=== PATIENT | male | born 1940 | race Caucasian/White ===

== ENCOUNTER 2016-07-06 07:39 | Day surgery (SDC) | payer OTHER, BC ==
[2016-07-03 14:26] VITALS: BMI 41.0
[2016-07-06] MEDS ORDERED: LIDOCAINE HCL/PF 1% SDV 5ML VIAL ONE (09:32)
[2016-07-06] MEDS ORDERED: PROPOFOL 20 ML ONE ×2 (09:32)
[2016-07-06 10:45] VITALS: TEMP 97.6
[2016-07-06 11:30] VITALS: BP 123/64; PULSE 88
--- NOTE | 2016-07-07 12:53 | PATH ---
Surgical Pathology Report Patient Name: TALAT FELDMAN SR [facility]. Rec. #: [id number] /Age/Gender: 1940 (Age: 76) / M Account: [id number] Location: [facility]-ENDOSCOPY Taken: 07/06/2016 Received: 07/06/2016 Reported: 07/07/2016 Physicians: Amy Robbins M.D. Specimen(s) Received A: TRANSVERSE COLON POLYPS B: BX CECAL POLYP C: BX PROXIMAL TRANSVERSE COLON SUSPECTED LIPOMA Clinical History Adenoma surveillance Polyps, diverticulosis, suspected lipoma in proximal transverse colon Final Diagnosis A. COLON, PROXIMAL TRANSVERSE, SNARE POLYPECTOMY: MULTIPLE PORTIONS OF TUBULAR ADENOMA. B. COLON, CECUM, BIOPSY: COLONIC MUCOSA WITH NO PATHOLOGIC CHANGES. NO ACTIVE COLITIS, ARCHITECTURAL DISTORTION, GRANULOMATA, OR DYSPLASIA IDENTIFIED. NO MICROSCOPIC COLITIS IDENTIFIED (NO LYMPHOCYTIC OR COLLAGENOUS COLITIS IDENTIFIED). C. COLON, PROXIMAL TRANSVERSE, BIOPSY: COLONIC MUCOSA WITH BENIGN LYMPHOID AGGREGATE WITHIN LAMINA PROPRIA. NO ADENOMATOUS CHANGES IDENTIFIED. Electronically Signed Mitch Nicole M.D. Gross Description A. Received in formalin, labeled "colon polyp proximal transverse" are 9 hagan, irregular to polypoid portions of soft tissue ranging from 0.2-0.6 cm. in greatest dimension. The specimens are submitted in toto in one cassette. B. Received in formalin, labeled "biopsy cecal polyp" are 5 hagan, irregular portions of soft tissue ranging from 0.1-0.3 cm. in greatest dimension. The specimens are submitted in toto in one cassette. C. Received in formalin, labeled "biopsy proximal transverse" are 2 hagan, irregular portions of soft tissue averaging 0.2 cm. in greatest dimension. The specimens are submitted in toto in one cassette. DL/07/06/2016 saudi/07/06/2016
== END 2016-07-06 11:30 | disposition home or self-care (01) ==
LOC: JASU-ENDO 07:39
PROVIDERS: ATTEND Internal Medicine Gastroenterology
PROC: 0DBK8ZX Excision of Ascending Colon, Via Natural or Artificial Opening Endoscopic, Diagnostic (ICD-10-PCS; 2016-07-06)
PROC: 0DBH8ZX Excision of Cecum, Via Natural or Artificial Opening Endoscopic, Diagnostic (ICD-10-PCS; 2016-07-06)
PROC: 0DBL8ZX Excision of Transverse Colon, Via Natural or Artificial Opening Endoscopic, Diagnostic (ICD-10-PCS; principal; 2016-07-06 09:00)
DX: Z86.010 Personal history of colon polyps (principal); D12.0 Benign neoplasm of cecum; D12.3 Benign neoplasm of transverse colon; K57.30 Diverticulosis of large intestine without perforation or abscess without bleeding; D17.5 Benign lipomatous neoplasm of intra-abdominal organs
CPT/HCPCS: 88305-TC

== ENCOUNTER 2017-03-01 11:39 | Emergency (ER) | payer OTHER, BC ==
[2017-03-01 11:42] VITALS: BMI 38.7
--- NOTE | 2017-03-01 12:03 | PDOC ---
History of Present Illness <Braxton Koo - Last Filed: 03/01/17 14:57> - General History Source: Patient Exam Limitations: No Limitations - History of Present Illness Initial Comments: 03/01/17 12:22 76 y/o M with a PMHx of NIDDM, diverticulosis, colon adenomas, HTN, HLD presents to the ED with constipation for 10 days. Patient tried a suppository from GI but did not work. tried home remedies which also did not work. Patient denies nausea, vomiting, diarrhea, abdominal pain. Denies fever, chills. Denies chest pain, SOB. GI: Dr. Amy Robbins <Dinorah Meraz - Last Filed: 03/01/17 16:17> - General Chief Complaint: Pain Stated Complaint: CONSTIPATION Time Seen by Provider: 03/01/17 12:02 Past History - Past Medical History Anemia: No Asthma: No Cancer: Yes (right eye lid cancer- skin ca, rt kidney cancer) Cardiac Disorders: Yes (PAF?) CVA: No COPD: No CHF: No Dementia: No Diabetes: Yes (NIDDM) GI Disorders: Yes (diverticulosis, colon adenomas) Disorders: No HTN: Yes Hypercholesterolemia: Yes Liver Disease: No Seizures: No Thyroid Disease: No - Surgical History Abdominal Surgery: No Appendectomy: Yes (as a child) Cardiac Surgery: No Cholecystectomy: Yes (LAP) Lung Surgery: No Neurologic Surgery: No Orthopedic Surgery: Yes (LT KNEE) - Suicide/Smoking/Psychosocial Hx Smoking History: Never smoked Have you smoked in the past 12 months: No If you are a former smoker, when did you quit?: 1973 Information on smoking cessation initiated: No Hx Alcohol Use: No Drug/Substance Use Hx: No Substance Use Type: None <Braxton Koo - Last Filed: 03/01/17 14:57> <Dinorah Meraz - Last Filed: 03/01/17 16:17> - Past Medical History Allergies/Adverse Reactions: Allergies Allergy/AdvReac Type Severity Reaction Status Date / Time No Known Drug Allergies Allergy Verified 03/01/17 11:39 Home Medications: Ambulatory Orders Ezetimibe/Simvastatin [Vytorin 10-20 mg Tablet] 1 tab PO HS #0 tablet 09/18/13 Metformin HCl [Glucophage] 500 mg PO HS 11/24/13 Cholecalciferol (Vitamin D3) [Vitamin D3 -] 1,000 unit PO DAILY 07/03/16 Losartan Potassium 25 mg PO HS 07/03/16 Multivitamin with Minerals [Icaps Plus] 1 each PO DAILY 07/03/16 Rivaroxaban [Xarelto -] 20 mg PO HS #0 07/06/16 Polyethylene Glycol 3350 [Miralax (For Bowel Prep) -] 255 gm PO DAILY #1 btl Review of Systems - Review of Systems Able to Perform ROS?: Yes Comments:: 03/01/17 12:22 GENERAL/CONSTITUTIONAL: No fever or chills. No weakness. HEAD, EYES, EARS, NOSE AND THROAT: No change in vision. No ear pain or discharge. No sore throat. CARDIOVASCULAR: No chest pain or shortness of breath. RESPIRATORY: No cough, wheezing, or hemoptysis. GASTROINTESTINAL: No nausea, vomiting, diarrhea or constipation. GENITOURINARY: No dysuria, frequency, or change in urination. MUSCULOSKELETAL: No joint or muscle swelling or pain. No neck or back pain. SKIN: No rash NEUROLOGIC: No headache, vertigo, loss of consciousness, or change in strength/ sensation. ENDOCRINE: No increased thirst. No abnormal weight change. HEMATOLOGIC/LYMPHATIC: No anemia, easy bleeding, or history of blood clots. ALLERGIC/IMMUNOLOGIC: No hives or skin allergy. <Dinorah Meraz - Last Filed: 03/01/17 16:17> *Physical Exam - Vital Signs Last Vital Signs Temp Pulse Resp BP Pulse Ox 98.3 F 88 18 142/93 100 03/01/17 11:40 03/01/17 11:40 03/01/17 11:40 03/01/17 11:40 03/01/17 11:40 <Braxton Koo - Last Filed: 03/01/17 14:57> - Vital Signs Last Vital Signs Temp Pulse Resp BP Pulse Ox 98.3 F 88 18 142/93 100 03/01/17 11:40 03/01/17 11:40 03/01/17 11:40 03/01/17 11:40 03/01/17 11:40 - Physical Exam Comments: 03/01/17 12:22 GENERAL: Awake, alert, and fully oriented, in no acute distress HEAD: No signs of trauma EYES: PERRLA, EOMI, sclera anicteric, conjunctiva clear ENT: Auricles normal inspection, hearing grossly normal, nares patent, oropharynx clear without exudates. Moist mucosa NECK: Normal ROM, supple, no lymphadenopathy, JVD, or masses LUNGS: Breath sounds equal, clear to auscultation bilaterally. No wheezes, and no crackles HEART: Regular rate and rhythm, normal S1 and S2, no murmurs, rubs or gallops ABDOMEN: Soft, nontender, normoactive bowel sounds. No guarding, no rebound. No masses EXTREMITIES: Normal range of motion, no edema. No clubbing or cyanosis. No cords, erythema, or tenderness NEUROLOGICAL: Cranial nerves II through XII grossly intact. Normal speech, normal gait SKIN: Warm, Dry, normal turgor, no rashes or lesions noted. RECTAL: Baseball sized brown stool in vault, no hemorrhoids, no obstruction, no prolapse <Dinorah Meraz - Last Filed: 03/01/17 16:17> ED Treatment Course - RADIOLOGY Radiograph Interpretation: 03/01/17 14:12 Abdominal X-Ray Reported by Dr. Harley Wall Impression: Nonobstructive bowel gas pattern. Paucity of air in the small bowel loops, rule out fluid-filled bowel loops/ ileus. <Dinorah Meraz - Last Filed: 03/01/17 16:17> Medical Decision Making - Medical Decision Making 03/01/17 16:[address] Robbins. He said to give Magnesium Citrate and discharge the patient afterwards. <Dinorah Meraz - Last Filed: 03/01/17 16:17> *DC/Admit/Observation/Transfer - Discharge Dispostion Admit: No - Attestations Physician Attestion: 03/01/17 12:03 I, Dr. Braxton Koo, attest that this document has been prepared under my direction and personally reviewed by me in its entirety. I further attest, that it accurately reflects all work, treatment, procedures and medical decision -making performed by me. <Braxton Koo - Last Filed: 03/01/17 14:57> - Attestations Scribe Attestion: 03/01/17 12:23 Documentation prepared by Dinorah Meraz, acting as medical center director for Braxton Koo DO. <Dinorah Meraz - Last Filed: 03/01/17 16:17> Diagnosis at time of Disposition: Constipation, acute - Discharge Dispostion Condition at time of disposition: Good - Prescriptions Prescriptions: Polyethylene Glycol 3350 [Miralax (For Bowel Prep) -] 255 gm PO DAILY #1 btl - Referrals Referrals: Jose Francisco Nicole MD [Primary Care Provider] - - Patient Instructions Printed Discharge Instructions: DI for Constipation Print Language: PALAUAN
[2017-03-01] MEDS ORDERED: MAGNESIUM CITRATE 300 ML BOTTLE PO ONE ×2 (12:15→15:37)
[2017-03-01] MEDS ORDERED: ONDANSETRON *ODT* 4 MG TABLET SL ONE (12:15)
[2017-03-01] MEDS ORDERED: ONDANSETRON 8 MG TABLET (FP) PO ONE (12:21)
[2017-03-01] MEDS ORDERED: MAGNESIUM CITRATE 300 ML BOTTLE ONE ×2 (12:21→15:46)
[2017-03-01 15:33] VITALS: BP 138/89; PULSE 80; TEMP 97.8
== END 2017-03-01 16:25 | disposition home or self-care (01) ==
LOC: JER 11:39
DX: K59.00 Constipation, unspecified (principal); I10 Essential (primary) hypertension; E11.9 Type 2 diabetes mellitus without complications; Z79.84 Long term (current) use of oral hypoglycemic drugs; E78.00 Pure hypercholesterolemia, unspecified
CPT/HCPCS: 74020-TC; 99282-25

== ENCOUNTER 2017-03-10 08:24 | Day surgery (SDC) | payer OTHER, BC ==
[2017-03-10 09:10] VITALS: BMI 38.7
[2017-03-10] MEDS ORDERED: LIDOCAINE HCL/PF 2% SDV 5ML VIAL ONE (09:27)
[2017-03-10] MEDS ORDERED: PROPOFOL 20 ML ONE (09:27)
[2017-03-10 11:10] VITALS: BP 147/90; PULSE 70; TEMP 99
--- NOTE | 2017-03-11 14:21 | PATH ---
Surgical Pathology Report Patient Name: TALAT FELDMAN [facility]. Rec. #: [id number] /Age/Gender: 1940 (Age: 76) / M Account: [id number] Location: [facility]-ENDOSCOPY Taken: 03/10/2017 Received: 03/10/2017 Reported: 03/11/2017 Physicians: Amy Robbins M.D. Specimen(s) Received A: BX DUODENUM B: BX ANTRUM C: BX GE JUNCTION Clinical History Weight loss, abdominal pain Gastritis Final Diagnosis A. DUODENUM, SECOND PORTION BULB, BIOPSY: DUODENAL MUCOSA WITH FOCAL DANGELO'S GLANDS HYPERPLASIA. NO HISTOLOGIC EVIDENCE OF GLUTEN SENSITIVE ENTEROPATHY (CELIAC DISEASE). B. STOMACH, ANTRUM, BIOPSY: GASTRIC ANTRAL AND OXYNTIC MUCOSA WITH MILD TO MODERATE CHRONIC GASTRITIS. IMMUNOSTAIN FOR H. PYLORI IS NEGATIVE FOR ORGANISMS. C. GE JUNCTION AND MID ESOPHAGUS, BIOPSY: SQUAMOUS EPITHELIUM WITH CHRONIC INFLAMMATION AND REFLUX TYPE CHANGES. NO COLUMNAR EPITHELIUM PRESENT (NO INTESTINAL METAPLASIA/HANSON'S ESOPHAGUS IDENTIFIED). NO EVIDENCE OF EOSINOPHILIC ESOPHAGITIS. Electronically Signed Erik Redding M.D. Gross Description A. Received in formalin, labeled "second portion of duodenum and bulb" are 3 fragment of hagan tissue 0.3 cm in greatest dimension. The specimens are submitted in toto in one cassette. B. Received in formalin, labeled "antrum" is a fragment of hagan tissue measuring 0.3 cm in greatest dimension. The specimen is submitted in toto in one cassette. C. Received in formalin, labeled "GE junction and mid esophagus" are three fragments of hagan-white tissue 0.2-0.3 cm in greatest dimension. The specimens are submitted in toto in one cassette. AF/03/10/2017 final/03/10/2017
== END 2017-03-10 11:09 | disposition home or self-care (01) ==
LOC: JASU-ENDO 08:24
PROVIDERS: ATTEND Internal Medicine Gastroenterology
PROC: 0DB68ZX Excision of Stomach, Via Natural or Artificial Opening Endoscopic, Diagnostic (ICD-10-PCS; 2017-03-10)
PROC: 0DB28ZX Excision of Middle Esophagus, Via Natural or Artificial Opening Endoscopic, Diagnostic (ICD-10-PCS; 2017-03-10)
PROC: 0DB38ZX Excision of Lower Esophagus, Via Natural or Artificial Opening Endoscopic, Diagnostic (ICD-10-PCS; 2017-03-10)
PROC: 0DB98ZX Excision of Duodenum, Via Natural or Artificial Opening Endoscopic, Diagnostic (ICD-10-PCS; principal; 2017-03-10 09:30)
DX: K29.70 Gastritis, unspecified, without bleeding (principal); K44.9 Diaphragmatic hernia without obstruction or gangrene; K21.9 Gastro-esophageal reflux disease without esophagitis
CPT/HCPCS: 88305-TC; 88342-TC

== ENCOUNTER 2017-04-12 08:37 | Emergency (ER) | payer OTHER, BC ==
[2017-04-12 08:42] VITALS: TEMP 98.6; BMI 37.2
[2017-04-12] MEDS ORDERED: SODIUM CHLORIDE 0.9% 1000 ML INFUS.BAG IV ONE (09:38)
--- NOTE | 2017-04-12 10:09 | PDOC ---
Attending Attestation - Resident Resident Name: OrvilleDaisy - ED Attending Attestation I have performed the following: I have examined & evaluated the patient, The case was reviewed & discussed with the resident, I agree w/resident's findings & plan, Exceptions are as noted - HPI HPI: 04/12/17 10:04 76-year-old male with history of hypertension, diabetes, apparent lumbar mass scheduled for biopsy today presents with first for evaluation of left rib pain following fall 2 days ago. Patient was started on opiates for his lumbar pain about 10 days ago, 2 days ago upon awakening felt lightheaded after standing and fell to the ground striking his left ribs. There was no head injury or loss of consciousness, but he has had discomfort localized to the area since then. Worse with positional changes and deep inspiration, no cough or fevers or chills , no shortness of breath or chest pain. No hematuria or abdominal pain, no change in his baseline low back pain. Patient was referred to the emergency department for imaging to rule out fracture prior to his scheduled biopsy at 10 AM. The patient has been NPO since midnight. He has no complaints whatsoever at this time of lightheadedness or chest pain or difficulty breathing. - Physicial Exam PE: 04/12/17 10:07 O2 sat 94% on room air, respiratory rate 20 while seated in chair, blood pressure normal. Agree with exam as outlined Slight rhonchi at left base but no absent breath sounds, chest rise is symmetric , there is pinpoint reproducible tenderness in the lower left floating ribs around 9 and 10 in the axillary line without overlying bruising or swelling, there is no CVA tenderness or abdominal tenderness. - Medical Decision Making 04/12/17 10:09 Patient seen and evaluated with the resident. I agree with the overall evaluation, assessment, and management with the following summary of visit: 76-year-old male with fall 48 hours ago, presumably in the setting of orthostatic symptoms that have since resolved. Positive left rib injury, rule out fracture and/or underlying lung injury. O2 sat is 94% the patient feels asymptomatic. Left rib series and chest x-ray, lumbar spine film added Refusing labs or EKG given lightheadedness with fall. Since this was 48 hours ago and he has since returned to baseline, we'll await chest x-ray findings. The patient is more concerned about getting to his 10am biopsy 10/30/17 12:[address] Oliveros, will defer biopsy until . pt remains comfortable, O2 sat improved on room air. he has been comfortable seated in wheelchair laughing with staff. Feels much better after finding out his scheduled biopsy was temporarily cancelled. isolated 7th rib fracture on xray without underlying lung injury. counseled re: importance of pain control, incentive spirometry, return criteria.
--- NOTE | 2017-04-12 10:16 | PDOC ---
History of Present Illness - General Chief Complaint: Injury Stated Complaint: INJURY Time Seen by Provider: 04/12/17 08:53 History Source: Patient, Family - History of Present Illness Initial Comments: 04/12/17 10:22 Portions of HPI provided by patient's son @ bedside. Patient is a 76 y.o. male with a PMH RCC (s/p R sided nephrectomy), DLD and recently diagnosed spinal mass @ L3-L4 who presents following a fall on Tuesday 04/10. Patient notes he stood up to go from the couch to the kitchen and felt "dizzy" which he described as a sensation of the room spinning patient grabbed onto a nearby roller cart and fell landing on his right side. Patient denies any head trauma or LOC and notes he was ambulatory afterward though he does have pain in R lateral rib cage as well as parapspinal tenderness in the lumbar area. Patient does endorse pleuritic chest pain but denies any mental status changes, difficulty ambulating or decreased range of motion in his back or right side upper extremity. Patient is scheduled for a biopsy later this morning and is seeking a chest x-ray at the request of his radiologist, Dr. Colunga. NKDA Surgical: Cholecystectomy, R nephrectomy, Appendectomy Social: denies cigarettes, denies alcohol, denies recreational drugs PMD: Dr. Nicole Past History - Past Medical History Allergies/Adverse Reactions: Allergies Allergy/AdvReac Type Severity Reaction Status Date / Time No Known Drug Allergies Allergy Verified 04/12/17 08:39 Home Medications: Ambulatory Orders Ezetimibe/Simvastatin [Vytorin 10-20 mg Tablet] 1 tab PO HS #0 tablet 09/18/13 Metformin HCl [Glucophage] 500 mg PO HS 11/24/13 Cholecalciferol (Vitamin D3) [Vitamin D3 -] 1,000 unit PO DAILY 07/03/16 Multivitamin with Minerals [Icaps Plus] 1 each PO DAILY 07/03/16 Rivaroxaban [Xarelto -] 20 mg PO HS #0 07/06/16 Pantoprazole Sodium 40 mg PO DAILY #90 tablet. 03/10/17 Metoprolol Succinate [Toprol XL -] 50 mg PO ASDIR 04/08/17 Oxycodone HCl 1 tab PO PRN PRN 04/08/17 Polyethylene Glycol 3350 [Miralax 119 gm Btl -] 119 gm PO ASDIR 04/08/17 Unobtainable 04/12/17 Anemia: No Asthma: No Cancer: Yes (right eye lid cancer- skin ca, rt kidney cancer) Cardiac Disorders: Yes (PAF?) CVA: No COPD: No CHF: No Dementia: No Diabetes: Yes (NIDDM) GI Disorders: Yes (diverticulosis, colon adenomas) Disorders: No HTN: Yes Hypercholesterolemia: Yes Liver Disease: No Seizures: No Thyroid Disease: No - Surgical History Abdominal Surgery: No Appendectomy: Yes (as a child) Cardiac Surgery: No Cholecystectomy: Yes (LAP) Lung Surgery: No Neurologic Surgery: No Orthopedic Surgery: Yes (LT KNEE) - Suicide/Smoking/Psychosocial Hx Smoking History: Never smoked Have you smoked in the past 12 months: No If you are a former smoker, when did you quit?: 1973 Information on smoking cessation initiated: No Hx Alcohol Use: No Drug/Substance Use Hx: No Substance Use Type: None Review of Systems - Review of Systems Constitutional: No: Chills, Fever Respiratory: No: Cough, Orthopnea Cardiac (ROS): No: Chest Pain Musculoskeletal: Yes: Back Pain *Physical Exam - Vital Signs Last Vital Signs Temp Pulse Resp BP Pulse Ox 98.6 F 73 28 H 189/93 94 L 04/12/17 08:39 04/12/17 08:39 04/12/17 08:39 04/12/17 08:39 04/12/17 08:39 - Physical Exam General Appearance: Yes: Nourished, Appropriately Dressed Neck: positive: Trachea midline, Supple Cardiovascular: positive: S1, S2 Musculoskeletal: positive: Normal Inspection, Other (Paraspinal TTP in lumbar area and L lateral inferior ribs). negative: CVA Tenderness (R), CVA Tenderness (L) Extremity: positive: Normal Capillary Refill, Normal Inspection Integumentary: positive: Normal Color, Dry, Warm Neurologic: positive: Fully Oriented, Alert ED Treatment Course - RADIOLOGY Radiology Studies Ordered: Category Date Time Status SPINE-LUMBAR ONLY [RAD] Stat Radiology 04/12/17 09:26 Ordered - Medications Given in the ED: ED Medications Discontinued Medications Generic Name Dose Route Start Last Admin Trade Name Freq PRN Reason Stop Dose Admin Sodium Chloride 500 ml 04/12/17 09:38 04/12/17 09:53 Normal Saline - IV 04/12/17 09:39 Not Given ONCE ONE Medical Decision Making - Medical Decision Making 04/12/17 11:19 Patient is a 76 y.o. male who presents following a fall @ home > 48 hour previous and is c/o L rib and paraspinal pain in the lumbar area (patient has previously diagnosed mass @ L3-L4). On PE patient has significant L inferior lateral rib cage as well paraspinal lumbar tenderness. Initial DDx is for rib fracture (high clinical suspicion) vs. pulmonary contusion (low clinical suspicion) vs. pneumothorax (low clinical suspicion) PLAN: 1. Rib Series XR 2. Lumbar XR 04/12/17 13:05 Rib series shows possible non-displaced fracture of lateral arch of 7th rib. Lumbar XR shows no acute fracture or dislocation. Patient's O2 sats improved from admission (95% on RA). Patient counseled extensively on return precautions as well as counseled on incentive spirometer use and discharged home. *DC/Admit/Observation/Transfer Diagnosis at time of Disposition: Contusion of rib on left side - Discharge Dispostion Disposition: HOME Condition at time of disposition: Good Admit: No - Referrals Referrals: Jose Francisco Nicole MD [Primary Care Provider] - - Patient Instructions Printed Discharge Instructions: DI for Rib Fracture Additional Instructions: Please use your incentive spirometer 10x hourly. Please return to the Emergency Department should you develop a fever, cough, coughing up blood, chills or any worsening or concerning symptoms.
[2017-04-12] MEDS ORDERED: traMADol HCL 50 MG TABLET PO ONE (12:04)
[2017-04-12] MEDS ORDERED: traMADol HCL 50 MG TABLET ONE (12:19)
[2017-04-12 12:28] VITALS: BP 155/70; PULSE 71
== END 2017-04-12 13:05 | disposition home or self-care (01) ==
LOC: JER 08:37
DX: S20.212A Contusion of left front wall of thorax, initial encounter (principal); W07.XXXA Fall from chair, initial encounter; Y93.89 Activity, other specified; Y92.038 Other place in apartment as the place of occurrence of the external cause; I10 Essential (primary) hypertension; E11.9 Type 2 diabetes mellitus without complications; Z79.84 Long term (current) use of oral hypoglycemic drugs; E78.00 Pure hypercholesterolemia, unspecified; Z87.19 Personal history of other diseases of the digestive system; Z85.828 Personal history of other malignant neoplasm of skin; Z90.49 Acquired absence of other specified parts of digestive tract; Z90.5 Acquired absence of kidney
CPT/HCPCS: 71101-TC; 72100-TC; 99282-25

== ENCOUNTER 2017-05-28 12:24 | Inpatient (IN) | payer OTHER, BC ==
--- NOTE | 2017-05-28 12:49 | PDOC ---
History of Present Illness - General Chief Complaint: Weakness Stated Complaint: WEAKNESS Time Seen by Provider: 05/28/17 12:34 History Source: Patient - History of Present Illness Initial Comments: 05/28/17 12:56 Patient is a 76 y.o. male with a PMH of RCC (s/p L renal resection) with spinal metases as well as AFib (Riboxaran) and NIDDM who presents to our ED today following an incident in which he was unable to lift himself off the toilet. Patient denies any fall, head trauma or LOC. Patient notes feeling weak for the past month which he associates with the onset of his radiation treatments in April 2017. Patient notes intermittent palpitations on exertion but denies any chest pain, shortness of breath, recent fevers/chills. Patient has been ambulatory, however c/o of significant B/L LE weakness. NKDA PMD: Dr. Nicole Surgical: renal resection Past History - Past Medical History Allergies/Adverse Reactions: Allergies Allergy/AdvReac Type Severity Reaction Status Date / Time No Known Drug Allergies Allergy Verified 05/28/17 13:32 Home Medications: Ambulatory Orders Ezetimibe/Simvastatin [Vytorin 10-20 mg Tablet] 1 tab PO HS #0 tablet 09/18/13 Metformin HCl [Glucophage] 500 mg PO HS 11/24/13 Cholecalciferol (Vitamin D3) [Vitamin D3 -] 1,000 unit PO DAILY 07/03/16 Multivitamin with Minerals [Icaps Plus] 1 each PO DAILY 07/03/16 Rivaroxaban [Xarelto -] 20 mg PO HS #0 07/06/16 Pantoprazole Sodium 40 mg PO DAILY #90 tablet. 03/10/17 Metoprolol Succinate [Toprol XL -] 50 mg PO ASDIR 04/08/17 Oxycodone HCl 1 tab PO PRN PRN 04/08/17 Acetaminophen [Tylenol .Regular Strength -] 650 mg PO Q4H PRN #0 tablet Dexamethasone [Decadron -] 4 mg PO Q6HPO #30 tablet 04/18/17 Docusate Sodium [Colace -] 100 mg PO TID #100 cap 04/18/17 Polyethylene Glycol 3350 [Miralax 119 gm Btl -] 17 gm PO BID bottle 04/18/17 Anemia: No Asthma: No Cancer: Yes (right eye lid cancer- skin ca, rt kidney cancer) Cardiac Disorders: Yes (PAF?) CVA: No COPD: No CHF: No Dementia: No Diabetes: Yes (NIDDM) GI Disorders: Yes (diverticulosis, colon adenomas) Disorders: No HTN: Yes Hypercholesterolemia: Yes Liver Disease: No Seizures: No Thyroid Disease: No - Surgical History Abdominal Surgery: No Appendectomy: Yes (as a child) Cardiac Surgery: No Cholecystectomy: Yes (LAP) Lung Surgery: No Neurologic Surgery: No Orthopedic Surgery: Yes (LT KNEE) - Suicide/Smoking/Psychosocial Hx Smoking History: Former smoker Have you smoked in the past 12 months: No If you are a former smoker, when did you quit?: 1974 Hx Alcohol Use: No Drug/Substance Use Hx: No Substance Use Type: None Review of Systems - Review of Systems Constitutional: Yes: Weakness. No: Chills, Fever Respiratory: No: Shortness of Breath Cardiac (ROS): No: Chest Pain ABD/GI: No: Constipated, Diarrhea, Nausea, Vomiting *Physical Exam - Physical Exam General Appearance: Yes: Nourished, Obese Respiratory/Chest: positive: Lungs Clear. negative: Labored Respiration, Rapid RR Cardiovascular: positive: S1, S2. negative: Edema, JVD Vascular Pulses: Dorsalis-Pedis (R): 2+, Doralis-Pedis (L): 2+ Gastrointestinal/Abdominal: positive: Normal Bowel Sounds, Soft Musculoskeletal: negative: CVA Tenderness (R), CVA Tenderness (L), Vertebral Tenderness Extremity: positive: Normal Capillary Refill, Normal Inspection, Coldness (B/L LE weakness 2+ pulses), Other (B/L LE weakness, motor strength 4/5) Integumentary: positive: Normal Color, Dry, Warm Neurologic: positive: Fully Oriented, Alert ED Treatment Course - LABORATORY CBC & Chemistry Diagram: 05/28/17 13:30 05/28/17 13:30 Medical Decision Making - Medical Decision Making 05/28/17 14:51 Patient is a 76 y.o. male who presents with B/L LE weakness. On PE patient is hemodynamically stable, denies bowel or bladder incontinence and is ambulatory and weight bearing. Initial clinical suspicion for electrolyte abnormality 2/2 to decreased PO intake 2/2 to radiation treatment vs. persisent spinal mass 2/2 to recent spinal mets PLAN: 1. CBC, CMP 2. EKG Reasess 05/28/17 15:11 Patient continues to c/o pain. As per EMR, patient has h/o outside CT Scan that showed T4 R vertebral mass with pedicle involvement and canal encroachment , but no significant cord compression 05/28/17 16:01 Case d/w Dr. Flores, notes MRI machine @ [facility] cannot accommodate patient's body weight. Spoke with [facility] neurosurgery suggest CT spine and intervention prior to MRI. Thoracic CT pending. 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 Paged patient's neurosurgeon, Dr. Flores - indicates patient needs operative intervention. Patient given Ativan @ MRI. Will page Dr. Ashley for admission. 05/28/17 23:09 As per nursing staff from radiology- patient has T3/T4 compression. Corey/ Gabi paged for admission x3. 05/28/17 23:28 Patient to be admitted to hospitalist service under Dr. Jennings. *DC/Admit/Observation/Transfer Diagnosis at time of Disposition: Spinal cord compression - Discharge Dispostion Condition at time of disposition: Fair Admit: Yes - Referrals Referrals: Jose Francisco Nicole MD [Primary Care Provider] - - Patient Instructions - Post Discharge Activity
--- NOTE | 2017-05-28 13:08 | PDOC ---
Attending Attestation - Resident Resident Name: Daisy Jacinto - ED Attending Attestation I have performed the following: I have examined & evaluated the patient, The case was reviewed & discussed with the resident, I agree w/resident's findings & plan, Exceptions are as noted - HPI HPI: 05/28/17 13:06 76y M hx of hx of RCC (s/p L renal resection), spinal mets, afib (on riboaxaran) , niddm, presents with complaint of weakness. The pt was admitted to the hospital recently with enlarging mass in his back, is currently undergoing radiation therapy, notes that he has been feeling increasing weakness of his LE , with more difficulty walking (over 3 weeks) - today, he notes he was unable to stand up when he was seated on the toilet. there was no fall or other injury. Pt denies any numbness, tingling, urinary or bowel incontinence, pt notes he does have pain in his back. Denies any fever/chills, sob, cp. on exam the pt is in no acute distress mild tenderness on posterior spine mild weakness of le (4/5) bilaterally sensatio nintact in LE/pelvis concern for possibly worsening of his mass pt is too large for our MRI per neurosurg (who is familiar with him) reqeuests transfer to [facility] for further evaluation - Physicial Exam PE: 05/31/17 18:59 see above - Medical Decision Making 05/31/17 18:59 see above Heart Score/ECG Review - ECG Impressions Comment:: 05/28/17 16:32 Atrial bluter rate of 45 variable av block
[2017-05-28 14:29] LABS: MCH 29.6 pg (25.7-33.7); MCHC 33.3 g/dl (32.0-35.9); MEAN PLT VOLUME 7.7 fl (7.5-11.1); PLATELET COUNT 118 K/MM3 (134-434); RDW 15.4 % (11.9-15.9)
[2017-05-28 14:49] LABS: ALBUMIN 2.9 g/dl (3.4-5.0); ALK PHOS 121 U/L (45-117); ANION GAP 11 (8-16); BILIRUBIN,TOTAL 0.8 mg/dL (0.2-1.0); CALCIUM 8.8 mg/dL (8.5-10.1); CO2 27 mmol/L (21-32); CREATININE 0.9 mg/dL (0.7-1.3); GLUCOSE,RANDOM 165 mg/dL (74-106); SGOT/AST 35 U/L (15-37); SGPT/ALT 58 U/L (12-78); TOT PROT 5.8 g/dl (6.4-8.2)
[2017-05-28 15:02] LABS: INR 1.5 (0.82-1.09); PROTHROMBIN TIME (PATIENT) 16.9 SEC (9.98-11.88)
[2017-05-28 15:05] LABS: ACTIVATED PTT 31.5 SECONDS (26.9-34.4)
[2017-05-28 18:21] LABS: TOTAL CELLS COUNTED 100
[2017-05-28 18:22] LABS: REACTIVE LYMPHOCYTES 6 % (0-80)
[2017-05-28 18:29] LABS: PLATELET ESTIMATE SLT DECREASE
[2017-05-28 18:44] LABS: URINE APPEARANCE CLEAR; URINE BILIRUBIN NEGATIVE (NEGATIVE); URINE BLOOD NEGATIVE (NEGATIVE); URINE COLOR YELLOW; URINE GLUCOSE (UA) NEGATIVE (NEGATIVE); URINE KETONE NEGATIVE (NEGATIVE); URINE LEUK ESTERASE NEGATIVE (NEGATIVE); URINE NITRITE NEGATIVE (NEGATIVE); URINE PROTEIN NEGATIVE (NEGATIVE); URINE UROBILINOGEN 4.0 E.U/dl mg/dL (0.2-1.0)
[2017-05-28 19:44] LABS: URINE LEUK ESTERASE Negative (NEGATIVE)
[2017-05-28] MEDS ORDERED: LORazepam 2 MG/ML SDV VIAL ONE (22:00)
[2017-05-29] MEDS ORDERED: HEPARIN NA (PORCINE) 5,000 UNITS/ML 1ML VIAL IVPUSH PRN ×5 (00:22→01:59)
[2017-05-29] MEDS ORDERED: ACETAMINOPHEN 325 MG TABLET (FP) PO PRN ×3 (00:24→01:59)
[2017-05-29] MEDS ORDERED: oxyCODONE HCL 5 MG TABLET PO PRN (00:24)
[2017-05-29] MEDS ORDERED: HEPARIN SOD,PORK IN 0.45% NACL 25,000 UNITS/500 ML INFUS.BAG IVPB SCH ×2 (00:30→00:45)
--- NOTE | 2017-05-29 00:47 | HP ---
CHIEF COMPLAINT: B/L LE weakness PCP: Corey HISTORY OF PRESENT ILLNESS: This is a 76 year old male with a past medical history of renal cell CA with spinal mets who presented to the ED with progressive lower extremity weakness x one month. He reports that it has progressed to the point where he no longer can arise from a seated position on his own. He has fallen 2 times in the past month, most recently 2 weeks ago when attempting to arise from a seated position on the toilet; the fire department was called and he was given a lift assist but not transported to the ED. He also reports 2 episodes of fecal incontinence today which is new for him. 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 L kidney resection 2013 knee arthroscopy appendectomy age 8 Social History: Smoking: no current use, quit 1973, former 2ppd x 20 years Alcohol: no current use Drugs: no current use Family History: mother cervical CA son w/ heart disease Allergies No Known Drug Allergies Allergy (Verified 05/28/17 13:32) HOME MEDICATIONS: 3 Medication Instructions Recorded Ezetimibe/Simvastatin [Vytorin 1 tab PO HS #0 tablet 09/18/13 10-20 mg Tablet] Metformin HCl [Glucophage] 500 mg PO HS 11/24/13 Cholecalciferol (Vitamin D3) 1,000 unit PO DAILY 07/03/16 [Vitamin D3 -] Multivitamin with Minerals [Icaps 1 each PO DAILY 07/03/16 Plus] Rivaroxaban [Xarelto -] 20 mg PO HS #0 07/06/16 Pantoprazole Sodium 40 mg PO DAILY #90 tablet. 03/10/17 Metoprolol Succinate [Toprol XL -] 50 mg PO ASDIR 04/08/17 Oxycodone HCl 1 tab PO PRN PRN 04/08/17 Acetaminophen [Tylenol .Regular 650 mg PO Q4H PRN #0 tablet 04/18/17 Strength -] Dexamethasone [Decadron -] 4 mg PO Q6HPO #30 tablet 04/18/17 Docusate Sodium [Colace -] 100 mg PO TID #100 cap 04/18/17 Polyethylene Glycol 3350 [Miralax 17 gm PO BID bottle 04/18/17 119 gm Btl -] REVIEW OF SYSTEMS CONSTITUTIONAL: Absent: fever, chills, diaphoresis, generalized weakness, malaise, loss of appetite, weight change HEENT: Absent: rhinorrhea, nasal congestion, throat pain, throat swelling, difficulty swallowing, mouth swelling, ear pain, eye pain, visual changes CARDIOVASCULAR: Absent: chest pain, syncope, palpitations, irregular heart rate, lightheadedness , peripheral edema RESPIRATORY: Absent: cough, shortness of breath, dyspnea with exertion, orthopnea, wheezing, stridor, hemoptysis GASTROINTESTINAL: Absent: abdominal pain, abdominal distension, nausea, vomiting, diarrhea, constipation, melena, hematochezia GENITOURINARY: Absent: dysuria, frequency, urgency, hesitancy, hematuria, flank pain, genital pain MUSCULOSKELETAL: Absent: myalgia, arthralgia, joint swelling, back pain, neck pain SKIN: Absent: rash, itching, pallor HEMATOLOGIC/IMMUNOLOGIC: Absent: easy bleeding, easy bruising, lymphadenopathy, frequent infections ENDOCRINE: Absent: unexplained weight gain, unexplained weight loss, heat intolerance, cold intolerance NEUROLOGIC: Present: B/L LE weakness, bowel incontinence Absent: headache, focal weakness or paresthesias, dizziness, unsteady gait, seizure, mental status changes, bladder incontinence PSYCHIATRIC: Absent: anxiety, depression, suicidal or homicidal ideation, hallucinations. PHYSICAL EXAMINATION Vital Signs - 24 hr 3 05/28/17 05/28/17 12:24 22:16 Temperature 98.3 F 97.1 F L Pulse Rate 75 Pulse Rate [ 56 L Right Radial] Respiratory 18 18 Rate Blood Pressure 104/50 Blood Pressure 130/59 [Right Arm] O2 Sat by Pulse 100 96 Oximetry (%) GENERAL: Awake, alert, and fully oriented, in no acute distress. HEAD: Normal with no signs of trauma. EYES: Pupils equal, round and reactive to light, extraocular movements intact, sclera anicteric, conjunctiva clear. No lid lag. EARS, NOSE, THROAT: Ears normal, nares patent, oropharynx clear without exudates. Moist mucous membranes. NECK: Normal range of motion, supple without lymphadenopathy, JVD, or masses. LUNGS: Breath sounds equal, clear to auscultation bilaterally. No wheezes, and no crackles. No accessory muscle use. HEART: Regular rate and rhythm, normal S1 and S2 1/6 systolic murmur, rub or gallop. ABDOMEN: Soft, nontender, not distended, normoactive bowel sounds, no guarding, no rebound, no masses. No hepatomegaly or splenomegaly. rectal tone fair MUSCULOSKELETAL: Normal range of motion at all joints. No bony deformities or tenderness. No CVA tenderness. UPPER EXTREMITIES: 2+ pulses, warm, well-perfused. No cyanosis. No clubbing. No peripheral edema. LOWER EXTREMITIES: 2+ pulses, warm, well-perfused. No calf tenderness. 1+ peripheral edema L, trace R. NEUROLOGICAL: Cranial nerves II-XII intact. Normal speech. Unsteady gait. difficulty arising from chair noted PSYCHIATRIC: Cooperative. Good eye contact. Appropriate mood and affect. SKIN: Warm, dry, normal turgor, no rashes or lesions noted, normal capillary refill. Laboratory Results - last 24 hr 3 05/28/17 05/28/17 05/28/17 13:30 13:30 13:30 WBC 10.0 RBC 5.02 Hgb 14.9 Hct 44.7 MCV 89.0 MCH 29.6 MCHC 33.3 RDW 15.4 Plt Count 118 L D MPV 7.7 D Total Counted 100 Neutrophils % No Result Required. Neutrophils % (Manual) 82.0 Band Neutrophils % 5.0 Lymphocytes % No Result Required. Lymphocytes % (Manual) 2.0 L Monocytes % (Manual) 5 Platelet Estimate Slt decrease Platelet Comment PT with INR 16.90 H INR 1.50 H PTT (Actin FS) 31.5 Sodium 137 Potassium 4.4 Chloride 99 Carbon Dioxide 27 Anion Gap 11 BUN 27 H Creatinine 0.9 Creat Clearance w eGFR > 60 Random Glucose 165 H Calcium 8.8 Total Bilirubin 0.8 D AST 35 D ALT 58 D Alkaline Phosphatase 121 H D Total Protein 5.8 L Albumin 2.9 L Urine Color Urine Appearance Urine pH Ur Specific Orr Urine Protein Urine Glucose (UA) Urine Ketones Urine Blood Urine Nitrite Urine Bilirubin Urine Urobilinogen Ur Leukocyte Esterase 3 Urine Color Yellow 05/28/17 18:34 Urine Appearance Clear 05/28/17 18:34 Urine pH 5.0 (5.0-8.0) 05/28/17 18:34 Ur Specific Orr 1.023 (1.001-1.035) 05/28/17 18:34 Urine Protein Negative (NEGATIVE) 05/28/17 18:34 Urine Glucose (UA) Negative (NEGATIVE) 05/28/17 18:34 Urine Ketones Negative (NEGATIVE) 05/28/17 18:34 Urine Blood Negative (NEGATIVE) 05/28/17 18:34 Urine Nitrite Negative (NEGATIVE) 05/28/17 18:34 Urine Bilirubin Negative (NEGATIVE) 05/28/17 18:34 Ur Leukocyte Esterase Negative (NEGATIVE) 05/28/17 18:34 Radiology Reports MRI/THORACIC SPINE MRI W/O CONTR Findings: There is multilevel multifocal osseous metastatic disease, including the following: Metastatic lesions are seen in the T3 vertebral body and T4 vertebral bodies extending into the right pedicles and right-sided posterior elements at these levels. There is anterior and right- sided epidural extension of tumor at these levels, with associated cord compression at the T3-4 level. There is no associated cord edema or myelomalacia. The right lateral epidural and paraspinal extension of tumor results in severe stenosis of the right T3-4 and T4-5 foramina with impingement of the exiting T3 and T4 nerve roots. There is a metastatic focus in the right anterior aspect of the T5 vertebral body. Metastatic disease is seen anteriorly at the T7 and T8 levels. No significant epidural extension of tumor seen. There is mild anterior paraspinal extension of tumor. A metastatic deposit is seen in the central and posterior aspect of the T11 vertebral body, without associated epidural or paraspinal extension. There is preservation of the normal thoracic kyphosis. Prominent fat is seen in throughout the posterior epidural space, compatible with lipomatosis. At T7-8, there is mild disc bulging and prominent epidural fat with resultant moderate central canal stenosis. Limited evaluation of the visualized neck, chest, and upper abdomen is unremarkable. Impression: Multilevel multifocal osseous metastatic disease, most pronounced at the T3 and T4 levels. Evidence of cord compression at the T3-4 level. No underlying cord edema or myelomalacia appreciated. Severe right-sided foraminal stenosis at the T3-4 and T4-5 level secondary to epidural extension of tumor, with impingement of the exiting right T3 and T4 nerve roots. Findings discussed with Sharlene, nurse for the patient, on 05/28/2017 at 11:05 PM. Reported By: Maciej Browning MD 05/28/17 [id number] EXAM: CT thoracic spine without contrast THIS IS A PRELIMINARY REPORT FROM [facility]AG[facility]INE[facility] HISTORY: Rule out mass COMPARISON: None. FINDINGS: 1. Visualization of detail is somewhat limited by artifact created by large body habitus. 2. There are numerous lytic lesions within the thoracic spine most consistent with the appearance of bony metastases. 3. There is evidence of extension of tumor into the thoracic canal at the T3 and T4 levels. There is near complete effacement of the contents of the thoracic canal at the upper level of T4. There is a large area of paraspinous soft tissue/tumor on the right at the T3, T4 and T5 levels. 4. Surgical clips are demonstrated in the visualized portion of the right retroperitoneum. The finding of lytic lesions at T3 and T4 with extension of tumor into the thoracic canal at these levels was discussed with Dr. Jacinto at 8:52 PM May 28, 2017. THIS DOCUMENT HAS BEEN ELECTRONICALLY SIGNED Shell Morrison MD 05/28/2017 20:53 EST ECG aflutter vent rate 45, QTC 365 ASSESSMENT/PLAN: 76yM with PMH renal cell CA with mets to the spine, afib on xarelto, NIDDM/ metabolic syndrome, HTN/HLD, diverticulosis, colon adenoma, R eyelid skin CA presented to the ED with progressive B/L LE weakness x 1 month and difficulty arising from seated position over past 2 weeks. Renal CA with spinal mets and cord compression - ED d/w neurosurgery, Dr. Flores, feels that pt will need surgery and will see pt in am - Pt currently on methylprednisolone taper, down to 4mg daily, TC placed to neurosurgeon for potential dose adjustment, awaiting call back - will dc xarelto for probable surgical intervention - cont home pain meds, tylenol and oxycodone Afib - xarelto DC, will start heparin drip - cardiology consult for surgical clearance - rate low on ECG, will cut home toprol dose in half and add hold parameters HTN - bp stable, cont home meds HLD - home meds likely to be changed to formulary lipitor DVT PPX - on heparin drip FEN - defer IVF, tolerating po - BMP in am - low sodium/diabetic diet as tolerated Dispo: Pt currently requires inpatient management of his emergent condition. Visit type - Emergency Visit Emergency Visit: Yes ED Registration Date: 05/28/17 Care time: The patient presented to the Emergency Department on the above date and was hospitalized for further evaluation of their emergent condition. - New Patient This patient is new to me today: Yes Date on this admission: 05/28/17 - Critical Care Critical Care patient: No
[2017-05-29 03:08] VITALS: BMI 35.2
[2017-05-29] MEDS: HEPARIN SOD,PORK IN 0.45% NACL 25,000 UNITS/500 ML INFUS.BAG IVPB SCH (03:21)
[2017-05-29] MEDS: DOCUSATE SODIUM 100 MG CAPSULE (FP) PO SCH ×4 (05:50→21:25)
[2017-05-29] MEDS ORDERED: DOCUSATE SODIUM 100 MG CAPSULE (FP) PO SCH ×2 (06:00)
[2017-05-29] MEDS: INSULIN SLIDING SCALE (NOVOLOG) 1 VIAL SQ SCH ×4 (06:13→21:41)
[2017-05-29] MEDS ORDERED: INSULIN SLIDING SCALE (NOVOLOG) 1 VIAL SQ SCH ×2 (07:00)
--- NOTE | 2017-05-29 08:25 | PN ---
Progress Note (short form) - Note Progress Note: NEUROSURGERY Pt seen initially two months ago for intractable back pain and review of his prior chest CT which revealed R T3/4 lytic mass and multiple levels of other T spine involvement. Open T spine MRI in mid/late March found large R retropleural and vertebral mass involving R T4 body and pedicle with some epidural extension, as well as multiple other mets. Bx showed renal cell CA met. H/o Afib, DM, HTN, peripheral neuropathy, nephrectomy for renal cell CA; S /p RT to T 3-4 which completed 2 weeks ago. Came to ED because of inability to get up from toilet; Had fallen again previously. Pt apparently had lost some hendricks and was able to tolerate MRI with sedation subsequently despite claustrophobia. PE: AF, VSS General- obese HEENT- NC/AT; Neck- supple; Cor- RRR; Lungs- CTA; Abd- obese, benign; Ext- 1+ edema B LE CN- intact; Motor- 4+/5 B LE; Sensation- no sensory level, decreased B distal LE vibration; DTR- hyporeflexia B LE; Gait- able to get up and walked with walker to bathroom Back- mild tenderness mid-lower T spine CT T spine: multiple thoracic spine lytic lesions with R T3-4 pedicle involvement and canal compromise; T5, T7, T8 mets MRI T spine preliminary (noncontrast as pt only has one kidney)- T4 R vertebral mass with pedicle involvement and canal encroachment with cord displacement to the L , R T5 and T7-8 anterior vertebral mets Extensive renal cell met to T spine with R sided canal compromise at T3-4 laterally Surgery not a cure given extensive metastatic disease is extensive though may decompress the cord at T3-4 with R T3-4 laminecetomies, tumor debulking with intra-op spinal cord monitoring (SSEP, MEP) High risks given cord impingement, steroid use, recent RT, obesity, Afib (and would need to be off AC for days) Risks: bleeding (itzel vascular renal cell CA and pt is obese in prone position), infection (DM, RT), paralysis, DVT/PE/ND/stroke (given potential immobility and Afib off AC for extended period of time) Further worsening despite prior RT a real possibility without intervention Pros and cons of treatment approaches d/w patient, though there is no easy answer here As patient is on Decadron 4 mg daily and higher steroid could increase surgical infection rate would keep at current dosage for now If pt opts for only palliative tx could increase steroid to 4 mg QID Pt will d/w family and make a decision If he opts for surgery would T & X 4 U PRBC, 4 U FFP and one monodonor platelet for potential OR use All questions answered
[2017-05-29 08:33] LABS: MCH 29.7 pg (25.7-33.7); MCHC 33.2 g/dl (32.0-35.9); MEAN CELL VOLUME 89.4 fl (80-96); PLATELET COUNT 108 K/MM3 (134-434); RDW 15.4 % (11.9-15.9); WHITE BLOOD COUNT 7.6 K/mm3 (4.0-10.0)
[2017-05-29 09:09] LABS: ANION GAP 12 (8-16); CALCIUM 8.4 mg/dL (8.5-10.1); CO2 26 mmol/L (21-32); CREATININE 0.9 mg/dL (0.7-1.3); GLUCOSE,RANDOM 89 mg/dL (74-106); MAGNESIUM 1.9 mg/dL (1.8-2.4); PHOSPHOROUS 2.9 mg/dL (2.5-4.9)
[2017-05-29] MEDS ORDERED: PT OWN MED DRAWER 7, Y5N ONE (09:45)
[2017-05-29] MEDS: MULTIVITAMINS THER W-MINERALS COMBO TABLET (FP) PO SCH (09:49)
[2017-05-29] MEDS: PANTOPRAZOLE 40 MG TABLET (FP) PO SCH (09:49)
[2017-05-29] MEDS: DEXAMETHASONE 4 MG TABLET (FP) PO SCH (09:49)
[2017-05-29] MEDS: CHOLECALCIFEROL (VITAMIN D3) 1,000 UNIT TABLET (FP) PO SCH (09:49)
[2017-05-29] MEDS: METOPROLOL SUCCINATE 25 MG TAB.SR.24H (FP) PO SCH (09:49)
[2017-05-29] MEDS: POLYETHYLENE GLYCOL 3350 119 GM BTL PO SCH ×2 (09:54→21:25)
[2017-05-29] MEDS ORDERED: METOPROLOL SUCCINATE 50 MG TAB.SR.24H (FP) PO SCH ×3 (10:00)
[2017-05-29] MEDS ORDERED: PATIENT'S OWN MEDICATION (NON-FORMULARY) (Multivitamin With Minerals [Icaps Plus] 1 EACH) PO SCH ×2 (10:00)
[2017-05-29] MEDS ORDERED: PANTOPRAZOLE 40 MG TABLET (FP) PO SCH ×2 (10:00)
[2017-05-29] MEDS ORDERED: POLYETHYLENE GLYCOL 3350 119 GM BTL PO SCH ×2 (10:00)
[2017-05-29] MEDS ORDERED: CHOLECALCIFEROL (VITAMIN D3) 1,000 UNIT TABLET (FP) PO SCH ×2 (10:00)
[2017-05-29 10:21] LABS: METAMYELOCYTE 2 % (0-2); PLATELET ESTIMATE DECREASED; TOTAL CELLS COUNTED 100
--- NOTE | 2017-05-29 11:26 | CONSULT ---
Consult Consult Specialty:: Medicine Reason for Consultation:: Afib - History of Present Illness Chief Complaint: Weakness History of Present Illness: 77 yo male Known to Dr. Bennett Known HTN and hyperlipidemia Admitted with falls and weakness. He has a history of renal cell carcinoma s/p resection and has a history of chronic back pain. Now admitted with progressive lower extremity weakness x one month, due to weakness patient has difficulty in getting up from bed had 2 falls last was 2 wks ago, yesterday reports [address] of [address] with lytic lesions at T3-T4 levels with extension of the tumor into the thoracic canal, MRI with cord compression at T3-T4 levels. Neurosurgery consulted and patient unsure if he wants to undergo surgery Aside from the back pain he is without complaint. He denies fevers, chills, lightheadedness, vertigo, syncope, chest pain or pressure, shortness of breath, ECG with AFlutter with slow VR - History Source History Provided By: Patient Limitations to Obtaining History: No Limitations - Past Medical History Cardio/Vascular: Yes: AFIB, HTN, Hyperlipdemia. No: CAD, CHF Pulmonary: Yes: COPD (at risk w smoking Hx of 2PPD for 20yrs.) Gastrointestinal: Yes: Diverticulosis Renal/: Yes: Renal Calculi (Hx of) Musculoskeletal: Yes: Osteoarthritis Endocrine: Yes: Diabetes Mellitus, Other (Dysmetabolic syndrome, Morbid obesity) - Past Surgical History Past Surgical History: Yes: Appendectomy (as a child), Arthrosocopy (knee), Cholecystectomy - Alcohol/Substance Use Hx Alcohol Use: No History of Substance Use: reports: None - Smoking History Smoking history: Former smoker Have you smoked in the past 12 months: No If you are a former smoker, when did you quit?: 1973 - Social History ADL: Independent History of Recent Travel: No Home Medications - Allergies Allergies/Adverse Reactions: Allergies Allergy/AdvReac Type Severity Reaction Status Date / Time No Known Drug Allergies Allergy Verified 05/28/17 13:32 - Home Medications Home Medications: Ambulatory Orders Ezetimibe/Simvastatin [Vytorin 10-20 mg Tablet] 1 tab PO HS #0 tablet 09/18/13 Metformin HCl [Glucophage] 500 mg PO HS 11/24/13 Cholecalciferol (Vitamin D3) [Vitamin D3 -] 1,000 unit PO DAILY 07/03/16 Multivitamin with Minerals [Icaps Plus] 1 each PO DAILY 07/03/16 Rivaroxaban [Xarelto -] 20 mg PO HS #0 07/06/16 Pantoprazole Sodium 40 mg PO DAILY #90 tablet. 03/10/17 Metoprolol Succinate [Toprol XL -] 50 mg PO ASDIR 04/08/17 Oxycodone HCl 1 tab PO PRN PRN 04/08/17 Acetaminophen [Tylenol .Regular Strength -] 650 mg PO Q4H PRN #0 tablet Dexamethasone [Decadron -] 4 mg PO Q6HPO #30 tablet 04/18/17 Docusate Sodium [Colace -] 100 mg PO TID #100 cap 04/18/17 Polyethylene Glycol 3350 [Miralax 119 gm Btl -] 17 gm PO BID bottle 04/18/17 Family Disease History - Family Disease History Family Disease History: Heart Disease: Son, Other: Mother (cervical CA) Physical Exam Vital Signs: Vital Signs Temperature 97.8 F 05/29/17 08:10 Pulse Rate 68 05/29/17 08:10 Respiratory Rate 18 05/29/17 08:10 Blood Pressure 114/67 05/29/17 08:10 O2 Sat by Pulse Oximetry (%) 97 05/29/17 08:33 Constitutional: Yes: Well Nourished, No Distress Eyes: Yes: WNL HENT: Yes: WNL Neck: Yes: WNL Cardiovascular: Yes: Pulse Irregular, Murmur (2/6 systolic murmur at RUSB) Respiratory: Yes: Regular Edema: Yes Edema: LLE: Trace, RLE: Trace Labs: CBC, BMP 05/29/17 07:30 05/29/17 07:30 Imaging - Results EKG: Image Reviewed (ECG at 05/28/2017 at 13:14 Atrial flutter wit slow ventricular response at 40/min) Assessment/Plan 77 yo male Known HTN and hyperlipidemia Admitted with falls and weakness in the setting of metastatic renal cell Ca with cord compression at T3-T4. Asked to provide operative CV risk optimization Patient is at intermediate risk for what would be a necessary surgical procedure. He denies any cardiovascular complaints His ECG shows slow VR with atrial flutter that he is receiving IV UFH for Would continue statin Unclear if patient wants to have surgery He has a systolic murmur at RUSB and would get an echo pre-op (if not done by Dr. Bennett as an outpatient) as this is consistent with an murmur and would be helpful to know severity for pre-operative stratification.
[2017-05-29] MEDS: HEPARIN NA (PORCINE) 5,000 UNITS/ML 1ML VIAL IVPUSH PRN ×2 (11:30→18:10)
--- NOTE | 2017-05-29 13:23 | PN ---
Progress Note, Physician Chief Complaint: No new complaints History of Present Illness: 76 year old male with multiple medical co-morbidities H/O HTN, Afib, T2DM, Dyslipedemia, RCC with spinal mets present with progressive lower extremity weakness x one month, due to weakness patient has difficulty in getting up from bed had 2 falls last was 2 wks ago, yesterday reports 2 episodes of fecal incontinence CT with lytic lesions at T3-T4 levels with extension of the tumor into the thoracic canal, MRI with cord compression at T3-T4 levels, Neurosurgery consulted recommended surgery, patient opted for conservative management. - Current Medication List Current Medications: Active Medications Acetaminophen (Tylenol -) 650 mg PO Q4H PRN PRN Reason: FEVER OR PAIN Atorvastatin Calcium (Lipitor -) 10 mg PO HS [facility] Cholecalciferol (Vitamin D3 -) 1,000 unit PO DAILY [facility] Last Admin: 05/29/17 09:49 Dose: 1,000 unit Dexamethasone (Decadron -) 4 mg PO DAILY [facility] Last Admin: 05/29/17 09:49 Dose: 4 mg Docusate Sodium (Colace -) 100 mg PO TID [facility] Last Admin: 05/29/17 05:50 Dose: 100 mg Ezetimibe (Zetia -) 10 mg PO HS [facility] Heparin Sodium (Porcine) (Heparin -) 1,000 unit IVPUSH PRN PRN PRN Reason: Heparin Heparin Sodium (Porcine) (Heparin -) 5,000 unit IVPUSH PRN PRN PRN Reason: Heparin Last Admin: 05/29/17 11:30 Dose: 5,000 unit HEPARIN SOD,PORK IN 0.45% NACL (Heparin-1/2ns 25,000 Units/500) 25,000 units in 500 mls @ 20 mls/hr IVPB TITR SUSAN; 1,000 UNITS/HR PRN Reason: Protocol Last Titration: 05/29/17 11:30 Dose: 1,150 units/hr, 23 mls/hr Insulin Aspart (Novolog Vial Sliding Scale -) 1 vial SQ ACHS [facility] PRN Reason: Protocol Last Admin: 05/29/17 11:37 Dose: Not Given Metoprolol Succinate (Toprol Xl -) 25 mg PO DAILY [facility] Last Admin: 05/29/17 09:49 Dose: 25 mg Multivitamins/Minerals (Theragran-M) 1 each PO DAILY [facility] Last Admin: 05/29/17 09:49 Dose: 1 each Oxycodone HCl (Roxicodone -) 5 mg PO Q4H PRN PRN Reason: PAIN Pantoprazole Sodium (Protonix -) 40 mg PO DAILY [facility] Last Admin: 05/29/17 09:49 Dose: 40 mg Polyethylene Glycol (Miralax (For Daily Use) -) 17 gm PO BID [facility] Last Admin: 05/29/17 09:54 Dose: Not Given - Objective Vital Signs: Vital Signs Temperature 97.8 F 05/29/17 08:10 Pulse Rate 68 05/29/17 08:10 Respiratory Rate 18 05/29/17 08:10 Blood Pressure 114/67 05/29/17 08:10 O2 Sat by Pulse Oximetry (%) 97 05/29/17 08:33 Elderly sick looking man not in distress HEENT: Mm moist + anaemia, PERRLA EOMI NECK; No JVSD No Bruit CHEST: Minimal basal crepts CVS: S1S2 irR SM in AAA ABD: Obese, non tender Bs + EXT: + edema feet 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 Normal cranial N Normal Speech Motor #+/% in lower extremities Labs: CBC, BMP 05/29/17 07:30 05/29/17 07:30 INR, PTT INR 1.50 (0.82-1.09) H 05/28/17 13:30 Problem List - Problems (1) Spinal cord compression Assessment/Plan: Known case or RCC with Spinal cord mets and compression s/p RT 04/30, present with worsening LE weakness with fecal incontinence able to control urine evaluated by Neurosurgery, discussed surgical options with high risk consent patient opted for conservative therapy at present will F/U Neurosurgery recommendation.Pain control, bed rest, fall precautions and dexamethasone Code(s): G95.20 - UNSPECIFIED CORD COMPRESSION (2) Atrial flutter Assessment/Plan: Rtae controlled on AC B Ronald dose adjusted Hr improved Hold Heparin GTT as Aptt > 200 recheck after 4 hrsand B Blockers. Evaluated by cardiology consult. Code(s): I48.92 - UNSPECIFIED ATRIAL FLUTTER Qualifiers: Atrial flutter type: atypical Qualified Code(s): I48.4 - Atypical atrial flutter (3) HTN (hypertension) Assessment/Plan: Well controlled cont current management. Code(s): I10 - ESSENTIAL (PRIMARY) HYPERTENSION Qualifiers: Hypertension type: essential hypertension Qualified Code(s): I10 - Essential (primary) hypertension (4) Renal cell carcinoma Assessment/Plan: S/P Nephrectomy and chemotherapy extensive mets. Code(s): C64.9 - MALIGNANT NEOPLASM OF UNSP KIDNEY, EXCEPT RENAL PELVIS (5) T2DM (type 2 diabetes mellitus) Assessment/Plan: at present FSa are acceptable F/U accucheck and optimize insulin dose. Code(s): E11.9 - TYPE 2 DIABETES MELLITUS WITHOUT COMPLICATIONS (6) Aortic stenosis Assessment/Plan: Moderate As no active issue. Code(s): I35.0 - NONRHEUMATIC AORTIC (VALVE) STENOSIS Qualifiers: Cardiac valve disease etiology: nonrheumatic Qualified Code(s): I35.0 - Nonrheumatic aortic (valve) stenosis
[2017-05-29 14:46] LABS: CHOLESTEROL 164 mg/dL (50-200)
[2017-05-29] MEDS ORDERED: INSULIN (NOVOLOG) ASPART 100 UNITS/ML 10ML VIAL ONE (16:29)
[2017-05-29] MEDS: EZETIMIBE 10 MG TABLET (FP) PO SCH (21:24)
[2017-05-29] MEDS: ATORVASTATIN CA 10 MG TABLET (FP) PO SCH (21:25)
[2017-05-30] MEDS: DOCUSATE SODIUM 100 MG CAPSULE (FP) PO SCH ×3 (06:16→22:38)
[2017-05-30] MEDS: INSULIN SLIDING SCALE (NOVOLOG) 1 VIAL SQ SCH ×4 (06:17→22:43)
[2017-05-30] MEDS: HEPARIN SOD,PORK IN 0.45% NACL 25,000 UNITS/500 ML INFUS.BAG IVPB SCH (06:21)
[2017-05-30 08:57] LABS: MCHC 33.9 g/dl (32.0-35.9); MEAN CELL VOLUME 88.4 fl (80-96); MEAN PLT VOLUME 8.2 fl (7.5-11.1); PLATELET COUNT 89 K/MM3 (134-434); RDW 15.3 % (11.9-15.9); WHITE BLOOD COUNT 7.4 K/mm3 (4.0-10.0)
[2017-05-30 09:29] LABS: ANION GAP 11 (8-16); CALCIUM 8.3 mg/dL (8.5-10.1); CO2 26 mmol/L (21-32); CREATININE 0.9 mg/dL (0.7-1.3); GLUCOSE,RANDOM 88 mg/dL (74-106)
--- NOTE | 2017-05-30 11:51 | PN ---
Progress Note, Physician Chief Complaint: No new complaints History of Present Illness: 76 year old male with multiple medical co-morbidities H/O HTN, Afib, T2DM, Dyslipedemia, RCC with spinal mets present with progressive lower extremity weakness x one month, due to weakness patient has difficulty in getting up from bed had 2 falls last was 2 wks ago, yesterday reports 2 episodes of fecal incontinence CT with lytic lesions at T3-T4 levels with extension of the tumor into the thoracic canal, MRI with cord compression at T3-T4 levels, Neurosurgery consulted recommended surgery, patient opted for conservative management. - Current Medication List Current Medications: Active Medications Acetaminophen (Tylenol -) 650 mg PO Q4H PRN PRN Reason: FEVER OR PAIN Atorvastatin Calcium (Lipitor -) 10 mg PO HS [facility] Last Admin: 05/29/17 21:25 Dose: 10 mg Cholecalciferol (Vitamin D3 -) 1,000 unit PO DAILY [facility] Last Admin: 05/29/17 09:49 Dose: 1,000 unit Dexamethasone (Decadron -) 4 mg PO DAILY [facility] Last Admin: 05/29/17 09:49 Dose: 4 mg Docusate Sodium (Colace -) 100 mg PO TID [facility] Last Admin: 05/30/17 06:16 Dose: 100 mg Ezetimibe (Zetia -) 10 mg PO HS [facility] Last Admin: 05/29/17 21:24 Dose: 10 mg Heparin Sodium (Porcine) (Heparin -) 1,000 unit IVPUSH PRN PRN PRN Reason: Heparin Heparin Sodium (Porcine) (Heparin -) 5,000 unit IVPUSH PRN PRN PRN Reason: Heparin Last Admin: 05/29/17 18:10 Dose: 5,000 unit HEPARIN SOD,PORK IN 0.45% NACL (Heparin-1/2ns 25,000 Units/500) 25,000 units in 500 mls @ 20 mls/hr IVPB TITR SUSAN; 1,000 UNITS/HR PRN Reason: Protocol Last Admin: 05/30/17 06:21 Dose: 1,300 units/hr, 26 mls/hr Insulin Aspart (Novolog Vial Sliding Scale -) 1 vial SQ ACHS [facility] PRN Reason: Protocol Last Admin: 05/30/17 06:17 Dose: Not Given Metoprolol Succinate (Toprol Xl -) 25 mg PO DAILY [facility] Last Admin: 05/29/17 09:49 Dose: 25 mg Multivitamins/Minerals (Theragran-M) 1 each PO DAILY [facility] Last Admin: 05/29/17 09:49 Dose: 1 each Oxycodone HCl (Roxicodone -) 5 mg PO Q4H PRN PRN Reason: PAIN Pantoprazole Sodium (Protonix -) 40 mg PO DAILY [facility] Last Admin: 05/29/17 09:49 Dose: 40 mg Polyethylene Glycol (Miralax (For Daily Use) -) 17 gm PO BID [facility] Last Admin: 05/29/17 21:25 Dose: 17 grams - Objective Vital Signs: Vital Signs Temperature 97.4 F L 05/30/17 06:00 Pulse Rate 68 05/30/17 06:00 Respiratory Rate 16 05/30/17 06:00 Blood Pressure 137/62 05/30/17 06:00 O2 Sat by Pulse Oximetry (%) 97 05/30/17 04:00 Elderly sick looking man not in distress HEENT: Mm moist + anaemia, PERRLA EOMI NECK; No JVSD No Bruit CHEST: Minimal basal crepts CVS: S1S2 irR SM in AAA ABD: Obese, non tender Bs + EXT: + edema feet CENTER MGR: APX3 Normal cranial N Normal Speech Motor 3+/% in lower extremities Labs: CBC, BMP 05/30/17 08:00 05/30/17 08:00 INR, PTT INR 1.50 (0.82-1.09) H 05/28/17 13:30 Problem List - Problems (1) Spinal cord compression Assessment/Plan: Known case or RCC with Spinal cord mets and compression s/p RT 04/30, present with worsening LE weakness with fecal incontinence able to control urine evaluated by Neurosurgery, discussed surgical options with high risk consent patient opted for conservative therapy at present will F/U Neurosurgery recommendation.Pain control, bed rest, fall precautions and dexamethasone Code(s): G95.20 - UNSPECIFIED CORD COMPRESSION (2) Atrial flutter Assessment/Plan: Rtae controlled on AC B Ronald dose adjusted Hr improved cont Heparin GTT and B Blockers. Evaluated by cardiology consult. apTT high hold Heparin F/U after4 hrs and adjust the dose. Code(s): I48.92 - UNSPECIFIED ATRIAL FLUTTER (3) HTN (hypertension) Assessment/Plan: Well controlled cont current management. Code(s): I10 - ESSENTIAL (PRIMARY) HYPERTENSION (4) Renal cell carcinoma Assessment/Plan: S/P Nephrectomy and chemotherapy extensive mets. Code(s): C64.9 - MALIGNANT NEOPLASM OF UNSP KIDNEY, EXCEPT RENAL PELVIS (5) T2DM (type 2 diabetes mellitus) Assessment/Plan: at present FSa are acceptable F/U accucheck and optimize insulin dose. Code(s): E11.9 - TYPE 2 DIABETES MELLITUS WITHOUT COMPLICATIONS (6) Aortic stenosis Assessment/Plan: Moderate As no active issue. Code(s): I35.0 - NONRHEUMATIC AORTIC (VALVE) STENOSIS
[2017-05-30 11:56] LABS: TOTAL CELLS COUNTED 100
[2017-05-30 11:57] LABS: METAMYELOCYTE 1 % (0-2); MYELOCYTE 1 % (0-2); NUCLEATED RED BLOOD CELL 2 % (0-0); PLATELET ESTIMATE DECREASED
[2017-05-30] MEDS: PANTOPRAZOLE 40 MG TABLET (FP) PO SCH (12:06)
[2017-05-30] MEDS: CHOLECALCIFEROL (VITAMIN D3) 1,000 UNIT TABLET (FP) PO SCH (12:06)
[2017-05-30] MEDS: MULTIVITAMINS THER W-MINERALS COMBO TABLET (FP) PO SCH (12:06)
[2017-05-30] MEDS: DEXAMETHASONE 4 MG TABLET (FP) PO SCH (12:06)
[2017-05-30] MEDS: METOPROLOL SUCCINATE 25 MG TAB.SR.24H (FP) PO SCH ×2 (12:06→12:14)
[2017-05-30] MEDS: POLYETHYLENE GLYCOL 3350 119 GM BTL PO SCH ×2 (12:13→22:40)
--- NOTE | 2017-05-30 21:22 | CONS ---
DATE OF CONSULTATION: 05/29/2017 CHIEF COMPLAINT: Progressive difficulty with ambulation over the past couple weeks, with history of renal cell metastasis to the T spine. HISTORY OF PRESENT ILLNESS: The patient is a 77-year-old male with history of atrial fibrillation, on Xarelto, [id number] diabetes, diabetic peripheral neuropathy, renal cell carcinoma, status post left nephrectomy last year, who has been complaining of increasing back pain since over the summer. He was found to have renal cell metastasis to the thoracic spine on chest CT scan. He eventually underwent a CT-guided biopsy, and subsequently underwent radiation treatment to the thoracic spine. The patient was at home, and for the past 2 weeks has been experiencing increasing difficulty walking. He has also fallen once. Yesterday , he could not get up to walk. He was sent by ambulance to the emergency room. The patient stated that he had 1 to 2 episodes of bowel incontinence yesterday. He has no urinary incontinence or retention. His pain has been stable, in the mid back area. Past medical history is significant for atrial fibrillation, hypertension, diabetes, diabetic peripheral neuropathy, renal cell carcinoma as well as status post left nephrectomy. Medication currently is heparin drip, Toprol XL, Colace, MiraLax, Zetia, Decadron, Lipitor, insulin, multivitamin, oxycodone, Protonix, vitamin D3. There is no known drug allergy. Family history is significant for cancer in his mother. Review of systems is otherwise negative for other major cardiovascular, pulmonary, gastrointestinal, genitourinary, endocrinologic, neurologic, psychologic, oncologic, or constitutional issues except for the above. In terms of social history, he quit smoking years ago. He only drinks alcohol socially. He is retired and lives at home. PHYSICAL EXAMINATION: Vital Signs: Temperature is 97.8, blood pressure 114/67, with pulse rate of 68. HEENT: Normocephalic, atraumatic. Anicteric. Neck: Supple, with no carotid bruit. Coronary: Irregular rhythm. Lungs: Clear bilaterally. Abdomen: Obese but benign. Extremities: No obvious signs of DVT. He does have some ankle edema bilaterally, which is 1+. Neurologic: He is awake and alert, oriented x4. Cranial nerve examination is intact, 2-12. Motor examination of the upper extremities is 5/5. Lower extremity strength is 4+/5 throughout, 4 to 4+ throughout. Sensory examination showed decreased lower extremity vibratory sensation. Deep tendon reflexes are hyporeflexive throughout. There is no pathological long tract sign. In terms of his gait, he is able to walk with a slightly hunched over posture, with use of a walker. Laboratory examination shows white blood cell count to be 7.6 and hemoglobin to be 14, platelet count is 108, INR is 1.5, and PTT is 31.5. Serum sodium is 137, potassium 4.4, BUN 27, creatinine 0.9. LFTs are normal, except for alkaline phosphatase of 121, albumin 2.9. Urinalysis is negative. CT scan of the thoracic spine demonstrated multiple lytic lesions of T3, T4, T5, T7, T8 vertebral bodies. There is a large paraspinal mass, which was previously visualized on the chest CT scan, and extension to spinal canal from right T3 and T4 pedicles. There is foraminal impingement. MRI of the thoracic spine without contrast demonstrated metastatic T3 and T4 vertebral lesion extending to the right-sided pedicles as well as the neural foramen. There is also epidural extension with cord impingement at T3-4 level. There is no associated edema. There is spinal cord displacement towards the left. There are also metastatic lesions in the right T5 vertebral body and anterior T7-T8 vertebral body. T11 metastasis is also noted. IMPRESSION: 1. 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 2. T3-T4 vertebral/pedicle/epidural involvement with spinal cord displacement and impingement. 3. Diabetes with diabetic peripheral neuropathy. 4. Hypertension. 5. Atrial fibrillation, on chronic anticoagulation. 6. Obesity. RECOMMENDATIONS: The patient presents with metastatic renal cell carcinoma to the thoracic spine. He has completed radiation treatment, but has been experiencing some neurological deterioration in terms of lower extremity strength and gait stability over the past couple weeks. He also had 2 episodes of bowel incontinence. CT scan and MRI of the thoracic spine demonstrated epidural extension of the tumor as well as pedicle involvement including particularly involvement on the right side T3 and T4. There is spinal cord impingement and displacement. There is no spinal cord edema. His options are unfortunately rather limited. He has already undergone radiation treatment, and chemotherapy will not likely help the situation acutely. The patient is a candidate for surgical decompression on the right side at T3 and T4, with pedicle resection and laminectomy to decompress the thoracic spinal cord to give the spinal cord some room. Unfortunately, the patient is at high risk of developing infection, bleeding, and thromboembolic events. The risks of surgery would include, but are not limited to bleeding, infection, CSF leak, paralysis, neurological injury, also bowel/bladder control, and other risks of general anesthesia. The patient is at increased infection risk because he has been on steroids for the past month and a half at least, and he has diabetes. Additionally, radiation increases risk of infections. He is also at increased risk of hemorrhage because of the nature of renal cell carcinoma metastasis, and the fact that reality that he has been on anticoagulation even if it is held now. He is also increased thromboembolic risk because of his atrial fibrillation and he would need to be off anticoagulation completely for several days. Clearly there is no easy answer. The above was presented in detail to the patient. The pros and cons of treatment approaches were discussed. All questions were answered. The patient will speak to his and make a decision whether he wants to proceed with surgical intervention or not. I will recommend not increasing his steroid at this time if surgery is planned. Stress dose of steroid will be given perioperatively, but increasing the steroid dosage right now will increase his perioperative infection risk further. If he chooses conservative/palliative treatment only, steroid could be increased, depending on potentially improving his symptoms. Cardiology consult is being obtained for clearance as well. ASHER LYNNE M.D. PATRICK/[id number] MTDD
[2017-05-30] MEDS ORDERED: PT OWN MED DRAWER 7, Y5N ONE ×2 (22:33→23:12)
[2017-05-30] MEDS: ATORVASTATIN CA 10 MG TABLET (FP) PO SCH (22:38)
[2017-05-30] MEDS: EZETIMIBE 10 MG TABLET (FP) PO SCH (22:40)
[2017-05-30] MEDS: HEPARIN SOD,PORK IN 0.45% NACL 25,000 UNIT/500 ML INFUS.BAG IVPB SCH (23:00)
[2017-05-31] MEDS: INSULIN SLIDING SCALE (NOVOLOG) 1 VIAL SQ SCH ×4 (06:04→21:30)
[2017-05-31] MEDS: DOCUSATE SODIUM 100 MG CAPSULE (FP) PO SCH ×3 (06:07→21:29)
[2017-05-31 08:07] LABS: MCH 29.8 pg (25.7-33.7); MCHC 33.4 g/dl (32.0-35.9); MEAN CELL VOLUME 89.2 fl (80-96); PLATELET COUNT 102 K/MM3 (134-434); WHITE BLOOD COUNT 8.2 K/mm3 (4.0-10.0)
[2017-05-31 08:32] LABS: ANION GAP 11 (8-16); CALCIUM 8.3 mg/dL (8.5-10.1); CO2 27 mmol/L (21-32); CREATININE 0.8 mg/dL (0.7-1.3); GLUCOSE,RANDOM 116 mg/dL (74-106)
--- NOTE | 2017-05-31 08:43 | PN ---
Progress Note (short form) - Note Progress Note: NEUROSURGERY Walking back and forth from bathroom Ate cake with glucose elevation yesterday PE: AF, VSS General- obese HEENT- NC/AT; Neck- supple; Cor- RRR; Lungs- CTA; Abd- obese, benign; Ext- 1+ edema B LE CN- intact; Motor- 4+/5 B LE; Sensation- no sensory level, decreased B distal LE vibration; DTR- hyporeflexia B LE; Gait- able to get up and walked with walker to bathroom Back- mild tenderness mid-lower T spine CT T spine: multiple thoracic spine lytic lesions with R T3-4 pedicle involvement and canal compromise; T5, T7, T8 mets MRI T spine (noncontrast)- T4 R vertebral mass with pedicle involvement and canal encroachment with cord displacement to the L , R T5 and T7-8 anterior vertebral mets Extensive renal cell met to T spine with R sided canal compromise at T3-4 laterally Surgery not a cure given extensive metastatic disease though may decompress the cord at T3-4 with R T3-4 laminecetomies/pedicle resection, tumor debulking with intra-op spinal cord monitoring (SSEP, MEP) High risks given cord impingement, steroid use, recent RT, obesity, Afib/A flutter (and would need to be off AC for days) Risks: bleeding (itzel vascular renal cell CA and pt is obese in prone position), infection (DM, RT), paralysis, DVT/PE/RI/stroke (given potential immobility and Afib/A flutter off AC for extended period of time) Further worsening despite prior RT a real possibility without surgical intervention, given some radiographic progression Pros and cons of treatment approaches d/w patient, though there is no easy answer here After consideration and d/w family, pt opted against surgery Treatment per oncology team Will sign off
[2017-05-31 10:35] LABS: ANISOCYTOSIS 0; MACROCYTOSIS 0; METAMYELOCYTE 0 % (0-2); MICROCYTOSIS 0; MYELOCYTE 5 % (0-2); PLATELET ESTIMATE DECREASED; POIKILOCYTOSIS 0; POLYCHROMASIA 1+; REACTIVE LYMPHOCYTES 2 % (0-80)
[2017-05-31 10:50] LABS: BURR CELLS 3+
[2017-05-31] MEDS ORDERED: PT OWN MED DRAWER 7, Y5N ONE ×2 (11:19→21:15)
[2017-05-31] MEDS: METOPROLOL SUCCINATE 25 MG TAB.SR.24H (FP) PO SCH (11:29)
[2017-05-31] MEDS: DEXAMETHASONE 4 MG TABLET (FP) PO SCH (11:29)
[2017-05-31] MEDS: PANTOPRAZOLE 40 MG TABLET (FP) PO SCH (11:29)
[2017-05-31] MEDS: CHOLECALCIFEROL (VITAMIN D3) 1,000 UNIT TABLET (FP) PO SCH (11:29)
[2017-05-31] MEDS: MULTIVITAMINS THER W-MINERALS COMBO TABLET (FP) PO SCH (11:29)
--- NOTE | 2017-05-31 11:29 | PN ---
Progress Note, Physician Chief Complaint: Mr Rod says he is unchanged. Still with back pain but it is controlled. Walking to the bathroom, feels the incontinence is improving. No cp, sob, n/v. - Current Medication List Current Medications: Active Medications Acetaminophen (Tylenol -) 650 mg PO Q4H PRN PRN Reason: FEVER OR PAIN Atorvastatin Calcium (Lipitor -) 10 mg PO HS [facility] Last Admin: 05/30/17 22:38 Dose: 10 mg Cholecalciferol (Vitamin D3 -) 1,000 unit PO DAILY [facility] Last Admin: 05/30/17 12:06 Dose: 1,000 unit Dexamethasone (Decadron -) 4 mg PO DAILY [facility] Last Admin: 05/30/17 12:06 Dose: 4 mg Docusate Sodium (Colace -) 100 mg PO TID [facility] Last Admin: 05/31/17 06:07 Dose: 100 mg Ezetimibe (Zetia -) 10 mg PO HS [facility] Last Admin: 05/30/17 22:40 Dose: 10 mg Heparin Sodium (Porcine) (Heparin -) 1,000 unit IVPUSH PRN PRN PRN Reason: Heparin Heparin Sodium (Porcine) (Heparin -) 5,000 unit IVPUSH PRN PRN PRN Reason: Heparin Last Admin: 05/29/17 18:10 Dose: 5,000 unit HEPARIN SOD,PORK IN 0.45% NACL (Heparin-1/2ns 25,000 Units/500) 25,000 unit in 500 mls @ 16 mls/hr IVPB TITR SUSAN; 800 UNITS/HR PRN Reason: Protocol Last Titration: 05/31/17 11:01 Dose: 800 units/hr, 16 mls/hr Insulin Aspart (Novolog Vial Sliding Scale -) 1 vial SQ ACHS [facility] PRN Reason: Protocol Last Admin: 05/31/17 06:04 Dose: Not Given Metoprolol Succinate (Toprol Xl -) 25 mg PO DAILY [facility] Last Admin: 05/30/17 12:14 Dose: Not Given Multivitamins/Minerals (Theragran-M) 1 each PO DAILY [facility] Last Admin: 05/30/17 12:06 Dose: 1 each Oxycodone HCl (Roxicodone -) 5 mg PO Q4H PRN PRN Reason: PAIN Pantoprazole Sodium (Protonix -) 40 mg PO DAILY [facility] Last Admin: 05/30/17 12:06 Dose: 40 mg Polyethylene Glycol (Miralax (For Daily Use) -) 17 gm PO BID [facility] Last Admin: 05/30/17 22:40 Dose: Not Given - Objective Vital Signs: Vital Signs Temperature 36.6 C 05/31/17 06:00 Pulse Rate 66 05/31/17 06:00 Respiratory Rate 18 05/31/17 06:00 Blood Pressure 128/64 05/31/17 06:00 O2 Sat by Pulse Oximetry (%) 96 05/30/17 21:00 Constitutional: Yes: No Distress, Calm, Obese Cardiovascular: Yes: Regular Rate and Rhythm. No: Gallop, Murmur, Rub Respiratory: Yes: Regular, CTA Bilaterally. No: Rales, Rhonchi, Wheezes Gastrointestinal: Yes: Normal Bowel Sounds, Soft. No: Distention, Tenderness Extremities: Yes: WNL Edema: No Labs: CBC, BMP 05/31/17 05:30 05/31/17 05:30 INR, PTT INR 1.50 (0.82-1.09) H 05/28/17 13:30 Problem List - Problems (1) Spinal cord compression Assessment/Plan: -patient with history of spinal cord compression, but now with neurologic complications -seen by neurosurgery, patient currently declining surgery -case d/w oncology who will see this afternoon to discuss other options -oncology recommends rad/onc consult, placed -secondary to mets and progressive, consult palliative care for other options -continue decadron Code(s): G95.20 - UNSPECIFIED CORD COMPRESSION (2) Renal cell carcinoma Assessment/Plan: -s/p nephrectomy but with spinal mets -as above Code(s): C64.9 - MALIGNANT NEOPLASM OF UNSP KIDNEY, EXCEPT RENAL PELVIS Qualifiers: Laterality: right Qualified Code(s): C64.1 - Malignant neoplasm of right kidney, except renal pelvis (3) T2DM (type 2 diabetes mellitus) Assessment/Plan: -diabetic diet -SSI -expect some elevations with decadron Code(s): E11.9 - TYPE 2 DIABETES MELLITUS WITHOUT COMPLICATIONS (4) Atrial flutter Assessment/Plan: -rate controlled -on heparin gtt currently while evaluating options for spinal cord compression Code(s): I48.92 - UNSPECIFIED ATRIAL FLUTTER Qualifiers: Atrial flutter type: atypical Qualified Code(s): I48.4 - Atypical atrial flutter (5) HTN (hypertension) Assessment/Plan: -controlled Code(s): I10 - ESSENTIAL (PRIMARY) HYPERTENSION Qualifiers: Hypertension type: essential hypertension Qualified Code(s): I10 - Essential (primary) hypertension (6) Obesity Assessment/Plan: -present, but not emergent issue Code(s): E66.9 - OBESITY, UNSPECIFIED Assessment/Plan Prognosis -poor, palliative care consult
[2017-05-31] MEDS: POLYETHYLENE GLYCOL 3350 119 GM BTL PO SCH ×2 (11:34→21:29)
--- NOTE | 2017-05-31 15:52 | CONSULT ---
Consult - text type - Consultation Consultation Note: Patient seen and examined. Chart and films reviewed. Awaiting medical Oncology input for systemic options. Full consult dictated. Briefly, 77 yo male with metastatic renal cell carcinoma admitted with progression at T4 s/p palliative RT to T3-T7. If there are no systemic options I would offer re-irradiation using stereotactic body radiotherapy to protect the spinal cord as much as possible Discussed with the patient. Will follow.
--- NOTE | 2017-05-31 20:03 | CONS ---
DATE OF CONSULTATION: 05/31/2017 CHIEF COMPLAINT: "I was unable to walk or stand up." HISTORY OF PRESENT ILLNESS: The patient is a 77-year-old gentleman well known to our department since he presented last month with metastatic renal cell carcinoma with cord compression at T3 through T4. There was also disease at T5 and T7. He completed palliative radiation therapy using a dose of 3500 cGy to T3 through T7 on May 10. The patient was on a Decadron taper and tapered down to 2 mg a day prior to Wednesday when he was unable to stand up from the toilet. The patient came in and was admitted to [facility]. An MRI of the spine showed progression of disease at the T4 level with a larger right paravertebral mass, progressing on the spinal cord. The patient saw Dr. Flores who did not recommend surgery as it was very risky. The patient has atrial fibrillation and is on anticoagulation. The patient has not yet been able to meet an oncologist to begin systemic therapy. He has an appointment to see Dr. Ramírez on . CURRENT MEDICATIONS: Decadron 4 mg a day, Protonix 40 mg a day, Lipitor 10 mg at the hour of sleep, Zetia 10 mg a day, metoprolol 25 mg a day, heparin, and vitamin D3 at 1000 units a day. ALLERGIES: None. 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 FAMILY HISTORY: Positive for cervical cancer in his mother. Negative for other cancers. SOCIAL HISTORY: Lives in [place], retired. He did smoke 2 packs of cigarettes a day, quitting in 1973. No alcohol use. PHYSICAL EXAMINATION: Vital Signs: 97.5 degrees Fahrenheit, pulse 66, 102/51 mmHg, respirations 18, oxygen saturation 96% on room air. General: The patient appears his chronologic age, is in no distress. Musculoskeletal: I detect no pallor, icterus, or adenopathy. Remarkably, he has no upper thoracic spine tenderness. Upper arm strength is normal. He has edema of his lower extremities. He is able to stand and walk to the bathroom but slowly. I detect no focal sensorimotor deficits. Abdomen: Obese, without hepatosplenomegaly. RADIOLOGIC DATA: Please see HPI. Thoracic spine MRI May 28, 2017 with multilevel osseous metastatic disease , cord compression at T3-T4, foraminal stenosis with epidural extension. LABORATORY DATA: White count 8.2, hemoglobin 12.7, hematocrit 37.9, platelets 102,000. Chemistry normal except for BUN slightly high at 25, random glucose 116, calcium 8.3. PERFORMANCE STATUS: 80. NUTRITIONAL STATUS: Good. QUALITY OF LIFE: Fair. ICD-10 CODE: C79.51. IMPRESSION: The patient is a 77-year-old gentleman with progressive metastatic renal cell carcinoma threatening the spinal cord again at T3-T4. I believe he needs to be on higher doses of Decadron. Given his diabetes and peripheral edema, high-dose Decadron may be poorly tolerated, but this will risk his spinal cord more acutely. I would favor 4 mg twice a day or 3 times a day. I believe he should start systemic therapy as soon as possible. He has a pending medical oncology consultation today, and if he can be discharged, he can see Dr. Ramírez whom his has seen on of this week. I spoke with the patient, his , brother, and [id number] about this very difficult situation which has a very poor prognosis. We also talked about surgery being extremely difficult and risky and not recommended. Systemic therapy would be optimal, but there is a low chance for a significant response. However, I hope I am wrong in this regard. The use of re-irradiation can be done, especially if we believe the spinal cord is at imminent risk of permanent cord compression. The biggest risk would be radiation spinal cord injury. There are newer techniques using stereotactic body radiation that can protect the spinal cord as much as possible, and I would offer this to the patient if there are no systemic therapy options or if he is progressing through systemic therapy. This would be manifested by increasing difficulty walking or incontinence. Re-irradiation will not carry the same mortality risks that surgery would carry. The patient, his and in-laws were appreciative of our discussion and would like to begin some treatment as soon as possible. XOCHITL KHALIL M.D. OPAL/[id number] cc: MD Maciej Kaye MD MTDD
[2017-05-31] MEDS: HEPARIN SOD,PORK IN 0.45% NACL 25,000 UNIT/500 ML INFUS.BAG IVPB SCH (21:26)
[2017-05-31] MEDS: EZETIMIBE 10 MG TABLET (FP) PO SCH (21:29)
[2017-05-31] MEDS: ATORVASTATIN CA 10 MG TABLET (FP) PO SCH (21:29)
--- NOTE | 2017-05-31 23:15 | CONSULT ---
Consult - text type - Consultation Consultation Note: Patient has a history of renal cell carcinoma s/p resection and has a history of chronic back pain. Now admitted with progressive lower extremity weakness x one month, due to weakness patient has difficulty in getting up from bed had 2 falls last was 2 wks ago, yesterday reports 2 episodes of fecal incontinence. CT with lytic lesions at T3-T4 levels with extension of the tumor into the thoracic canal, MRI with cord compression at T3-T4 levels. Aside from the back pain he is without complaint. He denies fevers, chills, lightheadedness, vertigo, syncope, chest pain or pressure, shortness of breath, - History Source History Provided By: Patient Limitations to Obtaining History: No Limitations - Past Medical History Cardio/Vascular: Yes: AFIB, HTN, Hyperlipdemia. No: CAD, CHF Pulmonary: Yes: COPD (at risk w smoking Hx of 2PPD for 20yrs.) Gastrointestinal: Yes: Diverticulosis Renal/: Yes: Renal Calculi (Hx of) Musculoskeletal: Yes: Osteoarthritis Endocrine: Yes: Diabetes Mellitus, Other (Dysmetabolic syndrome, Morbid obesity) - Past Surgical History Past Surgical History: Yes: Appendectomy (as a child), Arthrosocopy (knee), Cholecystectomy - Alcohol/Substance Use Hx Alcohol Use: No History of Substance Use: reports: None - Smoking History Smoking history: Former smoker Have you smoked in the past 12 months: No If you are a former smoker, when did you quit?: 1973 - Social History ADL: Independent History of Recent Travel: No Home Medications - Allergies Allergies/Adverse Reactions: Allergies Allergy/AdvReac Type Severity Reaction Status Date / Time No Known Drug Allergies Allergy Verified 05/28/17 13:32 - Home Medications Home Medications: Ambulatory Orders Ezetimibe/Simvastatin [Vytorin 10-20 mg Tablet] 1 tab PO HS #0 tablet 09/18/13 Metformin HCl [Glucophage] 500 mg PO HS 11/24/13 Cholecalciferol (Vitamin D3) [Vitamin D3 -] 1,000 unit PO DAILY 07/03/16 Multivitamin with Minerals [Icaps Plus] 1 each PO DAILY 07/03/16 Rivaroxaban [Xarelto -] 20 mg PO HS #0 07/06/16 Pantoprazole Sodium 40 mg PO DAILY #90 tablet. 03/10/17 Metoprolol Succinate [Toprol XL -] 50 mg PO ASDIR 04/08/17 Oxycodone HCl 1 tab PO PRN PRN 04/08/17 Acetaminophen [Tylenol .Regular Strength -] 650 mg PO Q4H PRN #0 tablet Dexamethasone [Decadron -] 4 mg PO Q6HPO #30 tablet 04/18/17 Docusate Sodium [Colace -] 100 mg PO TID #100 cap 04/18/17 Polyethylene Glycol 3350 [Miralax 119 gm Btl -] 17 gm PO BID bottle 04/18/17 Family Disease History - Family Disease History Family Disease History: Heart Disease: Son, Other: Mother (cervical CA) Physical Exam Vital Signs: AFVSS Constitutional: Yes: Well Nourished, No Distress Eyes: Yes: WNL HENT: Yes: WNL Neck: Yes: WNL Cardiovascular: Yes: Pulse Irregular, Murmur (2/6 systolic murmur at RUSB) Respiratory: Yes: Regular Edema: Yes Edema: LLE: Trace, RLE: Trace Labs: CBC, BMP 05/29/17 07:30 05/29/17 07:30 Imaging - Results EKG: Image Reviewed (ECG at 05/28/2017 at 13:14 Atrial flutter wit slow ventricular response at 40/min) Assessment/Plan 77 yo male with HTN, afib, DM, COPD, metastatic renal cell cancer T3-4 cord compression s/p RT now with worsening gait impairment/falls/fecal incontinence MRI T3/4 cord compression/cord edema ? component of steroid myopathy ? RT boost vs neurosurgery vs nivolumab/ ? afatinib will discuss with rad-onc /neurosurgery on heparin drip
--- NOTE | 2017-06-01 01:51 | EKG ---
Test Reason : Blood Pressure : / mmHG Vent. Rate : 045 BPM Atrial Rate : 322 BPM P-R Int : 000 ms QRS Dur : 080 ms QT Int : 422 ms P-R-T Axes : 000 -02 -03 degrees QTc Int : 365 ms ATRIAL FLUTTER WITH SLOW VENTRICULAR RESPONSE NONSPECIFIC ST AND T WAVE ABNORMALITY ABNORMAL ECG WHEN COMPARED WITH ECG OF 15-APR-2017 13:08, VENT. RATE HAS DECREASED BY 26 BPM CRITERIA FOR INFERIOR INFARCT ARE NO LONGER PRESENT T WAVE VARIATION Confirmed by ROGER CHATTERJEE MD ([id number]) on 06/01/2017 1:51:25 AM Referred By: Confirmed By:ROGER CHATTERJEE MD
[2017-06-01] MEDS ORDERED: PT OWN MED DRAWER 7, Y5N ONE (06:04)
[2017-06-01] MEDS: HEPARIN SOD,PORK IN 0.45% NACL 25,000 UNIT/500 ML INFUS.BAG IVPB SCH ×2 (06:14→21:43)
[2017-06-01] MEDS: DOCUSATE SODIUM 100 MG CAPSULE (FP) PO SCH ×3 (06:44→21:42)
[2017-06-01] MEDS: INSULIN SLIDING SCALE (NOVOLOG) 1 VIAL SQ SCH ×4 (06:44→21:44)
[2017-06-01 08:25] LABS: MCH 30.1 pg (25.7-33.7); MCHC 33.7 g/dl (32.0-35.9); MEAN CELL VOLUME 89.1 fl (80-96); MEAN PLT VOLUME 8.1 fl (7.5-11.1); PLATELET COUNT 100 K/MM3 (134-434); RDW 15.5 % (11.9-15.9); WHITE BLOOD COUNT 8.2 K/mm3 (4.0-10.0)
[2017-06-01 09:24] LABS: ANION GAP 9 (8-16); CO2 25 mmol/L (21-32); CREATININE 0.9 mg/dL (0.7-1.3); GLUCOSE,RANDOM 96 mg/dL (74-106); MAGNESIUM 2.1 mg/dL (1.8-2.4); PHOSPHOROUS 2.6 mg/dL (2.5-4.9)
[2017-06-01] MEDS: DEXAMETHASONE 4 MG TABLET (FP) PO SCH ×2 (11:00→21:42)
[2017-06-01] MEDS: CHOLECALCIFEROL (VITAMIN D3) 1,000 UNIT TABLET (FP) PO SCH (11:00)
[2017-06-01] MEDS: PANTOPRAZOLE 40 MG TABLET (FP) PO SCH (11:01)
[2017-06-01] MEDS: POLYETHYLENE GLYCOL 3350 119 GM BTL PO SCH ×2 (11:01→21:44)
[2017-06-01] MEDS: MULTIVITAMINS THER W-MINERALS COMBO TABLET (FP) PO SCH (11:01)
[2017-06-01] MEDS: METOPROLOL SUCCINATE 25 MG TAB.SR.24H (FP) PO SCH (11:01)
--- NOTE | 2017-06-01 13:02 | PN ---
Progress Note (short form) - Note Progress Note: CC pre-op clearance S: no cp, palps, dizziness, sob. has declined surgery. + Le edema stable. Current Medications Acetaminophen (Tylenol -) 650 mg PO Q4H PRN PRN Reason: FEVER OR PAIN Atorvastatin Calcium (Lipitor -) 10 mg PO HS [facility] Last Admin: 05/31/17 21:29 Dose: 10 mg Cholecalciferol (Vitamin D3 -) 1,000 unit PO DAILY [facility] Last Admin: 06/01/17 11:00 Dose: 1,000 unit Dexamethasone (Decadron -) 4 mg PO BID [facility] Docusate Sodium (Colace -) 100 mg PO TID [facility] Last Admin: 06/01/17 06:44 Dose: 100 mg Ezetimibe (Zetia -) 10 mg PO HS [facility] Last Admin: 05/31/17 21:29 Dose: 10 mg Heparin Sodium (Porcine) (Heparin -) 1,000 unit IVPUSH PRN PRN PRN Reason: Heparin Heparin Sodium (Porcine) (Heparin -) 5,000 unit IVPUSH PRN PRN PRN Reason: Heparin Last Admin: 05/29/17 18:10 Dose: 5,000 unit HEPARIN SOD,PORK IN 0.45% NACL (Heparin-1/2ns 25,000 Units/500) 25,000 unit in 500 mls @ 16 mls/hr IVPB TITR SUSAN; 800 UNITS/HR PRN Reason: Protocol Last Titration: 06/01/17 12:26 Dose: 800 units/hr, 16 mls/hr Insulin Aspart (Novolog Vial Sliding Scale -) 1 vial SQ ACHS SUSAN PRN Reason: Protocol Last Admin: 06/01/17 12:27 Dose: Not Given Metoprolol Succinate (Toprol Xl -) 25 mg PO DAILY [facility] Last Admin: 06/01/17 11:01 Dose: 25 mg Multivitamins/Minerals (Theragran-M) 1 each PO DAILY [facility] Last Admin: 06/01/17 11:01 Dose: 1 each Pantoprazole Sodium (Protonix -) 40 mg PO DAILY [facility] Last Admin: 06/01/17 11:01 Dose: 40 mg Polyethylene Glycol (Miralax (For Daily Use) -) 17 gm PO BID [facility] Last Admin: 06/01/17 11:01 Dose: Not Given Vital Signs - 24 hr 1205/31/17 06/01/17 15:36 20:52 02:00 Temperature 97.5 F L 97.8 F 98.0 F Pulse Rate 66 70 59 L Respiratory 18 20 20 Rate Blood Pressure 102/51 120/60 105/53 06/01/17 06/01/17 05:52 09:00 Temperature 97.4 F L Pulse Rate 50 L 69 Respiratory 20 20 Rate Blood Pressure 132/65 107/56 Intake & Output 05/30/17 05/31/17 06/01/17 06/02/17 07:59 07:59 07:59 07:59 Intake Total 1832 1316 392 Balance 1832 1316 392 Constitutional: Yes: Well Nourished, No Distress Eyes: Yes: WNL HENT: Yes: WNL Neck: Yes: WNL Cardiovascular: Yes: Pulse Irregular, Murmur (2/6 systolic murmur at RUSB) + bs soft nt nd Respiratory: Yes: Regular Edema: Yes Edema: LLE: Trace, RLE: Trace Labs: CBC, BMP 06/01/17 08:00 06/01/17 08:00 Imaging - Results EKG: Image Reviewed (ECG at 05/28/2017 at 13:14 Atrial flutter wit slow ventricular response at 40/min) Echo 02/27: 1. The left ventricular size is normal. 2. There is normal global left ventricular contractility. 3. The right ventricular systolic function is normal. 4. Left atrium is mildly dilated by volume. 5. The aortic valve was not well visualized. 6. Mild aortic regurgitation. 7. There is [id number] aortic stenosis present. Peak/mean gradients across the valve are 23-32 /14-18 mmHg. Assessment/Plan htn - labile, con't to monitor on metoprolol LE edema - patient does not weight himself regularly. On high dose steroids and with LE edema. Will get standing weight and assess need for diuresis. (not on diuretic as outpatient) atrial flutter - con't heparin drip - currently rate controlled on metoprolol. hl - con't statin Pre-op clearance - Patient is at intermediate risk for what would be a necessary surgical procedure. He denies any cardiovascular complaints - patient has declined surgery. - routine outpatient echo surveillance per outpatient seat installer Dr. Bennett.
--- NOTE | 2017-06-01 15:39 | PN ---
Progress Note, Physician Chief Complaint: Mr Rod says he is doing well. Is no longer having pain but still with significant weakness. No cp, sob, n/v. - Current Medication List Current Medications: Active Medications Acetaminophen (Tylenol -) 650 mg PO Q4H PRN PRN Reason: FEVER OR PAIN Atorvastatin Calcium (Lipitor -) 10 mg PO HS [facility] Last Admin: 05/31/17 21:29 Dose: 10 mg Cholecalciferol (Vitamin D3 -) 1,000 unit PO DAILY [facility] Last Admin: 06/01/17 11:00 Dose: 1,000 unit Dexamethasone (Decadron -) 4 mg PO BID [facility] Docusate Sodium (Colace -) 100 mg PO TID [facility] Last Admin: 06/01/17 13:51 Dose: 100 mg Ezetimibe (Zetia -) 10 mg PO HS [facility] Last Admin: 05/31/17 21:29 Dose: 10 mg Heparin Sodium (Porcine) (Heparin -) 1,000 unit IVPUSH PRN PRN PRN Reason: Heparin Stop: 06/01/17 22:00 Heparin Sodium (Porcine) (Heparin -) 5,000 unit IVPUSH PRN PRN PRN Reason: Heparin Stop: 06/01/17 22:00 Last Admin: 05/29/17 18:10 Dose: 5,000 unit HEPARIN SOD,PORK IN 0.45% NACL (Heparin-1/2ns 25,000 Units/500) 25,000 unit in 500 mls @ 16 mls/hr IVPB TITR SUSAN; 800 UNITS/HR PRN Reason: Protocol Stop: 06/01/17 22:00 Last Titration: 06/01/17 12:26 Dose: 800 units/hr, 16 mls/hr Insulin Aspart (Novolog Vial Sliding Scale -) 1 vial SQ ACHS SUSAN PRN Reason: Protocol Last Admin: 06/01/17 12:27 Dose: Not Given Metoprolol Succinate (Toprol Xl -) 25 mg PO DAILY [facility] Last Admin: 06/01/17 11:01 Dose: 25 mg Multivitamins/Minerals (Theragran-M) 1 each PO DAILY [facility] Last Admin: 06/01/17 11:01 Dose: 1 each Pantoprazole Sodium (Protonix -) 40 mg PO DAILY [facility] Last Admin: 06/01/17 11:01 Dose: 40 mg Polyethylene Glycol (Miralax (For Daily Use) -) 17 gm PO BID [facility] Last Admin: 06/01/17 11:01 Dose: Not Given Rivaroxaban (Xarelto -) 20 mg PO [facility] Vital Signs: Vital Signs Temperature 36.5 C 06/01/17 15:17 Pulse Rate 63 06/01/17 15:17 Respiratory Rate 18 06/01/17 15:17 Blood Pressure 103/57 06/01/17 15:17 O2 Sat by Pulse Oximetry (%) 96 05/31/17 09:00 Constitutional: Yes: No Distress, Calm, Obese Cardiovascular: Yes: Regular Rate and Rhythm. No: Gallop, Murmur, Rub Respiratory: Yes: Regular, CTA Bilaterally. No: Rales, Rhonchi, Wheezes Gastrointestinal: Yes: Normal Bowel Sounds, Soft. No: Distention, Tenderness Extremities: Yes: WNL Edema: No Labs: CBC, BMP 06/01/17 08:00 06/01/17 08:00 INR, PTT INR 1.50 (0.82-1.09) H 05/28/17 13:30 Problem List - Problems (1) Spinal cord compression Code(s): G95.20 - UNSPECIFIED CORD COMPRESSION (2) Renal cell carcinoma Code(s): C64.9 - MALIGNANT NEOPLASM OF UNSP KIDNEY, EXCEPT RENAL PELVIS Qualifiers: Laterality: right Qualified Code(s): C64.1 - Malignant neoplasm of right kidney, except renal pelvis (3) T2DM (type 2 diabetes mellitus) Code(s): E11.9 - TYPE 2 DIABETES MELLITUS WITHOUT COMPLICATIONS (4) Atrial flutter Code(s): I48.92 - UNSPECIFIED ATRIAL FLUTTER Qualifiers: Atrial flutter type: atypical Qualified Code(s): I48.4 - Atypical atrial flutter (5) HTN (hypertension) Code(s): I10 - ESSENTIAL (PRIMARY) HYPERTENSION Qualifiers: Hypertension type: essential hypertension Qualified Code(s): I10 - Essential (primary) hypertension (6) Obesity Code(s): E66.9 - OBESITY, UNSPECIFIED Assessment/Plan (1) Spinal cord compression Assessment/Plan: -case d/w oncology and radiation oncology -increase dexamethasone per rad onc recommendation -neurology consult -rad onc and oncology to discuss and determine plan Code(s): G95.20 - UNSPECIFIED CORD COMPRESSION (2) Renal cell carcinoma Assessment/Plan: -s/p nephrectomy but with spinal mets -as above Code(s): C64.9 - MALIGNANT NEOPLASM OF UNSP KIDNEY, EXCEPT RENAL PELVIS Qualifiers: Laterality: right Qualified Code(s): C64.1 - Malignant neoplasm of right kidney, except renal pelvis (3) T2DM (type 2 diabetes mellitus) Assessment/Plan: -diabetic diet -SSI -expect some elevations with decadron Code(s): E11.9 - TYPE 2 DIABETES MELLITUS WITHOUT COMPLICATIONS (4) Atrial flutter Assessment/Plan: -rate controlled -will restart xarelto since not having surgery Code(s): I48.92 - UNSPECIFIED ATRIAL FLUTTER Qualifiers: Atrial flutter type: atypical Qualified Code(s): I48.4 - Atypical atrial flutter (5) HTN (hypertension) Assessment/Plan: -controlled Code(s): I10 - ESSENTIAL (PRIMARY) HYPERTENSION Qualifiers: Hypertension type: essential hypertension Qualified Code(s): I10 - Essential (primary) hypertension (6) Obesity Assessment/Plan: -present, but not emergent issue Code(s): E66.9 - OBESITY, UNSPECIFIED
--- NOTE | 2017-06-01 17:56 | CONSULT ---
Consult - text type - Consultation Consultation Note: Neurology History of Present Illness Patient is a 76 y.o. 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 He denied any fall, head trauma or LOC. Patient noted feeling weak for the past month which he associates with the onset of his radiation treatments in April 2017. He completed CT T spine first which showed neoplastic process at multiple levels. Thereafter, MRI of T spine which showed T3-T4 cord compression without underlying edema or myelomalacia, put on Decadron and without much improvement. Dr. Flores, NSGY, on case and offered surgical intervention, notes reviewed. Patient did not want to pursue surgical management. Heme/Onc now on case and discussing further treatment options. 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 Past History - Past Medical History Allergies/Adverse Reactions: Allergies Allergy/AdvReac Type Severity Reaction Status Date / Time No Known Drug Allergies Allergy Verified 05/28/17 13:32 Active Medications Acetaminophen (Tylenol -) 650 mg PO Q4H PRN PRN Reason: FEVER OR PAIN Atorvastatin Calcium (Lipitor -) 10 mg PO HS [facility] Last Admin: 05/31/17 21:29 Dose: 10 mg Cholecalciferol (Vitamin D3 -) 1,000 unit PO DAILY [facility] Last Admin: 06/01/17 11:00 Dose: 1,000 unit Dexamethasone (Decadron -) 4 mg PO BID [facility] Docusate Sodium (Colace -) 100 mg PO TID [facility] Last Admin: 06/01/17 13:51 Dose: 100 mg Ezetimibe (Zetia -) 10 mg PO HS [facility] Last Admin: 05/31/17 21:29 Dose: 10 mg Heparin Sodium (Porcine) (Heparin -) 1,000 unit IVPUSH PRN PRN PRN Reason: Heparin Stop: 06/01/17 22:00 Heparin Sodium (Porcine) (Heparin -) 5,000 unit IVPUSH PRN PRN PRN Reason: Heparin Stop: 06/01/17 22:00 Last Admin: 05/29/17 18:10 Dose: 5,000 unit HEPARIN SOD,PORK IN 0.45% NACL (Heparin-1/2ns 25,000 Units/500) 25,000 unit in 500 mls @ 16 mls/hr IVPB TITR SUSAN; 800 UNITS/HR PRN Reason: Protocol Stop: 06/01/17 22:00 Last Titration: 06/01/17 12:26 Dose: 800 units/hr, 16 mls/hr Insulin Aspart (Novolog Vial Sliding Scale -) 1 vial SQ ACHS SUSAN PRN Reason: Protocol Last Admin: 06/01/17 16:36 Dose: 5 units Metoprolol Succinate (Toprol Xl -) 25 mg PO DAILY [facility] Last Admin: 06/01/17 11:01 Dose: 25 mg Multivitamins/Minerals (Theragran-M) 1 each PO DAILY [facility] Last Admin: 06/01/17 11:01 Dose: 1 each Pantoprazole Sodium (Protonix -) 40 mg PO DAILY [facility] Last Admin: 06/01/17 11:01 Dose: 40 mg Polyethylene Glycol (Miralax (For Daily Use) -) 17 gm PO BID [facility] Last Admin: 06/01/17 11:01 Dose: Not Given Rivaroxaban (Xarelto -) 20 mg PO HS [facility] Anemia: No Asthma: No Cancer: Yes (right eye lid cancer- skin ca, rt kidney cancer) Cardiac Disorders: Yes (PAF?) CVA: No COPD: No CHF: No Dementia: No Diabetes: Yes (NIDDM) GI Disorders: Yes (diverticulosis, colon adenomas) Disorders: No HTN: Yes Hypercholesterolemia: Yes Liver Disease: No Seizures: No Thyroid Disease: No - Surgical History Abdominal Surgery: No Appendectomy: Yes (as a child) Cardiac Surgery: No Cholecystectomy: Yes (LAP) Lung Surgery: No Neurologic Surgery: No Orthopedic Surgery: Yes (LT KNEE) - Suicide/Smoking/Psychosocial Hx Smoking History: Former smoker Have you smoked in the past 12 months: No If you are a former smoker, when did you quit?: 1974 Hx Alcohol Use: No Drug/Substance Use Hx: No Substance Use Type: None Review of Systems - Review of Systems Constitutional: Yes: Weakness. No: Chills, Fever Respiratory: No: Shortness of Breath Cardiac (ROS): No: Chest Pain ABD/GI: No: Constipated, Diarrhea, Nausea, Vomiting *Physical Exam Vital Signs Period Temp Pulse Resp BP Sys/Amador Pulse Ox Last 24 Hr 97.4 F-98.0 F 50-70 18-20 103-132/53-65 - Physical Exam General Appearance: Yes: Nourished, Obese Respiratory/Chest: positive: Lungs Clear. negative: Labored Respiration, Rapid RR Cardiovascular: positive: S1, S2. negative: Edema, JVD Vascular Pulses: Dorsalis-Pedis (R): 2+, Doralis-Pedis (L): 2+ Gastrointestinal/Abdominal: positive: Normal Bowel Sounds, Soft Musculoskeletal: negative: CVA Tenderness (R), CVA Tenderness (L), Vertebral Tenderness Extremity: positive: Normal Capillary Refill, Normal Inspection, Coldness (B/L LE weakness 2+ pulses), Other (B/L LE weakness, motor strength 4/5) Integumentary: positive: Normal Color, Dry, Warm Neurologic: AWake, alert, interactive, Motor- 4+/5 B LE; Sensation- no sensory level, decreased B distal LE vibration; DTR- hyporeflexia B LE; Gait- able to get up and walked with walker to bathroom CBCD WBC 8.2 K/mm3 (4.0-10.0) 06/01/17 08:00 RBC 4.06 M/mm3 (4.00-5.60) 06/01/17 08:00 Hgb 12.2 GM/dL (11.7-16.9) 06/01/17 08:00 Hct 36.2 % (35.4-49) 06/01/17 08:00 MCV 89.1 fl (80-96) 06/01/17 08:00 MCHC 33.7 g/dl (32.0-35.9) 06/01/17 08:00 RDW 15.5 % (11.9-15.9) 06/01/17 08:00 Plt Count 100 K/MM3 (134-434) L 06/01/17 08:00 MPV 8.1 fl (7.5-11.1) 06/01/17 08:00 CMP Sodium 139 mmol/L (136-145) 06/01/17 08:00 Potassium 3.8 mmol/L (3.5-5.1) 06/01/17 08:00 Chloride 105 mmol/L (98-107) 06/01/17 08:00 Carbon Dioxide 25 mmol/L (21-32) 06/01/17 08:00 Anion Gap 9 (8-16) 06/01/17 08:00 BUN 25 mg/dL (7-18) H 06/01/17 08:00 Creatinine 0.9 mg/dL (0.7-1.3) 06/01/17 08:00 Creat Clearance w eGFR > 60 (>60) 05/28/17 13:30 Calcium 8.0 mg/dL (8.5-10.1) L 06/01/17 08:00 Total Bilirubin 0.8 mg/dL (0.2-1.0) D 05/28/17 13:30 AST 35 U/L (15-37) D 05/28/17 13:30 ALT 58 U/L (12-78) D 05/28/17 13:30 Alkaline Phosphatase 121 U/L (45-117) H D 05/28/17 13:30 Total Protein 5.8 g/dl (6.4-8.2) L 05/28/17 13:30 Albumin 2.9 g/dl (3.4-5.0) L 05/28/17 13:30 CT T spine reviewed MRI T spine reviewed Medical Decision Making 76 y.o. 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 He denied any fall, head trauma or LOC. Patient noted feeling weak for the past month which he associates with the onset of his radiation treatments in April 2017. He completed CT T spine first which showed neoplastic process at multiple levels. Thereafter, MRI of T spine which showed T3-T4 cord compression without underlying edema or myelomalacia. 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 On Decadron and without much improvement, can continue current dose. Dr. Flores, NSGY, on case and offered surgical intervention, if patient amenable would consider option Heme/Onc now on case and discussing further treatment options, spoke with Dr. Porras Patient is not interested in surgery Sterotatic radiation to T3/T4 likely treatment route patient would prefer Steroids has helped in strength and some mobility Fall precautions suggested Physcial therapy as tolerated Likely will need short term rehab after treatment DVT PPX
--- NOTE | 2017-06-01 18:00 | PN ---
Progress Note (short form) - Note Progress Note: Patient is able to walk but still feels weak. Decadron has been increased. D/W Med Onc. Prognosis is poor neurologically and overall. Response rates are expected to be low with systemic therapy, but this will be offered as a last chance before considering stereotactic radiation therapy. The rationale is that renal cell carcinoma responds better to stereotactic treatment and that we could treat the portion of the tumor that is not adjacent to the spinal cord to relieve the pressure it is exerting on the cord. Will follow as an out-patient very closely with Med Onc.
--- NOTE | 2017-06-01 19:43 | PN ---
Progress Note (short form) - Note Progress Note: seen and examined. O/E: AFVSS Constitutional: Yes: Well Nourished, No Distress Eyes: Yes: WNL HENT: Yes: WNL Neck: Yes: WNL Cardiovascular: Yes: Pulse Irregular Respiratory: Yes: Regular Edema: Yes Edema: LLE: Trace, RLE: Trace Labs: Last Vital Signs Temp Pulse Resp BP Pulse Ox 97.7 F 63 18 103/57 96 06/01/17 15:17 06/01/17 15:17 06/01/17 15:17 06/01/17 15:17 05/31/17 09:00 CBC, BMP 06/01/17 08:00 06/01/17 08:00 metastatic RCC Cord compression s/p RT ( T3-T9) Now with cord compression on T3-T4 LE weakness. Multiple osseous mets NSG/Neurology/RadOnc consults appreciated. Patient with complicated medical situation. We have discussed his case with /. d/w patient and in great detail. to atleast have a meaningful functional preservation, discussed about the initiation of systemic therapy. discussed about pazopanib. checked interactions with Xarelto. for labs in the am, prior to placing the script to speciality pharmacy( labs for dosing determination). meds would take time to be delivered. will continue with the same dose of dex , as it seems that it did help him we plan to follow him very closely,(with both medonc/radonc). may need srs if worsening neurologically. PT in-house as tolerated would need a safe dispo plan.
[2017-06-01] MEDS: ATORVASTATIN CA 10 MG TABLET (FP) PO SCH (21:42)
[2017-06-01] MEDS: RIVAROXABAN 20 MG TABLET PO SCH (21:44)
[2017-06-01] MEDS: EZETIMIBE 10 MG TABLET (FP) PO SCH (21:45)
[2017-06-01] MEDS ORDERED: RIVAROXABAN 20 MG TABLET PO SCH (22:00)
[2017-06-02] MEDS: INSULIN SLIDING SCALE (NOVOLOG) 1 VIAL SQ SCH ×4 (06:49→21:50)
[2017-06-02] MEDS: DOCUSATE SODIUM 100 MG CAPSULE (FP) PO SCH ×3 (06:49→21:43)
[2017-06-02 07:47] LABS: MCH 29.7 pg (25.7-33.7); MCHC 33.1 g/dl (32.0-35.9); MEAN CELL VOLUME 89.7 fl (80-96); PLATELET COUNT 103 K/MM3 (134-434)
[2017-06-02 09:23] LABS: ALBUMIN 2.7 g/dl (3.4-5.0); ANION GAP 10 (8-16); BILIRUBIN,TOTAL 0.6 mg/dL (0.2-1.0); CALCIUM 8.5 mg/dL (8.5-10.1); CO2 26 mmol/L (21-32); CREATININE 0.9 mg/dL (0.7-1.3); GLUCOSE,RANDOM 159 mg/dL (74-106); LDH 579 U/L (87-241); SGOT/AST 29 U/L (15-37); SGPT/ALT 56 U/L (12-78); TOT PROT 5.3 g/dl (6.4-8.2)
[2017-06-02 09:24] LABS: ALK PHOS 98 U/L (45-117)
[2017-06-02] MEDS ORDERED: PT OWN MED DRAWER 7, Y5N ONE ×2 (09:30→21:41)
[2017-06-02] MEDS: DEXAMETHASONE 4 MG TABLET (FP) PO SCH ×2 (09:34→21:43)
[2017-06-02] MEDS: PANTOPRAZOLE 40 MG TABLET (FP) PO SCH (09:34)
[2017-06-02] MEDS: MULTIVITAMINS THER W-MINERALS COMBO TABLET (FP) PO SCH (09:34)
[2017-06-02] MEDS: CHOLECALCIFEROL (VITAMIN D3) 1,000 UNIT TABLET (FP) PO SCH (09:35)
[2017-06-02] MEDS: METOPROLOL SUCCINATE 25 MG TAB.SR.24H (FP) PO SCH (09:35)
[2017-06-02] MEDS: POLYETHYLENE GLYCOL 3350 119 GM BTL PO SCH ×2 (09:35→21:44)
--- NOTE | 2017-06-02 10:35 | PN ---
Progress Note (short form) - Note Progress Note: Neurology History of Present Illness Patient is a 76 y.o. 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 He denied any fall, head trauma or LOC. Patient noted feeling weak for the past month which he associates with the onset of his radiation treatments in April 2017. He completed CT T spine first which showed neoplastic process at multiple levels. Thereafter, MRI of T spine which showed T3-T4 cord compression without underlying edema or myelomalacia, put on Decadron. Dr. Flores, NSGY, on case and offered surgical intervention, notes reviewed. Patient does not want to pursue surgical management. Heme/Onc now on case and discussing further treatment options. 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 Heme/onc, Rads notes reviewed. Moving forward, likely for sterotactic radiation in hopes of diminishing size of T3/T4 met and improve pressure on cord. Patient in agreement with this. Active Medications Acetaminophen (Tylenol -) 650 mg PO Q4H PRN PRN Reason: FEVER OR PAIN Atorvastatin Calcium (Lipitor -) 10 mg PO HS [facility] Last Admin: 06/01/17 21:42 Dose: 10 mg Cholecalciferol (Vitamin D3 -) 1,000 unit PO DAILY [facility] Last Admin: 06/02/17 09:35 Dose: 1,000 unit Dexamethasone (Decadron -) 4 mg PO BID [facility] Last Admin: 06/02/17 09:34 Dose: 4 mg Docusate Sodium (Colace -) 100 mg PO TID [facility] Last Admin: 06/02/17 06:49 Dose: 100 mg Ezetimibe (Zetia -) 10 mg PO HS [facility] Last Admin: 06/01/17 21:45 Dose: 10 mg Insulin Aspart (Novolog Vial Sliding Scale -) 1 vial SQ ACHS [facility] PRN Reason: Protocol Last Admin: 06/02/17 06:49 Dose: 2 units Metoprolol Succinate (Toprol Xl -) 25 mg PO DAILY [facility] Last Admin: 06/02/17 09:35 Dose: 25 mg Multivitamins/Minerals (Theragran-M) 1 each PO DAILY [facility] Last Admin: 06/02/17 09:34 Dose: 1 each Pantoprazole Sodium (Protonix -) 40 mg PO DAILY [facility] Last Admin: 06/02/17 09:34 Dose: 40 mg Polyethylene Glycol (Miralax (For Daily Use) -) 17 gm PO BID [facility] Last Admin: 06/02/17 09:35 Dose: Not Given Rivaroxaban (Xarelto -) 20 mg PO HS [facility] Last Admin: 06/01/17 21:44 Dose: 20 mg *Physical Exam Vital Signs Temperature 97.9 F 06/02/17 09:45 Pulse Rate 67 06/02/17 09:45 Respiratory Rate 18 06/02/17 05:54 Blood Pressure 114/57 06/02/17 09:45 O2 Sat by Pulse Oximetry (%) 97 06/01/17 21:00 - Physical Exam General Appearance: Yes: Nourished, Obese Respiratory/Chest: positive: Lungs Clear. negative: Labored Respiration, Rapid RR Cardiovascular: positive: S1, S2. negative: Edema, JVD Vascular Pulses: Dorsalis-Pedis (R): 2+, Doralis-Pedis (L): 2+ Gastrointestinal/Abdominal: positive: Normal Bowel Sounds, Soft Musculoskeletal: negative: CVA Tenderness (R), CVA Tenderness (L), Vertebral Tenderness Extremity: positive: Normal Capillary Refill, Normal Inspection, Coldness (B/L LE weakness 2+ pulses), Other (B/L LE weakness, motor strength 4/5) Integumentary: positive: Normal Color, Dry, Warm Neurologic: AWake, alert, interactive, Motor- 4+/5 B LE; Sensation- no sensory level, decreased B distal LE vibration; DTR- hyporeflexia B LE; Gait- able to get up and walk steps CBCD WBC 9.0 K/mm3 (4.0-10.0) 06/02/17 06:58 RBC 4.11 M/mm3 (4.00-5.60) 06/02/17 06:58 Hgb 12.2 GM/dL (11.7-16.9) 06/02/17 06:58 Hct 36.9 % (35.4-49) 06/02/17 06:58 MCV 89.7 fl (80-96) 06/02/17 06:58 MCHC 33.1 g/dl (32.0-35.9) 06/02/17 06:58 RDW 16.0 % (11.9-15.9) H 06/02/17 06:58 Plt Count 103 K/MM3 (134-434) L 06/02/17 06:58 MPV 8.0 fl (7.5-11.1) 06/02/17 06:58 CMP Sodium 141 mmol/L (136-145) 06/02/17 06:58 Potassium 4.4 mmol/L (3.5-5.1) 06/02/17 06:58 Chloride 105 mmol/L (98-107) 06/02/17 06:58 Carbon Dioxide 26 mmol/L (21-32) 06/02/17 06:58 Anion Gap 10 (8-16) 06/02/17 06:58 BUN 23 mg/dL (7-18) H 06/02/17 06:58 Creatinine 0.9 mg/dL (0.7-1.3) 06/02/17 06:58 Creat Clearance w eGFR > 60 (>60) 06/02/17 06:58 Calcium 8.5 mg/dL (8.5-10.1) 06/02/17 06:58 Total Bilirubin 0.6 mg/dL (0.2-1.0) D 06/02/17 06:58 AST 29 U/L (15-37) 06/02/17 06:58 ALT 56 U/L (12-78) 06/02/17 06:58 Alkaline Phosphatase 98 U/L (45-117) 06/02/17 06:58 Total Protein 5.3 g/dl (6.4-8.2) L 06/02/17 06:58 Albumin 2.7 g/dl (3.4-5.0) L 06/02/17 06:58 CT T spine reviewed MRI T spine reviewed Medical Decision Making 76 y.o. 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 He denied any fall, head trauma or LOC. Patient noted feeling weak for the past month which he associates with the onset of his radiation treatments in April 2017. He completed CT T spine first which showed neoplastic process at multiple levels. Thereafter, MRI of T spine which showed T3-T4 cord compression without underlying edema or myelomalacia. 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 On Decadron Dr. Flores, NSGY, on case and offered surgical intervention, patient not interested in surgical intervention Sterotatic radiation to T3/T4 likely treatment route patient would prefer Steroids has helped in strength and some mobility Fall precautions suggested Physcial therapy as tolerated Likely will need short term rehab after treatment DVT PPX
--- NOTE | 2017-06-02 11:16 | PN ---
Progress Note, Physician Chief Complaint: Mr Rod says he is doing well. Is no longer having pain but still with weakness. Says unable to stand from sitting or lying position without assistance. No cp, sob, n/v. - Current Medication List Current Medications: Active Medications Acetaminophen (Tylenol -) 650 mg PO Q4H PRN PRN Reason: FEVER OR PAIN Atorvastatin Calcium (Lipitor -) 10 mg PO [facility] Last Admin: 06/01/17 21:42 Dose: 10 mg Cholecalciferol (Vitamin D3 -) 1,000 unit PO DAILY [facility] Last Admin: 06/02/17 09:35 Dose: 1,000 unit Dexamethasone (Decadron -) 4 mg PO BID [facility] Last Admin: 06/02/17 09:34 Dose: 4 mg Docusate Sodium (Colace -) 100 mg PO TID [facility] Last Admin: 06/02/17 06:49 Dose: 100 mg Ezetimibe (Zetia -) 10 mg PO [facility] Last Admin: 06/01/17 21:45 Dose: 10 mg Insulin Aspart (Novolog Vial Sliding Scale -) 1 vial SQ ACHS [facility] PRN Reason: Protocol Last Admin: 06/02/17 06:49 Dose: 2 units Metoprolol Succinate (Toprol Xl -) 25 mg PO DAILY [facility] Last Admin: 06/02/17 09:35 Dose: 25 mg Multivitamins/Minerals (Theragran-M) 1 each PO DAILY [facility] Last Admin: 06/02/17 09:34 Dose: 1 each Pantoprazole Sodium (Protonix -) 40 mg PO DAILY [facility] Last Admin: 06/02/17 09:34 Dose: 40 mg Polyethylene Glycol (Miralax (For Daily Use) -) 17 gm PO BID [facility] Last Admin: 06/02/17 09:35 Dose: Not Given Rivaroxaban (Xarelto -) 20 mg PO [facility] Last Admin: 06/01/17 21:44 Dose: 20 mg - Objective Vital Signs: Vital Signs Temperature 36.6 C 06/02/17 09:45 Pulse Rate 67 06/02/17 09:45 Respiratory Rate 18 06/02/17 05:54 Blood Pressure 114/57 06/02/17 09:45 O2 Sat by Pulse Oximetry (%) 97 06/01/17 21:00 Constitutional: Yes: No Distress, Calm, Obese Cardiovascular: Yes: Regular Rate and Rhythm. No: Gallop, Murmur, Rub Respiratory: Yes: Regular, CTA Bilaterally. No: Rales, Rhonchi, Wheezes Gastrointestinal: Yes: Normal Bowel Sounds, Soft. No: Distention, Tenderness Extremities: Yes: WNL Edema: No Labs: CBC, BMP 06/02/17 06:58 06/02/17 06:58 INR, PTT INR 1.50 (0.82-1.09) H 05/28/17 13:30 Problem List - Problems (1) Spinal cord compression Code(s): G95.20 - UNSPECIFIED CORD COMPRESSION (2) Renal cell carcinoma Code(s): C64.9 - MALIGNANT NEOPLASM OF UNSP KIDNEY, EXCEPT RENAL PELVIS Qualifiers: Laterality: right Qualified Code(s): C64.1 - Malignant neoplasm of right kidney, except renal pelvis (3) T2DM (type 2 diabetes mellitus) Code(s): E11.9 - TYPE 2 DIABETES MELLITUS WITHOUT COMPLICATIONS (4) Atrial flutter Code(s): I48.92 - UNSPECIFIED ATRIAL FLUTTER Qualifiers: Atrial flutter type: atypical Qualified Code(s): I48.4 - Atypical atrial flutter (5) HTN (hypertension) Code(s): I10 - ESSENTIAL (PRIMARY) HYPERTENSION Qualifiers: Hypertension type: essential hypertension Qualified Code(s): I10 - Essential (primary) hypertension (6) Obesity Code(s): E66.9 - OBESITY, UNSPECIFIED Assessment/Plan (1) Spinal cord compression Assessment/Plan: -case d/w oncology and radiation oncology -increase dexamethasone per rad onc recommendation -planning for trial of systemic chemotherapy -if unsuccessful, stereotactic radiation therapy Code(s): G95.20 - UNSPECIFIED CORD COMPRESSION (2) Renal cell carcinoma Assessment/Plan: -s/p nephrectomy but with spinal mets -as above Code(s): C64.9 - MALIGNANT NEOPLASM OF UNSP KIDNEY, EXCEPT RENAL PELVIS Qualifiers: Laterality: right Qualified Code(s): C64.1 - Malignant neoplasm of right kidney, except renal pelvis (3) T2DM (type 2 diabetes mellitus) Assessment/Plan: -diabetic diet -SSI -expect some elevations with decadron Code(s): E11.9 - TYPE 2 DIABETES MELLITUS WITHOUT COMPLICATIONS (4) Atrial flutter Assessment/Plan: -rate controlled -continue xarelto Code(s): I48.92 - UNSPECIFIED ATRIAL FLUTTER Qualifiers: Atrial flutter type: atypical Qualified Code(s): I48.4 - Atypical atrial flutter (5) HTN (hypertension) Assessment/Plan: -controlled Code(s): I10 - ESSENTIAL (PRIMARY) HYPERTENSION Qualifiers: Hypertension type: essential hypertension Qualified Code(s): I10 - Essential (primary) hypertension (6) Obesity Assessment/Plan: -present, but not emergent issue Code(s): E66.9 - OBESITY, UNSPECIFIED Dispo -plan for discharge to SNF in am
[2017-06-02 11:44] LABS: ACANTHOCYTES 0; ANISOCYTOSIS 0; BURR CELLS 0; CABBOT RINGS 0; HELMET CELLS 0; HOWELL-JOLLY BODIES 0; HYPOCHROMIA 0; MACROCYTOSIS 0; METAMYELOCYTE 3 % (0-2); MICROCYTOSIS 0; OVALOCYTE 0; PLATELET ESTIMATE DECREASED; POIKILOCYTOSIS 0; POLYCHROMASIA 0; REACTIVE LYMPHOCYTES 0 % (0-80); SCHISTOCYTES 0; SPHEROCYTE 0; STOMATOCYTE 0; TARGET CELLS 0; TEAR DROP CELLS 0; TOXIC GRANULATION 0
[2017-06-02 12:12] LABS: MYELOCYTE 6 % (0-2)
--- NOTE | 2017-06-02 14:12 | PN ---
Progress Note (short form) - Note Progress Note: seen and examined. pain better no incontinence getting up from chair is difficult. O/E: AFVSS Constitutional: Yes: Well Nourished, No Distress Eyes: Yes: WNL HENT: Yes: WNL Neck: Yes: WNL Cardiovascular: Yes: Pulse Irregular Respiratory: Yes: Regular Edema: Yes Edema: LLE: Trace, RLE: Trace Labs: Last Vital Signs Temp Pulse Resp BP Pulse Ox 97.7 F 63 18 103/57 96 06/01/17 15:17 06/01/17 15:17 06/01/17 15:17 06/01/17 15:17 05/31/17 09:00 CBC, BMP 06/01/17 08:00 06/01/17 08:00 mRCC with osseous and cord compression s/p RT after MDT discussion, decided for Pazopanib. sent to speciality pharmacy this morning. Last ECG 05/28 reviewed. on xarelto for afib thrombocytopenia, likely from RT/diffuse osseous mets will need close monitoring as an Out patient for bleeding. AEs discussed but not limited to diarrhea, bleeding, HTN , rash, whitening of hair, ILD etc.. will continue close follow-up if d/c for SNF, will need to ensure that the pt should be able to take his own chemo(pazopanib) pills.
[2017-06-02] MEDS ORDERED: INSULIN (NOVOLOG) ASPART 100 UNITS/ML 10ML VIAL ONE (21:38)
[2017-06-02] MEDS: ATORVASTATIN CA 10 MG TABLET (FP) PO SCH (21:43)
[2017-06-02] MEDS: EZETIMIBE 10 MG TABLET (FP) PO SCH (21:44)
[2017-06-02] MEDS: RIVAROXABAN 20 MG TABLET PO SCH (21:44)
[2017-06-03] MEDS: DOCUSATE SODIUM 100 MG CAPSULE (FP) PO SCH ×3 (06:01→21:14)
[2017-06-03] MEDS: INSULIN SLIDING SCALE (NOVOLOG) 1 VIAL SQ SCH ×2 (06:09→11:15)
[2017-06-03] MEDS: METOPROLOL SUCCINATE 25 MG TAB.SR.24H (FP) PO SCH (09:28)
[2017-06-03] MEDS: PANTOPRAZOLE 40 MG TABLET (FP) PO SCH (09:28)
[2017-06-03] MEDS: MULTIVITAMINS THER W-MINERALS COMBO TABLET (FP) PO SCH (09:28)
[2017-06-03] MEDS: DEXAMETHASONE 4 MG TABLET (FP) PO SCH ×2 (09:28→21:14)
[2017-06-03] MEDS: CHOLECALCIFEROL (VITAMIN D3) 1,000 UNIT TABLET (FP) PO SCH (09:29)
[2017-06-03] MEDS: POLYETHYLENE GLYCOL 3350 119 GM BTL PO SCH ×3 (09:29→21:21)
--- NOTE | 2017-06-03 09:32 | PN ---
Progress Note (short form) - Note Progress Note: Neurology History of Present Illness Patient is a 76 y.o. 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 He denied any fall, head trauma or LOC. Patient noted feeling weak for the past month which he associates with the onset of his radiation treatments in April 2017. He completed CT T spine first which showed neoplastic process at multiple levels. Thereafter, MRI of T spine which showed T3-T4 cord compression without underlying edema or myelomalacia, put on Decadron. Dr. Flores, NSGY, on case and offered surgical intervention, notes reviewed. Patient does not want to pursue surgical management. Heme/Onc now on case and discussing further treatment options. 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 Heme/onc note reviewed, pazopanib decided for treatment. Plan would be for SNF, patient still with limitation in standing up. Active Medications Acetaminophen (Tylenol -) 650 mg PO Q4H PRN PRN Reason: FEVER OR PAIN Atorvastatin Calcium (Lipitor -) 10 mg PO HS [facility] Last Admin: 06/02/17 21:43 Dose: 10 mg Cholecalciferol (Vitamin D3 -) 1,000 unit PO DAILY [facility] Last Admin: 06/03/17 09:29 Dose: 1,000 unit Dexamethasone (Decadron -) 4 mg PO BID [facility] Last Admin: 06/03/17 09:28 Dose: 4 mg Docusate Sodium (Colace -) 100 mg PO TID [facility] Last Admin: 06/03/17 06:01 Dose: 100 mg Ezetimibe (Zetia -) 10 mg PO HS [facility] Last Admin: 06/02/17 21:44 Dose: 10 mg Insulin Aspart (Novolog Vial Sliding Scale -) 1 vial SQ ACHS [facility] PRN Reason: Protocol Last Admin: 06/03/17 06:09 Dose: 2 units Metoprolol Succinate (Toprol Xl -) 25 mg PO DAILY [facility] Last Admin: 06/03/17 09:28 Dose: 25 mg Multivitamins/Minerals (Theragran-M) 1 each PO DAILY [facility] Last Admin: 06/03/17 09:28 Dose: 1 each Pantoprazole Sodium (Protonix -) 40 mg PO DAILY [facility] Last Admin: 06/03/17 09:28 Dose: 40 mg Polyethylene Glycol (Miralax (For Daily Use) -) 17 gm PO BID [facility] Last Admin: 06/03/17 09:29 Dose: 17 grams Rivaroxaban (Xarelto -) 20 mg PO HS [facility] Last Admin: 06/02/17 21:44 Dose: 20 mg *Physical Exam Vital Signs Period Temp Pulse Resp BP Sys/Amador Pulse Ox Last 24 Hr 97.4 F-98.2 F 54-69 17-20 109-128/56-61 97 - Physical Exam General Appearance: Yes: Nourished, Obese Respiratory/Chest: positive: Lungs Clear. negative: Labored Respiration, Rapid RR Cardiovascular: positive: S1, S2. negative: Edema, JVD Vascular Pulses: Dorsalis-Pedis (R): 2+, Doralis-Pedis (L): 2+ Gastrointestinal/Abdominal: positive: Normal Bowel Sounds, Soft Musculoskeletal: negative: CVA Tenderness (R), CVA Tenderness (L), Vertebral Tenderness Extremity: positive: Normal Capillary Refill, Normal Inspection, Coldness (B/L LE weakness 2+ pulses), Other (B/L LE weakness, motor strength 4/5) Integumentary: positive: Normal Color, Dry, Warm Neurologic: AWake, alert, interactive, Motor- 4+/5 B LE; Sensation- no sensory level, decreased B distal LE vibration; DTR- hyporeflexia B LE; Gait- able to get up and walk steps CBCD WBC 9.0 K/mm3 (4.0-10.0) 06/02/17 06:58 RBC 4.11 M/mm3 (4.00-5.60) 06/02/17 06:58 Hgb 12.2 GM/dL (11.7-16.9) 06/02/17 06:58 Hct 36.9 % (35.4-49) 06/02/17 06:58 MCV 89.7 fl (80-96) 06/02/17 06:58 MCHC 33.1 g/dl (32.0-35.9) 06/02/17 06:58 RDW 16.0 % (11.9-15.9) H 06/02/17 06:58 Plt Count 103 K/MM3 (134-434) L 06/02/17 06:58 MPV 8.0 fl (7.5-11.1) 06/02/17 06:58 CMP Sodium 141 mmol/L (136-145) 06/02/17 06:58 Potassium 4.4 mmol/L (3.5-5.1) 06/02/17 06:58 Chloride 105 mmol/L (98-107) 06/02/17 06:58 Carbon Dioxide 26 mmol/L (21-32) 06/02/17 06:58 Anion Gap 10 (8-16) 06/02/17 06:58 BUN 23 mg/dL (7-18) H 06/02/17 06:58 Creatinine 0.9 mg/dL (0.7-1.3) 06/02/17 06:58 Creat Clearance w eGFR > 60 (>60) 06/02/17 06:58 Calcium 8.5 mg/dL (8.5-10.1) 06/02/17 06:58 Total Bilirubin 0.6 mg/dL (0.2-1.0) D 06/02/17 06:58 AST 29 U/L (15-37) 06/02/17 06:58 ALT 56 U/L (12-78) 06/02/17 06:58 Alkaline Phosphatase 98 U/L (45-117) 06/02/17 06:58 Total Protein 5.3 g/dl (6.4-8.2) L 06/02/17 06:58 Albumin 2.7 g/dl (3.4-5.0) L 06/02/17 06:58 CT T spine reviewed MRI T spine reviewed Medical Decision Making 76 y.o. 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 He denied any fall, head trauma or LOC. Patient noted feeling weak for the past month which he associates with the onset of his radiation treatments in April 2017. He completed CT T spine first which showed neoplastic process at multiple levels. Thereafter, MRI of T spine which showed T3-T4 cord compression without underlying edema or myelomalacia. 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 On Decadron 4mg twice daily at this time SHAMA HaiderGY, on case and offered surgical intervention, patient not interested in surgical intervention Onc note reviewed and plan for panzopanib Steroids has helped in strength and some mobility but not easily standing Fall precautions suggested Physcial therapy as tolerated Plan for SNF DVT PPX
--- NOTE | 2017-06-03 11:56 | PN ---
Progress Note, Physician Chief Complaint: Mr Rod says he is doing well. No cp, sob, n/v. Patient is able to walk, however still needs significant amount of assistance from sitting and lying positions - Current Medication List Current Medications: Active Medications Acetaminophen (Tylenol -) 650 mg PO Q4H PRN PRN Reason: FEVER OR PAIN Atorvastatin Calcium (Lipitor -) 10 mg PO HS [facility] Last Admin: 06/02/17 21:43 Dose: 10 mg Cholecalciferol (Vitamin D3 -) 1,000 unit PO DAILY [facility] Last Admin: 06/03/17 09:29 Dose: 1,000 unit Dexamethasone (Decadron -) 4 mg PO BID [facility] Last Admin: 06/03/17 09:28 Dose: 4 mg Docusate Sodium (Colace -) 100 mg PO TID [facility] Last Admin: 06/03/17 06:01 Dose: 100 mg Ezetimibe (Zetia -) 10 mg PO HS [facility] Last Admin: 06/02/17 21:44 Dose: 10 mg Insulin Aspart (Novolog Vial Sliding Scale -) 1 vial SQ ACHS [facility] PRN Reason: Protocol Last Admin: 06/03/17 11:15 Dose: Not Given Metoprolol Succinate (Toprol Xl -) 25 mg PO DAILY [facility] Last Admin: 06/03/17 09:28 Dose: 25 mg Multivitamins/Minerals (Theragran-M) 1 each PO DAILY [facility] Last Admin: 06/03/17 09:28 Dose: 1 each Pantoprazole Sodium (Protonix -) 40 mg PO DAILY [facility] Last Admin: 06/03/17 09:28 Dose: 40 mg Polyethylene Glycol (Miralax (For Daily Use) -) 17 gm PO BID [facility] Last Admin: 06/03/17 09:34 Dose: Not Given Rivaroxaban (Xarelto -) 20 mg PO HS [facility] Last Admin: 06/02/17 21:44 Dose: 20 mg - Objective Vital Signs: Vital Signs Temperature 36.7 C 06/03/17 08:45 Pulse Rate 54 L 06/03/17 08:45 Respiratory Rate 18 06/03/17 08:45 Blood Pressure 109/60 06/03/17 08:45 O2 Sat by Pulse Oximetry (%) 97 06/02/17 21:00 Constitutional: Yes: No Distress, Calm, Obese Cardiovascular: Yes: Regular Rate and Rhythm. No: Gallop, Murmur, Rub Respiratory: Yes: Regular, CTA Bilaterally. No: Rales, Rhonchi, Wheezes Gastrointestinal: Yes: Normal Bowel Sounds, Soft. No: Distention, Tenderness Extremities: Yes: WNL Edema: No Labs: CBC, BMP 06/02/17 06:58 06/02/17 06:58 INR, PTT INR 1.50 (0.82-1.09) H 05/28/17 13:30 Problem List - Problems (1) Spinal cord compression Code(s): G95.20 - UNSPECIFIED CORD COMPRESSION (2) Renal cell carcinoma Code(s): C64.9 - MALIGNANT NEOPLASM OF UNSP KIDNEY, EXCEPT RENAL PELVIS Qualifiers: Laterality: right Qualified Code(s): C64.1 - Malignant neoplasm of right kidney, except renal pelvis (3) T2DM (type 2 diabetes mellitus) Code(s): E11.9 - TYPE 2 DIABETES MELLITUS WITHOUT COMPLICATIONS (4) Atrial flutter Code(s): I48.92 - UNSPECIFIED ATRIAL FLUTTER Qualifiers: Atrial flutter type: atypical Qualified Code(s): I48.4 - Atypical atrial flutter (5) HTN (hypertension) Code(s): I10 - ESSENTIAL (PRIMARY) HYPERTENSION Qualifiers: Hypertension type: essential hypertension Qualified Code(s): I10 - Essential (primary) hypertension (6) Obesity Code(s): E66.9 - OBESITY, UNSPECIFIED Assessment/Plan (1) Spinal cord compression Assessment/Plan: -case d/w oncology and radiation oncology -increase dexamethasone per rad onc recommendation -planning for trial of systemic chemotherapy -if unsuccessful, stereotactic radiation therapy Code(s): G95.20 - UNSPECIFIED CORD COMPRESSION (2) Renal cell carcinoma Assessment/Plan: -s/p nephrectomy but with spinal mets -as above Code(s): C64.9 - MALIGNANT NEOPLASM OF UNSP KIDNEY, EXCEPT RENAL PELVIS Qualifiers: Laterality: right Qualified Code(s): C64.1 - Malignant neoplasm of right kidney, except renal pelvis (3) T2DM (type 2 diabetes mellitus) Assessment/Plan: -diabetic diet Code(s): E11.9 - TYPE 2 DIABETES MELLITUS WITHOUT COMPLICATIONS (4) Atrial flutter Assessment/Plan: -rate controlled -continue xarelto Code(s): I48.92 - UNSPECIFIED ATRIAL FLUTTER Qualifiers: Atrial flutter type: atypical Qualified Code(s): I48.4 - Atypical atrial flutter (5) HTN (hypertension) Assessment/Plan: -controlled Code(s): I10 - ESSENTIAL (PRIMARY) HYPERTENSION Qualifiers: Hypertension type: essential hypertension Qualified Code(s): I10 - Essential (primary) hypertension (6) Obesity Assessment/Plan: -present, but not emergent issue Code(s): E66.9 - OBESITY, UNSPECIFIED Dispo -patient with improvement in his presentation, strength is increasing -however still needs significant amount of assistance rising from sitting positions -does not have equipment in his house to assist with this and unable to help -patient would benefit from SNF for strength training of proximal muscles prior to discharge home
--- NOTE | 2017-06-03 14:01 | PN ---
Progress Note (short form) - Note Progress Note: CC pre-op clearance S: no cp, palps, dizziness, sob. has declined surgery. + Le edema stable. + weakness Current Medications Acetaminophen (Tylenol -) 650 mg PO Q4H PRN PRN Reason: FEVER OR PAIN Atorvastatin Calcium (Lipitor -) 10 mg PO HS [facility] Last Admin: 06/02/17 21:43 Dose: 10 mg Cholecalciferol (Vitamin D3 -) 1,000 unit PO DAILY [facility] Last Admin: 06/03/17 09:29 Dose: 1,000 unit Dexamethasone (Decadron -) 4 mg PO BID [facility] Last Admin: 06/03/17 09:28 Dose: 4 mg Docusate Sodium (Colace -) 100 mg PO TID [facility] Last Admin: 06/03/17 06:01 Dose: 100 mg Ezetimibe (Zetia -) 10 mg PO HS [facility] Last Admin: 06/02/17 21:44 Dose: 10 mg Metoprolol Succinate (Toprol Xl -) 25 mg PO DAILY [facility] Last Admin: 06/03/17 09:28 Dose: 25 mg Multivitamins/Minerals (Theragran-M) 1 each PO DAILY [facility] Last Admin: 06/03/17 09:28 Dose: 1 each Pantoprazole Sodium (Protonix -) 40 mg PO DAILY [facility] Last Admin: 06/03/17 09:28 Dose: 40 mg Polyethylene Glycol (Miralax (For Daily Use) -) 17 gm PO BID [facility] Last Admin: 06/03/17 09:34 Dose: Not Given Rivaroxaban (Xarelto -) 20 mg PO HS [facility] Last Admin: 06/02/17 21:44 Dose: 20 mg Vital Signs - 24 hr 06/02/17 06/02/17 06/02/17 15:12 21:00 22:00 Temperature 97.9 F 98.2 F Pulse Rate 65 69 Respiratory 17 18 Rate Blood Pressure 128/56 113/59 O2 Sat by Pulse 97 Oximetry (%) 06/02/17 06/03/17 06/03/17 23:39 06:00 08:45 Temperature 97.8 F 97.4 F L 98.0 F Pulse Rate 54 L 57 L 54 L Respiratory 20 18 18 Rate Blood Pressure 115/61 116/61 109/60 O2 Sat by Pulse Oximetry (%) 06/03/17 09:00 Temperature Pulse Rate Respiratory Rate Blood Pressure O2 Sat by Pulse 97 Oximetry (%) Intake & Output 06/01/17 06/02/17 06/03/17 06/04/17 07:59 07:59 07:59 07:59 Intake Total 392 1044 200 Output Total 600 Balance 392 444 200 Weight 236 lb 1.6 oz Constitutional: Yes: Well Nourished, No Distress Eyes: Yes: WNL HENT: Yes: WNL Neck: Yes: WNL Cardiovascular: Yes: Pulse Irregular, Murmur (2/6 systolic murmur at RUSB) + bs soft nt nd Respiratory: Yes: Regular Edema: Yes Edema: LLE: Trace, RLE: Trace Labs: CBC, BMP 06/02/17 06:58 06/02/17 06:58 Laboratory Tests 06/02/17 06:58 Albumin 2.7 L Imaging - Results EKG: Image Reviewed (ECG at 05/28/2017 at 13:14 Atrial flutter wit slow ventricular response at 40/min) Echo 02/27: 1. The left ventricular size is normal. 2. There is normal global left ventricular contractility. 3. The right ventricular systolic function is normal. 4. Left atrium is mildly dilated by volume. 5. The aortic valve was not well visualized. 6. Mild aortic regurgitation. 7. There is buxx-qf-avqyldds aortic stenosis present. Peak/mean gradients across the valve are 23-32 /14-18 mmHg. Assessment/Plan htn - stable on metoprolol LE edema - patient does not weight himself regularly. On high dose steroids and with LE edema. Standing weight here lower then prior office weight (270 lbs in January) Not on diuretic as outpatient, con't to monitor. atrial flutter - con't heparin drip - currently rate controlled on metoprolol. hl - con't statin Pre-op clearance - Patient is at intermediate risk for what would be a necessary surgical procedure. He denies any cardiovascular complaints - patient has declined surgery. - routine outpatient echo surveillance per outpatient real property appraiser Dr. Bennett.
--- NOTE | 2017-06-03 15:54 | PN ---
Progress Note (short form) - Note Progress Note: seen and examined. pain better no incontinence chart reviewed O/E: AFVSS Constitutional: Yes: Well Nourished, No Distress Eyes: Yes: WNL HENT: Yes: WNL Neck: Yes: WNL Cardiovascular: Yes: Pulse Irregular Respiratory: Yes: Regular Edema: Yes Edema: LLE: Trace, RLE: Trace Labs: Last Vital Signs Temp Pulse Resp BP Pulse Ox 97.6 F 54 L 18 101/52 97 06/03/17 14:58 06/03/17 14:58 06/03/17 14:58 06/03/17 14:58 06/03/17 09:00 CBC, BMP 06/02/17 06:58 06/02/17 06:58 Current Medications Generic Name Dose Route Start Last Admin Trade Name Freq PRN Reason Stop Dose Admin Acetaminophen 650 mg 05/29/17 01:59 Tylenol - PO Q4H PRN FEVER OR PAIN Atorvastatin Calcium 10 mg 05/29/17 22:00 06/02/17 21:43 Lipitor - PO 10 mg HS SUSAN Administration Cholecalciferol 1,000 unit 05/29/17 10:00 06/03/17 09:29 Vitamin D3 - PO 1,000 unit DAILY SUSAN Administration Dexamethasone 4 mg 06/01/17 22:00 06/03/17 09:28 Decadron - PO 4 mg BID SUSAN Administration Docusate Sodium 100 mg 05/29/17 06:00 06/03/17 14:08 Colace - PO 100 mg TID SUSAN Administration Ezetimibe 10 mg 05/29/17 22:00 06/02/17 21:44 Zetia - PO 10 mg HS SUSAN Administration Metoprolol Succinate 25 mg 05/29/17 10:00 06/03/17 09:28 Toprol Xl - PO 25 mg DAILY SUSAN Administration Multivitamins/Minerals 1 each 05/29/17 10:00 06/03/17 09:28 Theragran-M PO 1 each DAILY SUSAN Administration Pantoprazole Sodium 40 mg 05/29/17 10:00 06/03/17 09:28 Protonix - PO 40 mg DAILY SUSAN Administration Polyethylene Glycol 17 gm 05/29/17 10:00 06/03/17 09:34 Miralax (For Daily Use) - PO Not Given BID SUSAN Rivaroxaban 20 mg 06/01/17 22:00 06/02/17 21:44 Xarelto - PO 20 mg HS SUSAN Administration 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 c.w dex 4mg bid dispo per team, if d/c for SNF, will need to ensure that the pt should be able to take his own chemo(pazopanib) pills. Pt will need to come for Oncology office appointments for monitoring, psychotherapist social worker aware. d/w Hospitalist, Social service Oncology OP appt: 06/09/[address] [facility] first floor. at 1100am.
[2017-06-03] MEDS ORDERED: PT OWN MED DRAWER 7, Y5N ONE (21:04)
[2017-06-03] MEDS: ATORVASTATIN CA 10 MG TABLET (FP) PO SCH (21:14)
[2017-06-03] MEDS: EZETIMIBE 10 MG TABLET (FP) PO SCH (21:15)
[2017-06-03] MEDS: RIVAROXABAN 20 MG TABLET PO SCH (21:15)
[2017-06-04] MEDS: DOCUSATE SODIUM 100 MG CAPSULE (FP) PO SCH ×3 (05:58→22:18)
[2017-06-04] MEDS: METOPROLOL SUCCINATE 25 MG TAB.SR.24H (FP) PO SCH (09:18)
[2017-06-04] MEDS: PANTOPRAZOLE 40 MG TABLET (FP) PO SCH (09:18)
[2017-06-04] MEDS: DEXAMETHASONE 4 MG TABLET (FP) PO SCH ×2 (09:19→22:18)
[2017-06-04] MEDS: POLYETHYLENE GLYCOL 3350 119 GM BTL PO SCH ×3 (09:19→22:21)
[2017-06-04] MEDS: CHOLECALCIFEROL (VITAMIN D3) 1,000 UNIT TABLET (FP) PO SCH (09:19)
[2017-06-04] MEDS: MULTIVITAMINS THER W-MINERALS COMBO TABLET (FP) PO SCH (09:19)
--- NOTE | 2017-06-04 09:34 | PN ---
Progress Note (short form) - Note Progress Note: Neurology History of Present Illness Patient is a 76 y.o. 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 He denied any fall, head trauma or LOC. Patient noted feeling weak for the past month which he associates with the onset of his radiation treatments in April 2017. He completed CT T spine first which showed neoplastic process at multiple levels. Thereafter, MRI of T spine which showed T3-T4 cord compression without underlying edema or myelomalacia, put on Decadron. Dr. Flores, NSGY, on case and offered surgical intervention, notes reviewed. Patient does not want to pursue surgical management. Heme/Onc now on case and discussing further treatment options. 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 Plan would be for SNF after dose of chemo. No significant events overnight. Remains on decadron. Active Medications Acetaminophen (Tylenol -) 650 mg PO Q4H PRN PRN Reason: FEVER OR PAIN Atorvastatin Calcium (Lipitor -) 10 mg PO HS [facility] Last Admin: 06/03/17 21:14 Dose: 10 mg Cholecalciferol (Vitamin D3 -) 1,000 unit PO DAILY [facility] Last Admin: 06/04/17 09:19 Dose: 1,000 unit Dexamethasone (Decadron -) 4 mg PO BID [facility] Last Admin: 06/04/17 09:19 Dose: 4 mg Docusate Sodium (Colace -) 100 mg PO TID [facility] Last Admin: 06/04/17 05:58 Dose: 100 mg Ezetimibe (Zetia -) 10 mg PO HS [facility] Last Admin: 06/03/17 21:15 Dose: 10 mg Metoprolol Succinate (Toprol Xl -) 25 mg PO DAILY [facility] Last Admin: 06/04/17 09:18 Dose: 25 mg Multivitamins/Minerals (Theragran-M) 1 each PO DAILY [facility] Last Admin: 06/04/17 09:19 Dose: 1 each Pantoprazole Sodium (Protonix -) 40 mg PO DAILY [facility] Last Admin: 06/04/17 09:18 Dose: 40 mg Polyethylene Glycol (Miralax (For Daily Use) -) 17 gm PO BID [facility] Last Admin: 06/04/17 09:19 Dose: Not Given Rivaroxaban (Xarelto -) 20 mg PO HS [facility] Last Admin: 06/03/17 21:15 Dose: 20 mg *Physical Exam Vital Signs Temperature 97.1 F L 06/04/17 09:07 Pulse Rate 68 06/04/17 09:07 Respiratory Rate 18 06/04/17 09:07 Blood Pressure 137/71 06/04/17 09:07 O2 Sat by Pulse Oximetry (%) 96 06/03/17 20:40 - Physical Exam General Appearance: Yes: Nourished, Obese Respiratory/Chest: positive: Lungs Clear. negative: Labored Respiration, Rapid RR Cardiovascular: positive: S1, S2. negative: Edema, JVD Vascular Pulses: Dorsalis-Pedis (R): 2+, Doralis-Pedis (L): 2+ Gastrointestinal/Abdominal: positive: Normal Bowel Sounds, Soft Musculoskeletal: negative: CVA Tenderness (R), CVA Tenderness (L), Vertebral Tenderness Extremity: positive: Normal Capillary Refill, Normal Inspection, Coldness (B/L LE weakness 2+ pulses), Other (B/L LE weakness, motor strength 4/5) Integumentary: positive: Normal Color, Dry, Warm Neurologic: AWake, alert, interactive, Motor- 4+/5 B LE; Sensation- no sensory level, decreased B distal LE vibration; DTR- hyporeflexia B LE; Gait- able to get up and walk steps CBCD WBC 9.0 K/mm3 (4.0-10.0) 06/02/17 06:58 RBC 4.11 M/mm3 (4.00-5.60) 06/02/17 06:58 Hgb 12.2 GM/dL (11.7-16.9) 06/02/17 06:58 Hct 36.9 % (35.4-49) 06/02/17 06:58 MCV 89.7 fl (80-96) 06/02/17 06:58 MCHC 33.1 g/dl (32.0-35.9) 06/02/17 06:58 RDW 16.0 % (11.9-15.9) H 06/02/17 06:58 Plt Count 103 K/MM3 (134-434) L 06/02/17 06:58 MPV 8.0 fl (7.5-11.1) 06/02/17 06:58 CMP Sodium 141 mmol/L (136-145) 06/02/17 06:58 Potassium 4.4 mmol/L (3.5-5.1) 06/02/17 06:58 Chloride 105 mmol/L (98-107) 06/02/17 06:58 Carbon Dioxide 26 mmol/L (21-32) 06/02/17 06:58 Anion Gap 10 (8-16) 06/02/17 06:58 BUN 23 mg/dL (7-18) H 06/02/17 06:58 Creatinine 0.9 mg/dL (0.7-1.3) 06/02/17 06:58 Creat Clearance w eGFR > 60 (>60) 06/02/17 06:58 Calcium 8.5 mg/dL (8.5-10.1) 06/02/17 06:58 Total Bilirubin 0.6 mg/dL (0.2-1.0) D 06/02/17 06:58 AST 29 U/L (15-37) 06/02/17 06:58 ALT 56 U/L (12-78) 06/02/17 06:58 Alkaline Phosphatase 98 U/L (45-117) 06/02/17 06:58 Total Protein 5.3 g/dl (6.4-8.2) L 06/02/17 06:58 Albumin 2.7 g/dl (3.4-5.0) L 06/02/17 06:58 CT T spine reviewed MRI T spine reviewed Medical Decision Making 76 y.o. 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 He denied any fall, head trauma or LOC. Patient noted feeling weak for the past month which he associates with the onset of his radiation treatments in April 2017. He completed CT T spine first which showed neoplastic process at multiple levels. Thereafter, MRI of T spine which showed T3-T4 cord compression without underlying edema or myelomalacia. 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 On Decadron 4mg twice daily at this time Dr. Flores, NSGY, on case and offered surgical intervention, patient not interested in surgical intervention Onc note reviewed and plan for dose of chemo then possible SNF placement Steroids has helped in strength and some mobility but not easily standing Fall precautions suggested Physcial therapy as tolerated No further rec'd at this time DVT PPX
--- NOTE | 2017-06-04 11:43 | PN ---
Progress Note (short form) - Note Progress Note: seen and examined. no changed chart reviewed O/E: AFVSS Constitutional: Yes: Well Nourished, No Distress Eyes: Yes: WNL HENT: Yes: WNL Neck: Yes: WNL Cardiovascular: Yes: Pulse Irregular Respiratory: Yes: Regular Edema: Yes Edema: LLE: Trace, RLE: Trace Labs: Last Vital Signs Temp Pulse Resp BP Pulse Ox 97.1 F L 68 18 137/71 96 06/04/17 09:07 06/04/17 09:07 06/04/17 09:07 06/04/17 09:07 06/04/17 09:00 CBC, BMP 06/02/17 06:58 06/02/17 06:58 Current Medications Generic Name Dose Route Start Last Admin Trade Name Freq PRN Reason Stop Dose Admin Acetaminophen 650 mg 05/29/17 01:59 Tylenol - PO Q4H PRN FEVER OR PAIN Atorvastatin Calcium 10 mg 05/29/17 22:00 06/03/17 21:14 Lipitor - PO 10 mg HS SUSAN Administration Cholecalciferol 1,000 unit 05/29/17 10:00 06/04/17 09:19 Vitamin D3 - PO 1,000 unit DAILY SUSAN Administration Dexamethasone 4 mg 06/01/17 22:00 06/04/17 09:19 Decadron - PO 4 mg BID SUSAN Administration Docusate Sodium 100 mg 05/29/17 06:00 06/04/17 05:58 Colace - PO 100 mg TID SUSAN Administration Ezetimibe 10 mg 05/29/17 22:00 06/03/17 21:15 Zetia - PO 10 mg HS SUSAN Administration Metoprolol Succinate 25 mg 05/29/17 10:00 06/04/17 09:18 Toprol Xl - PO 25 mg DAILY [facility]AN Administration Multivitamins/Minerals 1 each 05/29/17 10:00 06/04/17 09:19 Theragran-M PO 1 each DAILY [facility] Administration Pantoprazole Sodium 40 mg 05/29/17 10:00 06/04/17 09:18 Protonix - PO 40 mg DAILY [facility]USAN Administration Polyethylene Glycol 17 gm 05/29/17 10:00 06/04/17 09:19 Miralax (For Daily Use) - PO Not Given BID SUSAN Rivaroxaban 20 mg 06/01/17 22:00 06/03/17 21:15 Xarelto - PO 20 mg HS SUSAN Administration 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 elevation, continue to monitor Oncology OP appt: 06/09/2017 at [facility]'s first floor. at 1100am.
--- NOTE | 2017-06-04 15:27 | PN ---
Progress Note, Physician Chief Complaint: Mr Rod says he is doing well. No cp, sob, n/v. Still with significant weakness when rising from a sitting position. - Current Medication List Current Medications: Active Medications Acetaminophen (Tylenol -) 650 mg PO Q4H PRN PRN Reason: FEVER OR PAIN Atorvastatin Calcium (Lipitor -) 10 mg PO HS [facility] Last Admin: 06/03/17 21:14 Dose: 10 mg Cholecalciferol (Vitamin D3 -) 1,000 unit PO DAILY [facility] Last Admin: 06/04/17 09:19 Dose: 1,000 unit Dexamethasone (Decadron -) 4 mg PO BID [facility] Last Admin: 06/04/17 09:19 Dose: 4 mg Docusate Sodium (Colace -) 100 mg PO TID [facility] Last Admin: 06/04/17 13:29 Dose: 100 mg Ezetimibe (Zetia -) 10 mg PO HS [facility] Last Admin: 06/03/17 21:15 Dose: 10 mg Metoprolol Succinate (Toprol Xl -) 25 mg PO DAILY [facility] Last Admin: 06/04/17 09:18 Dose: 25 mg Multivitamins/Minerals (Theragran-M) 1 each PO DAILY [facility] Last Admin: 06/04/17 09:19 Dose: 1 each Pantoprazole Sodium (Protonix -) 40 mg PO DAILY [facility] Last Admin: 06/04/17 09:18 Dose: 40 mg Polyethylene Glycol (Miralax (For Daily Use) -) 17 gm PO BID [facility] Last Admin: 06/04/17 09:19 Dose: Not Given Rivaroxaban (Xarelto -) 20 mg PO HS [facility] Last Admin: 06/03/17 21:15 Dose: 20 mg - Objective Vital Signs: Vital Signs Temperature 36.6 C 06/04/17 15:08 Pulse Rate 59 L 06/04/17 15:08 Respiratory Rate 18 06/04/17 15:08 Blood Pressure 125/68 06/04/17 15:08 O2 Sat by Pulse Oximetry (%) 96 06/04/17 09:00 Constitutional: Yes: No Distress, Calm, Obese Cardiovascular: Yes: Regular Rate and Rhythm. No: Gallop, Murmur, Rub Respiratory: Yes: Regular, CTA Bilaterally. No: Rales, Rhonchi, Wheezes Gastrointestinal: Yes: Normal Bowel Sounds, Soft. No: Distention, Tenderness Extremities: Yes: WNL Edema: No Labs: CBC, BMP 06/02/17 06:58 06/02/17 06:58 INR, PTT INR 1.50 (0.82-1.09) H 05/28/17 13:30 Problem List - Problems (1) Spinal cord compression Code(s): G95.20 - UNSPECIFIED CORD COMPRESSION (2) Renal cell carcinoma Code(s): C64.9 - MALIGNANT NEOPLASM OF UNSP KIDNEY, EXCEPT RENAL PELVIS Qualifiers: Laterality: right Qualified Code(s): C64.1 - Malignant neoplasm of right kidney, except renal pelvis (3) T2DM (type 2 diabetes mellitus) Code(s): E11.9 - TYPE 2 DIABETES MELLITUS WITHOUT COMPLICATIONS (4) Atrial flutter Code(s): I48.92 - UNSPECIFIED ATRIAL FLUTTER Qualifiers: Atrial flutter type: atypical Qualified Code(s): I48.4 - Atypical atrial flutter (5) HTN (hypertension) Code(s): I10 - ESSENTIAL (PRIMARY) HYPERTENSION Qualifiers: Hypertension type: essential hypertension Qualified Code(s): I10 - Essential (primary) hypertension (6) Obesity Code(s): E66.9 - OBESITY, UNSPECIFIED Assessment/Plan -patient doing well, still with severe weakness -continue decadron bid -continue current management -patient accepted to [facility], unsafe discharge home -however concern about chemotherapy, ordered but not received -may need to have chemotherapy delivered prior to transfer -maintain in hospital if needs chemotherapy before going to SNF -however medically stable to go to SNF before chemotherapy is delivered for further PT
[2017-06-04] MEDS ORDERED: PT OWN MED DRAWER 7, Y5N ONE (22:15)
[2017-06-04] MEDS: ATORVASTATIN CA 10 MG TABLET (FP) PO SCH (22:18)
[2017-06-04] MEDS: RIVAROXABAN 20 MG TABLET PO SCH (22:18)
[2017-06-04] MEDS: EZETIMIBE 10 MG TABLET (FP) PO SCH (22:19)
[2017-06-05] MEDS: DOCUSATE SODIUM 100 MG CAPSULE (FP) PO SCH ×3 (06:11→21:58)
[2017-06-05] MEDS: METOPROLOL SUCCINATE 25 MG TAB.SR.24H (FP) PO SCH (09:58)
[2017-06-05] MEDS: PANTOPRAZOLE 40 MG TABLET (FP) PO SCH (09:58)
[2017-06-05] MEDS: POLYETHYLENE GLYCOL 3350 119 GM BTL PO SCH ×2 (09:58→21:57)
[2017-06-05] MEDS: DEXAMETHASONE 4 MG TABLET (FP) PO SCH ×2 (09:58→21:58)
[2017-06-05] MEDS: MULTIVITAMINS THER W-MINERALS COMBO TABLET (FP) PO SCH (09:58)
[2017-06-05] MEDS: CHOLECALCIFEROL (VITAMIN D3) 1,000 UNIT TABLET (FP) PO SCH (09:58)
--- NOTE | 2017-06-05 13:07 | PN ---
Progress Note, Physician Chief Complaint: LE weakness History of Present Illness: leg strength much better--walking on his own no problem legs more swollen than baseline no cp, sob, palpitations - Current Medication List Current Medications: Active Medications Acetaminophen (Tylenol -) 650 mg PO Q4H PRN PRN Reason: FEVER OR PAIN Atorvastatin Calcium (Lipitor -) 10 mg PO HS [facility] Last Admin: 06/04/17 22:18 Dose: 10 mg Cholecalciferol (Vitamin D3 -) 1,000 unit PO DAILY [facility] Last Admin: 06/05/17 09:58 Dose: 1,000 unit Dexamethasone (Decadron -) 4 mg PO BID [facility] Last Admin: 06/05/17 09:58 Dose: 4 mg Docusate Sodium (Colace -) 100 mg PO TID [facility] Last Admin: 06/05/17 06:11 Dose: 100 mg Ezetimibe (Zetia -) 10 mg PO [facility] Last Admin: 06/04/17 22:19 Dose: 10 mg Furosemide (Lasix -) 40 mg PO DAILY [facility] Metoprolol Succinate (Toprol Xl -) 25 mg PO DAILY [facility] Last Admin: 06/05/17 09:58 Dose: 25 mg Multivitamins/Minerals (Theragran-M) 1 each PO DAILY [facility] Last Admin: 06/05/17 09:58 Dose: 1 each Pantoprazole Sodium (Protonix -) 40 mg PO DAILY [facility] Last Admin: 06/05/17 09:58 Dose: 40 mg Polyethylene Glycol (Miralax (For Daily Use) -) 17 gm PO BID [facility] Last Admin: 06/05/17 09:58 Dose: Not Given Rivaroxaban (Xarelto -) 20 mg PO [facility] Last Admin: 06/04/17 22:18 Dose: 20 mg - Objective Vital Signs: Vital Signs Temperature 97.4 F L 06/05/17 06:00 Pulse Rate 78 06/05/17 10:00 Respiratory Rate 18 06/05/17 10:00 Blood Pressure 112/57 06/05/17 10:00 O2 Sat by Pulse Oximetry (%) 96 06/04/17 22:00 Constitutional: Yes: No Distress, Calm, Obese Cardiovascular: Yes: Regular Rate and Rhythm, Murmur (2/6 JETT lusb), S1, S2. No : Gallop Respiratory: Yes: Regular, CTA Bilaterally. No: Accessory Muscle Use, Rales, Wheezes Extremities: No: Cold Edema: Yes (3+ ankles) Neurological: Yes: Alert, Oriented Psychiatric: No: Agitated Labs: CBC, BMP 06/02/17 06:58 06/02/17 06:58 INR, PTT INR 1.50 (0.82-1.09) H 05/28/17 13:30 Assessment/Plan Echo 02/27: 1. The left ventricular size is normal. 2. There is normal global left ventricular contractility. 3. The right ventricular systolic function is normal. 4. Left atrium is mildly dilated by volume. 5. The aortic valve was not well visualized. 6. Mild aortic regurgitation. 7. There is gwie-os-iwdgmgav aortic stenosis present. Peak/mean gradients across the valve are 23-32 /14-18 mmHg. Assessment/Plan RCC with recurrence (mets to spine), cord compression: - pt declining surgery - s/p XRT - sx's much improved htn - stable - same meds LE edema - chronic venous ins'y as outpt, steroids likely contributing - signif worse here - start lasix 40 po daily (does not want stockings) atrial flutter - con't xarelto - currently rate controlled on metoprolol. hl - con't statin - mild-mod , stable
[2017-06-05] MEDS ORDERED: FUROSEMIDE 40 MG TABLET (FP) PO SCH (13:15)
--- NOTE | 2017-06-05 13:17 | PN ---
Progress Note (short form) - Note Progress Note: No pain No complaints and is doing OK Today was able to get out of his chair with our assist O/E Heart regular Lungs clear Abd soft Ext b/l +2 edema Vital Signs Period Temp Pulse Resp BP Sys/Amador Pulse Ox Last 24 Hr 97.3 F-97.9 F 55-78 18-18 104-126/57-68 96
--- NOTE | 2017-06-05 13:22 | PN ---
Progress Note (short form) - Note Progress Note: Is doing better today and was able to get out of the chair by himself No pain O/E Heart regular Lungs clear Abd soft Ext b/l +2 edema Laboratory Last Values WBC 9.0 K/mm3 (4.0-10.0) 06/02/17 06:58 RBC 4.11 M/mm3 (4.00-5.60) 06/02/17 06:58 Hgb 12.2 GM/dL (11.7-16.9) 06/02/17 06:58 Hct 36.9 % (35.4-49) 06/02/17 06:58 MCV 89.7 fl (80-96) 06/02/17 06:58 MCH 29.7 pg (25.7-33.7) 06/02/17 06:58 MCHC 33.1 g/dl (32.0-35.9) 06/02/17 06:58 RDW 16.0 % (11.9-15.9) H 06/02/17 06:58 Plt Count 103 K/MM3 (134-434) L 06/02/17 06:58 MPV 8.0 fl (7.5-11.1) 06/02/17 06:58 Total Counted 100 05/30/17 08:00 Neutrophils % No Result Required. 06/02/17 06:58 Neutrophils % (Manual) 78.8 % (42.8-82.8) 06/02/17 06:58 Band Neutrophils % 4.0 % 06/02/17 06:58 Lymphocytes % No Result Required. 06/02/17 06:58 Lymphocytes % (Manual) 4.1 % (8-40) L 06/02/17 06:58 Monocytes % [employer] 05/29/17 07:30 Monocytes % (Manual) 4 % (3.8-10.2) 06/02/17 06:58 Eosinophils % [employer] 05/29/17 07:30 Eosinophils % (Manual) 0.0 % (0-4.5) D 06/02/17 06:58 Basophils % [employer] 05/29/17 07:30 Basophils % (Manual) 0.0 % (0-2.0) 06/02/17 06:58 Myelocytes % (Man) 6 % (0-2) H 06/02/17 06:58 Nucleated RBC % 2 % (0-0) H 05/30/17 08:00 Metamyelocytes 3 % (0-2) H D 06/02/17 06:58 Hypochromia 0 06/02/17 06:58 Toxic Granulation 0 06/02/17 06:58 Dohle Bodies 0 06/02/17 06:58 Platelet Estimate Decreased 06/02/17 06:58 Platelet Comment 05/28/17 13:30 Polychromasia 0 06/02/17 06:58 Poikilocytosis 0 06/02/17 06:58 Basophilic Stippling 0 06/02/17 06:58 Anisocytosis 0 06/02/17 06:58 Microcytosis 0 06/02/17 06:58 Macrocytosis 0 06/02/17 06:58 Spherocytes 0 06/02/17 06:58 Sickle Cells 0 06/02/17 06:58 Target Cells 0 06/02/17 06:58 Tear Drop Cells 0 06/02/17 06:58 Ovalocytes 0 06/02/17 06:58 Stomatocytes 0 06/02/17 06:58 Helmet Cells 0 06/02/17 06:58 [place] Bodies 0 06/02/17 06:58 [place] Rings 0 06/02/17 06:58 [place] Cells 0 06/02/17 06:58 Acanthocytes (Spur) 0 06/02/17 06:58 Fragmented RBCs 0 06/02/17 06:58 Schistocytes 0 06/02/17 06:58 PT with INR 16.90 SEC (9.98-11.88) H 05/28/17 13:30 INR 1.50 (0.82-1.09) H 05/28/17 13:30 PTT (Actin FS) 71.0 SECONDS (26.9-34.4) H 06/02/17 07:21 Sodium 141 mmol/L (136-145) 06/02/17 06:58 Potassium 4.4 mmol/L (3.5-5.1) 06/02/17 06:58 Chloride 105 mmol/L (98-107) 06/02/17 06:58 Carbon Dioxide 26 mmol/L (21-32) 06/02/17 06:58 Anion Gap 10 (8-16) 06/02/17 06:58 BUN 23 mg/dL (7-18) H 06/02/17 06:58 Creatinine 0.9 mg/dL (0.7-1.3) 06/02/17 06:58 Creat Clearance w eGFR > 60 (>60) 06/02/17 06:58 POC Glucometer 124 UNITS (80-120) 06/03/17 21:18 Random Glucose 159 mg/dL (74-106) H D 06/02/17 06:58 Hemoglobin A1c % 7.9 % (4.8-6.0) H D 05/30/17 08:00 Calcium 8.5 mg/dL (8.5-10.1) 06/02/17 06:58 Phosphorus 2.6 mg/dL (2.5-4.9) 06/01/17 08:00 Magnesium 2.1 mg/dL (1.8-2.4) 06/01/17 08:00 Total Bilirubin 0.6 mg/dL (0.2-1.0) D 06/02/17 06:58 AST 29 U/L (15-37) 06/02/17 06:58 ALT 56 U/L (12-78) 06/02/17 06:58 Alkaline Phosphatase 98 U/L (45-117) 06/02/17 06:58 LD Total 579 U/L (87-241) H D 06/02/17 06:58 Total Protein 5.3 g/dl (6.4-8.2) L 06/02/17 06:58 Albumin 2.7 g/dl (3.4-5.0) L 06/02/17 06:58 Triglycerides 176 mg/dL (35-160) H D 05/29/17 07:30 Cholesterol 164 mg/dL (50-200) D 05/29/17 07:30 Total LDL Cholesterol 89 mg/dL (5-100) 05/29/17 07:30 HDL Cholesterol 61 mg/dL (40-60) H D 05/29/17 07:30 Urine Color Yellow 05/28/17 18:34 Urine Appearance Clear 05/28/17 18:34 Urine pH 5.0 (5.0-8.0) 05/28/17 18:34 Ur Specific [place] 1.023 (1.001-1.035) 05/28/17 18:34 Urine Protein Negative (NEGATIVE) 05/28/17 18:34 Urine Glucose (UA) Negative (NEGATIVE) 05/28/17 18:34 Urine Ketones Negative (NEGATIVE) 05/28/17 18:34 Urine Blood Negative (NEGATIVE) 05/28/17 18:34 Urine Nitrite Negative (NEGATIVE) 05/28/17 18:34 Urine Bilirubin Negative (NEGATIVE) 05/28/17 18:34 Urine Urobilinogen 4.0 e.u/dl mg/dL (0.2-1.0) 05/28/17 18:34 Ur Leukocyte Esterase Negative (NEGATIVE) 05/28/17 18:34 Hepatitis A Ab Total Negative (Negative) 06/02/17 06:58 Hep Bs Antigen Negative (Negative) 06/02/17 06:58 Hep Bs Antibody Non reactive (.) 06/02/17 06:58 Hep B Core Total Ab Negative (Negative) 06/02/17 06:58 Current Medications Acetaminophen (Tylenol -) 650 mg PO Q4H PRN PRN Reason: FEVER OR PAIN Atorvastatin Calcium (Lipitor -) 10 mg PO HS [facility] Last Admin: 06/04/17 22:18 Dose: 10 mg Cholecalciferol (Vitamin D3 -) 1,000 unit PO DAILY [facility] Last Admin: 06/05/17 09:58 Dose: 1,000 unit Dexamethasone (Decadron -) 4 mg PO BID [facility] Last Admin: 06/05/17 09:58 Dose: 4 mg Docusate Sodium (Colace -) 100 mg PO TID [facility] Last Admin: 06/05/17 06:11 Dose: 100 mg Ezetimibe (Zetia -) 10 mg PO HS [facility] Last Admin: 06/04/17 22:19 Dose: 10 mg Furosemide (Lasix -) 40 mg PO DAILY [facility] Metoprolol Succinate (Toprol Xl -) 25 mg PO DAILY [facility] Last Admin: 06/05/17 09:58 Dose: 25 mg Multivitamins/Minerals (Theragran-M) 1 each PO DAILY [facility] Last Admin: 06/05/17 09:58 Dose: 1 each Pantoprazole Sodium (Protonix -) 40 mg PO DAILY [facility] Last Admin: 06/05/17 09:58 Dose: 40 mg Polyethylene Glycol (Miralax (For Daily Use) -) 17 gm PO BID [facility] Last Admin: 06/05/17 09:58 Dose: Not Given Rivaroxaban (Xarelto -) 20 mg PO HS [facility] Last Admin: 06/04/17 22:18 Dose: 20 mg Vital Signs Period Temp Pulse Resp BP Sys/Amador Pulse Ox Last 24 Hr 97.3 F-97.9 F 55-78 18-18 104-126/57-68 96 Problem List - Problems (1) Spinal cord compression Code(s): G95.20 - UNSPECIFIED CORD COMPRESSION on Decadron (2) Renal cell carcinoma Code(s): C64.9 - MALIGNANT NEOPLASM OF UNSP KIDNEY, EXCEPT RENAL PELVIS Is awaiting to start theerapy Qualifiers: Laterality: right Qualified Code(s): C64.1 - Malignant neoplasm of right kidney, except renal pelvis (3) T2DM (type 2 diabetes mellitus) Code(s): E11.9 - TYPE 2 DIABETES MELLITUS WITHOUT COMPLICATIONS (4) Atrial flutter Code(s): I48.92 - UNSPECIFIED ATRIAL FLUTTER Qualifiers: Atrial flutter type: atypical Qualified Code(s): I48.4 - Atypical atrial flutter (5) HTN (hypertension) Code(s): I10 - ESSENTIAL (PRIMARY) HYPERTENSION Qualifiers: Hypertension type: essential hypertension Qualified Code(s): I10 - Essential (primary) hypertension 6. Edema prn Lasix
[2017-06-05] MEDS: FUROSEMIDE 40 MG TABLET (FP) PO SCH (13:49)
[2017-06-05] MEDS ORDERED: PT OWN MED DRAWER 7, Y5N ONE (21:53)
[2017-06-05] MEDS: RIVAROXABAN 20 MG TABLET PO SCH (21:58)
[2017-06-05] MEDS: ATORVASTATIN CA 10 MG TABLET (FP) PO SCH (21:58)
[2017-06-05] MEDS: EZETIMIBE 10 MG TABLET (FP) PO SCH (21:58)
[2017-06-06] MEDS: DOCUSATE SODIUM 100 MG CAPSULE (FP) PO SCH ×3 (06:41→21:24)
[2017-06-06] MEDS: FUROSEMIDE 40 MG TABLET (FP) PO SCH (10:45)
[2017-06-06] MEDS: DEXAMETHASONE 4 MG TABLET (FP) PO SCH ×2 (10:45→21:24)
[2017-06-06] MEDS: CHOLECALCIFEROL (VITAMIN D3) 1,000 UNIT TABLET (FP) PO SCH (10:45)
[2017-06-06] MEDS: PANTOPRAZOLE 40 MG TABLET (FP) PO SCH (10:45)
[2017-06-06] MEDS: METOPROLOL SUCCINATE 25 MG TAB.SR.24H (FP) PO SCH (10:45)
[2017-06-06] MEDS: MULTIVITAMINS THER W-MINERALS COMBO TABLET (FP) PO SCH (10:45)
[2017-06-06] MEDS: POLYETHYLENE GLYCOL 3350 119 GM BTL PO SCH ×2 (10:45→21:24)
--- NOTE | 2017-06-06 12:53 | PN ---
Progress Note, Physician Chief Complaint: LE weakness History of Present Illness: edema signif improved no sob, orthopnea no cp, palpit - Current Medication List Current Medications: Active Medications Acetaminophen (Tylenol -) 650 mg PO Q4H PRN PRN Reason: FEVER OR PAIN Atorvastatin Calcium (Lipitor -) 10 mg PO [facility] Last Admin: 06/05/17 21:58 Dose: 10 mg Cholecalciferol (Vitamin D3 -) 1,000 unit PO DAILY [facility] Last Admin: 06/06/17 10:45 Dose: 1,000 unit Dexamethasone (Decadron -) 4 mg PO BID [facility] Last Admin: 06/06/17 10:45 Dose: 4 mg Docusate Sodium (Colace -) 100 mg PO TID [facility] Last Admin: 06/06/17 06:41 Dose: 100 mg Ezetimibe (Zetia -) 10 mg PO HS [facility] Last Admin: 06/05/17 21:58 Dose: 10 mg Furosemide (Lasix -) 80 mg PO DAILY [facility] Last Admin: 06/06/17 10:45 Dose: 80 mg Metoprolol Succinate (Toprol Xl -) 25 mg PO DAILY [facility] Last Admin: 06/06/17 10:45 Dose: 25 mg Multivitamins/Minerals (Theragran-M) 1 each PO DAILY [facility] Last Admin: 06/06/17 10:45 Dose: 1 each Pantoprazole Sodium (Protonix -) 40 mg PO DAILY [facility] Last Admin: 06/06/17 10:45 Dose: 40 mg Polyethylene Glycol (Miralax (For Daily Use) -) 17 gm PO BID [facility] Last Admin: 06/06/17 10:45 Dose: 17 grams Rivaroxaban (Xarelto -) 20 mg PO [facility] Last Admin: 06/05/17 21:58 Dose: 20 mg - Objective Vital Signs: Vital Signs Temperature 96.7 F L 06/06/17 09:24 Pulse Rate 78 06/06/17 09:24 Respiratory Rate 20 06/06/17 09:24 Blood Pressure 141/68 06/06/17 09:24 O2 Sat by Pulse Oximetry (%) 96 06/04/17 22:00 Constitutional: Yes: No Distress, Calm, Obese Cardiovascular: Yes: Regular Rate and Rhythm, Murmur (2/6 early JETT lusb), S1, S2. No: Gallop Respiratory: Yes: Regular, CTA Bilaterally. No: Accessory Muscle Use, Rales, Wheezes Extremities: No: Cold Edema: Yes (2+ L, 1+ R) Neurological: Yes: Alert, Oriented Psychiatric: No: Agitated Labs: CBC, BMP 06/02/17 06:58 06/02/17 06:58 INR, PTT INR 1.50 (0.82-1.09) H 05/28/17 13:30 Assessment/Plan Echo 02/27: 1. The left ventricular size is normal. 2. There is normal global left ventricular contractility. 3. The right ventricular systolic function is normal. 4. Left atrium is mildly dilated by volume. 5. The aortic valve was not well visualized. 6. Mild aortic regurgitation. 7. There is [id number] aortic stenosis present. Peak/mean gradients across the valve are 23-32 /14-18 mmHg. 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 check labs in am. - no signs chf atrial flutter - con't xarelto - currently rate controlled on metoprolol. hl - con't statin - mild-mod , stable
--- NOTE | 2017-06-06 13:27 | PN ---
Progress Note (short form) - Note Progress Note: Voided a lot of urine and the leg swelling is less No chest pain or SOB O/E Heart regular Lungs clear Abd soft Ext b/l +2 edema+ Vital Signs Period Temp Pulse Resp BP Sys/Amador Pulse Ox Last 24 Hr 96.7 F-97.8 F 60-78 18-20 115-141/58-70 Current Medications Acetaminophen (Tylenol -) 650 mg PO Q4H PRN PRN Reason: FEVER OR PAIN Atorvastatin Calcium (Lipitor -) 10 mg PO HS [facility] Last Admin: 06/05/17 21:58 Dose: 10 mg Cholecalciferol (Vitamin D3 -) 1,000 unit PO DAILY [facility] Last Admin: 06/06/17 10:45 Dose: 1,000 unit Dexamethasone (Decadron -) 4 mg PO BID [facility] Last Admin: 06/06/17 10:45 Dose: 4 mg Docusate Sodium (Colace -) 100 mg PO TID [facility] Last Admin: 06/06/17 06:41 Dose: 100 mg Ezetimibe (Zetia -) 10 mg PO HS [facility] Last Admin: 06/05/17 21:58 Dose: 10 mg Furosemide (Lasix -) 80 mg PO DAILY [facility] Last Admin: 06/06/17 10:45 Dose: 80 mg Metoprolol Succinate (Toprol Xl -) 25 mg PO DAILY [facility] Last Admin: 06/06/17 10:45 Dose: 25 mg Multivitamins/Minerals (Theragran-M) 1 each PO DAILY [facility] Last Admin: 06/06/17 10:45 Dose: 1 each Pantoprazole Sodium (Protonix -) 40 mg PO DAILY [facility] Last Admin: 06/06/17 10:45 Dose: 40 mg Polyethylene Glycol (Miralax (For Daily Use) -) 17 gm PO BID [facility] Last Admin: 06/06/17 10:45 Dose: 17 grams Rivaroxaban (Xarelto -) 20 mg PO HS [facility] Last Admin: 06/05/17 21:58 Dose: 20 mg Problem List - Problems (1) Spinal cord compression Code(s): G95.20 - UNSPECIFIED CORD COMPRESSION on Decadron (2) Renal cell carcinoma Code(s): C64.9 - MALIGNANT NEOPLASM OF UNSP KIDNEY, EXCEPT RENAL PELVIS Is awaiting to start theerapy Qualifiers: Laterality: right Qualified Code(s): C64.1 - Malignant neoplasm of right kidney, except renal pelvis (3) T2DM (type 2 diabetes mellitus) Code(s): E11.9 - TYPE 2 DIABETES MELLITUS WITHOUT COMPLICATIONS (4) Atrial flutter Code(s): I48.92 - UNSPECIFIED ATRIAL FLUTTER Qualifiers: Atrial flutter type: atypical Qualified Code(s): I48.4 - Atypical atrial flutter (5) HTN (hypertension) Code(s): I10 - ESSENTIAL (PRIMARY) HYPERTENSION Qualifiers: Hypertension type: essential hypertension Qualified Code(s): I10 - Essential (primary) hypertension 6. Edema Resolving with increased dose of Lasix
[2017-06-06] MEDS ORDERED: PT OWN MED DRAWER 7, Y5N ONE (21:21)
[2017-06-06] MEDS: ATORVASTATIN CA 10 MG TABLET (FP) PO SCH (21:24)
[2017-06-06] MEDS: EZETIMIBE 10 MG TABLET (FP) PO SCH (21:24)
[2017-06-06] MEDS: RIVAROXABAN 20 MG TABLET PO SCH (21:24)
[2017-06-07] MEDS: DOCUSATE SODIUM 100 MG CAPSULE (FP) PO SCH ×3 (06:03→21:30)
[2017-06-07 07:58] LABS: LYMPH # 0.6 (8-40); MEAN CELL VOLUME 90.9 fl (80-96); MEAN PLT VOLUME 8.1 fl (7.5-11.1); MONO # 0.6 # (3.8-10.2); NEUT # 7.4 # (42.8-82.8); PLATELET COUNT 118 K/MM3 (134-434); RDW 17.2 % (11.9-15.9); WHITE BLOOD COUNT 8.7 K/mm3 (4.0-10.0)
[2017-06-07 08:32] LABS: ALBUMIN 2.9 g/dl (3.4-5.0); ALK PHOS 90 U/L (45-117); ANION GAP 10 (8-16); CALCIUM 8.4 mg/dL (8.5-10.1); CO2 28 mmol/L (21-32); CREATININE 1.1 mg/dL (0.7-1.3); GLUCOSE,RANDOM 194 mg/dL (74-106); SGOT/AST 23 U/L (15-37); SGPT/ALT 61 U/L (12-78); TOT PROT 5.4 g/dl (6.4-8.2)
[2017-06-07 08:46] LABS: METAMYELOCYTE 2 % (0-2); MYELOCYTE 1 % (0-2); NUCLEATED RED BLOOD CELL 1 % (0-0); PLATELET ESTIMATE DECREASED; TOTAL CELLS COUNTED 100
[2017-06-07] MEDS: METOPROLOL SUCCINATE 25 MG TAB.SR.24H (FP) PO SCH (09:56)
[2017-06-07] MEDS: DEXAMETHASONE 4 MG TABLET (FP) PO SCH ×2 (09:56→21:31)
[2017-06-07] MEDS: MULTIVITAMINS THER W-MINERALS COMBO TABLET (FP) PO SCH (09:56)
[2017-06-07] MEDS: CHOLECALCIFEROL (VITAMIN D3) 1,000 UNIT TABLET (FP) PO SCH (09:56)
[2017-06-07] MEDS: PANTOPRAZOLE 40 MG TABLET (FP) PO SCH (09:56)
[2017-06-07] MEDS: FUROSEMIDE 40 MG TABLET (FP) PO SCH (09:56)
[2017-06-07] MEDS: POLYETHYLENE GLYCOL 3350 119 GM BTL PO SCH ×2 (09:57→21:31)
--- NOTE | 2017-06-07 14:40 | PN ---
Progress Note, Physician Chief Complaint: LE weakness, edema History of Present Illness: leg swelling improved no cp, sob, palpitations. leg strength stable - Current Medication List Current Medications: Active Medications Acetaminophen (Tylenol -) 650 mg PO Q4H PRN PRN Reason: FEVER OR PAIN Atorvastatin Calcium (Lipitor -) 10 mg PO HS [facility] Last Admin: 06/06/17 21:24 Dose: 10 mg Cholecalciferol (Vitamin D3 -) 1,000 unit PO DAILY [facility] Last Admin: 06/07/17 09:56 Dose: 1,000 unit Dexamethasone (Decadron -) 4 mg PO BID [facility] Last Admin: 06/07/17 09:56 Dose: 4 mg Docusate Sodium (Colace -) 100 mg PO TID [facility] Last Admin: 06/07/17 06:03 Dose: 100 mg Ezetimibe (Zetia -) 10 mg PO HS [facility] Last Admin: 06/06/17 21:24 Dose: 10 mg Furosemide (Lasix -) 80 mg PO DAILY [facility] Last Admin: 06/07/17 09:56 Dose: 80 mg Metoprolol Succinate (Toprol Xl -) 25 mg PO DAILY [facility] Last Admin: 06/07/17 09:56 Dose: 25 mg Multivitamins/Minerals (Theragran-M) 1 each PO DAILY [facility] Last Admin: 06/07/17 09:56 Dose: 1 each Pantoprazole Sodium (Protonix -) 40 mg PO DAILY [facility] Last Admin: 06/07/17 09:56 Dose: 40 mg Polyethylene Glycol (Miralax (For Daily Use) -) 17 gm PO BID [facility] Last Admin: 06/07/17 09:57 Dose: Not Given Rivaroxaban (Xarelto -) 20 mg PO [facility] Last Admin: 06/06/17 21:24 Dose: 20 mg - Objective Vital Signs: Vital Signs Temperature 97.4 F L 06/07/17 05:57 Pulse Rate 62 06/07/17 05:57 Respiratory Rate 20 06/07/17 05:57 Blood Pressure 110/56 06/07/17 05:57 O2 Sat by Pulse Oximetry (%) 96 06/06/17 21:00 Constitutional: Yes: No Distress, Calm, Obese Cardiovascular: Yes: Regular Rate and Rhythm, Murmur (2/6 early JETT lusb), S1, S2. No: Gallop Respiratory: Yes: Regular, CTA Bilaterally. No: Accessory Muscle Use, Rales, Wheezes Extremities: No: Cold Edema: Yes (2+ L ankle, 1+ R) Neurological: Yes: Alert, Oriented Psychiatric: No: Agitated Labs: CBC, BMP 06/07/17 06:30 06/07/17 06:30 INR, PTT INR 1.50 (0.82-1.09) H 05/28/17 13:30 Assessment/Plan Echo 02/27: 1. The left ventricular size is normal. 2. There is normal global left ventricular contractility. 3. The right ventricular systolic function is normal. 4. Left atrium is mildly dilated by volume. 5. The aortic valve was not well visualized. 6. Mild aortic regurgitation. 7. There is [id number] aortic stenosis present. Peak/mean gradients across the valve are 23-32 /14-18 mmHg. 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 bun rising, creat stable. - no signs chf - same lasix--needs outpt f/u of BMP on high dose lasix atrial flutter - con't xarelto - currently rate controlled on metoprolol. HPL - con't statin - mild-mod , stable
--- NOTE | 2017-06-07 15:11 | PN ---
Progress Note (short form) - Note Progress Note: seen and examined. no changes/stable chart reviewed O/E: AFVSS Constitutional: Yes: Well Nourished, No Distress Eyes: Yes: WNL HENT: Yes: WNL Neck: Yes: WNL Cardiovascular: Yes: Pulse Irregular Respiratory: Yes: Regular Edema: Yes Edema: LLE: Trace, RLE: Trace Labs: Last Vital Signs Last Vital Signs Temp Pulse Resp BP Pulse Ox 97.4 F L 60 20 110/54 96 06/07/17 05:57 06/07/17 10:00 06/07/17 10:00 06/07/17 10:00 06/06/17 21:00 CBC, BMP 06/07/17 06:30 06/07/17 06:30 Current Medications Generic Name Dose Route Start Last Admin Trade Name Freq PRN Reason Stop Dose Admin Acetaminophen 650 mg 05/29/17 01:59 Tylenol - PO Q4H PRN FEVER OR PAIN Atorvastatin Calcium 10 mg 05/29/17 22:00 06/06/17 21:24 Lipitor - PO 10 mg HS [facility] Administration Cholecalciferol 1,000 unit 05/29/17 10:00 06/07/17 09:56 Vitamin D3 - PO 1,000 unit DAILY [facility] Administration Dexamethasone 4 mg 06/01/17 22:00 06/07/17 09:56 Decadron - PO 4 mg BID [facility] Administration Docusate Sodium 100 mg 05/29/17 06:00 06/07/17 14:49 Colace - PO Not Given TID [facility] Ezetimibe 10 mg 05/29/17 22:00 06/06/17 21:24 Zetia - PO 10 mg HS [facility] Administration Furosemide 80 mg 06/05/17 13:30 06/07/17 09:56 Lasix - PO 80 mg DAILY [facility] Administration Metoprolol Succinate 25 mg 05/29/17 10:00 06/07/17 09:56 Toprol Xl - PO 25 mg DAILY [facility] Administration Multivitamins/Minerals 1 each 05/29/17 10:00 06/07/17 09:56 Theragran-M PO 1 each DAILY [facility] Administration Pantoprazole Sodium 40 mg 05/29/17 10:00 06/07/17 09:56 Protonix - PO 40 mg DAILY [facility] Administration Polyethylene Glycol 17 gm 05/29/17 10:00 06/07/17 09:57 Miralax (For Daily Use) - PO Not Given BID [facility] Rivaroxaban 20 mg 06/01/17 22:00 06/06/17 21:24 Xarelto - PO 20 mg HS [facility] Administration mRCC with osseous and cord compression s/p RT seen by neuro/NSG/RadOnc plan to start Pazopanib ,order in last week. last week all arrangements were made. I spoke to [id number] again today, drug to be delivered tomorrow to their house. Informed . c.w dex 4mg bid on d/c too dispo per primary. will call pt with appt.
--- NOTE | 2017-06-07 17:21 | PN ---
Progress Note (short form) - Note Progress Note: No new complaints Is doing well and the leg swelling is subsiding Is able to ambulate better and even get up from the bathroom by himself O/E Heart regular Lungs clear Abd soft Ext b/l +2 edema+ Laboratory Last Values WBC 8.7 K/mm3 (4.0-10.0) 06/07/17 06:30 RBC 4.18 M/mm3 (4.00-5.60) 06/07/17 06:30 Hgb 12.5 GM/dL (11.7-16.9) 06/07/17 06:30 Hct 38.0 % (35.4-49) 06/07/17 06:30 MCV 90.9 fl (80-96) 06/07/17 06:30 MCH 30.0 pg (25.7-33.7) 06/07/17 06:30 MCHC 33.0 g/dl (32.0-35.9) 06/07/17 06:30 RDW 17.2 % (11.9-15.9) H 06/07/17 06:30 Plt Count 118 K/MM3 (134-434) L 06/07/17 06:30 MPV 8.1 fl (7.5-11.1) 06/07/17 06:30 Total Counted 100 06/07/17 06:30 Neutrophils % No Result Required. 06/07/17 06:30 Neutrophils % (Manual) 82.0 % (42.8-82.8) 06/07/17 06:30 Band Neutrophils % 1.0 % 06/07/17 06:30 Lymphocytes % No Result Required. 06/07/17 06:30 Lymphocytes % (Manual) 9.0 % (8-40) D 06/07/17 06:30 Monocytes % Rn Call Center 05/29/17 07:30 Monocytes % (Manual) 5 % (3.8-10.2) 06/07/17 06:30 Eosinophils % Rn Call Center 05/29/17 07:30 Eosinophils % (Manual) 0.0 % (0-4.5) D 06/02/17 06:58 Basophils % Rn Call Center 05/29/17 07:30 Basophils % (Manual) 0.0 % (0-2.0) 06/02/17 06:58 Myelocytes % (Man) 1 % (0-2) D 06/07/17 06:30 Nucleated RBC % 1 % (0-0) H 06/07/17 06:30 Metamyelocytes 2 % (0-2) D 06/07/17 06:30 Hypochromia 0 06/02/17 06:58 Toxic Granulation 0 06/02/17 06:58 Dohle Bodies 0 06/02/17 06:58 Platelet Estimate Decreased 06/07/17 06:30 Platelet Comment 05/28/17 13:30 Polychromasia 0 06/02/17 06:58 Poikilocytosis 0 06/02/17 06:58 Basophilic Stippling 0 06/02/17 06:58 Anisocytosis 0 06/02/17 06:58 Microcytosis 0 06/02/17 06:58 Macrocytosis 0 06/02/17 06:58 Spherocytes 0 06/02/17 06:58 Sickle Cells 0 06/02/17 06:58 Target Cells 0 06/02/17 06:58 Tear Drop Cells 0 06/02/17 06:58 Ovalocytes 0 06/02/17 06:58 Stomatocytes 0 06/02/17 06:58 Helmet Cells 0 06/02/17 06:58 [place] Bodies 0 06/02/17 06:58 [place] Rings 0 06/02/17 06:58 [place] Cells 0 06/02/17 06:58 Acanthocytes (Spur) 0 06/02/17 06:58 Fragmented RBCs 0 06/02/17 06:58 Schistocytes 0 06/02/17 06:58 PT with INR 16.90 SEC (9.98-11.88) H 05/28/17 13:30 INR 1.50 (0.82-1.09) H 05/28/17 13:30 PTT (Actin FS) 71.0 SECONDS (26.9-34.4) H 06/02/17 07:21 Sodium 137 mmol/L (136-145) 06/07/17 06:30 Potassium 4.1 mmol/L (3.5-5.1) 06/07/17 06:30 Chloride 99 mmol/L (98-107) 06/07/17 06:30 Carbon Dioxide 28 mmol/L (21-32) 06/07/17 06:30 Anion Gap 10 (8-16) 06/07/17 06:30 BUN 39 mg/dL (7-18) H D 06/07/17 06:30 Creatinine 1.1 mg/dL (0.7-1.3) D 06/07/17 06:30 Creat Clearance w eGFR > 60 (>60) 06/07/17 06:30 POC Glucometer 124 UNITS (80-120) 06/03/17 21:18 Random Glucose 194 mg/dL (74-106) H D 06/07/17 06:30 Hemoglobin A1c % 7.9 % (4.8-6.0) H D 05/30/17 08:00 Calcium 8.4 mg/dL (8.5-10.1) L 06/07/17 06:30 Phosphorus 2.6 mg/dL (2.5-4.9) 06/01/17 08:00 Magnesium 2.1 mg/dL (1.8-2.4) 06/01/17 08:00 Total Bilirubin 1.0 mg/dL (0.2-1.0) D 06/07/17 06:30 AST 23 U/L (15-37) D 06/07/17 06:30 ALT 61 U/L (12-78) 06/07/17 06:30 Alkaline Phosphatase 90 U/L (45-117) 06/07/17 06:30 LD Total 579 U/L (87-241) H D 06/02/17 06:58 Total Protein 5.4 g/dl (6.4-8.2) L 06/07/17 06:30 Albumin 2.9 g/dl (3.4-5.0) L 06/07/17 06:30 Triglycerides 176 mg/dL (35-160) H D 05/29/17 07:30 Cholesterol 164 mg/dL (50-200) D 05/29/17 07:30 Total LDL Cholesterol 89 mg/dL (5-100) 05/29/17 07:30 HDL Cholesterol 61 mg/dL (40-60) H D 05/29/17 07:30 Urine Color Yellow 05/28/17 18:34 Urine Appearance Clear 05/28/17 18:34 Urine pH 5.0 (5.0-8.0) 05/28/17 18:34 Ur Specific [place] 1.023 (1.001-1.035) 05/28/17 18:34 Urine Protein Negative (NEGATIVE) 05/28/17 18:34 Urine Glucose (UA) Negative (NEGATIVE) 05/28/17 18:34 Urine Ketones Negative (NEGATIVE) 05/28/17 18:34 Urine Blood Negative (NEGATIVE) 05/28/17 18:34 Urine Nitrite Negative (NEGATIVE) 05/28/17 18:34 Urine Bilirubin Negative (NEGATIVE) 05/28/17 18:34 Urine Urobilinogen 4.0 e.u/dl mg/dL (0.2-1.0) 05/28/17 18:34 Ur Leukocyte Esterase Negative (NEGATIVE) 05/28/17 18:34 Hepatitis A Ab Total Negative (Negative) 06/02/17 06:58 Hep Bs Antigen Negative (Negative) 06/02/17 06:58 Hep Bs Antibody Non reactive (.) 06/02/17 06:58 Hep B Core Total Ab Negative (Negative) 06/02/17 06:58 Current Medications Acetaminophen (Tylenol -) 650 mg PO Q4H PRN PRN Reason: FEVER OR PAIN Atorvastatin Calcium (Lipitor -) 10 mg PO HS [facility] Last Admin: 06/06/17 21:24 Dose: 10 mg Cholecalciferol (Vitamin D3 -) 1,000 unit PO DAILY [facility] Last Admin: 06/07/17 09:56 Dose: 1,000 unit Dexamethasone (Decadron -) 4 mg PO BID [facility] Last Admin: 06/07/17 09:56 Dose: 4 mg Docusate Sodium (Colace -) 100 mg PO TID [facility] Last Admin: 06/07/17 14:49 Dose: Not Given Ezetimibe (Zetia -) 10 mg PO HS [facility] Last Admin: 06/06/17 21:24 Dose: 10 mg Furosemide (Lasix -) 80 mg PO DAILY [facility] Last Admin: 06/07/17 09:56 Dose: 80 mg Metoprolol Succinate (Toprol Xl -) 25 mg PO DAILY [facility] Last Admin: 06/07/17 09:56 Dose: 25 mg Multivitamins/Minerals (Theragran-M) 1 each PO DAILY [facility] Last Admin: 06/07/17 09:56 Dose: 1 each Pantoprazole Sodium (Protonix -) 40 mg PO DAILY [facility] Last Admin: 06/07/17 09:56 Dose: 40 mg Polyethylene Glycol (Miralax (For Daily Use) -) 17 gm PO BID [facility] Last Admin: 06/07/17 09:57 Dose: Not Given Rivaroxaban (Xarelto -) 20 mg PO HS [facility] Last Admin: 06/06/17 21:24 Dose: 20 mg Vital Signs Period Temp Pulse Resp BP Sys/Amador Pulse Ox Last 24 Hr 97.4 F-98.4 F 60-74 20-21 110-126/52-70 96 A&P Problem List - Problems (1) Spinal cord compression Code(s): G95.20 - UNSPECIFIED CORD COMPRESSION on Decadron Doing better and could be d/cd home, There is no need for a SNF rehab (2) Renal cell carcinoma Code(s): C64.9 - MALIGNANT NEOPLASM OF UNSP KIDNEY, EXCEPT RENAL PELVIS Is awaiting to start theerapy Qualifiers: Laterality: right Qualified Code(s): C64.1 - Malignant neoplasm of right kidney, except renal pelvis (3) T2DM (type 2 diabetes mellitus) Code(s): E11.9 - TYPE 2 DIABETES MELLITUS WITHOUT COMPLICATIONS (4) Atrial flutter Code(s): I48.92 - UNSPECIFIED ATRIAL FLUTTER Qualifiers: Atrial flutter type: atypical Qualified Code(s): I48.4 - Atypical atrial flutter (5) HTN (hypertension) Code(s): I10 - ESSENTIAL (PRIMARY) HYPERTENSION Qualifiers: Hypertension type: essential hypertension Qualified Code(s): I10 - Essential (primary) hypertension 6. Edema Resolving with increased dose of Lasix
[2017-06-07] MEDS: RIVAROXABAN 20 MG TABLET PO SCH (21:31)
[2017-06-07] MEDS: ATORVASTATIN CA 10 MG TABLET (FP) PO SCH (21:31)
[2017-06-07] MEDS: EZETIMIBE 10 MG TABLET (FP) PO SCH (21:31)
[2017-06-08] MEDS: DOCUSATE SODIUM 100 MG CAPSULE (FP) PO SCH (06:16)
[2017-06-08 08:07] LABS: ANION GAP 13 (8-16); CALCIUM 8.2 mg/dL (8.5-10.1); CO2 25 mmol/L (21-32); CREATININE 1.1 mg/dL (0.7-1.3); GLUCOSE,RANDOM 193 mg/dL (74-106)
[2017-06-08] MEDS: FUROSEMIDE 40 MG TABLET (FP) PO SCH (09:36)
[2017-06-08] MEDS: METOPROLOL SUCCINATE 25 MG TAB.SR.24H (FP) PO SCH (09:37)
[2017-06-08] MEDS: PANTOPRAZOLE 40 MG TABLET (FP) PO SCH (09:37)
[2017-06-08] MEDS: DEXAMETHASONE 4 MG TABLET (FP) PO SCH (09:37)
[2017-06-08] MEDS: MULTIVITAMINS THER W-MINERALS COMBO TABLET (FP) PO SCH (09:37)
[2017-06-08] MEDS: CHOLECALCIFEROL (VITAMIN D3) 1,000 UNIT TABLET (FP) PO SCH (09:37)
[2017-06-08] MEDS: POLYETHYLENE GLYCOL 3350 119 GM BTL PO SCH (09:39)
--- NOTE | 2017-06-08 11:50 | DS ---
Physical Examination Vital Signs: Vital Signs Temperature 36.3 C L 06/08/17 06:00 Pulse Rate 63 06/08/17 06:00 Respiratory Rate 20 06/08/17 06:00 Blood Pressure 102/65 06/08/17 06:00 O2 Sat by Pulse Oximetry (%) 95 06/07/17 20:55 Constitutional: Yes: Well Nourished, No Distress, Calm Cardiovascular: Yes: Regular Rate and Rhythm. No: Gallop, Murmur, Rub Respiratory: Yes: Regular, CTA Bilaterally. No: Rales, Rhonchi, Wheezes Gastrointestinal: Yes: Normal Bowel Sounds, Soft. No: Distention, Tenderness Extremities: Yes: WNL Edema: No Labs: CBC, BMP 06/07/17 06:30 06/08/17 06:25 Discharge Summary Reason For Visit: SPINAL CORD COMPRESSION Current Active Problems Renal cell carcinoma (Acute) T2DM (type 2 diabetes mellitus) (Acute) Spinal cord compression (Chronic) Hospital Course: (1) Spinal cord compression Code(s): G95.20 - UNSPECIFIED CORD COMPRESSION (2) Renal cell carcinoma Code(s): C64.9 - MALIGNANT NEOPLASM OF UNSP KIDNEY, EXCEPT RENAL PELVIS Qualifiers: Laterality: right Qualified Code(s): C64.1 - Malignant neoplasm of right kidney, except renal pelvis (3) T2DM (type 2 diabetes mellitus) Code(s): E11.9 - TYPE 2 DIABETES MELLITUS WITHOUT COMPLICATIONS (4) Atrial flutter Code(s): I48.92 - UNSPECIFIED ATRIAL FLUTTER Qualifiers: Atrial flutter type: atypical Qualified Code(s): I48.4 - Atypical atrial flutter (5) HTN (hypertension) Code(s): I10 - ESSENTIAL (PRIMARY) HYPERTENSION Qualifiers: Hypertension type: essential hypertension Qualified Code(s): I10 - Essential (primary) hypertension (6) Obesity Code(s): E66.9 - OBESITY, UNSPECIFIED Mr Murcia is a 77 year old male who came in with worsening weakness and inability to stand up and was found to have increased spinal cord compression. He was admitted to the hospital and neurosurgery consulted. Neurosurgery evaluated the patient and after discussion he declined surgical intervention. He was started on dexamethasone and improved. He was seen by both oncology and radiation oncology and will be trialled on a systemic chemotherapy medication for renal cell carcinoma. If that is unsuccessful he will have continued radiation therapy. There was discussion about patient going to SNF but he improved and is now wanting to go home. He was seen by PT and observed being able to stand on his own and he is able to walk so is a safe discharge home. 33 minutes spent in preparation of this discharge Condition: Stable - Instructions Diet, Activity, Other Instructions: resume previous diet and activity Referrals: Jose Francisco Nicole MD [Primary Care Provider] - Disposition: VNS/HOME HEALTH CARE - Home Medications Comprehensive Discharge Medication List: Ambulatory Orders Ezetimibe/Simvastatin [Vytorin 10-20 mg Tablet] 1 tab PO HS #0 tablet 09/18/13 Metformin HCl [Glucophage] 500 mg PO HS 11/24/13 Cholecalciferol (Vitamin D3) [Vitamin D3 -] 1,000 unit PO DAILY 07/03/16 Multivitamin with Minerals [Icaps Plus] 1 each PO DAILY 07/03/16 Rivaroxaban [Xarelto -] 20 mg PO HS #0 07/06/16 Pantoprazole Sodium 40 mg PO DAILY #90 tablet. 03/10/17 Oxycodone HCl 1 tab PO PRN PRN 04/08/17 Acetaminophen [Tylenol .Regular Strength -] 650 mg PO Q4H PRN #0 tablet Docusate Sodium [Colace -] 100 mg PO TID #100 cap 04/18/17 Polyethylene Glycol 3350 [Miralax 119 gm Btl -] 17 gm PO BID bottle 04/18/17 Dexamethasone [Decadron -] 4 mg PO BID #60 tablet 06/08/17 Furosemide [Lasix -] 80 mg PO DAILY #60 tablet 06/08/17 Metoprolol Succinate [Toprol XL -] 25 mg PO DAILY #30 tab.sr.24h 06/08/17
[2017-06-08 11:52] VITALS: BP 102/56; PULSE 82; TEMP 97
== END 2017-06-08 16:53 | disposition home health service (06) | DRG 55 ==
LOC: JER 12:24 → JERBED 23:30 → UNDOADMIN 23:30 → JERBED 05-29 00:03 → UNDODISIN 05-29 00:34 → J6S 05-29 01:59
PROVIDERS: ADMIT Internal Medicine; ATTEND Internal Medicine
DX: C79.49 Secondary malignant neoplasm of other parts of nervous system (principal); G95.29 Other cord compression; C64.2 Malignant neoplasm of left kidney, except renal pelvis; I48.4 Atypical atrial flutter; E11.9 Type 2 diabetes mellitus without complications; R60.0 Localized edema; K57.90 Diverticulosis of intestine, part unspecified, without perforation or abscess without bleeding; E78.00 Pure hypercholesterolemia, unspecified; I10 Essential (primary) hypertension; D69.6 Thrombocytopenia, unspecified; Z87.442 Personal history of urinary calculi; I35.0 Nonrheumatic aortic (valve) stenosis; J44.9 Chronic obstructive pulmonary disease, unspecified; R26.89 Other abnormalities of gait and mobility; R15.9 Full incontinence of feces; E66.8 Other obesity; Z68.33 Body mass index [BMI] 33.0-33.9, adult; Z85.828 Personal history of other malignant neoplasm of skin; E88.81 Metabolic syndrome and other insulin resistance; Z87.891 Personal history of nicotine dependence
CPT/HCPCS: 36415; 72128-TC; 72146-TC; 80048; 80053; 80061; 81003; 83036; 83615; 83721; 83735; 84100; 85025; 85027; 85610; 85730; 86704; 86706; 86708; 87340; 93005; 93010; 97116-GP; 97161-GP; 99283-25; J1644

== ENCOUNTER 2017-06-19 11:09 | Inpatient (IN) | payer OTHER, BC ==
[2017-06-19] MEDS ORDERED: ALBUTEROL SO4 0.083% IH SOL 2.5 MG/3 ML VIAL.NEB. NEB ONE (11:33)
[2017-06-19] MEDS ORDERED: SODIUM CHLORIDE 1,000 ML IV STA ×2 (11:34→13:20)
[2017-06-19] MEDS ORDERED: SODIUM CHLORIDE 0.9% 1000 ML INFUS.BAG IV STA (11:39)
--- NOTE | 2017-06-19 11:55 | PDOC ---
History of Present Illness - General Chief Complaint: Nausea Stated Complaint: NAUSEA Time Seen by Provider: 06/19/17 11:24 History Source: Patient Exam Limitations: No Limitations - History of Present Illness Initial Comments: 06/19/17 11:45 77-year-old male presents to the emergency room for evaluation of increasing fatigue, weakness, shortness of breath, and mild nausea for the past few weeks after beginning his chemotherapy regimen for spinal cancer. Patient states was diagnosed with kidney cancer 2-3 years ago with right nephrectomy. Patient states is followed by Dr. Traylor. Patient denies fever, chills, chest pain, cough, abdominal pain, diarrhea, dysuria, rash, edema, or back pain. Patient is currently on Xarelto secondary to a flutter Timing/Duration: getting worse Severity: moderate Associated Symptoms: reports: loss of appetite, nausea/vomiting (mild nausea), shortness of breath, weakness Past History - Travel Traveled outside of the country in the last 30 days: No - Past Medical History Allergies/Adverse Reactions: Allergies Allergy/AdvReac Type Severity Reaction Status Date / Time No Known Drug Allergies Allergy Verified 06/19/17 11:22 Home Medications: Ambulatory Orders Ezetimibe/Simvastatin [Vytorin 10-20 mg Tablet] 1 tab PO HS #0 tablet 09/18/13 Metformin HCl [Glucophage] 500 mg PO HS 11/24/13 Cholecalciferol (Vitamin D3) [Vitamin D3 -] 1,000 unit PO DAILY 07/03/16 Multivitamin with Minerals [Icaps Plus] 1 each PO DAILY 07/03/16 Rivaroxaban [Xarelto -] 20 mg PO HS #0 07/06/16 Pantoprazole Sodium 40 mg PO DAILY #90 tablet. 03/10/17 Oxycodone HCl 1 tab PO PRN PRN 04/08/17 Acetaminophen [Tylenol .Regular Strength -] 650 mg PO Q4H PRN #0 tablet Docusate Sodium [Colace -] 100 mg PO TID #100 cap 04/18/17 Polyethylene Glycol 3350 [Miralax 119 gm Btl -] 17 gm PO BID bottle 04/18/17 Dexamethasone [Decadron -] 4 mg PO BID #60 tablet 06/08/17 Furosemide [Lasix -] 80 mg PO DAILY #60 tablet 06/08/17 Metoprolol Succinate [Toprol XL -] 25 mg PO DAILY #30 tab.sr.24h 06/08/17 Anemia: No Asthma: No Cancer: Yes (Skin CA R eyelid, kidney, spinal mets) Cardiac Disorders: Yes (PAF?) CVA: No COPD: No CHF: No Dementia: No Diabetes: Yes (NIDDM) GI Disorders: Yes (diverticulosis, colon adenomas) Disorders: No HTN: Yes Hypercholesterolemia: Yes Liver Disease: No Seizures: No Thyroid Disease: No - Surgical History Abdominal Surgery: No Appendectomy: Yes (as a child) Cardiac Surgery: No Cholecystectomy: Yes (LAP) Lung Surgery: No Neurologic Surgery: No Orthopedic Surgery: Yes (LT KNEE scope) - Suicide/Smoking/Psychosocial Hx Smoking History: Unknown if ever smoked Have you smoked in the past 12 months: No If you are a former smoker, when did you quit?: 1973 Information on smoking cessation initiated: No Hx Alcohol Use: No Drug/Substance Use Hx: No Substance Use Type: None Patient Lives Alone: No Lives with/in: spouse/SO Review of Systems - Review of Systems Able to Perform ROS?: Yes Constitutional: Yes: Loss of Appetite, Malaise, Weakness. No: Chills, Fever HEENTM: No: Symptoms Reported Respiratory: Yes: Shortness of Breath. No: Cough Cardiac (ROS): No: Symptoms Reported ABD/GI: Yes: Nausea, Poor Appetite, Poor Fluid Intake : No: Symptoms Reported Musculoskeletal: No: Symptoms Reported Integumentary: No: Symptoms Reported Neurological: No: Symptoms reported Hematologic/Lymphatic: Yes: See HPI *Physical Exam - Vital Signs Last Vital Signs Temp Pulse Resp BP Pulse Ox 97.4 F L 110 H 30 H 109/59 100 06/19/17 11:09 06/19/17 11:09 06/19/17 11:09 06/19/17 11:09 06/19/17 11:09 - Physical Exam General Appearance: Yes: Nourished, Appropriately Dressed. No: Apparent Distress HEENT: positive: EOMI, FREDA. negative: Pale Conjunctivae Neck: positive: Supple Respiratory/Chest: positive: Lungs Clear, Normal Breath Sounds. negative: Respiratory Distress, Accessory Muscle Use Cardiovascular: positive: Regular Rate (a flutter 82). negative: Murmur Gastrointestinal/Abdominal: positive: Normal Bowel Sounds, Soft, Distended ( slight). negative: Tenderness, Mass Extremity: positive: Normal Capillary Refill, Pedal Edema Integumentary: positive: Dry, Warm, Pale Neurologic: positive: Normal Mood/Affect, Motor Strength 5/5 Heart Score/ECG Review - History History: Slightly suspicious - Electrocardiogram EKG: Normal - Age Age: >/= 65 - Risk Factors Risk Factors Heart Score: Yes Smoking History Based on the list above the patient has:: 1-2 risk factors - Troponin Troponin: </= normal limit - Score Heart Score - Total: 3 - ECG Impressions Tachycardia: Atrial Flutter (rate 82 with PVCs) ED Treatment Course - LABORATORY CBC & Chemistry Diagram: 06/19/17 16:00 06/19/17 16:00 - RADIOLOGY Radiology Studies Ordered: Category Date Time Status CHEST X-RAY PORTABLE* [RAD] Stat Radiology 06/19/17 11:34 Ordered Medical Decision Making - Critical Care Time Total Critical Care Time (minutes): 60 Critical Care Statement: The care of this patient involved high complexity decision making to prevent further life threatening deterioration of the patient 's condition and/or to evaluate & treat vital organ system(s) failure or risk of failure. - Medical Decision Making 06/19/17 11:57 Patient arrives with complaints of progressively worsening shortness of breath fatigue and weakness and poor appetite over the past 2 weeks after beginning chemotherapy tablets for spine metastases. Patient arrives tachypneic with normal breath sounds the bases. Patient also satting at 92% on room air with a borderline hypotensive blood pressure of 90s over 50s patient concerning for sepsis, cardiac etiology and anemia. Patient ordered for albuterol nebulizer along with IV fluids along with sepsis and cardiac workup 06/19/17 13:48 Laboratory Tests 06/19/17 06/19/17 06/19/17 11:45 11:45 11:45 WBC 17.3 H D Hgb 16.8 D Hct 49.6 H D RDW 19.0 H D Plt Count 120 L Sodium 135 L Potassium 4.9 D Chloride 94 L Carbon Dioxide 24 Anion Gap 17 H BUN 54 H D Creatinine 1.8 H D Creat Clearance w eGFR 36.58 Random Glucose 149 H D Calcium 8.5 Magnesium 2.7 H D Total Bilirubin 3.1 H D AST 110 H D ALT 89 H D Alkaline Phosphatase 114 D Creatine Kinase 84 Troponin I 0.19 H D Total Protein 6.2 L Albumin 3.4 Urine Ketones Negative Urine Nitrite Negative Ur Leukocyte Esterase Negative Blood Type Antibody Screen 06/19/17 12:35 WBC Hgb Hct RDW Plt Count Sodium Potassium Chloride Carbon Dioxide Anion Gap BUN Creatinine Creat Clearance w eGFR Random Glucose Calcium Magnesium Total Bilirubin AST ALT Alkaline Phosphatase Creatine Kinase Troponin I Total Protein Albumin Urine Ketones Urine Nitrite Ur Leukocyte Esterase Blood Type Pending Antibody Screen Pending Chest x-ray negative. Patient still remains dyspneic with a respiratory rate of 24-28 satting 100% with 2 L nasal cannula. Patient concerning for pulmonary embolism despite being on Xarelto. Due to elevation of BUN/creatinine patient will receive DVT studies and prophylactically be covered with Zosyn. Patient also had lipase added to panel. 06/19/17 13:53 Patient also ordered for chest CT without contrast along with abdominal and pelvic CT without contrast. Due to elevated total bili and elevated LFTs patient added for gallbladder ultrasound. 06/19/17 15:17 DVT study - for dvt. 06/19/17 17:08 Second IV line #20 placed by me in right chest ( cephalic vein) without difficulty. IV fluids infusing. Second BNP CBC and lactic sent. Patient will be admitted to ICU case discussed with tractor mechanic helper Ketan . 06/19/17 17:12 Gallbladder ultrasound shows normal-size liver with poor visualization and slightly dense echotexture. Gallstones are noted. Nonvisualization of the right kidney patient status post right nephrectomy. CT of the chest abdomen pelvis shows no acute lung disease. There is metastasis again significant thoracic spine mainly in T3-T4 with a soft tissue mass displacing the thoracic cord towards the left with moderate compression as well as extending into the right foramen at T3-T4 with a lesser extent of t4 to T5 compressing the corresponding nerve roots. In the abdomen and pelvis no gross enlarged lymph nodes, free fluid or free air .There is diverticulosis without evidence of acute diverticulitis. 06/19/17 17:12 Laboratory Tests 06/19/17 06/19/17 06/19/17 11:45 16:00 16:00 WBC 18.3 H Hgb 15.2 Hct 45.5 RDW 19.2 H ABG pH ABG pCO2 at Pt Temp ABG pO2 at Pt Temp ABG HCO3 ABG O2 Sat (Measured) Lactic Acid Pending Lipase 187 06/19/17 16:30 WBC Hgb Hct RDW ABG pH 7.59 H D ABG pCO2 at Pt Temp 21.3 L D ABG pO2 at Pt Temp 130.0 H D ABG HCO3 20.9 L ABG O2 Sat (Measured) 99.0 H Lactic Acid Lipase 06/19/17 18:00 Discussed with hospitalist and is recommending infectious disease and to cough notify the nursing bull gang supervisor for a bedside echo. Oncologist here at bedside recommending substation inspector. 06/19/17 18:04 Laboratory Tests 06/19/17 06/19/17 16:00 16:00 Potassium 3.1 L D Carbon Dioxide 20 L Anion Gap 21 H BUN 57 H Creatinine 1.6 H Random Glucose 111 H D Lactic Acid 5.7 H* Calcium 8.4 L K-dur ordered. bun/creat slightly improved. lactic acid trending down. Gap increased. *DC/Admit/Observation/Transfer Diagnosis at time of Disposition: Severe sepsis - Discharge Dispostion Admit: Yes - Referrals Referrals: Jose Francisco Nicole MD [Primary Care Provider] - - Patient Instructions - Post Discharge Activity
[2017-06-19 12:21] LABS: HEMATOCRIT 49.6 % (35.4-49); HEMOGLOBIN 16.8 GM/dL (11.7-16.9); MCH 30.6 pg (25.7-33.7); MCHC 33.9 g/dl (32.0-35.9); MEAN CELL VOLUME 90.2 fl (80-96); MEAN PLT VOLUME 9.4 fl (7.5-11.1); PLATELET COUNT 120 K/MM3 (134-434); URINE APPEARANCE CLEAR; URINE BILIRUBIN NEGATIVE (NEGATIVE); URINE BLOOD NEGATIVE (NEGATIVE); URINE COLOR YELLOW; URINE GLUCOSE (UA) NEGATIVE (NEGATIVE); URINE KETONE NEGATIVE (NEGATIVE); URINE LEUK ESTERASE NEGATIVE (NEGATIVE); URINE NITRITE NEGATIVE (NEGATIVE); URINE PROTEIN NEGATIVE (NEGATIVE); WHITE BLOOD COUNT 17.3 K/mm3 (4.0-10.0)
[2017-06-19 12:46] LABS: ALBUMIN 3.4 g/dl (3.4-5.0); ANION GAP 17 (8-16); BILIRUBIN,TOTAL 3.1 mg/dL (0.2-1.0); BLOOD UREA NITROGEN 54 mg/dL (7-18); CALCIUM 8.5 mg/dL (8.5-10.1); CHLORIDE 94 mmol/L (98-107); CO2 24 mmol/L (21-32); CREATININE 1.8 mg/dL (0.7-1.3); GLUCOSE,RANDOM 149 mg/dL (74-106); SGPT/ALT 89 U/L (12-78); SODIUM 135 mmol/L (136-145); TOT PROT 6.2 g/dl (6.4-8.2)
[2017-06-19 12:48] LABS: ALK PHOS 114 U/L (45-117)
[2017-06-19 12:50] LABS: MAGNESIUM 2.7 mg/dL (1.8-2.4); POTASSIUM 4.9 mmol/L (3.5-5.1)
--- NOTE | 2017-06-19 12:50 | PDOC ---
*Physical Exam - Vital Signs Last Vital Signs Temp Pulse Resp BP Pulse Ox 97.4 F L 110 H 30 H 109/59 100 06/19/17 11:09 06/19/17 11:09 06/19/17 11:09 06/19/17 11:09 06/19/17 11:09 - Physical Exam Comments: 06/19/17 15:31 Vitals: Triage Vital signs reviewed General Appearance: no acute distress, well nourished well developed, Head: Atraumatic, normocephalic Neck: Supple; No Nuchal rigidity Chest Wall: Nontender Cardiac: Regular rate and rhythm, no murmurs, no rubs, no gallops, Lungs: Tachypneic. Clear to auscultation bilateral. Abdomen: Soft, nondistended, normal bowel sounds, nontender to palpation Extremities: Bilateral leg edema and tenderness to palpation. Full range of motion to the upper extremities, no cyanosis, or clubbing Skin: Warm and dry, no rashes or lesions, no petechiae Neuro: AOX3; Cranial Nerves 2-12 grossly intact, Strength intact to upper extremities, Sensation intact to all extremities Psych: normal mood, normal affect <Sebastian Harris - Last Filed: 06/19/17 16:29> - Vital Signs Last Vital Signs Temp Pulse Resp BP Pulse Ox 97.4 F L 110 H 30 H 109/59 100 06/19/17 11:09 06/19/17 11:09 06/19/17 11:09 06/19/17 11:09 06/19/17 11:09 <Hernandez Patiño - Last Filed: 06/20/17 12:30> Heart Score/ECG Review - ECG Intrepretation Comment:: 06/19/17 13:29 EKG performed at 12:49:07, demonstrates rate of 114 bpm. Atrial flutter, with variable block. No ST elevations or T wave inversions <Sebastian Harris - Last Filed: 06/19/17 16:29> ED Treatment Course - LABORATORY CBC & Chemistry Diagram: 06/19/17 11:45 06/19/17 11:45 - ADDITIONAL ORDERS Additional order review: Laboratory Results 06/19/17 06/19/17 06/19/17 12:35 11:45 11:45 PT with INR 17.70 H INR 1.57 H Sodium 135 L Potassium 4.9 D Chloride 94 L Carbon Dioxide 24 Anion Gap 17 H BUN 54 H D Creatinine 1.8 H D Creat Clearance w eGFR 36.58 Random Glucose 149 H D Calcium 8.5 Magnesium 2.7 H D Total Bilirubin 3.1 H D AST 110 H D ALT 89 H D Alkaline Phosphatase 114 D Creatine Kinase 84 Troponin I 0.19 H D Total Protein 6.2 L Albumin 3.4 Urine Color Yellow Urine Appearance Clear Urine pH 5.0 Ur Specific [place] 1.016 Urine Protein Negative Urine Glucose (UA) Negative Urine Ketones Negative Urine Blood Negative Urine Nitrite Negative Urine Bilirubin Negative Urine Urobilinogen 2.0 Ur Leukocyte Esterase Negative 06/19/17 11:45 RBC 5.50 D MCV 90.2 MCHC 33.9 RDW 19.0 H D MPV 9.4 D Neutrophils % No Result Required. Lymphocytes % No Result Required. - RADIOLOGY Radiograph Interpretation: 06/19/17 15:32 EXAM: Gallbladder US INTERPRETED BY: Dr. Wall REVIEWED BY: Dr. Patiño IMPRESSION: Limited examination, likely due to the patient's body habitus. Normal size liver with poor visualization and with a slightly dense echotexture. Gallstones Nonvisualization of the right kidney. Patient is status post right nephrectomy. EXAM: CXR INTERPRETED BY: Dr. De La Cruz REVIEWED BY: Dr. Patiño IMPRESSION: No acute chest pathology. Clearing of basilar lung changes since prior study of 2016. EXAM: US Duplex jose l legs INTERPRETED BY: Dr. Wall REVIEWED BY: Dr. Patiño IMPRESSION: There is no evidence of deep venous thromboses in both lower extremities. 06/19/17 16:29 - Medications Given in the ED: ED Medications Discontinued Medications Generic Name Dose Route Start Last Admin Trade Name Freq PRN Reason Stop Dose Admin Albuterol Sulfate 1 amp 06/19/17 11:33 06/19/17 12:30 Ventolin 0.083% Nebulizer Soln - NEB 06/19/17 11:34 1 amp ONCE ONE Administration Sodium Chloride 1,000 mls @ 1,000 mls/hr 06/19/17 11:34 06/19/17 12:34 Normal Saline - IV 06/19/17 12:33 1,000 mls/hr ASDIR STA Administration Piperacillin Sod/Tazobactam Sod 3.375 gm 06/19/17 12:51 06/19/17 13:21 Zosyn 3.375gm Ivpb (Pre-Docked) IVPB 06/19/17 12:52 3.375 gm NOW ONE Administration Protocol Sodium Chloride 2,500 ml 06/19/17 11:39 06/19/17 13:20 Normal Saline - IV 06/19/17 11:40 Not Given ONCE STA <Sebastian Harris - Last Filed: 06/19/17 16:29> - LABORATORY CBC & Chemistry Diagram: 06/20/17 08:10 06/20/17 08:10 - ADDITIONAL ORDERS Additional order review: Laboratory Results 06/19/17 11:45 Urine Color Yellow Urine Appearance Clear Urine pH 5.0 Ur Specific [place] 1.016 Urine Protein Negative Urine Glucose (UA) Negative Urine Ketones Negative Urine Blood Negative Urine Nitrite Negative Urine Bilirubin Negative Urine Urobilinogen 2.0 Ur Leukocyte Esterase Negative 06/19/17 11:45 RBC 5.50 D MCV 90.2 MCHC 33.9 RDW 19.0 H D MPV 9.4 D Neutrophils % No Result Required. Lymphocytes % No Result Required. - Medications Given in the ED: ED Medications Discontinued Medications Generic Name Dose Route Start Last Admin Trade Name Freq PRN Reason Stop Dose Admin Sodium Chloride 1,000 mls @ 1,000 mls/hr 06/19/17 11:34 06/19/17 12:34 Normal Saline - IV 06/19/17 12:33 1,000 mls/hr ASDIR STA Administration <Hernandez Patiño - Last Filed: 06/20/17 12:30> Progress Note - Progress Note Progress Note: The patient is a 77 year old male, with a significant past medical history of RCC (s/p L renal resection), spinal mets, afib (on riboaxaran), niddm, and kidney cancer(s/p right nephrectomy), who presents to the emergency department with increased shortness of breath, weakness, decreased appetite and fatigue for several days. Patient reports he recently started a chemotherapy pill regimen for his spinal cancer, and has since felt nauseous, dehydrated, weak, and short of breath. Patient is currently on Xarelto for Atrial flutter. He reports increased lower extremity edema and pain (worse than his baseline), but denies any chest pain, diaphoresis, palpitations. Patient reports he has not been able to get out of bed or ambulate on his own secondary to leg weakness and pain. He denies any fever, chills, cough, headache, or dizziness. He denies any recent travel or sick contacts. Oncologist: Dr. Traylor PCP: Dr. Nicole <Sebastian Harris - Last Filed: 06/19/17 16:29> Medical Decision Making - Medical Decision Making First call placed to Dr. Nicole at 16:29. Awaiting call back. 06/19/17 16:29 <Sebastian Harris - Last Filed: 06/19/17 16:29> - Critical Care Time Total Critical Care Time (minutes): 45 Critical Care Statement: The care of this patient involved high complexity decision making to prevent further life threatening deterioration of the patient 's condition and/or to evaluate & treat vital organ system(s) failure or risk of failure. - Medical Decision Making Pt. with history of renal cell carcinoma status post left renal resection, spinal metastases with cord involvement on steroids, A. fib on xeralto, non- insulin-dependent diabetes, kidney cancer status post right renal nephrectomy who presented to the emergency department with shortness of breath weakness decreased appetite and fatigue. Patient also with history of CHF. In emergency department, slight tachycardia upon arrival to ED tachypnea noted but otherwise vital signs stable. Sepsis w/u initiated. Normotensive in ED. No indication for 30 mL per kg bolus given no hypotension. History and examination consistent with sepsis unknown etiology at this time is a concern for PE however unable to obtain CTA given elevated creatinine Patient is also status post nephrectomy and only has one kidney Given that pt. is already anticoagulated, with history of metastisis will hold additional AC at this time. We'll admit to ICU. We'll continue to hydrate for elevated lactic. Broad spectrum Abx; Vanc/Zosyn for leukocytosis (no clear source at this time) exam and imaging unremarkable for infectious etiology All findings and plan discussed at length with patient and family. DNR/DNI status confirmed, paperwork completed with son and patient. ICU Aware INFECTIOUS DISEASE TECHNICIAN [place] aware. Will admit to ICU for further management <Hernandez Patiño - Last Filed: 06/20/17 12:30> *DC/Admit/Observation/Transfer - Attestations Scribe Attestion: 06/19/17 13:28 Documentation prepared by Sebastian Harris, acting as medical diagnostic radiographer for Hernandez Patiño MD. <Sebastian Harris - Last Filed: 06/19/17 16:29> <Hernandez Patiño - Last Filed: 06/20/17 12:30> Diagnosis at time of Disposition: Severe sepsis
[2017-06-19 12:51] LABS: SGOT/AST 110 U/L (15-37)
[2017-06-19] MEDS ORDERED: PIPERACILLIN/TAZOB 3.375 GM/50 ML PRE-DOCKED IVPB ONE (12:51)
[2017-06-19 13:05] LABS: INR 1.57 (0.82-1.09); PROTHROMBIN TIME (PATIENT) 17.7 SEC (9.98-11.88)
[2017-06-19] MEDS ORDERED: PIPERACILLIN/TAZOB 3.375 GM 3.375 GM/50 ML BAG IVPB ONE (13:24)
[2017-06-19 13:34] LABS: LIPASE 187 U/L (73-393)
[2017-06-19 13:52] LABS: ANISOCYTOSIS 3+; MACROCYTOSIS 0; PLATELET ESTIMATE DECREASED
[2017-06-19 16:37] LABS: BASO % 1.3 % (0-2.0); HEMATOCRIT 45.5 % (35.4-49); HEMOGLOBIN 15.2 GM/dL (11.7-16.9); LYMPH % 4.3 % (8-40); MCH 30.6 pg (25.7-33.7); MCHC 33.4 g/dl (32.0-35.9); MEAN CELL VOLUME 91.5 fl (80-96); MEAN PLT VOLUME 9.3 fl (7.5-11.1); MONO % 6.1 % (3.8-10.2); NEUT % 88.3 % (42.8-82.8); PLATELET COUNT 110 K/MM3 (134-434); RBC 4.98 M/mm3 (4.00-5.60); RDW 19.2 % (11.9-15.9); WHITE BLOOD COUNT 18.3 K/mm3 (4.0-10.0)
[2017-06-19 16:50] LABS: ARTERIAL BLOOD GAS PCO2 21.3 mmHg (35-45); ARTERIAL BLOOD GAS pH 7.59 (7.35-7.45)
[2017-06-19 16:52] LABS: ARTERIAL BLOOD GAS BASE EXCESS 1.6 meq/l (-2-2)
[2017-06-19 16:54] LABS: CARBOXYHEMOGLOBIN 1.5 gm% (0.5-2.0)
[2017-06-19] MEDS ORDERED: VANCOMYCIN 1,000 MG in DEXTROSE 5%-WATER - 250 ML IVPB ONE (17:04)
[2017-06-19] MEDS ORDERED: VANCOMYCIN 1 GRAM (PRE-DOCKED) 1,000 MG/250 ML BAG IVPB ONE (17:13)
[2017-06-19 17:29] LABS: ANION GAP 21 (8-16); BLOOD UREA NITROGEN 57 mg/dL (7-18); CALCIUM 8.4 mg/dL (8.5-10.1); CHLORIDE 98 mmol/L (98-107); CO2 20 mmol/L (21-32); CREATININE 1.6 mg/dL (0.7-1.3); GLUCOSE,RANDOM 111 mg/dL (74-106); POTASSIUM 3.1 mmol/L (3.5-5.1); SODIUM 139 mmol/L (136-145)
[2017-06-19] MEDS ORDERED: POTASSIUM CHLORIDE TABS 20 MEQ TABLET.ER (FP) PO ONE (18:03)
--- NOTE | 2017-06-19 18:10 | HP ---
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 Recently hospitalized 05/29-06/08/17 for worsening lower extremity weakness secondary to spinal cord compression. Decision was made not to pursue surgery, to begin dexamethasone, and to start a trial of pazopanib. Patient presents to the ED today with progressive SOB, weakness, fatigue, and poor appetite since starting pazopanib. ER course was notable for: (1) T 97.4, BP 109/59, p 110, RR 30, WBC 17.3, lactic acid 9.5 (2) US BLE negative for DVT (3) CT chest: no acute lung disease; T3-T4 bone destruction with soft tissue mass displacing thoracic cord with moderate compression, also extending to right , and down, compressing T4-T5 nerve roots; multiple metastatic foci thoracic and lumbar spine and left iliac bone Recent Travel: No PAST MEDICAL HISTORY: Hypertension Hyperlipidemia Atrial fibrillation Renal cell carcinoma with mets to spine and thoracic cord compression NIDDM Kidney stones Diverticulosis Colon adenoma PAST SURGICAL HISTORY: Right eyelid skin cancer s/p excision Right nephrectomy Knee arthroscopy Appendectomy age 8 Social History: Smoking: no current use, quit 1973, former 2ppd x 20 years Alcohol: no current use Drugs: no current use Family History: Mother cervical CA Son w/ heart disease Allergies No Known Drug Allergies Allergy (Verified 06/19/17 11:22) HOME MEDICATIONS: Medication Instructions Recorded Ezetimibe/Simvastatin [Vytorin 1 tab PO HS #0 tablet 09/18/13 10-20 mg Tablet] Metformin HCl [Glucophage] 500 mg PO HS 11/24/13 Cholecalciferol (Vitamin D3) 1,000 unit PO DAILY 07/03/16 [Vitamin D3 -] Multivitamin with Minerals [Icaps 1 each PO DAILY 07/03/16 Plus] Rivaroxaban [Xarelto -] 20 mg PO HS #0 07/06/16 Pantoprazole Sodium 40 mg PO DAILY #90 tablet. 03/10/17 Oxycodone HCl 1 tab PO PRN PRN 04/08/17 Acetaminophen [Tylenol .Regular 650 mg PO Q4H PRN #0 tablet 04/18/17 Strength -] Docusate Sodium [Colace -] 100 mg PO TID #100 cap 04/18/17 Polyethylene Glycol 3350 [Miralax 17 gm PO BID bottle 04/18/17 119 gm Btl -] Dexamethasone [Decadron -] 4 mg PO BID #60 tablet 06/08/17 Furosemide [Lasix -] 80 mg PO DAILY #60 tablet 06/08/17 Metoprolol Succinate [Toprol XL -] 25 mg PO DAILY #30 tab.sr.24h 06/08/17 REVIEW OF SYSTEMS CONSTITUTIONAL: +generalized weakness, malaise, loss of appetite Absent: fever, chills, diaphoresis, weight change HEENT: Absent: rhinorrhea, nasal congestion, throat pain, throat swelling, difficulty swallowing, mouth swelling, ear pain, eye pain, visual changes CARDIOVASCULAR: Absent: chest pain, syncope, palpitations, irregular heart rate, lightheadedness , peripheral edema RESPIRATORY: +SOB Absent: cough, dyspnea with exertion, orthopnea, wheezing, stridor, hemoptysis GASTROINTESTINAL: Absent: abdominal pain, abdominal distension, nausea, vomiting, diarrhea, constipation, melena, hematochezia GENITOURINARY: Absent: dysuria, frequency, urgency, hesitancy, hematuria, flank pain, genital pain MUSCULOSKELETAL: +bilateral leg pain Absent: myalgia, arthralgia, joint swelling, back pain, neck pain SKIN: Absent: rash, itching, pallor HEMATOLOGIC/IMMUNOLOGIC: Absent: easy bleeding, easy bruising, lymphadenopathy, frequent infections ENDOCRINE: Absent: unexplained weight gain, unexplained weight loss, heat intolerance, cold intolerance NEUROLOGIC: Absent: headache, focal weakness or paresthesias, dizziness, unsteady gait, seizure, mental status changes, bladder or bowel incontinence PSYCHIATRIC: Absent: anxiety, depression, suicidal or homicidal ideation, hallucinations. PHYSICAL EXAMINATION Vital Signs Temperature 97.4 F L 06/19/17 11:09 Pulse Rate 62 06/19/17 15:53 Respiratory Rate 28 H 06/19/17 15:53 Blood Pressure 126/63 06/19/17 15:53 O2 Sat by Pulse Oximetry (%) 100 06/19/17 15:53 GENERAL: Awake, alert, and fully oriented. Weak-appearing. Pale. HEAD: Normal with no signs of trauma. EYES: Pupils equal, round and reactive to light, extraocular movements intact, sclera anicteric, conjunctiva clear. No lid lag. EARS, NOSE, THROAT: Ears normal, nares patent, oropharynx clear without exudates. Dry mucous membranes. NECK: Normal range of motion, supple without lymphadenopathy, JVD, or masses. LUNGS: Breath sounds equal, clear to auscultation bilaterally. No wheezes, and no crackles. No accessory muscle use. HEART: Regular rate and rhythm, normal S1 and S2, +murmur ABDOMEN: Soft, obese, nontender, not distended, normoactive bowel sounds, no guarding, no rebound, MUSCULOSKELETAL: Normal range of motion at all joints. No bony deformities or tenderness. No CVA tenderness. UPPER EXTREMITIES: 2+ pulses, warm, well-perfused. No cyanosis. No clubbing. No peripheral edema. LOWER EXTREMITIES: 2+ pulses, warm, well-perfused. No calf tenderness. No peripheral edema. NEUROLOGICAL: Cranial nerves II-XII intact. Normal speech. Laboratory Results - last 24 hr 06/19/17 06/19/17 06/19/17 11:45 11:45 11:45 WBC 17.3 H D RBC 5.50 D Hgb 16.8 D Hct 49.6 H D MCV 90.2 MCH 30.6 MCHC 33.9 RDW 19.0 H D Plt Count 120 L MPV 9.4 D Neutrophils % No Result Required. Neutrophils % (Manual) 86.8 H Band Neutrophils % 0.0 Lymphocytes % No Result Required. Lymphocytes % (Manual) 4.1 L D Monocytes % Monocytes % (Manual) 6 Eosinophils % Eosinophils % (Manual) 1.0 D Basophils % Basophils % (Manual) 0.0 Myelocytes % (Man) 1 Metamyelocytes 0 D Hypochromia 0 Platelet Estimate Decreased Polychromasia 1+ Poikilocytosis 2+ Anisocytosis 3+ Microcytosis 2+ Macrocytosis 0 PT with INR INR Anticoagulation Therapy Puncture Site ABG pH ABG pCO2 at Pt Temp ABG pO2 at Pt Temp ABG HCO3 ABG O2 Sat (Measured) ABG O2 Content ABG Base Excess [place] Test Carboxyhemoglobin Methemoglobin O2 Delivery Device Oxygen Flow Rate Vent Mode Vent Rate Mechanical Rate Pressure Support Vent Sodium 135 L Potassium 4.9 D Chloride 94 L Carbon Dioxide 24 Anion Gap 17 H BUN 54 H D Creatinine 1.8 H D Creat Clearance w eGFR 36.58 Random Glucose 149 H D Lactic Acid Calcium 8.5 Magnesium 2.7 H D Total Bilirubin 3.1 H D AST 110 H D ALT 89 H D Alkaline Phosphatase 114 D Creatine Kinase 84 Troponin I 0.19 H D Total Protein 6.2 L Albumin 3.4 Lipase 187 Urine Color Yellow Urine Appearance Clear Urine pH 5.0 Ur Specific [place] 1.016 Urine Protein Negative Urine Glucose (UA) Negative Urine Ketones Negative Urine Blood Negative Urine Nitrite Negative Urine Bilirubin Negative Urine Urobilinogen 2.0 Ur Leukocyte Esterase Negative Blood Type Antibody Screen 06/19/17 06/19/17 06/19/17 12:35 12:35 12:35 WBC RBC Hgb Hct MCV MCH MCHC RDW Plt Count MPV Neutrophils % Neutrophils % (Manual) Band Neutrophils % Lymphocytes % Lymphocytes % (Manual) Monocytes % Monocytes % (Manual) Eosinophils % Eosinophils % (Manual) Basophils % Basophils % (Manual) Myelocytes % (Man) Metamyelocytes Hypochromia Platelet Estimate Polychromasia Poikilocytosis Anisocytosis Microcytosis Macrocytosis PT with INR 17.70 H INR 1.57 H Anticoagulation Therapy Puncture Site ABG pH ABG pCO2 at Pt Temp ABG pO2 at Pt Temp ABG HCO3 ABG O2 Sat (Measured) ABG O2 Content ABG Base Excess Hus[place] Test Carboxyhemoglobin Methemoglobin O2 Delivery Device Oxygen Flow Rate Vent Mode Vent Rate Mechanical Rate Pressure Support Vent Sodium Potassium Chloride Carbon Dioxide Anion Gap BUN Creatinine Creat Clearance w eGFR Random Glucose Lactic Acid 9.5 H* Calcium Magnesium Total Bilirubin AST ALT Alkaline Phosphatase Creatine Kinase Troponin I Total Protein Albumin Lipase Urine Color Urine Appearance Urine pH Ur Specific [place] Urine Protein Urine Glucose (UA) Urine Ketones Urine Blood Urine Nitrite Urine Bilirubin Urine Urobilinogen Ur Leukocyte Esterase Blood Type O NEGATIVE Antibody Screen Negative 06/19/17 06/19/17 06/19/17 16:00 16:00 16:00 WBC 18.3 H RBC 4.98 Hgb 15.2 Hct 45.5 MCV 91.5 MCH 30.6 MCHC 33.4 RDW 19.2 H Plt Count 110 L MPV 9.3 Neutrophils % 88.3 H Neutrophils % (Manual) Band Neutrophils % Lymphocytes % 4.3 L D Lymphocytes % (Manual) Monocytes % 6.1 Monocytes % (Manual) Eosinophils % 0.0 Eosinophils % (Manual) Basophils % 1.3 Basophils % (Manual) Myelocytes % (Man) Metamyelocytes Hypochromia Platelet Estimate Polychromasia Poikilocytosis Anisocytosis Microcytosis Macrocytosis PT with INR INR Anticoagulation Therapy Puncture Site ABG pH ABG pCO2 at Pt Temp ABG pO2 at Pt Temp ABG HCO3 ABG O2 Sat (Measured) ABG O2 Content ABG Base Excess Hus[place] Test Carboxyhemoglobin Methemoglobin O2 Delivery Device Oxygen Flow Rate Vent Mode Vent Rate Mechanical Rate Pressure Support Vent Sodium 139 Potassium 3.1 L D Chloride 98 Carbon Dioxide 20 L Anion Gap 21 H BUN 57 H Creatinine 1.6 H Creat Clearance w eGFR Random Glucose 111 H D Lactic Acid 5.7 H* Calcium 8.4 L Magnesium Total Bilirubin AST ALT Alkaline Phosphatase Creatine Kinase Troponin I Total Protein Albumin Lipase Urine Color Urine Appearance Urine pH Ur Specific [place] Urine Protein Urine Glucose (UA) Urine Ketones Urine Blood Urine Nitrite Urine Bilirubin Urine Urobilinogen Ur Leukocyte Esterase Blood Type Antibody Screen 06/19/17 16:30 WBC RBC Hgb Hct MCV MCH MCHC RDW Plt Count MPV Neutrophils % Neutrophils % (Manual) Band Neutrophils % Lymphocytes % Lymphocytes % (Manual) Monocytes % Monocytes % (Manual) Eosinophils % Eosinophils % (Manual) Basophils % Basophils % (Manual) Myelocytes % (Man) Metamyelocytes Hypochromia Platelet Estimate Polychromasia Poikilocytosis Anisocytosis Microcytosis Macrocytosis PT with INR INR Anticoagulation Therapy No Result Required. Puncture Site No Result Required. ABG pH 7.59 H D ABG pCO2 at Pt Temp 21.3 L D ABG pO2 at Pt Temp 130.0 H D ABG HCO3 20.9 L ABG O2 Sat (Measured) 99.0 H ABG O2 Content No Result Required. ABG Base Excess 1.6 Husam Test No Result Required. Carboxyhemoglobin 1.5 Methemoglobin 1.3 O2 Delivery Device No Result Required. Oxygen Flow Rate No Result Required. Vent Mode No Result Required. Vent Rate No Result Required. Mechanical Rate No Result Required. Pressure Support Vent No Result Required. 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 Recently hospitalized 05/29--06/08/17 for worsening lower extremity weakness secondary to spinal cord compression. Renal cell carcinoma with spinal metastases/cord compression --continue dexamethasone --per onc, hold pazopanib Leukocytosis Possible sepsis --WBC 17.3-->18.3k --CXR and CT chest no acute chest pathology --UA negative --blood and urine cultures pending --Vanc x 1 and Zosyn x 1 in ED Lactic acidosis --improved after 2L fluids 9.5-->5.7 --recheck at 10pm Hypokalemia --repleted in ED Acute renal failure --Cr 1.6, baseline 1.1 --IV fluids r/o PE --Wells score moderate --continue Xarelto --CT not presently an option due to elevated Cr; recheck at 10pm Elevated LFTs --likely pazopanib induced, hold for now per onc Atrial fibrillation --continue Toprol XL --continue Xarelto NIDDM --Novolog sliding scale coverage Dispo: requires ICU level care. DNR/DNI. Visit type - Emergency Visit Emergency Visit: Yes ED Registration Date: 06/19/17 Care time: The patient presented to the Emergency Department on the above date and was hospitalized for further evaluation of their emergent condition. - New Patient This patient is new to me today: Yes Date on this admission: 06/19/17 - Critical Care Critical Care patient: Yes Total Critical Care Time (in minutes): 40 Critical Care Statement: The care of this patient involved high complexity decision making to prevent further life threatening deterioration of the patient 's condition and/or to evaluate & treat vital organ system(s) failure or risk of failure.
[2017-06-19] MEDS ORDERED: POTASSIUM CHLORIDE ORAL LIQUID 20 MEQ/15 ML ONE (18:36)
[2017-06-19 18:51] LABS: PLATELET ESTIMATE SLT DECREASE
--- NOTE | 2017-06-19 19:08 | PN ---
Progress Note (short form) - Note Progress Note: Patient well known to our service. Brief Onc Hx: diagnosis of mRCC in 04/2017. had cord compression , sp RT. Most recent with worsening LE edema and worsening cc, after MDT discussion, pt was increased to Dex 4mg BID and planned to start Pazopanib ( 3 pills ). Pazopanib was started on 06/12. He was supposed to follow-up in the office on but could not make it understandably due to the weather. I have placed a call to his yesterday, who informed about the fatigue, poor po intake and was instructed to come to the ER if he continues to feel the same and informed me this morning that he was not doing well ,therefore , instructed to call 911. Patient seen and examined in the ER. d/w , son, ER [employer]. Chart reviewed in detail, labs/imaging reviewed. Last Vital Signs Temp Pulse Resp BP Pulse Ox 97.4 F L 62 28 H 126/63 100 06/19/17 11:09 06/19/17 15:53 06/19/17 15:53 06/19/17 15:53 06/19/17 15:53 CBC, BMP 06/19/17 16:00 06/19/17 16:00 O/E: General: in mild distress, HEENT :dry Mucous membranes ,NCAT Cardiac: RRR Lungs: CTA b/l Neuro: AAOx3 LE: +bruises, tender to touch, LLE>RLE A/P: concern for sepsis ( in the setting of malignancy / immunosuppression on steroids /elevated lactate/ elevated neutrophils ) -ID c/s -Blood cx -vanc/zosyn for now -US negative for DVT MONAE: -in the setting of poor po intake/dehydration -IVF as needed -Renal consult Elevated LFTs: -Likely votrient induced -hold Votrient for now in the setting of sepsis/elevated LFTs, will cotninue to monitor -for coags mRCC: -c/w dex 4mg bid or if needed stress dose steroids -planned to wean him as an OP once Votrient is in. -hold votrient for now. Afib: on xarelto will follow closely ICU level of care would be appreciated.
[2017-06-19] MEDS ORDERED: oxyCODONE HCL 5 MG TABLET PO PRN (19:33)
[2017-06-19] MEDS ORDERED: RIVAROXABAN 20 MG TABLET PO SCH (22:00)
[2017-06-19 22:47] LABS: BASO % 0.2 % (0-2.0); EOS % 0.1 % (0-4.5); HEMATOCRIT 41.7 % (35.4-49); HEMOGLOBIN 14.1 GM/dL (11.7-16.9); LYMPH % 4.8 % (8-40); MCH 30.8 pg (25.7-33.7); MCHC 33.7 g/dl (32.0-35.9); MEAN CELL VOLUME 91.4 fl (80-96); MONO % 7.3 % (3.8-10.2); NEUT % 87.6 % (42.8-82.8); PLATELET COUNT 96 K/MM3 (134-434); RBC 4.56 M/mm3 (4.00-5.60); RDW 19.2 % (11.9-15.9); WHITE BLOOD COUNT 16.7 K/mm3 (4.0-10.0)
[2017-06-19 23:17] LABS: ALBUMIN 2.7 g/dl (3.4-5.0); ANION GAP 16 (8-16); BILIRUBIN,TOTAL 1.9 mg/dL (0.2-1.0); BLOOD UREA NITROGEN 54 mg/dL (7-18); CALCIUM 7.9 mg/dL (8.5-10.1); CHLORIDE 101 mmol/L (98-107); CO2 24 mmol/L (21-32); CREATININE 1.6 mg/dL (0.7-1.3); GLUCOSE,RANDOM 173 mg/dL (74-106); MAGNESIUM 2.4 mg/dL (1.8-2.4); PHOSPHOROUS 3.4 mg/dL (2.5-4.9); POTASSIUM 3.5 mmol/L (3.5-5.1); SGOT/AST 123 U/L (15-37); SGPT/ALT 71 U/L (12-78); SODIUM 141 mmol/L (136-145); TOT PROT 4.7 g/dl (6.4-8.2)
[2017-06-19 23:18] LABS: ALK PHOS 88 U/L (45-117)
[2017-06-19] MEDS: DEXAMETHASONE 4 MG TABLET (FP) PO SCH (23:48)
[2017-06-19] MEDS: DOCUSATE SODIUM 100 MG CAPSULE (FP) PO SCH (23:48)
[2017-06-19] MEDS: POLYETHYLENE GLYCOL 3350 119 GM BTL PO SCH (23:48)
[2017-06-19 23:53] LABS: PLATELET ESTIMATE DECREASED
[2017-06-20] MEDS: DOCUSATE SODIUM 100 MG CAPSULE (FP) PO SCH ×3 (06:49→22:02)
[2017-06-20] MEDS ORDERED: oxyCODONE HCL 5 MG TABLET ONE (06:50)
[2017-06-20] MEDS ORDERED: DOCUSATE SODIUM 100 MG CAPSULE (FP) PO ONE (06:51)
[2017-06-20 08:26] LABS: EOS % 0.1 % (0-4.5); HEMATOCRIT 42.3 % (35.4-49); HEMOGLOBIN 14.4 GM/dL (11.7-16.9); LYMPH % 3.2 % (8-40); MCHC 33.9 g/dl (32.0-35.9); MEAN CELL VOLUME 91.4 fl (80-96); MEAN PLT VOLUME 8.6 fl (7.5-11.1); MONO % 4.3 % (3.8-10.2); NEUT % 92.4 % (42.8-82.8); PLATELET COUNT 80 K/MM3 (134-434); RBC 4.63 M/mm3 (4.00-5.60); RDW 19.3 % (11.9-15.9); WHITE BLOOD COUNT 14.6 K/mm3 (4.0-10.0)
[2017-06-20] MEDS ORDERED: RIVAROXABAN 20 MG TABLET PO SCH (08:50)
[2017-06-20 08:55] LABS: ALK PHOS 98 U/L (45-117); ANION GAP 11 (8-16); BILIRUBIN,TOTAL 2.1 mg/dL (0.2-1.0); BLOOD UREA NITROGEN 47 mg/dL (7-18); CHLORIDE 102 mmol/L (98-107); CO2 26 mmol/L (21-32); CREATININE 1.4 mg/dL (0.7-1.3); GLUCOSE,RANDOM 187 mg/dL (74-106); POTASSIUM 3.9 mmol/L (3.5-5.1); SGOT/AST 145 U/L (15-37); SGPT/ALT 77 U/L (12-78); SODIUM 139 mmol/L (136-145); TOT PROT 5.1 g/dl (6.4-8.2)
[2017-06-20] MEDS ORDERED: PIPERACILLIN/TAZOB 3.375 GM 3.375 GM in DEXTROSE 5%-WATER - 100 ML IVPB ONE (09:15)
[2017-06-20] MEDS ORDERED: PIPERACILLIN/TAZOB 3.375 GM 3.375 GM/50 ML BAG IVPB ONE (09:33)
[2017-06-20] MEDS ORDERED: FUROSEMIDE 40 MG TABLET (FP) PO SCH (10:00)
[2017-06-20] MEDS ORDERED: METOPROLOL SUCCINATE 25 MG TAB.SR.24H (FP) PO SCH (10:00)
[2017-06-20] MEDS ORDERED: PIPERACIL/TAZOB 3.375 GM 3.375 GM/50 ML PREMIX IVPB SCH ×2 (10:00→18:00)
[2017-06-20] MEDS ORDERED: PANTOPRAZOLE 40 MG TABLET (FP) PO SCH (10:00)
[2017-06-20] MEDS ORDERED: SODIUM CHLORIDE 1,000 ML IV SCH (10:00)
[2017-06-20] MEDS: DEXAMETHASONE 4 MG TABLET (FP) PO SCH ×2 (10:24→22:08)
[2017-06-20] MEDS: POLYETHYLENE GLYCOL 3350 119 GM BTL PO SCH ×2 (10:40→22:03)
[2017-06-20 10:46] VITALS: BMI 34.8
--- NOTE | 2017-06-20 11:34 | EKG ---
Test Reason : Blood Pressure : / mmHG Vent. Rate : 082 BPM Atrial Rate : 328 BPM P-R Int : 000 ms QRS Dur : 130 ms QT Int : 522 ms P-R-T Axes : 228 -15 258 degrees QTc Int : 609 ms ATRIAL FLUTTER WITH VARIABLE A-V BLOCK WITH PREMATURE VENTRICULAR OR ABERRANTLY CONDUCTED COMPLEXES NON-SPECIFIC INTRA-VENTRICULAR CONDUCTION BLOCK NONSPECIFIC T WAVE ABNORMALITY ABNORMAL ECG Confirmed by ALFREDO REGALADO MD ([id number]) on 06/20/2017 11:34:16 AM Referred By: Confirmed By:ALFREDO REGALADO MD
[2017-06-20] MEDS ORDERED: oxyCODONE HCL 5 MG TABLET PO PRN (14:56)
--- NOTE | 2017-06-20 15:22 | CON.ID ---
Consult - History of Present Illness History of Present Illness: Asked to evaluate this 77 y.o. male with PMH of renal cell CA with metastasis to thoracic/lumbar spine/Lt iliac bone with cord compression (surgery declined) s/p Rt nephrectomy, s/p chemotherapy, on steroids, NIDDM, CHF, HLD, HTN, Afib admitted for SOB/tachypnea and generalized weakness/poor appetite for the past few weeks. In the ER he was found to have respiratory distress, mild hypotension, and leukocytosis, and extremely elevated lactic acid. Pt denies cough, chest pain, fever/chills, vomiting or diarrhea, or dysuria. - History Source History Provided By: Patient Limitations to Obtaining History: No Limitations - Past Medical History Cardio/Vascular: Yes: AFIB, HTN, Hyperlipdemia. No: CAD, CHF Pulmonary: Yes: COPD (at risk w smoking Hx of 2PPD for 20yrs.) Gastrointestinal: Yes: Diverticulosis Renal/: Yes: Renal Calculi (Hx of) Heme/Onc: Yes: Other (metastatic renal cell CA) Musculoskeletal: Yes: Osteoarthritis Endocrine: Yes: Diabetes Mellitus, Other (Dysmetabolic syndrome, Morbid obesity) - Past Surgical History Past Surgical History: Yes: Appendectomy (as a child), Arthrosocopy (knee), Cholecystectomy, Nephrectomy - Alcohol/Substance Use Hx Alcohol Use: No History of Substance Use: reports: None - Smoking History Smoking history: Former smoker Have you smoked in the past 12 months: No If you are a former smoker, when did you quit?: 1973 - Social History ADL: Independent History of Recent Travel: No Home Medications - Allergies Allergies/Adverse Reactions: Allergies Allergy/AdvReac Type Severity Reaction Status Date / Time No Known Drug Allergies Allergy Verified 06/19/17 11:22 - Home Medications Home Medications: Ambulatory Orders Ezetimibe/Simvastatin [Vytorin 10-20 mg Tablet] 1 tab PO HS #0 tablet 09/18/13 Metformin HCl [Glucophage] 500 mg PO HS 11/24/13 Cholecalciferol (Vitamin D3) [Vitamin D3 -] 1,000 unit PO DAILY 07/03/16 Multivitamin with Minerals [Icaps Plus] 1 each PO DAILY 07/03/16 Rivaroxaban [Xarelto -] 20 mg PO HS #0 07/06/16 Pantoprazole Sodium 40 mg PO DAILY #90 tablet. 03/10/17 Oxycodone HCl 1 tab PO PRN PRN 04/08/17 Acetaminophen [Tylenol .Regular Strength -] 650 mg PO Q4H PRN #0 tablet Docusate Sodium [Colace -] 100 mg PO TID #100 cap 04/18/17 Polyethylene Glycol 3350 [Miralax 119 gm Btl -] 17 gm PO BID bottle 04/18/17 Dexamethasone [Decadron -] 4 mg PO BID #60 tablet 06/08/17 Furosemide [Lasix -] 80 mg PO DAILY #60 tablet 06/08/17 Metoprolol Succinate [Toprol XL -] 25 mg PO DAILY #30 tab.sr.24h 06/08/17 Family Disease History - Family Disease History Family Disease History: Heart Disease: Son, Other: Mother (cervical CA) Review of Systems - Review of Systems Constitutional: reports: Weakness Eyes: reports: No Symptoms HENT: reports: No Symptoms Neck: reports: No Symptoms Cardiovascular: reports: No Symptoms Respiratory: reports: SOB Gastrointestinal: reports: No Symptoms Genitourinary: reports: No Symptoms Breasts: reports: No Symptoms Reported Musculoskeletal: reports: No Symptoms Integumentary: reports: No Symptoms Neurological: reports: No Symptoms Endocrine: reports: No Symptoms Hematology/Lymphatic: reports: No Symptoms Psychiatric: reports: No Symptoms Physical Exam Vital Signs: Vital Signs Temperature 98.8 F 06/20/17 12:24 Pulse Rate 67 06/20/17 14:18 Respiratory Rate 22 06/20/17 14:18 Blood Pressure 137/75 06/20/17 14:18 O2 Sat by Pulse Oximetry (%) 97 06/20/17 14:18 Constitutional: Yes: Well Nourished, No Distress Eyes: Yes: WNL HENT: Yes: WNL Neck: Yes: Supple Cardiovascular: Yes: Tachycardia Respiratory: Yes: CTA Bilaterally Gastrointestinal: Yes: Normal Bowel Sounds, Soft ...Rectal Exam: Yes: Deferred Renal/: Yes: WNL Musculoskeletal: Yes: WNL Extremities: Yes: WNL Integumentary: Yes: WNL Neurological: Yes: Alert, Oriented Psychiatric: Yes: Alert Labs: CBC, BMP 06/20/17 08:10 06/20/17 08:10 Abnormal Lab Results 06/19/17 06/19/17 06/19/17 16:00 16:00 16:00 WBC 18.3 H RDW 19.2 H Plt Count 110 L Neutrophils % 88.3 H Lymphocytes % 4.3 L D Nucleated RBC % ABG pH ABG pCO2 at Pt Temp ABG pO2 at Pt Temp ABG HCO3 ABG O2 Sat (Measured) Potassium 3.1 L D Carbon Dioxide 20 L Anion Gap 21 H BUN 57 H Creatinine 1.6 H Random Glucose 111 H D Lactic Acid 5.7 H* Calcium 8.4 L Total Bilirubin AST Total Protein Albumin 06/19/17 06/19/17 06/19/17 16:30 22:28 22:28 WBC 16.7 H RDW 19.2 H Plt Count 96 L Neutrophils % 87.6 H Lymphocytes % 4.8 L Nucleated RBC % 3 H ABG pH 7.59 H D ABG pCO2 at Pt Temp 21.3 L D ABG pO2 at Pt Temp 130.0 H D ABG HCO3 20.9 L ABG O2 Sat (Measured) 99.0 H Potassium Carbon Dioxide Anion Gap BUN 54 H Creatinine 1.6 H Random Glucose 173 H D Lactic Acid Calcium 7.9 L Total Bilirubin 1.9 H D AST 123 H Total Protein 4.7 L D Albumin 2.7 L D 06/19/17 06/20/17 06/20/17 22:28 08:10 08:10 WBC 14.6 H RDW 19.3 H Plt Count 80 L Neutrophils % 92.4 H Lymphocytes % 3.2 L D Nucleated RBC % ABG pH ABG pCO2 at Pt Temp ABG pO2 at Pt Temp ABG HCO3 ABG O2 Sat (Measured) Potassium Carbon Dioxide Anion Gap BUN 47 H Creatinine 1.4 H Random Glucose 187 H Lactic Acid 6.0 H* Calcium 8.0 L Total Bilirubin 2.1 H AST 145 H Total Protein 5.1 L Albumin 3.0 L 06/20/17 08:10 WBC RDW Plt Count Neutrophils % Lymphocytes % Nucleated RBC % ABG pH ABG pCO2 at Pt Temp ABG pO2 at Pt Temp ABG HCO3 ABG O2 Sat (Measured) Potassium Carbon Dioxide Anion Gap BUN Creatinine Random Glucose Lactic Acid 4.0 H* Calcium Total Bilirubin AST Total Protein Albumin Microbiology 06/19/17 12:00 Blood - Peripheral Venous Blood Culture - Preliminary NO GROWTH OBTAINED AFTER 24 HOURS, INCUBATION TO CONTINUE FOR 4 DAYS. 06/19/17 12:00 Blood - Peripheral Venous Blood Culture - Preliminary NO GROWTH OBTAINED AFTER 24 HOURS, INCUBATION TO CONTINUE FOR 4 DAYS. 06/19/17 11:45 Urine - Urine Clean Catch Urine Culture - Preliminary Staphylococcus Coagulase Neg Imaging - Results Cat Scan: Report Reviewed Other: Report Reviewed (dopplers (-) DVT b/l) Problem List - Problems (1) Severe sepsis Code(s): A41.9 - SEPSIS, UNSPECIFIED ORGANISM; R65.20 - SEVERE SEPSIS WITHOUT SEPTIC SHOCK (2) Renal cell carcinoma Code(s): C64.9 - MALIGNANT NEOPLASM OF UNSP KIDNEY, EXCEPT RENAL PELVIS Qualifiers: Laterality: right Qualified Code(s): C64.1 - Malignant neoplasm of right kidney, except renal pelvis (3) T2DM (type 2 diabetes mellitus) Code(s): E11.9 - TYPE 2 DIABETES MELLITUS WITHOUT COMPLICATIONS (4) Atrial flutter Code(s): I48.92 - UNSPECIFIED ATRIAL FLUTTER Qualifiers: Atrial flutter type: atypical Qualified Code(s): I48.4 - Atypical atrial flutter (5) HTN (hypertension) Code(s): I10 - ESSENTIAL (PRIMARY) HYPERTENSION Qualifiers: Hypertension type: essential hypertension Qualified Code(s): I10 - Essential (primary) hypertension (6) Hyperbilirubinemia Code(s): E80.6 - OTHER DISORDERS OF BILIRUBIN METABOLISM (7) S/p nephrectomy Code(s): Z90.5 - ACQUIRED ABSENCE OF KIDNEY (8) Spinal cord compression Code(s): G95.20 - UNSPECIFIED CORD COMPRESSION Assessment/Plan 77 y.o. male with PMH of renal cell CA with metastasis to thoracic/lumbar spine/ Lt iliac bone with cord compression (surgery declined) s/p Rt nephrectomy, s/p chemotherapy, on steroids, NIDDM, CHF, HLD, HTN, Afib presenting with tachypnea/ generalized weakness. Leukocytosis, elevated lactic acid in ER. No new abnormal findings on CT chest/abd. Started on broad spectrum antibiotics. Severe Sepsis - unclear source Lactic acidosis Respiratory distress Blood cultures - no growth 24hrs u/a neg - suggest continue Zosyn/Vancomycin empirically for now - monitor wbc/lactate (trending down) - repeat blood cultures monitor vitals closely will f/u
[2017-06-20] MEDS: RIVAROXABAN 20 MG TABLET PO SCH (17:27)
[2017-06-20] MEDS: SODIUM CHLORIDE 1,000 ML IV SCH (17:28)
[2017-06-20] MEDS: PIPERACILLIN/TAZOB 3.375 GM 3.375 GM in DEXTROSE 5%-WATER - 100 ML IVPB SCH (18:03)
--- NOTE | 2017-06-20 18:48 | CONSULT ---
Consult Consult Specialty:: Nephrology Reason for Consultation:: MONAE and lactic acidosis - History of Present Illness Chief Complaint: shortness of breath and weakness History of Present Illness: Pt is a 77 year old male with pmhx of RCC, a-fib, and DM who presents to the ER with weakness and fatigue. He says that he has been in bed and has been unable to get out. He also complains of decreased appetite. He says he recently started chemotherapy and it has made him sick. He denies chest pain or palpitations. I was called to evaluate him for MONAE and lactic acidosis, which has improved. He says he feels alot better today than he did yesterday. - History Source History Provided By: Patient, Medical Record - Past Medical History Cardio/Vascular: Yes: AFIB, HTN, Hyperlipdemia Pulmonary: Yes: COPD (at risk w smoking Hx of 2PPD for 20yrs.) Gastrointestinal: Yes: Diverticulosis Renal/: Yes: Renal Calculi (Hx of) Heme/Onc: Yes: Other (renal cancer) Musculoskeletal: Yes: Osteoarthritis Endocrine: Yes: Diabetes Mellitus, Other (Dysmetabolic syndrome, Morbid obesity) - Past Surgical History Past Surgical History: Yes: Appendectomy (as a child), Arthrosocopy (knee), Cholecystectomy, Nephrectomy - Alcohol/Substance Use Hx Alcohol Use: No History of Substance Use: reports: None - Smoking History Smoking history: Former smoker Have you smoked in the past 12 months: No If you are a former smoker, when did you quit?: 1973 - Social History ADL: Independent History of Recent Travel: No Home Medications - Allergies Allergies/Adverse Reactions: Allergies Allergy/AdvReac Type Severity Reaction Status Date / Time No Known Drug Allergies Allergy Verified 06/19/17 11:22 - Home Medications Home Medications: Ambulatory Orders Ezetimibe/Simvastatin [Vytorin 10-20 mg Tablet] 1 tab PO HS #0 tablet 09/18/13 Metformin HCl [Glucophage] 500 mg PO HS 11/24/13 Cholecalciferol (Vitamin D3) [Vitamin D3 -] 1,000 unit PO DAILY 07/03/16 Multivitamin with Minerals [Icaps Plus] 1 each PO DAILY 07/03/16 Rivaroxaban [Xarelto -] 20 mg PO HS #0 07/06/16 Pantoprazole Sodium 40 mg PO DAILY #90 tablet. 03/10/17 Oxycodone HCl 1 tab PO PRN PRN 04/08/17 Acetaminophen [Tylenol .Regular Strength -] 650 mg PO Q4H PRN #0 tablet Docusate Sodium [Colace -] 100 mg PO TID #100 cap 04/18/17 Polyethylene Glycol 3350 [Miralax 119 gm Btl -] 17 gm PO BID bottle 04/18/17 Dexamethasone [Decadron -] 4 mg PO BID #60 tablet 06/08/17 Furosemide [Lasix -] 80 mg PO DAILY #60 tablet 06/08/17 Metoprolol Succinate [Toprol XL -] 25 mg PO DAILY #30 tab.sr.24h 06/08/17 Family Disease History - Family Disease History Family Disease History: Heart Disease: Son, Other: Mother (cervical CA) Review of Systems - Review of Systems Constitutional: reports: Lethargy, Loss of Appetite, Malaise, Weakness. denies : Chills, Fever Eyes: reports: No Symptoms HENT: reports: No Symptoms Neck: reports: No Symptoms Cardiovascular: reports: Shortness of Breath. denies: Edema Respiratory: reports: SOB Gastrointestinal: reports: No Symptoms Genitourinary: reports: No Symptoms Musculoskeletal: reports: No Symptoms Integumentary: reports: No Symptoms Neurological: reports: No Symptoms Endocrine: reports: No Symptoms Hematology/Lymphatic: reports: No Symptoms Physical Exam Vital Signs: Vital Signs Temperature 97.6 F 06/20/17 17:37 Pulse Rate 72 06/20/17 17:37 Respiratory Rate 20 06/20/17 17:37 Blood Pressure 128/76 06/20/17 17:37 O2 Sat by Pulse Oximetry (%) 97 06/20/17 14:30 Constitutional: Yes: Calm Eyes: Yes: Conjunctiva Clear HENT: Yes: Atraumatic Neck: Yes: Supple Cardiovascular: Yes: S1, S2 Respiratory: Yes: CTA Bilaterally Gastrointestinal: Yes: Soft Renal/: Yes: WNL Musculoskeletal: Yes: Muscle Weakness Edema: No Neurological: Yes: Oriented Psychiatric: Yes: Oriented Labs: CBC, BMP 06/20/17 08:10 06/20/17 08:10 Laboratory Tests 05/31/17 06/19/17 06/19/17 05:30 11:45 11:45 Creatinine 0.8 1.8 H D Lactic Acid Urine Protein Negative Urine Blood Negative 06/19/17 06/19/17 06/19/17 12:35 16:00 16:00 Creatinine 1.6 H Lactic Acid 9.5 H* 5.7 H* Urine Protein Urine Blood 06/19/17 06/19/17 06/20/17 22:28 22:28 08:10 Creatinine 1.6 H 1.4 H Lactic Acid 6.0 H* Urine Protein Urine Blood 06/20/17 08:10 Creatinine Lactic Acid 4.0 H* Urine Protein Urine Blood Imaging - Results Cat Scan: Report Reviewed Problem List - Problems (1) MONAE (acute kidney injury) Code(s): N17.9 - ACUTE KIDNEY FAILURE, UNSPECIFIED (2) Lactic acidosis Code(s): E87.2 - ACIDOSIS (3) Renal cell carcinoma Code(s): C64.9 - MALIGNANT NEOPLASM OF UNSP KIDNEY, EXCEPT RENAL PELVIS Qualifiers: Laterality: right Qualified Code(s): C64.1 - Malignant neoplasm of right kidney, except renal pelvis (4) T2DM (type 2 diabetes mellitus) Code(s): E11.9 - TYPE 2 DIABETES MELLITUS WITHOUT COMPLICATIONS (5) Diabetes Code(s): E11.9 - TYPE 2 DIABETES MELLITUS WITHOUT COMPLICATIONS (6) HTN (hypertension) Code(s): I10 - ESSENTIAL (PRIMARY) HYPERTENSION Qualifiers: Hypertension type: essential hypertension Qualified Code(s): I10 - Essential (primary) hypertension (7) S/p nephrectomy Code(s): Z90.5 - ACQUIRED ABSENCE OF KIDNEY Assessment/Plan Current Medications Generic Name Dose Route Start Last Admin Trade Name Freq PRN Reason Stop Dose Admin Dexamethasone 4 mg 06/20/17 22:00 Decadron - PO BID SUSAN Docusate Sodium 100 mg 06/20/17 22:00 Colace - PO TID SUSAN Furosemide 80 mg 06/21/17 10:00 Lasix - PO DAILY SUSAN Sodium Chloride 1,000 mls @ 75 mls/hr 06/20/17 17:00 06/20/17 17:28 Normal Saline - IV Not Given ASDIR SUSAN Vancomycin HCl 1,000 mg/ 250 mls @ 250 mls/hr 06/20/17 18:00 Dextrose IVPB DAILY [facility] Protocol Piperacillin Sod/Tazobactam 100 mls @ 200 mls/hr 06/20/17 18:00 06/20/17 18: 03 Sod 3.375 gm/ Dextrose IVPB 200 mls/hr Q8H-IV SUSAN Administration Metoprolol Succinate 25 mg 06/21/17 10:00 Toprol Xl - PO DAILY SUSAN Oxycodone HCl 5 mg 06/20/17 14:56 Roxicodone - PO Q6H PRN PAIN Pantoprazole Sodium 40 mg 06/21/17 10:00 Protonix - PO DAILY SUSAN Polyethylene Glycol 17 gm 06/20/17 22:00 Miralax (For Daily Use) - PO BID SUSAN Rivaroxaban 20 mg 06/20/17 18:00 06/20/17 17:27 Xarelto - PO 20 mg DAILY@1800 SUSAN Administration Impression 1. MONAE 2. lactic acidosis improved 3. renal cancer 4. DM 5. a-fib Plan - cont with saline - hold lasix - hold metformin - repeat lactic acid level - check ua and lytes - repeat bmp - likely monae from pre-renal disease - will follow Dr Langford
[2017-06-20] MEDS: VANCOMYCIN 1,000 MG in DEXTROSE 5%-WATER - 250 ML IVPB SCH (18:57)
--- NOTE | 2017-06-20 20:27 | PN ---
Physical Exam: SUBJECTIVE: Patient seen and examined at bedside. Son present. Patient distressed at spenidng 23 hours in ED, relieved to be in a room. Voices no other complaints. OBJECTIVE: Vital Signs Period Temp Pulse Resp BP Sys/Amador Pulse Ox Last 24 Hr 97.6 F-99.0 F 44-88 18-22 107-139/48-78 95-100 GENERAL: The patient is awake, alert, and fully oriented, in no acute distress. LUNGS: Breath sounds equal, clear to auscultation bilaterally, no wheezes, no crackles, no accessory muscle use. HEART: Regular rate and rhythm, S1, S2 ABDOMEN: Soft, obese, nontender, nondistended EXTREMITIES: 2+ pulses, warm, well-perfused, no edema. Healed scratches and scabs from previous falls. RIGHT FOOT: medial aspect, 5cm macular rash, not warm , not pruritis, not fluctant NEUROLOGICAL: Cranial nerves II through XII grossly intact. Normal speech, gait not observed. SKIN: dry, poor skin turgor Laboratory Results - last 24 hr 06/19/17 06/19/17 06/19/17 22:28 22:28 22:28 WBC 16.7 H RBC 4.56 Hgb 14.1 Hct 41.7 MCV 91.4 MCH 30.8 MCHC 33.7 RDW 19.2 H Plt Count 96 L MPV 9.0 Neutrophils % 87.6 H Lymphocytes % 4.8 L Monocytes % 7.3 Eosinophils % 0.1 D Basophils % 0.2 Nucleated RBC % 3 H Platelet Estimate Decreased Platelet Comment No clotting detected Sodium 141 Potassium 3.5 Chloride 101 Carbon Dioxide 24 Anion Gap 16 BUN 54 H Creatinine 1.6 H Creat Clearance w eGFR 41.90 Random Glucose 173 H D Lactic Acid 6.0 H* Calcium 7.9 L Phosphorus 3.4 D Magnesium 2.4 Total Bilirubin 1.9 H D AST 123 H ALT 71 D Alkaline Phosphatase 88 D Total Protein 4.7 L D Albumin 2.7 L D 06/20/17 06/20/17 06/20/17 08:10 08:10 08:10 WBC 14.6 H RBC 4.63 Hgb 14.4 Hct 42.3 MCV 91.4 MCH 31.0 MCHC 33.9 RDW 19.3 H Plt Count 80 L MPV 8.6 Neutrophils % 92.4 H Lymphocytes % 3.2 L D Monocytes % 4.3 Eosinophils % 0.1 Basophils % 0.0 Nucleated RBC % Platelet Estimate Platelet Comment Sodium 139 Potassium 3.9 Chloride 102 Carbon Dioxide 26 Anion Gap 11 BUN 47 H Creatinine 1.4 H Creat Clearance w eGFR 48.89 Random Glucose 187 H Lactic Acid 4.0 H* Calcium 8.0 L Phosphorus Magnesium Total Bilirubin 2.1 H AST 145 H ALT 77 Alkaline Phosphatase 98 Total Protein 5.1 L Albumin 3.0 L Active Medications Generic Name Dose Route Start Last Admin Trade Name Freq PRN Reason Stop Dose Admin Dexamethasone 4 mg 06/20/17 22:00 Decadron - PO BID [facility] Docusate Sodium 100 mg 06/20/17 22:00 Colace - PO TID [facility] Furosemide 80 mg 06/21/17 10:00 Lasix - PO DAILY [facility] Sodium Chloride 1,000 mls @ 75 mls/hr 06/20/17 17:00 06/20/17 17:28 Normal Saline - IV Not Given ASDIR [facility] Vancomycin HCl 1,000 mg/ 250 mls @ 250 mls/hr 06/20/17 18:00 06/20/17 18:57 Dextrose IVPB 250 mls/hr DAILY [facility] Administration Protocol Piperacillin Sod/Tazobactam 100 mls @ 200 mls/hr 06/20/17 18:00 06/20/17 18: 03 Sod 3.375 gm/ Dextrose IVPB 200 mls/hr Q8H-IV SUSAN Administration Metoprolol Succinate 25 mg 06/21/17 10:00 Toprol Xl - PO DAILY [facility] Oxycodone HCl 5 mg 06/20/17 14:56 Roxicodone - PO Q6H PRN PAIN Pantoprazole Sodium 40 mg 06/21/17 10:00 Protonix - PO DAILY [facility] Polyethylene Glycol 17 gm 06/20/17 22:00 Miralax (For Daily Use) - PO BID [facility] Rivaroxaban 20 mg 06/20/17 18:00 06/20/17 17:27 Xarelto - PO 20 mg DAILY@1800 [facility] Administration ASSESSMENT/PLAN 77 year-old male with a PMH significant for HTN, HLD, atrial fibrillation on Xarelto, NIDDM, and 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 Recently hospitalized 05/29--06/08/17 for worsening lower extremity weakness secondary to spinal cord compression. Admitted for progressive SOB and weakness since starting course of pazopanib on 06/12/17. Renal cell carcinoma with spinal metastases/cord compression --continue dexamethasone --per onc, hold pazopanib Leukocytosis Possible sepsis --WBC trending down 14.6k --CXR and CT chest no acute chest pathology --UA negative --blood and urine cultures pending --continue vanc and Zosyn Lactic acidosis --improved, now 4.0 down from 9.5 --repeat in am Hypokalemia --resolved Acute renal failure --Cr improved 1.8 on admission, today 1.4 (baseline 1.1) --continue IV fluids r/o PE --Wells score moderate --continue Xarelto --CT not presently an option due to elevated Cr; would appreciate pulmonary input Elevated LFTs --likely pazopanib induced, hold for now per onc Atrial fibrillation --continue Toprol XL --continue Xarelto NIDDM --Novolog sliding scale coverage Dispo: continues to require inpatient care. DNR/DNI. Visit type - Emergency Visit Emergency Visit: Yes ED Registration Date: 06/19/17 Care time: The patient presented to the Emergency Department on the above date and was hospitalized for further evaluation of their emergent condition. - New Patient This patient is new to me today: No - Critical Care Critical Care patient: No
[2017-06-21] MEDS: PIPERACILLIN/TAZOB 3.375 GM 3.375 GM in DEXTROSE 5%-WATER - 100 ML IVPB SCH ×3 (01:02→17:41)
[2017-06-21] MEDS: SODIUM CHLORIDE 1,000 ML IV SCH (01:02)
[2017-06-21] MEDS: DOCUSATE SODIUM 100 MG CAPSULE (FP) PO SCH ×3 (06:04→22:01)
[2017-06-21 07:17] LABS: BASO % 0.4 % (0-2.0); HEMATOCRIT 39.6 % (35.4-49); HEMOGLOBIN 13.5 GM/dL (11.7-16.9); LYMPH % 3.5 % (8-40); MCH 31.2 pg (25.7-33.7); MCHC 34.1 g/dl (32.0-35.9); MEAN CELL VOLUME 91.3 fl (80-96); MEAN PLT VOLUME 8.8 fl (7.5-11.1); MONO % 4.4 % (3.8-10.2); NEUT % 91.7 % (42.8-82.8); PLATELET COUNT 68 K/MM3 (134-434); RBC 4.33 M/mm3 (4.00-5.60); RDW 19.2 % (11.9-15.9); WHITE BLOOD COUNT 11.6 K/mm3 (4.0-10.0)
[2017-06-21 07:27] LABS: INR 2.45 (0.82-1.09); PROTHROMBIN TIME (PATIENT) 27.7 SEC (9.98-11.88)
[2017-06-21 07:40] LABS: ALBUMIN 2.6 g/dl (3.4-5.0); ANION GAP 9 (8-16); BILIRUBIN,DIRECT 0.6 mg/dL (0.0-0.2); BLOOD UREA NITROGEN 32 mg/dL (7-18); CALCIUM 7.5 mg/dL (8.5-10.1); CHLORIDE 102 mmol/L (98-107); CO2 27 mmol/L (21-32); GLUCOSE,RANDOM 195 mg/dL (74-106); MAGNESIUM 2.2 mg/dL (1.8-2.4); PHOSPHOROUS 2.6 mg/dL (2.5-4.9); POTASSIUM 3.3 mmol/L (3.5-5.1); SGOT/AST 156 U/L (15-37); SODIUM 138 mmol/L (136-145); TOT PROT 4.9 g/dl (6.4-8.2)
[2017-06-21 07:42] LABS: ALK PHOS 87 U/L (45-117); BILIRUBIN,TOTAL 1.9 mg/dL (0.2-1.0); CREATININE 1.1 mg/dL (0.7-1.3); SGPT/ALT 68 U/L (12-78); TOT PROT 4.7 g/dl (6.4-8.2)
[2017-06-21] MEDS: VANCOMYCIN 1,000 MG in DEXTROSE 5%-WATER - 250 ML IVPB SCH (09:34)
[2017-06-21] MEDS: DEXAMETHASONE 4 MG TABLET (FP) PO SCH ×2 (09:42→22:01)
[2017-06-21] MEDS: METOPROLOL SUCCINATE 25 MG TAB.SR.24H (FP) PO SCH (09:42)
[2017-06-21] MEDS: PANTOPRAZOLE 40 MG TABLET (FP) PO SCH (09:42)
[2017-06-21] MEDS: FUROSEMIDE 40 MG TABLET (FP) PO SCH (09:42)
[2017-06-21] MEDS: POLYETHYLENE GLYCOL 3350 119 GM BTL PO SCH ×2 (09:43→22:01)
--- NOTE | 2017-06-21 10:55 | PN ---
Progress Note, Physician Chief Complaint: Mr Murcia says he is still feeling bad but is better today. Complains of fatigue and malaise. No cp, sob, n/v. - Current Medication List Current Medications: Active Medications Dexamethasone (Decadron -) 4 mg PO BID [facility] Last Admin: 06/21/17 09:42 Dose: 4 mg Docusate Sodium (Colace -) 100 mg PO TID [facility] Last Admin: 06/21/17 06:04 Dose: Not Given Furosemide (Lasix -) 80 mg PO DAILY [facility] Last Admin: 06/21/17 09:42 Dose: 80 mg Sodium Chloride (Normal Saline -) 1,000 mls @ 75 mls/hr IV ASDIR [facility] Last Admin: 06/21/17 01:02 Dose: 75 mls/hr Vancomycin HCl 1,000 mg/ (Dextrose) 250 mls @ 250 mls/hr IVPB DAILY [facility] PRN Reason: Protocol Last Admin: 06/21/17 09:34 Dose: 250 mls/hr Piperacillin Sod/Tazobactam (Sod 3.375 gm/ Dextrose) 100 mls @ 200 mls/hr IVPB Q8H-IV [facility] Last Admin: 06/21/17 09:34 Dose: 200 mls/hr Metoprolol Succinate (Toprol Xl -) 25 mg PO DAILY [facility] Last Admin: 06/21/17 09:42 Dose: 25 mg Oxycodone HCl (Roxicodone -) 5 mg PO Q6H PRN PRN Reason: PAIN Pantoprazole Sodium (Protonix -) 40 mg PO DAILY [facility] Last Admin: 06/21/17 09:42 Dose: 40 mg Polyethylene Glycol (Miralax (For Daily Use) -) 17 gm PO BID [facility] Last Admin: 06/21/17 09:43 Dose: Not Given Rivaroxaban (Xarelto -) 20 mg PO DAILY@1800 [facility] Last Admin: 06/20/17 17:27 Dose: 20 mg - Objective Vital Signs: Vital Signs Temperature 36.4 C 06/21/17 06:00 Pulse Rate 61 06/21/17 06:00 Respiratory Rate 20 06/21/17 06:00 Blood Pressure 117/62 06/21/17 06:00 O2 Sat by Pulse Oximetry (%) 97 06/20/17 21:00 Constitutional: Yes: No Distress, Calm, Obese Cardiovascular: Yes: Regular Rate and Rhythm. No: Gallop, Murmur, Rub Respiratory: Yes: Regular, CTA Bilaterally. No: Rales, Rhonchi, Wheezes Gastrointestinal: Yes: Normal Bowel Sounds, Soft. No: Distention, Tenderness Extremities: Yes: WNL Edema: No Labs: CBC, BMP 06/21/17 06:00 06/21/17 06:00 INR, PTT INR 2.45 (0.82-1.09) H D 06/21/17 06:00 Problem List - Problems (1) UTI (urinary tract infection) Assessment/Plan: -patient found to have UTI -cultures growing staph epidermidis -appreciate ID assistance -currently on vancomycin and zosyn -defer de-escalation to ID Code(s): N39.0 - URINARY TRACT INFECTION, SITE NOT SPECIFIED Qualifiers: Urinary tract infection type: acute cystitis Hematuria presence: without hematuria Qualified Code(s): N30.00 - Acute cystitis without hematuria (2) Severe sepsis Assessment/Plan: -patient beginning to improve -continue antibiotics as above -continue hydration Code(s): A41.9 - SEPSIS, UNSPECIFIED ORGANISM; R65.20 - SEVERE SEPSIS WITHOUT SEPTIC SHOCK (3) MONAE (acute kidney injury) Assessment/Plan: -resolved with hydration and treatment of sepsis Code(s): N17.9 - ACUTE KIDNEY FAILURE, UNSPECIFIED (4) Afib Assessment/Plan: -controlled -continue xarelto and toprol xl Code(s): I48.91 - UNSPECIFIED ATRIAL FIBRILLATION Qualifiers: Atrial fibrillation type: paroxysmal Qualified Code(s): I48.0 - Paroxysmal atrial fibrillation (5) Renal cell carcinoma Assessment/Plan: -metastatic Code(s): C64.9 - MALIGNANT NEOPLASM OF UNSP KIDNEY, EXCEPT RENAL PELVIS Qualifiers: Laterality: right Qualified Code(s): C64.1 - Malignant neoplasm of right kidney, except renal pelvis (6) T2DM (type 2 diabetes mellitus) Assessment/Plan: -monitor on bmp Code(s): E11.9 - TYPE 2 DIABETES MELLITUS WITHOUT COMPLICATIONS (7) HTN (hypertension) Assessment/Plan: -continue lasix and toprol xl -plan to stop IVF tomorrow if renal function stable Code(s): I10 - ESSENTIAL (PRIMARY) HYPERTENSION Qualifiers: Hypertension type: essential hypertension Qualified Code(s): I10 - Essential (primary) hypertension (8) Obesity Assessment/Plan: -counselled Code(s): E66.9 - OBESITY, UNSPECIFIED (9) Spinal cord compression Assessment/Plan: -continue decadron -oncology following Code(s): G95.20 - UNSPECIFIED CORD COMPRESSION
--- NOTE | 2017-06-21 13:00 | PN ---
Progress Note (short form) - Note Progress Note: PULMONARY CONSULTATION DICTATED 06/21/17 IMP RESPIRATORY DISTRESS LIKELY SECONDARY TO SEPSIS RCCC S/P R NEPHRECTOMY WITH SPINE METS CORD COMPRESSION MONAE AFIB ELEVATED LFTS THROMBOCYTOPENIA HTN NIDDM ELEVATED LACTATE LEVEL PLAN O2 ANTIBIOTICS PER ID IVF MONITOR LYTES,PLT CT,RENAL FUNCTION TREND LACTATE MONITOR LFTS DR PEPPER Problem List - Problems (1) Afib Code(s): I48.91 - UNSPECIFIED ATRIAL FIBRILLATION (2) MONAE (acute kidney injury) Code(s): N17.9 - ACUTE KIDNEY FAILURE, UNSPECIFIED (3) Lactic acidosis Code(s): E87.2 - ACIDOSIS (4) Severe sepsis Code(s): A41.9 - SEPSIS, UNSPECIFIED ORGANISM; R65.20 - SEVERE SEPSIS WITHOUT SEPTIC SHOCK (5) Renal cell carcinoma Code(s): C64.9 - MALIGNANT NEOPLASM OF UNSP KIDNEY, EXCEPT RENAL PELVIS Qualifiers: Laterality: right Qualified Code(s): C64.1 - Malignant neoplasm of right kidney, except renal pelvis (6) T2DM (type 2 diabetes mellitus) Code(s): E11.9 - TYPE 2 DIABETES MELLITUS WITHOUT COMPLICATIONS (7) Diabetes Code(s): E11.9 - TYPE 2 DIABETES MELLITUS WITHOUT COMPLICATIONS (8) HTN (hypertension) Code(s): I10 - ESSENTIAL (PRIMARY) HYPERTENSION Qualifiers: Hypertension type: essential hypertension Qualified Code(s): I10 - Essential (primary) hypertension (9) Hyperbilirubinemia Code(s): E80.6 - OTHER DISORDERS OF BILIRUBIN METABOLISM (10) Obesity Code(s): E66.9 - OBESITY, UNSPECIFIED (11) Spinal cord compression Code(s): G95.20 - UNSPECIFIED CORD COMPRESSION (12) Dyspnea Code(s): R06.00 - DYSPNEA, UNSPECIFIED (13) Respiratory distress Code(s): R06.03 - ACUTE RESPIRATORY DISTRESS
--- NOTE | 2017-06-21 13:25 | PN ---
Progress Note, Physician History of Present Illness: patient still feels very weak says he is not feeling well at all - Current Medication List Current Medications: Active Medications Dexamethasone (Decadron -) 4 mg PO BID [facility] Last Admin: 06/21/17 09:42 Dose: 4 mg Docusate Sodium (Colace -) 100 mg PO TID [facility] Last Admin: 06/21/17 06:04 Dose: Not Given Furosemide (Lasix -) 80 mg PO DAILY [facility] Last Admin: 06/21/17 09:42 Dose: 80 mg Sodium Chloride (Normal Saline -) 1,000 mls @ 75 mls/hr IV ASDIR [facility] Last Admin: 06/21/17 01:02 Dose: 75 mls/hr Vancomycin HCl 1,000 mg/ (Dextrose) 250 mls @ 250 mls/hr IVPB DAILY [facility] PRN Reason: Protocol Last Admin: 06/21/17 09:34 Dose: 250 mls/hr Piperacillin Sod/Tazobactam (Sod 3.375 gm/ Dextrose) 100 mls @ 200 mls/hr IVPB Q8H-IV [facility] Last Admin: 06/21/17 09:34 Dose: 200 mls/hr Metoprolol Succinate (Toprol Xl -) 25 mg PO DAILY [facility] Last Admin: 06/21/17 09:42 Dose: 25 mg Oxycodone HCl (Roxicodone -) 5 mg PO Q6H PRN PRN Reason: PAIN Pantoprazole Sodium (Protonix -) 40 mg PO DAILY [facility] Last Admin: 06/21/17 09:42 Dose: 40 mg Polyethylene Glycol (Miralax (For Daily Use) -) 17 gm PO BID [facility] Last Admin: 06/21/17 09:43 Dose: Not Given Rivaroxaban (Xarelto -) 20 mg PO DAILY@1800 [facility] Last Admin: 06/20/17 17:27 Dose: 20 mg - Objective Vital Signs: Vital Signs Temperature 97.6 F 06/21/17 06:00 Pulse Rate 61 06/21/17 06:00 Respiratory Rate 20 06/21/17 06:00 Blood Pressure 117/62 06/21/17 06:00 O2 Sat by Pulse Oximetry (%) 97 06/20/17 21:00 Constitutional: Yes: Calm, Mild Distress Cardiovascular: Yes: Regular Rate and Rhythm Respiratory: Yes: Regular, On Nasal O2, Poor Air Entry Gastrointestinal: Yes: Normal Bowel Sounds, Soft Musculoskeletal: Yes: WNL Extremities: Yes: WNL Neurological: Yes: Alert, Oriented Psychiatric: Yes: Alert, Oriented Labs: CBC, BMP 06/21/17 06:00 06/21/17 06:00 INR, PTT INR 2.45 (0.82-1.09) H D 06/21/17 06:00 Assessment/Plan Problem List - Problems (1) Severe sepsis Code(s): A41.9 - SEPSIS, UNSPECIFIED ORGANISM; R65.20 - SEVERE SEPSIS WITHOUT SEPTIC SHOCK (2) Renal cell carcinoma Code(s): C64.9 - MALIGNANT NEOPLASM OF UNSP KIDNEY, EXCEPT RENAL PELVIS Qualifiers: Laterality: right Qualified Code(s): C64.1 - Malignant neoplasm of right kidney, except renal pelvis (3) T2DM (type 2 diabetes mellitus) Code(s): E11.9 - TYPE 2 DIABETES MELLITUS WITHOUT COMPLICATIONS (4) Atrial flutter Code(s): I48.92 - UNSPECIFIED ATRIAL FLUTTER Qualifiers: Atrial flutter type: atypical Qualified Code(s): I48.4 - Atypical atrial flutter (5) HTN (hypertension) Code(s): I10 - ESSENTIAL (PRIMARY) HYPERTENSION Qualifiers: Hypertension type: essential hypertension Qualified Code(s): I10 - Essential (primary) hypertension (6) Hyperbilirubinemia Code(s): E80.6 - OTHER DISORDERS OF BILIRUBIN METABOLISM (7) S/p nephrectomy Code(s): Z90.5 - ACQUIRED ABSENCE OF KIDNEY (8) Spinal cord compression Code(s): G95.20 - UNSPECIFIED CORD COMPRESSION plan will see how wbc behaves if patient improving and wbc trending down will stop vanco rest continue current mgmt close watch
--- NOTE | 2017-06-21 14:58 | CONS ---
DATE OF CONSULTATION: 06/21/2017 REFERRING PHYSICIAN: Radu Ashley MD The patient is a 77-year-old white male with past medical history of atrial fibrillation, maintained on anticoagulation, renal cell carcinoma, with spinal thoracic cord compression, status post RT, recently hospitalized May 29 to June 08 secondary to lower extremity weakness secondary to spinal cord compression. He was placed on steroids as well as pazopanib. He has [id number] diabetes mellitus, hypertension, hyperlipidemia. Patient admitted to [facility] on June 19 with complaint of generalized weakness, shortness of breath, fatigue, and decreased p.o. intake. Patient presented to the emergency department. In the ER, he was noted to be tachypneic. He was also noted to have a lactic acid level of 9.5. He underwent ultrasound of lower extremities, which was negative. He also underwent a CT scan of the chest, which revealed no evidence of acute pneumonia but revealed T3 and T4 bone destruction with soft tissue mass, displacement of thoracic cord, moderate compression. He was admitted for possible sepsis. He was started on fluids and placed on broad-spectrum antibiotics per Infectious Disease. He was also noted to have acute kidney injury, for which he was evaluated by Dr. Langford. The patient was transferred up to medical telemetry with above. He denies any history of COPD. He denies any history of asthma or bronchitis. He has a history of tobacco use, quit many years ago. 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 There is no history of recent travel. Past medical history, again, includes renal cell carcinoma, with metastasis to the spine, thoracic cord compression, status post RT, hyperlipidemia, hypertension, atrial fibrillation, [id number] diabetes mellitus, kidney stones, diverticulosis, colon adenoma. Past surgical history includes right eyelid skin CA, status post excision; right nephrectomy; knee replacement; and appendectomy. REVIEW OF SYSTEMS: Positive orthopnea. Mild dyspnea. No chest pain, no palpitation, no cough, no hemoptysis, no abdominal pain. Positive weakness. No fever, no chills, no abdominal pain. Current medications include Zosyn, vancomycin, Xarelto, Toprol, Colace, MiraLax, Decadron, normal saline, Lasix, Roxicodone, and Protonix. PHYSICAL EXAMINATION: General: The patient is an elderly white male, well developed, well nourished, weak but in no acute respiratory distress. Vital Signs: He is currently afebrile. Blood pressure is 117/62. Respiratory rate 20. O2 saturation is 97%. HEENT: Normocephalic, atraumatic. Neck: Supple. Heart: Irregularly irregular. Normal S1, S2. Chest: Clear. Abdomen: Soft. Bowel sounds are positive. Extremities: Trace right lower extremity edema. LABORATORY DATA: WBC is 11.6, hemoglobin 13.5, hematocrit 39.6, platelet count of 19,000, INR is 2.45. Blood gas: pH of 7.59, pCO2 of 21, bicarbonate 20, saturation 99, unknown quantity of oxygen. BUN 32, creatinine 1.4, lactate level is currently 3.8. Upon admission, the patient's BUN was 47 and his creatinine was 1.4. Bilirubin is 2.0, AST is 167, direct bilirubin 0.6. Chest CT: No acute infiltrates or effusions, no acute disease present bone destruction noted thoracic spine soft tissue compression metastasis with intraspinal extension and soft tissue mass displacing the thoracic cord toward the left with moderate compression. IMPRESSION: 1. Respiratory distress, currently improved, most likely secondary to sepsis. 2. Atrial fibrillation. 3. Renal cell cancer with metastasis to the spine with cord compression. 4. Hypertension. 5. History of right nephrectomy. 6. Spinal cord compression. 7. Acute kidney injury. 8. Thrombocytopenia. 9. Acute elevated liver function tests. 10. Renal cell cancer, status post nephrectomy with metastasis. PLAN: Broad-spectrum antibiotics as per Infectious Disease, IV fluid, monitor electrolytes, renal function. Monitor platelet count. Monitor LFTs. EVELIA PEPPER M.D. [id number]
[2017-06-21] MEDS ORDERED: POTASSIUM CHLORIDE TABS 20 MEQ TABLET.ER (FP) PO ONE (15:38)
[2017-06-21] MEDS ORDERED: SODIUM CHLORIDE 1,000 ML IV SCH (15:38)
--- NOTE | 2017-06-21 15:38 | PN ---
Progress Note, Physician History of Present Illness: Pt seen and examined at bedside. He is more awake and alert. He denies shortness of breath. - Current Medication List Current Medications: Active Medications Dexamethasone (Decadron -) 4 mg PO BID [facility] Last Admin: 06/21/17 09:42 Dose: 4 mg Docusate Sodium (Colace -) 100 mg PO TID [facility] Last Admin: 06/21/17 14:01 Dose: 100 mg Furosemide (Lasix -) 80 mg PO DAILY [facility] Last Admin: 06/21/17 09:42 Dose: 80 mg Sodium Chloride (Normal Saline -) 1,000 mls @ 75 mls/hr IV ASDIR [facility] Last Admin: 06/21/17 01:02 Dose: 75 mls/hr Vancomycin HCl 1,000 mg/ (Dextrose) 250 mls @ 250 mls/hr IVPB DAILY [facility] PRN Reason: Protocol Last Admin: 06/21/17 09:34 Dose: 250 mls/hr Piperacillin Sod/Tazobactam (Sod 3.375 gm/ Dextrose) 100 mls @ 200 mls/hr IVPB Q8H-IV [facility] Last Admin: 06/21/17 09:34 Dose: 200 mls/hr Metoprolol Succinate (Toprol Xl -) 25 mg PO DAILY [facility] Last Admin: 06/21/17 09:42 Dose: 25 mg Oxycodone HCl (Roxicodone -) 5 mg PO Q6H PRN PRN Reason: PAIN Pantoprazole Sodium (Protonix -) 40 mg PO DAILY [facility] Last Admin: 06/21/17 09:42 Dose: 40 mg Polyethylene Glycol (Miralax (For Daily Use) -) 17 gm PO BID [facility] Last Admin: 06/21/17 09:43 Dose: Not Given Rivaroxaban (Xarelto -) 20 mg PO DAILY@1800 [facility] Last Admin: 06/20/17 17:27 Dose: 20 mg - Objective Vital Signs: Vital Signs Temperature 97.8 F 06/21/17 14:00 Pulse Rate 80 06/21/17 14:00 Respiratory Rate 20 06/21/17 14:00 Blood Pressure 104/65 06/21/17 14:00 O2 Sat by Pulse Oximetry (%) 97 06/20/17 21:00 Constitutional: Yes: Calm Eyes: Yes: Conjunctiva Clear HENT: Yes: Atraumatic Cardiovascular: Yes: S1, S2 Respiratory: Yes: Wheezes Gastrointestinal: Yes: Soft, Abdomen, Obese Genitourinary: Yes: WNL Musculoskeletal: Yes: WNL Edema: Yes Edema: LLE: Trace, RLE: Trace Neurological: Yes: Oriented Psychiatric: Yes: Oriented Labs: CBC, BMP 06/21/17 06:00 06/21/17 06:00 INR, PTT INR 2.45 (0.82-1.09) H D 06/21/17 06:00 Problem List - Problems (1) MONAE (acute kidney injury) Code(s): N17.9 - ACUTE KIDNEY FAILURE, UNSPECIFIED (2) Lactic acidosis Code(s): E87.2 - ACIDOSIS (3) Renal cell carcinoma Code(s): C64.9 - MALIGNANT NEOPLASM OF UNSP KIDNEY, EXCEPT RENAL PELVIS Qualifiers: Laterality: right Qualified Code(s): C64.1 - Malignant neoplasm of right kidney, except renal pelvis (4) T2DM (type 2 diabetes mellitus) Code(s): E11.9 - TYPE 2 DIABETES MELLITUS WITHOUT COMPLICATIONS (5) Diabetes Code(s): E11.9 - TYPE 2 DIABETES MELLITUS WITHOUT COMPLICATIONS (6) HTN (hypertension) Code(s): I10 - ESSENTIAL (PRIMARY) HYPERTENSION Qualifiers: Hypertension type: essential hypertension Qualified Code(s): I10 - Essential (primary) hypertension (7) S/p nephrectomy Code(s): Z90.5 - ACQUIRED ABSENCE OF KIDNEY Assessment/Plan Current Medications Generic Name Dose Route Start Last Admin Trade Name Freq PRN Reason Stop Dose Admin Dexamethasone 4 mg 06/20/17 22:00 06/21/17 09:42 Decadron - PO 4 mg BID [facility]USAN Administration Docusate Sodium 100 mg 06/20/17 22:00 06/21/17 14:01 Colace - PO 100 mg TID [facility]USAN Administration Furosemide 80 mg 06/21/17 10:00 06/21/17 09:42 Lasix - PO 80 mg DAILY [facility]USAN Administration Sodium Chloride 1,000 mls @ 75 mls/hr 06/20/17 17:00 06/21/17 01:02 Normal Saline - IV 75 mls/hr ASDIR [facility]USAN Administration Vancomycin HCl 1,000 mg/ 250 mls @ 250 mls/hr 06/20/17 18:00 06/21/17 09:34 Dextrose IVPB 250 mls/hr DAILY [facility]USAN Administration Protocol Piperacillin Sod/Tazobactam 100 mls @ 200 mls/hr 06/20/17 18:00 06/21/17 09: 34 Sod 3.375 gm/ Dextrose IVPB 200 mls/hr Q8H-IV [facility]AN Administration Metoprolol Succinate 25 mg 06/21/17 10:00 06/21/17 09:42 Toprol Xl - PO 25 mg DAILY [facility]USAN Administration Oxycodone HCl 5 mg 06/20/17 14:56 Roxicodone - PO Q6H PRN PAIN Pantoprazole Sodium 40 mg 06/21/17 10:00 06/21/17 09:42 Protonix - PO 40 mg DAILY [facility] Administration Polyethylene Glycol 17 gm 06/20/17 22:00 06/21/17 09:43 Miralax (For Daily Use) - PO Not Given BID [facility] Rivaroxaban 20 mg 06/20/17 18:00 06/20/17 17:27 Xarelto - PO 20 mg DAILY@1800 [facility]AN Administration Laboratory Tests 06/19/17 11:45 Urine Protein Negative Urine Blood Negative Impression 1. MONAE 2. lactic acidosis improved 3. renal cancer 4. DM 5. a-fib 6. UTI Plan - replace potassium - will keep on fluids - repeat labs in am - trend lactic acid - would not restart metformin - urine studies reviewed - likely monae from pre-renal disease - will follow Dr Langford
[2017-06-21] MEDS ORDERED: PT OWN MED DRAWER 7, Y5N ONE (16:33)
[2017-06-21] MEDS: RIVAROXABAN 20 MG TABLET PO SCH (17:41)
--- NOTE | 2017-06-21 17:47 | PN ---
Progress Note (short form) - Note Progress Note: Patient seen and examined No specific complaints today Last Vital Signs Temp Pulse Resp BP Pulse Ox 97.8 F 80 20 104/65 98 06/21/17 14:00 06/21/17 14:00 06/21/17 14:00 06/21/17 14:00 06/21/17 10:00 Cor: RSR, No murmurs, No gallops Lungs: Clear to P&A Abd: Soft, Normal bowel sounds, No organomegaly Ext:No significant edema Abnormal Lab Results 06/21/17 06/21/17 06/21/17 06:00 06:00 06:00 WBC 11.6 H RDW 19.2 H Plt Count 68 L Neutrophils % 91.7 H Lymphocytes % 3.5 L PT with INR INR Potassium 3.3 L BUN 32 H D Random Glucose 195 H Lactic Acid 3.8 H* Calcium 7.5 L Total Bilirubin 1.9 H Direct Bilirubin AST 156 H Total Protein 4.7 L Albumin 2.6 L 06/21/17 06/21/17 06:00 06:00 WBC RDW Plt Count Neutrophils % Lymphocytes % PT with INR 27.70 H INR 2.45 H D Potassium BUN Random Glucose Lactic Acid Calcium Total Bilirubin 2.0 H Direct Bilirubin 0.6 H D AST 167 H Total Protein 4.9 L Albumin 2.6 L Home Medication List Medication Instructions Recorded Confirmed Type Metformin HCl [Glucophage] 500 mg PO HS 11/24/13 06/19/17 History Cholecalciferol (Vitamin D3) 1,000 unit PO DAILY 07/03/16 06/19/17 History [Vitamin D3 -] Multivitamin with Minerals [Icaps 1 each PO DAILY 07/03/16 06/19/17 History Plus] Oxycodone HCl 1 tab PO PRN PRN 04/08/17 06/19/17 History Active Medications Generic Name Dose Route Start Last Admin Trade Name Freq PRN Reason Stop Dose Admin Dexamethasone 4 mg 06/20/17 22:00 06/21/17 09:42 Decadron - PO 4 mg BID [facility]AN Administration Docusate Sodium 100 mg 06/20/17 22:00 06/21/17 14:01 Colace - PO 100 mg TID [facility]AN Administration Furosemide 80 mg 06/21/17 10:00 06/21/17 09:42 Lasix - PO 80 mg DAILY [facility] Administration Vancomycin HCl 1,000 mg/ 250 mls @ 250 mls/hr 06/20/17 18:00 06/21/17 09:34 Dextrose IVPB 250 mls/hr DAILY [facility] Administration Protocol Piperacillin Sod/Tazobactam 100 mls @ 200 mls/hr 06/20/17 18:00 06/21/17 17: 41 Sod 3.375 gm/ Dextrose IVPB 200 mls/hr Q8H-IV [facility] Administration Sodium Chloride 1,000 mls @ 42 mls/hr 06/21/17 15:38 06/21/17 17:40 Normal Saline - IV 42 mls/hr ASDIR [facility] Administration Metoprolol Succinate 25 mg 06/21/17 10:00 06/21/17 09:42 Toprol Xl - PO 25 mg DAILY [facility] Administration Oxycodone HCl 5 mg 06/20/17 14:56 Roxicodone - PO Q6H PRN PAIN Pantoprazole Sodium 40 mg 06/21/17 10:00 06/21/17 09:42 Protonix - PO 40 mg DAILY [facility] Administration Polyethylene Glycol 17 gm 06/20/17 22:00 06/21/17 09:43 Miralax (For Daily Use) - PO Not Given BID [facility] Rivaroxaban 20 mg 06/20/17 18:00 06/21/17 17:41 Xarelto - PO 20 mg DAILY@1800 [facility] Administration A/P 77 y/o patient with metastatic renal cell cancer, cord compression, s/p RT, on dexamethasone 4mg bid, came in with septic picture. Had been on pazopanib On vanco/zosyn improving renal function/stableLFTs clinically improved
[2017-06-22] MEDS ORDERED: PT OWN MED DRAWER 7, Y5N ONE ×2 (01:24→09:55)
[2017-06-22] MEDS: PIPERACILLIN/TAZOB 3.375 GM 3.375 GM in DEXTROSE 5%-WATER - 100 ML IVPB SCH ×3 (01:41→17:28)
[2017-06-22] MEDS: DOCUSATE SODIUM 100 MG CAPSULE (FP) PO SCH ×3 (05:29→22:18)
[2017-06-22 08:21] LABS: BASO % 0.2 % (0-2.0); EOS % 0.1 % (0-4.5); HEMATOCRIT 39.3 % (35.4-49); HEMOGLOBIN 13.3 GM/dL (11.7-16.9); LYMPH % 4.4 % (8-40); MCHC 33.9 g/dl (32.0-35.9); MEAN CELL VOLUME 91.5 fl (80-96); MEAN PLT VOLUME 8.6 fl (7.5-11.1); MONO % 4.9 % (3.8-10.2); NEUT % 90.4 % (42.8-82.8); PLATELET COUNT 67 K/MM3 (134-434); RDW 19.4 % (11.9-15.9); WHITE BLOOD COUNT 10.2 K/mm3 (4.0-10.0)
[2017-06-22 08:22] LABS: ALBUMIN 2.6 g/dl (3.4-5.0); ANION GAP 12 (8-16); BILIRUBIN,TOTAL 1.6 mg/dL (0.2-1.0); BLOOD UREA NITROGEN 25 mg/dL (7-18); CALCIUM 7.5 mg/dL (8.5-10.1); CHLORIDE 100 mmol/L (98-107); CO2 27 mmol/L (21-32); GLUCOSE,RANDOM 172 mg/dL (74-106); MAGNESIUM 2.3 mg/dL (1.8-2.4); PHOSPHOROUS 2.3 mg/dL (2.5-4.9); POTASSIUM 3.4 mmol/L (3.5-5.1); SGOT/AST 109 U/L (15-37); SGPT/ALT 68 U/L (12-78); SODIUM 139 mmol/L (136-145)
[2017-06-22 08:23] LABS: ALK PHOS 90 U/L (45-117)
[2017-06-22] MEDS: POLYETHYLENE GLYCOL 3350 119 GM BTL PO SCH ×2 (09:52→22:18)
[2017-06-22] MEDS: DEXAMETHASONE 4 MG TABLET (FP) PO SCH ×2 (09:56→22:17)
[2017-06-22] MEDS: FUROSEMIDE 40 MG TABLET (FP) PO SCH (09:56)
[2017-06-22] MEDS: PANTOPRAZOLE 40 MG TABLET (FP) PO SCH (09:56)
[2017-06-22] MEDS: METOPROLOL SUCCINATE 25 MG TAB.SR.24H (FP) PO SCH (09:56)
--- NOTE | 2017-06-22 11:23 | PN ---
Progress Note (short form) - Note Progress Note: pt seen and examined. feels better than before. But still feels tired. trying to walk but feels weak. Last Vital Signs Temp Pulse Resp BP Pulse Ox 98.1 F 81 16 112/67 96 06/22/17 09:00 06/22/17 09:00 06/22/17 09:00 06/22/17 09:00 06/21/17 21:00 CBC, BMP 06/22/17 07:20 06/22/17 07:20 Current Medications Generic Name Dose Route Start Last Admin Trade Name Freq PRN Reason Stop Dose Admin Dexamethasone 4 mg 06/20/17 22:00 06/22/17 09:56 Decadron - PO 4 mg BID [facility] Administration Docusate Sodium 100 mg 06/20/17 22:00 06/22/17 05:29 Colace - PO Not Given TID [facility]USAN Furosemide 80 mg 06/21/17 10:00 06/22/17 09:56 Lasix - PO 80 mg DAILY [facility] Administration Vancomycin HCl 1,000 mg/ 250 mls @ 250 mls/hr 06/20/17 18:00 06/21/17 09:34 Dextrose IVPB 250 mls/hr DAILY [facility] Administration Protocol Piperacillin Sod/Tazobactam 100 mls @ 200 mls/hr 06/20/17 18:00 06/22/17 01: 41 Sod 3.375 gm/ Dextrose IVPB 200 mls/hr Q8H-IV [facility] Administration Sodium Chloride 1,000 mls @ 42 mls/hr 06/21/17 15:38 06/21/17 17:40 Normal Saline - IV 42 mls/hr ASDIR [facility] Administration Metoprolol Succinate 25 mg 06/21/17 10:00 06/22/17 09:56 Toprol Xl - PO 25 mg DAILY [facility] Administration Oxycodone HCl 5 mg 06/20/17 14:56 Roxicodone - PO Q6H PRN PAIN Pantoprazole Sodium 40 mg 06/21/17 10:00 06/22/17 09:56 Protonix - PO 40 mg DAILY [facility] Administration Polyethylene Glycol 17 gm 06/20/17 22:00 06/22/17 09:52 Miralax (For Daily Use) - PO Not Given BID [facility] Rivaroxaban 20 mg 06/20/17 18:00 06/21/17 17:41 Xarelto - PO 20 mg DAILY@1800 [facility] Administration O/E: General: in mild distress, HEENT :dry Mucous membranes ,NCAT Cardiac: RRR Lungs: CTA b/l Neuro: AAOx3 LE: +bruises, better than before, no LE swelling A/P: Urinary sepsis: -improving -abx per ID Thrombocytopenia/coagulopathy -Likely sepsis/abx/poor po intake -for coags tomorrow, will give a trial of vit K 5mg Sq for three days MONAE: -improving -renal f/u noted Elevated LFTs: -improving -votrient held due to AST >3xULN and Bili of >2ULN ( as per package insert ), will initiate once a little more improvement is seen ( family to bring in meds , spoke to ). mRCC: -c/w dex 4mg bid Afib: on xarelto PT eval if unable to again walk even with improvement in clinical status, will need neuro consult in the setting of on-going steroid use. d/w . updated the and as per her request also spoke to
[2017-06-22] MEDS: VANCOMYCIN 1,000 MG in DEXTROSE 5%-WATER - 250 ML IVPB SCH (11:37)
--- NOTE | 2017-06-22 12:06 | PN ---
Progress Note, Physician Chief Complaint: Mr Murcai complains of feeling tired. Denies cp, sob, n/v. Says walking a small amount around the room. - Current Medication List Current Medications: Active Medications Dexamethasone (Decadron -) 4 mg PO BID [facility] Last Admin: 06/22/17 09:56 Dose: 4 mg Docusate Sodium (Colace -) 100 mg PO TID [facility] Last Admin: 06/22/17 05:29 Dose: Not Given Furosemide (Lasix -) 80 mg PO DAILY [facility] Last Admin: 06/22/17 09:56 Dose: 80 mg Vancomycin HCl 1,000 mg/ (Dextrose) 250 mls @ 250 mls/hr IVPB DAILY [facility] PRN Reason: Protocol Last Admin: 06/22/17 11:37 Dose: 250 mls/hr Piperacillin Sod/Tazobactam (Sod 3.375 gm/ Dextrose) 100 mls @ 200 mls/hr IVPB Q8H-IV [facility] Last Admin: 06/22/17 11:36 Dose: 200 mls/hr Sodium Chloride (Normal Saline -) 1,000 mls @ 42 mls/hr IV ASDIR [facility] Last Admin: 06/21/17 17:40 Dose: 42 mls/hr Metoprolol Succinate (Toprol Xl -) 25 mg PO DAILY [facility] Last Admin: 06/22/17 09:56 Dose: 25 mg Oxycodone HCl (Roxicodone -) 5 mg PO Q6H PRN PRN Reason: PAIN Pantoprazole Sodium (Protonix -) 40 mg PO DAILY [facility] Last Admin: 06/22/17 09:56 Dose: 40 mg Phytonadione (Aqua Mephyton Injection -) 5 mg SQ ONCE [facility] Stop: 06/24/17 11:46 Polyethylene Glycol (Miralax (For Daily Use) -) 17 gm PO BID [facility] Last Admin: 06/22/17 09:52 Dose: Not Given Potassium Chloride (K-Dur -) 40 meq PO ONCE ONE Stop: 06/22/17 12:05 Potassium Phos/Sodium Phos (Phos-Nak Packet -) 1 packet PO BID [facility] Stop: 06/23/17 22:01 Rivaroxaban (Xarelto -) 20 mg PO DAILY@1800 [facility] Last Admin: 06/21/17 17:41 Dose: 20 mg - Objective Vital Signs: Vital Signs Temperature 36.7 C 01/09/18 09:00 Pulse Rate 81 06/22/17 09:00 Respiratory Rate 16 06/22/17 09:00 Blood Pressure 112/67 06/22/17 09:00 O2 Sat by Pulse Oximetry (%) 96 06/21/17 21:00 Constitutional: Yes: No Distress, Obese Cardiovascular: Yes: Regular Rate and Rhythm. No: Gallop, Murmur, Rub Respiratory: Yes: Regular, CTA Bilaterally. No: Rales, Rhonchi, Wheezes Gastrointestinal: Yes: Normal Bowel Sounds, Soft. No: Distention, Tenderness Extremities: Yes: WNL Edema: No Labs: CBC, BMP 06/22/17 07:20 06/22/17 07:20 INR, PTT INR 2.45 (0.82-1.09) H D 06/21/17 06:00 Problem List - Problems (1) UTI (urinary tract infection) Code(s): N39.0 - URINARY TRACT INFECTION, SITE NOT SPECIFIED Qualifiers: Urinary tract infection type: acute cystitis Hematuria presence: without hematuria Qualified Code(s): N30.00 - Acute cystitis without hematuria (2) Severe sepsis Code(s): A41.9 - SEPSIS, UNSPECIFIED ORGANISM; R65.20 - SEVERE SEPSIS WITHOUT SEPTIC SHOCK (3) MONAE (acute kidney injury) Code(s): N17.9 - ACUTE KIDNEY FAILURE, UNSPECIFIED (4) Afib Code(s): I48.91 - UNSPECIFIED ATRIAL FIBRILLATION Qualifiers: Atrial fibrillation type: paroxysmal Qualified Code(s): I48.0 - Paroxysmal atrial fibrillation (5) Renal cell carcinoma Code(s): C64.9 - MALIGNANT NEOPLASM OF UNSP KIDNEY, EXCEPT RENAL PELVIS Qualifiers: Laterality: right Qualified Code(s): C64.1 - Malignant neoplasm of right kidney, except renal pelvis (6) T2DM (type 2 diabetes mellitus) Code(s): E11.9 - TYPE 2 DIABETES MELLITUS WITHOUT COMPLICATIONS (7) HTN (hypertension) Code(s): I10 - ESSENTIAL (PRIMARY) HYPERTENSION Qualifiers: Hypertension type: essential hypertension Qualified Code(s): I10 - Essential (primary) hypertension (8) Obesity Code(s): E66.9 - OBESITY, UNSPECIFIED (9) Spinal cord compression Code(s): G95.20 - UNSPECIFIED CORD COMPRESSION Assessment/Plan (1) UTI (urinary tract infection) Assessment/Plan: -continue vancomycin and zosyn per ID -defer any changes to Dr Barber when he feels appropriate Code(s): N39.0 - URINARY TRACT INFECTION, SITE NOT SPECIFIED Qualifiers: Urinary tract infection type: acute cystitis Hematuria presence: without hematuria Qualified Code(s): N30.00 - Acute cystitis without hematuria (2) Severe sepsis Assessment/Plan: -continues to improve -however still with lactic acid -continue IVF currently Code(s): A41.9 - SEPSIS, UNSPECIFIED ORGANISM; R65.20 - SEVERE SEPSIS WITHOUT SEPTIC SHOCK (3) MONAE (acute kidney injury) Assessment/Plan: -resolved with hydration and treatment of sepsis Code(s): N17.9 - ACUTE KIDNEY FAILURE, UNSPECIFIED (4) Afib Assessment/Plan: -controlled -continue xarelto and toprol xl Code(s): I48.91 - UNSPECIFIED ATRIAL FIBRILLATION Qualifiers: Atrial fibrillation type: paroxysmal Qualified Code(s): I48.0 - Paroxysmal atrial fibrillation (5) Renal cell carcinoma Assessment/Plan: -metastatic Code(s): C64.9 - MALIGNANT NEOPLASM OF UNSP KIDNEY, EXCEPT RENAL PELVIS Qualifiers: Laterality: right Qualified Code(s): C64.1 - Malignant neoplasm of right kidney, except renal pelvis (6) T2DM (type 2 diabetes mellitus) Assessment/Plan: -monitor on bmp Code(s): E11.9 - TYPE 2 DIABETES MELLITUS WITHOUT COMPLICATIONS (7) HTN (hypertension) Assessment/Plan: -continue lasix and toprol xl -will continue IVF secondary to lactic acid Code(s): I10 - ESSENTIAL (PRIMARY) HYPERTENSION Qualifiers: Hypertension type: essential hypertension Qualified Code(s): I10 - Essential (primary) hypertension (8) Obesity Assessment/Plan: -counselled Code(s): E66.9 - OBESITY, UNSPECIFIED (9) Spinal cord compression Assessment/Plan: -continue decadron -oncology following Code(s): G95.20 - UNSPECIFIED CORD COMPRESSION (10) Elevated LFTs -secondary to chemotherapy -abdominal ultrasound reviewed -case d/w oncology (11) Thrombocytopenia -secondary to sepsis -stabilizing -hematology following -monitor since also on xarelto, may need to hold
--- NOTE | 2017-06-22 12:31 | PN ---
Progress Note, Physician History of Present Illness: PULMONARY ALERT,FEELING BETTER,SOB IMPROVED,GOOD APPETITE - Current Medication List Current Medications: Active Medications Dexamethasone (Decadron -) 4 mg PO BID [facility] Last Admin: 06/22/17 09:56 Dose: 4 mg Docusate Sodium (Colace -) 100 mg PO TID [facility] Last Admin: 06/22/17 05:29 Dose: Not Given Furosemide (Lasix -) 80 mg PO DAILY [facility] Last Admin: 06/22/17 09:56 Dose: 80 mg Vancomycin HCl 1,000 mg/ (Dextrose) 250 mls @ 250 mls/hr IVPB DAILY [facility] PRN Reason: Protocol Last Admin: 06/22/17 11:37 Dose: 250 mls/hr Piperacillin Sod/Tazobactam (Sod 3.375 gm/ Dextrose) 100 mls @ 200 mls/hr IVPB Q8H-IV [facility] Last Admin: 06/22/17 11:36 Dose: 200 mls/hr Sodium Chloride (Normal Saline -) 1,000 mls @ 42 mls/hr IV ASDIR [facility] Last Admin: 06/21/17 17:40 Dose: 42 mls/hr Metoprolol Succinate (Toprol Xl -) 25 mg PO DAILY [facility] Last Admin: 06/22/17 09:56 Dose: 25 mg Oxycodone HCl (Roxicodone -) 5 mg PO Q6H PRN PRN Reason: PAIN Pantoprazole Sodium (Protonix -) 40 mg PO DAILY [facility] Last Admin: 06/22/17 09:56 Dose: 40 mg Phytonadione (Aqua Mephyton Injection -) 5 mg SQ ONCE [facility] Stop: 06/24/17 11:46 Polyethylene Glycol (Miralax (For Daily Use) -) 17 gm PO BID [facility] Last Admin: 06/22/17 09:52 Dose: Not Given Potassium Chloride (K-Dur -) 40 meq PO ONCE ONE Stop: 06/22/17 12:05 Potassium Phos/Sodium Phos (Phos-Nak Packet -) 1 packet PO BID [facility] Stop: 06/23/17 22:01 Rivaroxaban (Xarelto -) 20 mg PO DAILY@1800 [facility] Last Admin: 06/21/17 17:41 Dose: 20 mg - Objective Vital Signs: Vital Signs Temperature 98.1 F 06/22/17 09:00 Pulse Rate 81 06/22/17 09:00 Respiratory Rate 16 06/22/17 09:00 Blood Pressure 112/67 06/22/17 09:00 O2 Sat by Pulse Oximetry (%) 96 06/21/17 21:00 Constitutional: Yes: Calm, Obese Eyes: Yes: WNL HENT: Yes: WNL Neck: Yes: WNL Cardiovascular: Yes: Regular Rate and Rhythm, S1, S2 Respiratory: Yes: CTA Bilaterally Gastrointestinal: Yes: Normal Bowel Sounds, Soft Extremities: Yes: WNL Edema: Yes Edema: LLE: Trace, RLE: Trace Labs: CBC, BMP 06/22/17 07:20 06/22/17 07:20 INR, PTT INR 2.45 (0.82-1.09) H D 06/21/17 06:00 Problem List - Problems (1) Afib Code(s): I48.91 - UNSPECIFIED ATRIAL FIBRILLATION Qualifiers: Atrial fibrillation type: paroxysmal Qualified Code(s): I48.0 - Paroxysmal atrial fibrillation (2) MONAE (acute kidney injury) Code(s): N17.9 - ACUTE KIDNEY FAILURE, UNSPECIFIED (3) Lactic acidosis Code(s): E87.2 - ACIDOSIS (4) Severe sepsis Code(s): A41.9 - SEPSIS, UNSPECIFIED ORGANISM; R65.20 - SEVERE SEPSIS WITHOUT SEPTIC SHOCK (5) Renal cell carcinoma Code(s): C64.9 - MALIGNANT NEOPLASM OF UNSP KIDNEY, EXCEPT RENAL PELVIS Qualifiers: Laterality: right Qualified Code(s): C64.1 - Malignant neoplasm of right kidney, except renal pelvis (6) T2DM (type 2 diabetes mellitus) Code(s): E11.9 - TYPE 2 DIABETES MELLITUS WITHOUT COMPLICATIONS (7) Diabetes Code(s): E11.9 - TYPE 2 DIABETES MELLITUS WITHOUT COMPLICATIONS (8) HTN (hypertension) Code(s): I10 - ESSENTIAL (PRIMARY) HYPERTENSION Qualifiers: Hypertension type: essential hypertension Qualified Code(s): I10 - Essential (primary) hypertension (9) Hyperbilirubinemia Code(s): E80.6 - OTHER DISORDERS OF BILIRUBIN METABOLISM (10) Obesity Code(s): E66.9 - OBESITY, UNSPECIFIED (11) Spinal cord compression Code(s): G95.20 - UNSPECIFIED CORD COMPRESSION (12) Dyspnea Code(s): R06.00 - DYSPNEA, UNSPECIFIED (13) Respiratory distress Code(s): R06.03 - ACUTE RESPIRATORY DISTRESS Assessment/Plan IMP RESPIRATORY DISTRESS LIKELY SECONDARY TO SEPSIS IMPROVED RCCC S/P R NEPHRECTOMY WITH SPINE METS CORD COMPRESSION MONAE AFIB ELEVATED LFTS THROMBOCYTOPENIA HTN NIDDM ELEVATED LACTATE LEVEL PLAN O2 ANTIBIOTICS PER ID IVF MONITOR LYTES,PLT CT,RENAL FUNCTION TREND LACTATE MONITOR LFTS DR PEPPER Problem List - Problems (1) Afib Code(s): I48.91 - UNSPECIFIED ATRIAL FIBRILLATION (2) MONAE (acute kidney injury) Code(s): N17.9 - ACUTE KIDNEY FAILURE, UNSPECIFIED (3) Lactic acidosis Code(s): E87.2 - ACIDOSIS (4) Severe sepsis Code(s): A41.9 - SEPSIS, UNSPECIFIED ORGANISM; R65.20 - SEVERE SEPSIS WITHOUT SEPTIC SHOCK (5) Renal cell carcinoma Code(s): C64.9 - MALIGNANT NEOPLASM OF UNSP KIDNEY, EXCEPT RENAL PELVIS Qualifiers: Laterality: right Qualified Code(s): C64.1 - Malignant neoplasm of right kidney, except renal pelvis (6) T2DM (type 2 diabetes mellitus) Code(s): E11.9 - TYPE 2 DIABETES MELLITUS WITHOUT COMPLICATIONS (7) Diabetes Code(s): E11.9 - TYPE 2 DIABETES MELLITUS WITHOUT COMPLICATIONS (8) HTN (hypertension) Code(s): I10 - ESSENTIAL (PRIMARY) HYPERTENSION Qualifiers: Hypertension type: essential hypertension Qualified Code(s): I10 - Essential (primary) hypertension (9) Hyperbilirubinemia Code(s): E80.6 - OTHER DISORDERS OF BILIRUBIN METABOLISM (10) Obesity Code(s): E66.9 - OBESITY, UNSPECIFIED (11) Spinal cord compression Code(s): G95.20 - UNSPECIFIED CORD COMPRESSION (12) Dyspnea Code(s): R06.00 - DYSPNEA, UNSPECIFIED (13) Respiratory distress Code(s): R06.03 - ACUTE RESPIRATORY DISTRESS
[2017-06-22] MEDS ORDERED: POTASSIUM CHLORIDE TABS 20 MEQ TABLET.ER (FP) PO ONE ×2 (12:45→14:39)
[2017-06-22] MEDS: NAPH,MB-DB/K PH,MBDB POWDER PACKET PO SCH ×2 (14:10→22:17)
[2017-06-22] MEDS: PHYTONADIONE 10 MG/1 ML AMP SQ SCH (14:10)
--- NOTE | 2017-06-22 14:36 | PN ---
Progress Note, Physician History of Present Illness: Pt seen and examined at bedside. He says he feels better. He denies shortness of breath. - Current Medication List Current Medications: Active Medications Dexamethasone (Decadron -) 4 mg PO BID [facility] Last Admin: 06/22/17 09:56 Dose: 4 mg Docusate Sodium (Colace -) 100 mg PO TID [facility] Last Admin: 06/22/17 14:10 Dose: 100 mg Furosemide (Lasix -) 80 mg PO DAILY [facility] Last Admin: 06/22/17 09:56 Dose: 80 mg Vancomycin HCl 1,000 mg/ (Dextrose) 250 mls @ 250 mls/hr IVPB DAILY [facility] PRN Reason: Protocol Last Admin: 06/22/17 11:37 Dose: 250 mls/hr Piperacillin Sod/Tazobactam (Sod 3.375 gm/ Dextrose) 100 mls @ 200 mls/hr IVPB Q8H-IV [facility] Last Admin: 06/22/17 11:36 Dose: 200 mls/hr Sodium Chloride (Normal Saline -) 1,000 mls @ 42 mls/hr IV ASDIR [facility] Last Admin: 06/21/17 17:40 Dose: 42 mls/hr Metoprolol Succinate (Toprol Xl -) 25 mg PO DAILY [facility] Last Admin: 06/22/17 09:56 Dose: 25 mg Oxycodone HCl (Roxicodone -) 5 mg PO Q6H PRN PRN Reason: PAIN Pantoprazole Sodium (Protonix -) 40 mg PO DAILY [facility] Last Admin: 06/22/17 09:56 Dose: 40 mg Phytonadione (Aqua Mephyton Injection -) 5 mg SQ DAILY [facility] Stop: 06/24/17 10:01 Last Admin: 06/22/17 14:10 Dose: 5 mg Polyethylene Glycol (Miralax (For Daily Use) -) 17 gm PO BID [facility] Last Admin: 06/22/17 09:52 Dose: Not Given Potassium Phos/Sodium Phos (Phos-Nak Packet -) 1 packet PO BID [facility] Stop: 06/23/17 22:01 Last Admin: 06/22/17 14:10 Dose: 1 packet Rivaroxaban (Xarelto -) 20 mg PO DAILY@1800 [facility] Last Admin: 06/21/17 17:41 Dose: 20 mg - Objective Vital Signs: Vital Signs Temperature 98.1 F 06/22/17 09:00 Pulse Rate 81 06/22/17 09:00 Respiratory Rate 16 06/22/17 09:00 Blood Pressure 112/67 06/22/17 09:00 O2 Sat by Pulse Oximetry (%) 96 06/21/17 21:00 Constitutional: Yes: Calm Eyes: Yes: Conjunctiva Clear HENT: Yes: Atraumatic Neck: Yes: Supple Cardiovascular: Yes: S1, S2 Respiratory: Yes: CTA Bilaterally Gastrointestinal: Yes: Soft, Abdomen, Obese Genitourinary: Yes: WNL Musculoskeletal: Yes: WNL Edema: Yes Edema: LLE: Trace, RLE: Trace Neurological: Yes: Oriented Psychiatric: Yes: Oriented Labs: CBC, BMP 06/22/17 07:20 06/22/17 07:20 INR, PTT INR 2.45 (0.82-1.09) H D 06/21/17 06:00 Problem List - Problems (1) MONAE (acute kidney injury) Code(s): N17.9 - ACUTE KIDNEY FAILURE, UNSPECIFIED (2) Lactic acidosis Code(s): E87.2 - ACIDOSIS (3) Renal cell carcinoma Code(s): C64.9 - MALIGNANT NEOPLASM OF UNSP KIDNEY, EXCEPT RENAL PELVIS Qualifiers: Laterality: right Qualified Code(s): C64.1 - Malignant neoplasm of right kidney, except renal pelvis (4) T2DM (type 2 diabetes mellitus) Code(s): E11.9 - TYPE 2 DIABETES MELLITUS WITHOUT COMPLICATIONS (5) Diabetes Code(s): E11.9 - TYPE 2 DIABETES MELLITUS WITHOUT COMPLICATIONS (6) HTN (hypertension) Code(s): I10 - ESSENTIAL (PRIMARY) HYPERTENSION Qualifiers: Hypertension type: essential hypertension Qualified Code(s): I10 - Essential (primary) hypertension (7) S/p nephrectomy Code(s): Z90.5 - ACQUIRED ABSENCE OF KIDNEY Assessment/Plan Current Medications Generic Name Dose Route Start Last Admin Trade Name Freq PRN Reason Stop Dose Admin Dexamethasone 4 mg 06/20/17 22:00 06/22/17 09:56 Decadron - PO 4 mg BID [facility] Administration Docusate Sodium 100 mg 06/20/17 22:00 06/22/17 14:10 Colace - PO 100 mg TID [facility] Administration Furosemide 80 mg 06/21/17 10:00 06/22/17 09:56 Lasix - PO 80 mg DAILY [facility] Administration Vancomycin HCl 1,000 mg/ 250 mls @ 250 mls/hr 06/20/17 18:00 06/22/17 11:37 Dextrose IVPB 250 mls/hr DAILY [facility] Administration Protocol Piperacillin Sod/Tazobactam 100 mls @ 200 mls/hr 06/20/17 18:00 06/22/17 11: 36 Sod 3.375 gm/ Dextrose IVPB 200 mls/hr Q8H-IV [facility] Administration Sodium Chloride 1,000 mls @ 42 mls/hr 06/21/17 15:38 06/21/17 17:40 Normal Saline - IV 42 mls/hr ASDIR [facility] Administration Metoprolol Succinate 25 mg 06/21/17 10:00 06/22/17 09:56 Toprol Xl - PO 25 mg DAILY [facility] Administration Oxycodone HCl 5 mg 06/20/17 14:56 Roxicodone - PO Q6H PRN PAIN Pantoprazole Sodium 40 mg 06/21/17 10:00 06/22/17 09:56 Protonix - PO 40 mg DAILY [facility] Administration Phytonadione 5 mg 06/22/17 11:45 06/22/17 14:10 Aqua Mephyton Injection - SQ 06/24/17 10:01 5 mg DAILY [facility] Administration Polyethylene Glycol 17 gm 06/20/17 22:00 06/22/17 09:52 Miralax (For Daily Use) - PO Not Given BID [facility] Potassium Phos/Sodium Phos 1 packet 06/22/17 12:15 06/22/17 14:10 Phos-Nak Packet - PO 06/23/17 22:01 1 packet BID [facility] Administration Rivaroxaban 20 mg 06/20/17 18:00 06/21/17 17:41 Xarelto - PO 20 mg DAILY@1800 [facility] Administration Impression 1. MONAE 2. lactic acidosis improved 3. renal cancer 4. DM 5. a-fib 6. UTI 7. hypokalemia Plan - resume fluids - hold lasix - replace potassium - check mag - trend lactic acid - would not restart metformin - likely monae from pre-renal disease - will follow Dr Langford
[2017-06-22] MEDS ORDERED: SODIUM CHLORIDE 0.45% 1,000 ML IV SCH (14:45)
--- NOTE | 2017-06-22 14:58 | PN ---
Progress Note, Physician History of Present Illness: feeling much better no complaints sitting in the chair says breathing well - Current Medication List Current Medications: Active Medications Dexamethasone (Decadron -) 4 mg PO BID [facility] Last Admin: 06/22/17 09:56 Dose: 4 mg Docusate Sodium (Colace -) 100 mg PO TID [facility] Last Admin: 06/22/17 14:10 Dose: 100 mg Piperacillin Sod/Tazobactam (Sod 3.375 gm/ Dextrose) 100 mls @ 200 mls/hr IVPB Q8H-IV [facility] Last Admin: 06/22/17 11:36 Dose: 200 mls/hr Sodium Chloride (1/2 Normal Saline) 1,000 mls @ 75 mls/hr IV ASDIR [facility] Metoprolol Succinate (Toprol Xl -) 25 mg PO DAILY [facility] Last Admin: 06/22/17 09:56 Dose: 25 mg Oxycodone HCl (Roxicodone -) 5 mg PO Q6H PRN PRN Reason: PAIN Pantoprazole Sodium (Protonix -) 40 mg PO DAILY [facility] Last Admin: 06/22/17 09:56 Dose: 40 mg Phytonadione (Aqua Mephyton Injection -) 5 mg SQ DAILY [facility] Stop: 06/24/17 10:01 Last Admin: 06/22/17 14:10 Dose: 5 mg Polyethylene Glycol (Miralax (For Daily Use) -) 17 gm PO BID [facility] Last Admin: 06/22/17 09:52 Dose: Not Given Potassium Phos/Sodium Phos (Phos-Nak Packet -) 1 packet PO BID [facility] Stop: 06/23/17 22:01 Last Admin: 06/22/17 14:10 Dose: 1 packet Rivaroxaban (Xarelto -) 20 mg PO DAILY@1800 [facility] Last Admin: 06/21/17 17:41 Dose: 20 mg - Objective Vital Signs: Vital Signs Temperature 97.9 F 06/22/17 14:39 Pulse Rate 78 06/22/17 14:39 Respiratory Rate 18 06/22/17 14:39 Blood Pressure 100/54 06/22/17 14:39 O2 Sat by Pulse Oximetry (%) 96 06/21/17 21:00 Constitutional: Yes: No Distress, Calm Cardiovascular: Yes: S1, S2 Respiratory: Yes: Regular, CTA Bilaterally Gastrointestinal: Yes: Normal Bowel Sounds, Soft Musculoskeletal: Yes: WNL Extremities: Yes: WNL Neurological: Yes: Alert, Oriented Psychiatric: Yes: Alert, Oriented Labs: CBC, BMP 06/22/17 07:20 06/22/17 07:20 INR, PTT INR 2.45 (0.82-1.09) H D 06/21/17 06:00 Assessment/Plan Problem List - Problems (1) Severe sepsis Code(s): A41.9 - SEPSIS, UNSPECIFIED ORGANISM; R65.20 - SEVERE SEPSIS WITHOUT SEPTIC SHOCK (2) Renal cell carcinoma Code(s): C64.9 - MALIGNANT NEOPLASM OF UNSP KIDNEY, EXCEPT RENAL PELVIS Qualifiers: Laterality: right Qualified Code(s): C64.1 - Malignant neoplasm of right kidney, except renal pelvis (3) T2DM (type 2 diabetes mellitus) Code(s): E11.9 - TYPE 2 DIABETES MELLITUS WITHOUT COMPLICATIONS (4) Atrial flutter Code(s): I48.92 - UNSPECIFIED ATRIAL FLUTTER Qualifiers: Atrial flutter type: atypical Qualified Code(s): I48.4 - Atypical atrial flutter (5) HTN (hypertension) Code(s): I10 - ESSENTIAL (PRIMARY) HYPERTENSION Qualifiers: Hypertension type: essential hypertension Qualified Code(s): I10 - Essential (primary) hypertension (6) Hyperbilirubinemia Code(s): E80.6 - OTHER DISORDERS OF BILIRUBIN METABOLISM (7) S/p nephrectomy Code(s): Z90.5 - ACQUIRED ABSENCE OF KIDNEY (8) Spinal cord compression Code(s): G95.20 - UNSPECIFIED CORD COMPRESSION plan will stop vanco continue zosyn rest as per primary improving
[2017-06-22] MEDS: RIVAROXABAN 20 MG TABLET PO SCH (17:25)
[2017-06-23] MEDS ORDERED: PT OWN MED DRAWER 7, Y5N ONE ×3 (01:01→18:04)
[2017-06-23] MEDS: PIPERACILLIN/TAZOB 3.375 GM 3.375 GM in DEXTROSE 5%-WATER - 100 ML IVPB SCH ×3 (01:07→18:06)
[2017-06-23] MEDS: DOCUSATE SODIUM 100 MG CAPSULE (FP) PO SCH ×3 (05:15→22:04)
[2017-06-23 08:29] LABS: BASO % 0.3 % (0-2.0); EOS % 0.1 % (0-4.5); HEMOGLOBIN 12.5 GM/dL (11.7-16.9); LYMPH % 4.1 % (8-40); MCH 31.2 pg (25.7-33.7); MCHC 33.9 g/dl (32.0-35.9); MEAN CELL VOLUME 91.9 fl (80-96); MEAN PLT VOLUME 8.7 fl (7.5-11.1); NEUT % 88.5 % (42.8-82.8); PLATELET COUNT 70 K/MM3 (134-434); RBC 4.02 M/mm3 (4.00-5.60); RDW 19.6 % (11.9-15.9); WHITE BLOOD COUNT 9.6 K/mm3 (4.0-10.0)
[2017-06-23 08:45] LABS: INR 1.95 (0.82-1.09)
[2017-06-23 08:48] LABS: ACTIVATED PTT 31.5 SECONDS (26.9-34.4)
[2017-06-23 09:06] LABS: ALBUMIN 2.5 g/dl (3.4-5.0); ANION GAP 8 (8-16); BILIRUBIN,DIRECT 0.4 mg/dL (0.0-0.2); BILIRUBIN,TOTAL 1.3 mg/dL (0.2-1.0); BLOOD UREA NITROGEN 20 mg/dL (7-18); CALCIUM 7.4 mg/dL (8.5-10.1); CHLORIDE 98 mmol/L (98-107); CO2 29 mmol/L (21-32); CREATININE 0.9 mg/dL (0.7-1.3); GLUCOSE,RANDOM 211 mg/dL (74-106); MAGNESIUM 2.2 mg/dL (1.8-2.4); PHOSPHOROUS 2.2 mg/dL (2.5-4.9); POTASSIUM 3.2 mmol/L (3.5-5.1); SGOT/AST 70 U/L (15-37); SGPT/ALT 69 U/L (12-78); SODIUM 135 mmol/L (136-145)
[2017-06-23 09:07] LABS: ALK PHOS 83 U/L (45-117); TOT PROT 4.8 g/dl (6.4-8.2)
[2017-06-23] MEDS: PANTOPRAZOLE 40 MG TABLET (FP) PO SCH (10:55)
[2017-06-23] MEDS: METOPROLOL SUCCINATE 25 MG TAB.SR.24H (FP) PO SCH (10:55)
[2017-06-23] MEDS: NAPH,MB-DB/K PH,MBDB POWDER PACKET PO SCH ×2 (10:56→22:05)
[2017-06-23] MEDS: PHYTONADIONE 10 MG/1 ML AMP SQ SCH (10:56)
[2017-06-23] MEDS: DEXAMETHASONE 4 MG TABLET (FP) PO SCH ×2 (10:56→22:04)
[2017-06-23] MEDS: POLYETHYLENE GLYCOL 3350 119 GM BTL PO SCH ×2 (10:57→22:05)
--- NOTE | 2017-06-23 11:08 | PN ---
Progress Note, Physician Chief Complaint: Mr Murcia says he feels the same today as he did yesterday. Still with general weakness. No cp, sob, n/v, abdominal pain, or other concerns. - Current Medication List Current Medications: Active Medications Dexamethasone (Decadron -) 4 mg PO BID [facility] Last Admin: 06/22/17 22:17 Dose: 4 mg Docusate Sodium (Colace -) 100 mg PO TID [facility] Last Admin: 06/23/17 05:15 Dose: Not Given Piperacillin Sod/Tazobactam (Sod 3.375 gm/ Dextrose) 100 mls @ 200 mls/hr IVPB Q8H-IV [facility] Last Admin: 06/23/17 01:07 Dose: 200 mls/hr Sodium Chloride (1/2 Normal Saline) 1,000 mls @ 75 mls/hr IV ASDIR [facility] Last Admin: 06/22/17 14:58 Dose: 75 mls/hr Metoprolol Succinate (Toprol Xl -) 25 mg PO DAILY [facility] Last Admin: 06/22/17 09:56 Dose: 25 mg Oxycodone HCl (Roxicodone -) 5 mg PO Q6H PRN PRN Reason: PAIN Pantoprazole Sodium (Protonix -) 40 mg PO DAILY [facility] Last Admin: 06/22/17 09:56 Dose: 40 mg Phytonadione (Aqua Mephyton Injection -) 5 mg SQ DAILY [facility] Stop: 06/24/17 10:01 Last Admin: 06/22/17 14:10 Dose: 5 mg Polyethylene Glycol (Miralax (For Daily Use) -) 17 gm PO BID [facility] Last Admin: 06/22/17 22:18 Dose: Not Given Potassium Phos/Sodium Phos (Phos-Nak Packet -) 1 packet PO BID [facility] Stop: 06/23/17 22:01 Last Admin: 06/22/17 22:17 Dose: 1 packet Rivaroxaban (Xarelto -) 20 mg PO DAILY@1800 [facility] Last Admin: 06/22/17 17:25 Dose: 20 mg - Objective Vital Signs: Vital Signs Temperature 36.3 C L 06/23/17 05:19 Pulse Rate 54 L 06/23/17 05:19 Respiratory Rate 18 06/23/17 05:19 Blood Pressure 102/64 06/23/17 05:19 O2 Sat by Pulse Oximetry (%) 96 06/21/17 21:00 Constitutional: Yes: No Distress, Calm, Obese Cardiovascular: Yes: Regular Rate and Rhythm. No: Gallop, Murmur, Rub Respiratory: Yes: Regular, CTA Bilaterally. No: Rales, Rhonchi, Wheezes Gastrointestinal: Yes: Normal Bowel Sounds, Soft. No: Distention, Tenderness Extremities: Yes: WNL Edema: No Labs: CBC, BMP 06/23/17 07:55 06/23/17 07:55 INR, PTT INR 1.95 (0.82-1.09) H 06/23/17 07:55 Fibrinogen 239.0 mg/dL (238-498) 06/23/17 07:55 Problem List - Problems (1) UTI (urinary tract infection) Code(s): N39.0 - URINARY TRACT INFECTION, SITE NOT SPECIFIED Qualifiers: Urinary tract infection type: acute cystitis Hematuria presence: without hematuria Qualified Code(s): N30.00 - Acute cystitis without hematuria (2) Severe sepsis Code(s): A41.9 - SEPSIS, UNSPECIFIED ORGANISM; R65.20 - SEVERE SEPSIS WITHOUT SEPTIC SHOCK (3) MONAE (acute kidney injury) Code(s): N17.9 - ACUTE KIDNEY FAILURE, UNSPECIFIED (4) Afib Code(s): I48.91 - UNSPECIFIED ATRIAL FIBRILLATION Qualifiers: Atrial fibrillation type: paroxysmal Qualified Code(s): I48.0 - Paroxysmal atrial fibrillation (5) Renal cell carcinoma Code(s): C64.9 - MALIGNANT NEOPLASM OF UNSP KIDNEY, EXCEPT RENAL PELVIS Qualifiers: Laterality: right Qualified Code(s): C64.1 - Malignant neoplasm of right kidney, except renal pelvis (6) T2DM (type 2 diabetes mellitus) Code(s): E11.9 - TYPE 2 DIABETES MELLITUS WITHOUT COMPLICATIONS (7) HTN (hypertension) Code(s): I10 - ESSENTIAL (PRIMARY) HYPERTENSION Qualifiers: Hypertension type: essential hypertension Qualified Code(s): I10 - Essential (primary) hypertension (8) Obesity Code(s): E66.9 - OBESITY, UNSPECIFIED (9) Spinal cord compression Code(s): G95.20 - UNSPECIFIED CORD COMPRESSION Assessment/Plan (1) UTI (urinary tract infection) Assessment/Plan: -vancomycin discontinued -continue zosyn -course per Dr Barber Code(s): N39.0 - URINARY TRACT INFECTION, SITE NOT SPECIFIED Qualifiers: Urinary tract infection type: acute cystitis Hematuria presence: without hematuria Qualified Code(s): N30.00 - Acute cystitis without hematuria (2) Severe sepsis Assessment/Plan: -appears resolved but still with lactic acidosis -otherwise stable -continue IVF and antibiotics as above Code(s): A41.9 - SEPSIS, UNSPECIFIED ORGANISM; R65.20 - SEVERE SEPSIS WITHOUT SEPTIC SHOCK (3) MONAE (acute kidney injury) Assessment/Plan: -resolved with hydration and treatment of sepsis Code(s): N17.9 - ACUTE KIDNEY FAILURE, UNSPECIFIED (4) Afib Assessment/Plan: -controlled -continue xarelto and toprol xl Code(s): I48.91 - UNSPECIFIED ATRIAL FIBRILLATION Qualifiers: Atrial fibrillation type: paroxysmal Qualified Code(s): I48.0 - Paroxysmal atrial fibrillation (5) Renal cell carcinoma Assessment/Plan: -metastatic Code(s): C64.9 - MALIGNANT NEOPLASM OF UNSP KIDNEY, EXCEPT RENAL PELVIS Qualifiers: Laterality: right Qualified Code(s): C64.1 - Malignant neoplasm of right kidney, except renal pelvis (6) T2DM (type 2 diabetes mellitus) Assessment/Plan: -monitor on bmp Code(s): E11.9 - TYPE 2 DIABETES MELLITUS WITHOUT COMPLICATIONS (7) HTN (hypertension) Assessment/Plan: -continue toprol xl -will continue IVF secondary to lactic acid Code(s): I10 - ESSENTIAL (PRIMARY) HYPERTENSION Qualifiers: Hypertension type: essential hypertension Qualified Code(s): I10 - Essential (primary) hypertension (8) Obesity Assessment/Plan: -counselled Code(s): E66.9 - OBESITY, UNSPECIFIED (9) Spinal cord compression Assessment/Plan: -continue decadron -oncology following Code(s): G95.20 - UNSPECIFIED CORD COMPRESSION (10) Elevated LFTs -secondary to chemotherapy -abdominal ultrasound reviewed -case d/w oncology -improving (11) Thrombocytopenia -secondary to sepsis -improving (12) Lactic acidosis -continues to worsen but overall patient is appearing improved -unclear source -continue IVF -recheck in am (13) Weakness -case d/w oncology -possibly to sepsis -however also on decadron so may be steroid induced myopathy -PT consulted -recommend SNF placement when ready for discharge -neurology consulted
--- NOTE | 2017-06-23 13:02 | PN ---
Progress Note, Physician History of Present Illness: PULMONARY ALERT,WEAK,-SOB,-CP-COUGH - Current Medication List Current Medications: Active Medications Dexamethasone (Decadron -) 4 mg PO BID [facility] Last Admin: 06/23/17 10:56 Dose: 4 mg Docusate Sodium (Colace -) 100 mg PO TID [facility] Last Admin: 06/23/17 05:15 Dose: Not Given Piperacillin Sod/Tazobactam (Sod 3.375 gm/ Dextrose) 100 mls @ 200 mls/hr IVPB Q8H-IV [facility] Last Admin: 06/23/17 10:56 Dose: 200 mls/hr Sodium Chloride (1/2 Normal Saline) 1,000 mls @ 75 mls/hr IV ASDIR [facility] Last Admin: 06/22/17 14:58 Dose: 75 mls/hr Metoprolol Succinate (Toprol Xl -) 25 mg PO DAILY [facility] Last Admin: 06/23/17 10:55 Dose: 25 mg Oxycodone HCl (Roxicodone -) 5 mg PO Q6H PRN PRN Reason: PAIN Pantoprazole Sodium (Protonix -) 40 mg PO DAILY [facility] Last Admin: 06/23/17 10:55 Dose: 40 mg Phytonadione (Aqua Mephyton Injection -) 5 mg SQ DAILY [facility] Stop: 06/24/17 10:01 Last Admin: 06/23/17 10:56 Dose: 5 mg Polyethylene Glycol (Miralax (For Daily Use) -) 17 gm PO BID [facility] Last Admin: 06/23/17 10:57 Dose: Not Given Potassium Chloride (K-Dur -) 40 meq PO ONCE ONE Stop: 06/23/17 11:08 Potassium Phos/Sodium Phos (Phos-Nak Packet -) 1 packet PO BID [facility] Stop: 06/23/17 22:01 Last Admin: 06/23/17 10:56 Dose: 1 packet Rivaroxaban (Xarelto -) 20 mg PO DAILY@1800 [facility] Last Admin: 06/22/17 17:25 Dose: 20 mg - Objective Vital Signs: Vital Signs Temperature 97.4 F L 06/23/17 05:19 Pulse Rate 54 L 06/23/17 05:19 Respiratory Rate 18 06/23/17 05:19 Blood Pressure 102/64 06/23/17 05:19 O2 Sat by Pulse Oximetry (%) 96 06/21/17 21:00 Constitutional: Yes: Well Nourished, Calm Eyes: Yes: WNL HENT: Yes: WNL Neck: Yes: WNL Cardiovascular: Yes: Pulse Irregular, S1, S2 Respiratory: Yes: CTA Bilaterally Gastrointestinal: Yes: Normal Bowel Sounds, Soft Extremities: Yes: WNL Edema: No Labs: CBC, BMP 06/23/17 07:55 06/23/17 07:55 INR, PTT INR 1.95 (0.82-1.09) H 06/23/17 07:55 Fibrinogen 239.0 mg/dL (238-498) 06/23/17 07:55 Problem List - Problems (1) Afib Code(s): I48.91 - UNSPECIFIED ATRIAL FIBRILLATION Qualifiers: Atrial fibrillation type: paroxysmal Qualified Code(s): I48.0 - Paroxysmal atrial fibrillation (2) MONAE (acute kidney injury) Code(s): N17.9 - ACUTE KIDNEY FAILURE, UNSPECIFIED (3) Lactic acidosis Code(s): E87.2 - ACIDOSIS (4) Severe sepsis Code(s): A41.9 - SEPSIS, UNSPECIFIED ORGANISM; R65.20 - SEVERE SEPSIS WITHOUT SEPTIC SHOCK (5) Renal cell carcinoma Code(s): C64.9 - MALIGNANT NEOPLASM OF UNSP KIDNEY, EXCEPT RENAL PELVIS Qualifiers: Laterality: right Qualified Code(s): C64.1 - Malignant neoplasm of right kidney, except renal pelvis (6) T2DM (type 2 diabetes mellitus) Code(s): E11.9 - TYPE 2 DIABETES MELLITUS WITHOUT COMPLICATIONS (7) Diabetes Code(s): E11.9 - TYPE 2 DIABETES MELLITUS WITHOUT COMPLICATIONS (8) HTN (hypertension) Code(s): I10 - ESSENTIAL (PRIMARY) HYPERTENSION Qualifiers: Hypertension type: essential hypertension Qualified Code(s): I10 - Essential (primary) hypertension (9) Hyperbilirubinemia Code(s): E80.6 - OTHER DISORDERS OF BILIRUBIN METABOLISM (10) Obesity Code(s): E66.9 - OBESITY, UNSPECIFIED (11) Spinal cord compression Code(s): G95.20 - UNSPECIFIED CORD COMPRESSION (12) Dyspnea Code(s): R06.00 - DYSPNEA, UNSPECIFIED (13) Respiratory distress Code(s): R06.03 - ACUTE RESPIRATORY DISTRESS Assessment/Plan IMP RESPIRATORY DISTRESS LIKELY SECONDARY TO SEPSIS IMPROVED RCCC S/P R NEPHRECTOMY WITH SPINE METS CORD COMPRESSION MONAE AFIB ELEVATED LFTS THROMBOCYTOPENIA HTN NIDDM ELEVATED LACTATE LEVEL PLAN O2 ANTIBIOTICS PER ID IVF MONITOR LYTES,PLT CT,RENAL FUNCTION TREND LACTATE MONITOR LFTS DR PEPPER Problem List - Problems (1) Afib Code(s): I48.91 - UNSPECIFIED ATRIAL FIBRILLATION (2) MONAE (acute kidney injury) Code(s): N17.9 - ACUTE KIDNEY FAILURE, UNSPECIFIED (3) Lactic acidosis Code(s): E87.2 - ACIDOSIS (4) Severe sepsis Code(s): A41.9 - SEPSIS, UNSPECIFIED ORGANISM; R65.20 - SEVERE SEPSIS WITHOUT SEPTIC SHOCK (5) Renal cell carcinoma Code(s): C64.9 - MALIGNANT NEOPLASM OF UNSP KIDNEY, EXCEPT RENAL PELVIS Qualifiers: Laterality: right Qualified Code(s): C64.1 - Malignant neoplasm of right kidney, except renal pelvis (6) T2DM (type 2 diabetes mellitus) Code(s): E11.9 - TYPE 2 DIABETES MELLITUS WITHOUT COMPLICATIONS (7) Diabetes Code(s): E11.9 - TYPE 2 DIABETES MELLITUS WITHOUT COMPLICATIONS (8) HTN (hypertension) Code(s): I10 - ESSENTIAL (PRIMARY) HYPERTENSION Qualifiers: Hypertension type: essential hypertension Qualified Code(s): I10 - Essential (primary) hypertension (9) Hyperbilirubinemia Code(s): E80.6 - OTHER DISORDERS OF BILIRUBIN METABOLISM (10) Obesity Code(s): E66.9 - OBESITY, UNSPECIFIED (11) Spinal cord compression Code(s): G95.20 - UNSPECIFIED CORD COMPRESSION (12) Dyspnea Code(s): R06.00 - DYSPNEA, UNSPECIFIED (13) Respiratory distress Code(s): R06.03 - ACUTE RESPIRATORY DISTRESS
--- NOTE | 2017-06-23 13:29 | PN ---
Progress Note, Physician History of Present Illness: Pt seen and examined at bedside. He says he is starting to feels stronger. He denies shortness of breath. - Current Medication List Current Medications: Active Medications Dexamethasone (Decadron -) 4 mg PO BID [facility] Last Admin: 06/23/17 10:56 Dose: 4 mg Docusate Sodium (Colace -) 100 mg PO TID [facility] Last Admin: 06/23/17 05:15 Dose: Not Given Piperacillin Sod/Tazobactam (Sod 3.375 gm/ Dextrose) 100 mls @ 200 mls/hr IVPB Q8H-IV [facility] Last Admin: 06/23/17 10:56 Dose: 200 mls/hr Sodium Chloride (1/2 Normal Saline) 1,000 mls @ 75 mls/hr IV ASDIR [facility] Last Admin: 06/22/17 14:58 Dose: 75 mls/hr Metoprolol Succinate (Toprol Xl -) 25 mg PO DAILY [facility] Last Admin: 06/23/17 10:55 Dose: 25 mg Oxycodone HCl (Roxicodone -) 5 mg PO Q6H PRN PRN Reason: PAIN Pantoprazole Sodium (Protonix -) 40 mg PO DAILY [facility] Last Admin: 06/23/17 10:55 Dose: 40 mg Phytonadione (Aqua Mephyton Injection -) 5 mg SQ DAILY [facility] Stop: 06/24/17 10:01 Last Admin: 06/23/17 10:56 Dose: 5 mg Polyethylene Glycol (Miralax (For Daily Use) -) 17 gm PO BID [facility] Last Admin: 06/23/17 10:57 Dose: Not Given Potassium Chloride (K-Dur -) 40 meq PO ONCE ONE Stop: 06/23/17 11:08 Potassium Phos/Sodium Phos (Phos-Nak Packet -) 1 packet PO BID [facility] Stop: 06/23/17 22:01 Last Admin: 06/23/17 10:56 Dose: 1 packet Rivaroxaban (Xarelto -) 20 mg PO DAILY@1800 [facility] Last Admin: 06/22/17 17:25 Dose: 20 mg - Objective Vital Signs: Vital Signs Temperature 97.4 F L 06/23/17 05:19 Pulse Rate 54 L 06/23/17 05:19 Respiratory Rate 18 06/23/17 05:19 Blood Pressure 102/64 06/23/17 05:19 O2 Sat by Pulse Oximetry (%) 96 06/21/17 21:00 Constitutional: Yes: Calm Eyes: Yes: Conjunctiva Clear HENT: Yes: Atraumatic Cardiovascular: Yes: S1, S2 Respiratory: Yes: On Nasal O2 Gastrointestinal: Yes: Soft, Abdomen, Obese Genitourinary: Yes: WNL Musculoskeletal: Yes: WNL Edema: Yes Edema: LLE: Trace, RLE: Trace Neurological: Yes: Oriented Psychiatric: Yes: Oriented Labs: CBC, BMP 06/23/17 07:55 06/23/17 07:55 INR, PTT INR 1.95 (0.82-1.09) H 06/23/17 07:55 Fibrinogen 239.0 mg/dL (238-498) 06/23/17 07:55 Problem List - Problems (1) MONAE (acute kidney injury) Code(s): N17.9 - ACUTE KIDNEY FAILURE, UNSPECIFIED (2) Lactic acidosis Code(s): E87.2 - ACIDOSIS (3) Renal cell carcinoma Code(s): C64.9 - MALIGNANT NEOPLASM OF UNSP KIDNEY, EXCEPT RENAL PELVIS Qualifiers: Laterality: right Qualified Code(s): C64.1 - Malignant neoplasm of right kidney, except renal pelvis (4) T2DM (type 2 diabetes mellitus) Code(s): E11.9 - TYPE 2 DIABETES MELLITUS WITHOUT COMPLICATIONS (5) Diabetes Code(s): E11.9 - TYPE 2 DIABETES MELLITUS WITHOUT COMPLICATIONS (6) HTN (hypertension) Code(s): I10 - ESSENTIAL (PRIMARY) HYPERTENSION Qualifiers: Hypertension type: essential hypertension Qualified Code(s): I10 - Essential (primary) hypertension (7) S/p nephrectomy Code(s): Z90.5 - ACQUIRED ABSENCE OF KIDNEY Assessment/Plan Current Medications Generic Name Dose Route Start Last Admin Trade Name Freq PRN Reason Stop Dose Admin Dexamethasone 4 mg 06/20/17 22:00 06/23/17 10:56 Decadron - PO 4 mg BID [facility]AN Administration Docusate Sodium 100 mg 06/20/17 22:00 06/23/17 05:15 Colace - PO Not Given TID SUSAN Piperacillin Sod/Tazobactam 100 mls @ 200 mls/hr 06/20/17 18:00 06/23/17 10: 56 Sod 3.375 gm/ Dextrose IVPB 200 mls/hr Q8H-IV [facility] Administration Sodium Chloride 1,000 mls @ 75 mls/hr 06/22/17 14:45 06/22/17 14:58 1/2 Normal Saline IV 75 mls/hr ASDIR S[facility]AN Administration Metoprolol Succinate 25 mg 06/21/17 10:00 06/23/17 10:55 Toprol Xl - PO 25 mg DAILY [facility]AN Administration Oxycodone HCl 5 mg 06/20/17 14:56 Roxicodone - PO Q6H PRN PAIN Pantoprazole Sodium 40 mg 06/21/17 10:00 06/23/17 10:55 Protonix - PO 40 mg DAILY [facility]AN Administration Phytonadione 5 mg 06/22/17 11:45 06/23/17 10:56 Aqua Mephyton Injection - SQ 06/24/17 10:01 5 mg DAILY [facility]AN Administration Polyethylene Glycol 17 gm 06/20/17 22:00 06/23/17 10:57 Miralax (For Daily Use) - PO Not Given BID [facility]AN Potassium Chloride 40 meq 06/23/17 11:07 K-Dur - PO 06/23/17 11:08 ONCE ONE Potassium Phos/Sodium Phos 1 packet 06/22/17 12:15 06/23/17 10:56 Phos-Nak Packet - PO 06/23/17 22:01 1 packet BID [facility]AN Administration Rivaroxaban 20 mg 06/20/17 18:00 06/22/17 17:25 Xarelto - PO 20 mg DAILY@1800 [facility]AN Administration Impression 1. MONAE 2. lactic acidosis improved 3. renal cancer 4. DM 5. a-fib 6. UTI 7. hypokalemia Plan - replace potassium - decrease rate of fluids - trend lactic acid - oncology follow up - would not restart metformin - likely monae from pre-renal disease - will follow Dr Langford
[2017-06-23] MEDS ORDERED: POTASSIUM CHLORIDE TABS 20 MEQ TABLET.ER (FP) PO ONE (15:30)
--- NOTE | 2017-06-23 15:42 | PN ---
Progress Note (short form) - Note Progress Note: pt seen and examined. Last Vital Signs Temp Pulse Resp BP Pulse Ox 98.1 F 62 18 137/72 96 06/23/17 14:26 06/23/17 14:26 06/23/17 14:26 06/23/17 14:26 06/21/17 21:00 CBC, BMP 06/23/17 07:55 06/23/17 07:55 Current Medications Generic Name Dose Route Start Last Admin Trade Name Yari PRN Reason Stop Dose Admin Dexamethasone 4 mg 06/20/17 22:00 06/23/17 10:56 Decadron - PO 4 mg BID [facility] Administration Docusate Sodium 100 mg 06/20/17 22:00 06/23/17 05:15 Colace - PO Not Given TID SUSAN Piperacillin Sod/Tazobactam 100 mls @ 200 mls/hr 06/20/17 18:00 06/23/17 10: 56 Sod 3.375 gm/ Dextrose IVPB 200 mls/hr Q8H-IV [facility] Administration Sodium Chloride 1,000 mls @ 42 mls/hr 06/23/17 13:29 1/2 Normal Saline IV ASDIR SUSAN Metoprolol Succinate 25 mg 06/21/17 10:00 06/23/17 10:55 Toprol Xl - PO 25 mg DAILY [facility] Administration Pantoprazole Sodium 40 mg 06/21/17 10:00 06/23/17 10:55 Protonix - PO 40 mg DAILY [facility]AN Administration Phytonadione 5 mg 06/22/17 11:45 06/23/17 10:56 Aqua Mephyton Injection - SQ 06/24/17 10:01 5 mg DAILY [facility]AN Administration Polyethylene Glycol 17 gm 06/20/17 22:00 06/23/17 10:57 Miralax (For Daily Use) - PO Not Given BID [facility]AN Potassium Phos/Sodium Phos 1 packet 06/22/17 12:15 06/23/17 10:56 Phos-Nak Packet - PO 06/23/17 22:01 1 packet BID [facility] Administration Rivaroxaban 20 mg 06/20/17 18:00 06/22/17 17:25 Xarelto - PO 20 mg DAILY@1800 S[facility]AN Administration O/E: General:NAD, HEENT :NCAT Cardiac: RRR Lungs: CTA b/l Neuro: AAOx3 LE: +bruises, better than before, no LE swelling A/P: mRCC cord compression s/p RT severe sepsis due to UTI coagulopathy due sepsis Elevated LFTs/Bili due to Votrient Improving will start votrient when brought in by family
[2017-06-23] MEDS: RIVAROXABAN 20 MG TABLET PO SCH (18:09)
--- NOTE | 2017-06-23 18:28 | PN ---
Progress Note, Physician History of Present Illness: patient continues to improve still slightly weak - Current Medication List Current Medications: Active Medications Dexamethasone (Decadron -) 4 mg PO BID [facility] Last Admin: 06/23/17 10:56 Dose: 4 mg Docusate Sodium (Colace -) 100 mg PO TID [facility] Last Admin: 06/23/17 16:37 Dose: 100 mg Piperacillin Sod/Tazobactam (Sod 3.375 gm/ Dextrose) 100 mls @ 200 mls/hr IVPB Q8H-IV [facility] Last Admin: 06/23/17 18:06 Dose: 200 mls/hr Sodium Chloride (1/2 Normal Saline) 1,000 mls @ 42 mls/hr IV ASDIR [facility] Metoprolol Succinate (Toprol Xl -) 25 mg PO DAILY [facility] Last Admin: 06/23/17 10:55 Dose: 25 mg Pantoprazole Sodium (Protonix -) 40 mg PO DAILY [facility] Last Admin: 06/23/17 10:55 Dose: 40 mg Phytonadione (Aqua Mephyton Injection -) 5 mg SQ DAILY [facility] Stop: 06/24/17 10:01 Last Admin: 06/23/17 10:56 Dose: 5 mg Polyethylene Glycol (Miralax (For Daily Use) -) 17 gm PO BID [facility] Last Admin: 06/23/17 10:57 Dose: Not Given Potassium Phos/Sodium Phos (Phos-Nak Packet -) 1 packet PO BID [facility] Stop: 06/23/17 22:01 Last Admin: 06/23/17 10:56 Dose: 1 packet Rivaroxaban (Xarelto -) 20 mg PO DAILY@1800 [facility] Last Admin: 06/23/17 18:09 Dose: 20 mg - Objective Vital Signs: Vital Signs Temperature 98.2 F 06/23/17 18:00 Pulse Rate 59 L 06/23/17 18:00 Respiratory Rate 18 06/23/17 18:00 Blood Pressure 109/47 06/23/17 18:00 O2 Sat by Pulse Oximetry (%) 96 06/21/17 21:00 Constitutional: Yes: No Distress, Calm Cardiovascular: Yes: Regular Rate and Rhythm Respiratory: Yes: On Nasal O2, Poor Air Entry, Other Gastrointestinal: Yes: Normal Bowel Sounds, Soft Musculoskeletal: Yes: WNL Extremities: Yes: WNL Neurological: Yes: Alert, Oriented Psychiatric: Yes: Alert, Oriented Labs: CBC, BMP 06/23/17 07:55 06/23/17 07:55 INR, PTT INR 1.95 (0.82-1.09) H 06/23/17 07:55 Fibrinogen 239.0 mg/dL (238-498) 06/23/17 07:55 Assessment/Plan Problem List - Problems (1) Severe sepsis Code(s): A41.9 - SEPSIS, UNSPECIFIED ORGANISM; R65.20 - SEVERE SEPSIS WITHOUT SEPTIC SHOCK (2) Renal cell carcinoma Code(s): C64.9 - MALIGNANT NEOPLASM OF UNSP KIDNEY, EXCEPT RENAL PELVIS Qualifiers: Laterality: right Qualified Code(s): C64.1 - Malignant neoplasm of right kidney, except renal pelvis (3) T2DM (type 2 diabetes mellitus) Code(s): E11.9 - TYPE 2 DIABETES MELLITUS WITHOUT COMPLICATIONS (4) Atrial flutter Code(s): I48.92 - UNSPECIFIED ATRIAL FLUTTER Qualifiers: Atrial flutter type: atypical Qualified Code(s): I48.4 - Atypical atrial flutter (5) HTN (hypertension) Code(s): I10 - ESSENTIAL (PRIMARY) HYPERTENSION Qualifiers: Hypertension type: essential hypertension Qualified Code(s): I10 - Essential (primary) hypertension (6) Hyperbilirubinemia Code(s): E80.6 - OTHER DISORDERS OF BILIRUBIN METABOLISM (7) S/p nephrectomy Code(s): Z90.5 - ACQUIRED ABSENCE OF KIDNEY (8) Spinal cord compression Code(s): G95.20 - UNSPECIFIED CORD COMPRESSION plan will see how the patient does tomorrow probably will switch to oral abx incentive madelyn rest as per primary team
[2017-06-24] MEDS ORDERED: PT OWN MED DRAWER 7, Y5N ONE ×2 (02:24→17:43)
[2017-06-24] MEDS: PIPERACILLIN/TAZOB 3.375 GM 3.375 GM in DEXTROSE 5%-WATER - 100 ML IVPB SCH ×3 (02:29→17:45)
[2017-06-24] MEDS: SODIUM CHLORIDE 0.45% 1,000 ML IV SCH ×2 (02:29→14:39)
[2017-06-24] MEDS: DOCUSATE SODIUM 100 MG CAPSULE (FP) PO SCH ×3 (06:18→21:15)
[2017-06-24 07:33] LABS: BASO % 0.4 % (0-2.0); EOS % 0.2 % (0-4.5); HEMATOCRIT 36.6 % (35.4-49); HEMOGLOBIN 12.6 GM/dL (11.7-16.9); LYMPH % 4.2 % (8-40); MCH 31.6 pg (25.7-33.7); MCHC 34.3 g/dl (32.0-35.9); MEAN CELL VOLUME 92.2 fl (80-96); MEAN PLT VOLUME 8.7 fl (7.5-11.1); MONO % 7.5 % (3.8-10.2); NEUT % 87.7 % (42.8-82.8); PLATELET COUNT 84 K/MM3 (134-434); RBC 3.97 M/mm3 (4.00-5.60); WHITE BLOOD COUNT 10.2 K/mm3 (4.0-10.0)
[2017-06-24 08:17] LABS: ALBUMIN 2.5 g/dl (3.4-5.0); ANION GAP 11 (8-16); BILIRUBIN,DIRECT 0.4 mg/dL (0.0-0.2); BLOOD UREA NITROGEN 27 mg/dL (7-18); CALCIUM 7.5 mg/dL (8.5-10.1); CHLORIDE 98 mmol/L (98-107); CO2 25 mmol/L (21-32); CREATININE 0.9 mg/dL (0.7-1.3); GLUCOSE,RANDOM 217 mg/dL (74-106); MAGNESIUM 2.2 mg/dL (1.8-2.4); PHOSPHOROUS 2.3 mg/dL (2.5-4.9); POTASSIUM 3.6 mmol/L (3.5-5.1); SGOT/AST 61 U/L (15-37); SGPT/ALT 69 U/L (12-78); SODIUM 134 mmol/L (136-145)
[2017-06-24 08:19] LABS: ALK PHOS 84 U/L (45-117); BILIRUBIN,TOTAL 1.2 mg/dL (0.2-1.0); TOT PROT 4.9 g/dl (6.4-8.2)
--- NOTE | 2017-06-24 09:38 | CONSULT ---
Consult - text type - Consultation Consultation Note: Neurology History of Present Illness 77-year-old male presents to the emergency room for evaluation of increasing fatigue, weakness, shortness of breath, and mild nausea for the past few weeks after beginning his chemotherapy regimen for spinal cancer. 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 He had been admitted 05/29- for worsening lower extremity weakness secondary to spinal cord compression. Decision was made not to pursue surgery, was put on dexamethasone, and tried pazopanib. Patient presented to the ED today with progressive SOB, weakness, fatigue, and poor appetite since starting pazopanib. I was consulted regarding his ongoing weakness which seems to have deteroriated. He is not ambulating at this time and asking for wheelchair. Question of if this is related to his already spinal disease or if could be steroid induced, discussed with him having an EMG to evaluate and he was in agreement. In the meantime, spoke to nurse about having wheelchair but also may benefit from short term rehab. Past History - Travel Traveled outside of the country in the last 30 days: No - Past Medical History Allergies/Adverse Reactions: Allergies Allergy/AdvReac Type Severity Reaction Status Date / Time No Known Drug Allergies Allergy Verified 06/19/17 11:22 Home Medication List Medication Instructions Recorded Confirmed Type Metformin HCl [Glucophage] 500 mg PO HS 11/24/13 06/19/17 History Cholecalciferol (Vitamin D3) 1,000 unit PO DAILY 07/03/16 06/19/17 History [Vitamin D3 -] Multivitamin with Minerals [Icaps 1 each PO DAILY 07/03/16 06/19/17 History Plus] Oxycodone HCl 1 tab PO PRN PRN 04/08/17 06/19/17 History Active Medications Generic Name Dose Route Start Last Admin Trade Name Freq PRN Reason Stop Dose Admin Dexamethasone 4 mg 06/20/17 22:00 06/23/17 22:04 Decadron - PO 4 mg BID SUSAN Administration Docusate Sodium 100 mg 06/20/17 22:00 06/24/17 06:18 Colace - PO 100 mg TID SUSAN Administration Piperacillin Sod/Tazobactam 100 mls @ 200 mls/hr 06/20/17 18:00 06/24/17 02: 29 Sod 3.375 gm/ Dextrose IVPB 200 mls/hr Q8H-IV SUSAN Administration Sodium Chloride 1,000 mls @ 42 mls/hr 06/23/17 13:29 06/24/17 02:29 1/2 Normal Saline IV 42 mls/hr ASDIR SUSAN Administration Metoprolol Succinate 25 mg 06/21/17 10:00 06/23/17 10:55 Toprol Xl - PO 25 mg DAILY SUSAN Administration Pantoprazole Sodium 40 mg 06/21/17 10:00 06/23/17 10:55 Protonix - PO 40 mg DAILY SUSAN Administration Phytonadione 5 mg 06/22/17 11:45 06/23/17 10:56 Aqua Mephyton Injection - SQ 06/24/17 10:01 5 mg DAILY SUSAN Administration Polyethylene Glycol 17 gm 06/20/17 22:00 06/23/17 22:05 Miralax (For Daily Use) - PO Not Given BID SUSAN Rivaroxaban 20 mg 06/20/17 18:00 06/23/17 18:09 Xarelto - PO 20 mg DAILY@1800 SUSAN Administration Anemia: No Asthma: No Cancer: Yes (Skin CA R eyelid, kidney, spinal mets) Cardiac Disorders: Yes (PAF?) CVA: No COPD: No CHF: No Dementia: No Diabetes: Yes (NIDDM) GI Disorders: Yes (diverticulosis, colon adenomas) Disorders: No HTN: Yes Hypercholesterolemia: Yes Liver Disease: No Seizures: No Thyroid Disease: No - Surgical History Abdominal Surgery: No Appendectomy: Yes (as a child) Cardiac Surgery: No Cholecystectomy: Yes (LAP) Lung Surgery: No Neurologic Surgery: No Orthopedic Surgery: Yes (LT KNEE scope) - Suicide/Smoking/Psychosocial Hx Smoking History: Unknown if ever smoked Have you smoked in the past 12 months: No If you are a former smoker, when did you quit?: 1973 Information on smoking cessation initiated: No Hx Alcohol Use: No Drug/Substance Use Hx: No Substance Use Type: None Patient Lives Alone: No Lives with/in: spouse/SO Review of Systems - Review of Systems Able to Perform ROS?: Yes Constitutional: Yes: Loss of Appetite, Malaise, Weakness. No: Chills, Fever HEENTM: No: Symptoms Reported Respiratory: Yes: Shortness of Breath. No: Cough Cardiac (ROS): No: Symptoms Reported ABD/GI: Yes: Nausea, Poor Appetite, Poor Fluid Intake : No: Symptoms Reported Musculoskeletal: No: Symptoms Reported Integumentary: No: Symptoms Reported Neurological: No: Symptoms reported Hematologic/Lymphatic: Yes: See HPI *Physical Exam Vital Signs Temperature 98.6 F 06/24/17 06:00 Pulse Rate 61 06/24/17 06:00 Respiratory Rate 18 06/24/17 06:00 Blood Pressure 115/61 06/24/17 06:00 O2 Sat by Pulse Oximetry (%) 98 06/23/17 21:00 - Physical Exam General Appearance: Yes: Nourished, Appropriately Dressed. No: Apparent Distress HEENT: positive: EOMI, FREDA. negative: Pale Conjunctivae Neck: positive: Supple Respiratory/Chest: positive: Lungs Clear, Normal Breath Sounds. negative: Respiratory Distress, Accessory Muscle Use Cardiovascular: positive: Regular Rate (a flutter 82). negative: Murmur Gastrointestinal/Abdominal: positive: Normal Bowel Sounds, Soft, Distended ( slight). negative: Tenderness, Mass Extremity: positive: Normal Capillary Refill, Pedal Edema Integumentary: positive: Dry, Warm, Pale Neurologic: Awake and alert, interative, mental status intact, sensory intact, gait not able to ambulate CBCD WBC 10.2 K/mm3 (4.0-10.0) H 06/24/17 06:00 RBC 3.97 M/mm3 (4.00-5.60) L 06/24/17 06:00 Hgb 12.6 GM/dL (11.7-16.9) 06/24/17 06:00 Hct 36.6 % (35.4-49) 06/24/17 06:00 MCV 92.2 fl (80-96) 06/24/17 06:00 MCHC 34.3 g/dl (32.0-35.9) 06/24/17 06:00 RDW 19.0 % (11.9-15.9) H 06/24/17 06:00 Plt Count 84 K/MM3 (134-434) L 06/24/17 06:00 MPV 8.7 fl (7.5-11.1) 06/24/17 06:00 CMP Sodium 134 mmol/L (136-145) L 06/24/17 06:00 Potassium 3.6 mmol/L (3.5-5.1) 06/24/17 06:00 Chloride 98 mmol/L (98-107) 06/24/17 06:00 Carbon Dioxide 25 mmol/L (21-32) 06/24/17 06:00 Anion Gap 11 (8-16) 06/24/17 06:00 BUN 27 mg/dL (7-18) H D 06/24/17 06:00 Creatinine 0.9 mg/dL (0.7-1.3) 06/24/17 06:00 Creat Clearance w eGFR > 60 (>60) 06/23/17 07:55 Calcium 7.5 mg/dL (8.5-10.1) L 06/24/17 06:00 Total Bilirubin 1.2 mg/dL (0.2-1.0) H 06/24/17 06:00 AST 61 U/L (15-37) H 06/24/17 06:00 ALT 69 U/L (12-78) 06/24/17 06:00 Alkaline Phosphatase 84 U/L (45-117) 06/24/17 06:00 Total Protein 4.9 g/dl (6.4-8.2) L 06/24/17 06:00 Albumin 2.5 g/dl (3.4-5.0) L 06/24/17 06:00 - RADIOLOGY Echo reviewed Medical Decision Making 77-year-old male presents to the emergency room for evaluation of increasing fatigue, weakness, shortness of breath, and mild nausea for the past few weeks after beginning his chemotherapy regimen for spinal cancer. 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 He had been admitted 05/29- for worsening lower extremity weakness secondary to spinal cord compression. Decision was made not to pursue surgery, was put on dexamethasone, and tried pazopanib. Patient presented to the ED today with progressive SOB, weakness, fatigue, and poor appetite since starting pazopanib. I was consulted regarding his ongoing weakness which seems to have deteroriated. He is not ambulating at this time and asking for wheelchair. Question of if this is related to his already spinal disease or if could be steroid induced, discussed with him having an EMG to evaluate and he was in agreement. In the meantime, spoke to nurse about having wheelchair but also may benefit from short term rehab. EMG ordered IF steroid induced, may have to come down on decadron On AC, strict fall precautions Physcial therapy, consider short term rehab if qualifies On IV abx for sepsis, UTI Follow up ID rec'd
[2017-06-24] MEDS: DEXAMETHASONE 4 MG TABLET (FP) PO SCH ×2 (10:09→21:15)
[2017-06-24] MEDS: POLYETHYLENE GLYCOL 3350 119 GM BTL PO SCH ×2 (10:09→21:15)
[2017-06-24] MEDS: METOPROLOL SUCCINATE 25 MG TAB.SR.24H (FP) PO SCH (10:09)
[2017-06-24] MEDS: PHYTONADIONE 10 MG/1 ML AMP SQ SCH (10:09)
[2017-06-24] MEDS: PANTOPRAZOLE 40 MG TABLET (FP) PO SCH (10:09)
--- NOTE | 2017-06-24 12:04 | PN ---
Progress Note (short form) - Note Progress Note: pt seen and examined. feels better. seen by Neuro Last Vital Signs Temp Pulse Resp BP Pulse Ox 98.6 F 61 18 115/61 98 06/24/17 06:00 06/24/17 06:00 06/24/17 06:00 06/24/17 06:00 06/23/17 21:00 CBC, BMP 06/24/17 06:00 06/24/17 06:00 Current Medications Generic Name Dose Route Start Last Admin Trade Name Yari PRN Reason Stop Dose Admin Dexamethasone 4 mg 06/20/17 22:00 06/24/17 10:09 Decadron - PO 4 mg BID SUSAN Administration Docusate Sodium 100 mg 06/20/17 22:00 06/24/17 06:18 Colace - PO 100 mg TID SUSAN Administration Piperacillin Sod/Tazobactam 100 mls @ 200 mls/hr 06/20/17 18:00 06/24/17 10: 09 Sod 3.375 gm/ Dextrose IVPB 200 mls/hr Q8H-IV SUSAN Administration Sodium Chloride 1,000 mls @ 42 mls/hr 06/23/17 13:29 06/24/17 02:29 1/2 Normal Saline IV 42 mls/hr ASDIR SUSAN Administration Metoprolol Succinate 25 mg 06/21/17 10:00 06/24/17 10:09 Toprol Xl - PO 25 mg DAILY SUSAN Administration Pantoprazole Sodium 40 mg 06/21/17 10:00 06/24/17 10:09 Protonix - PO 40 mg DAILY SUSAN Administration Polyethylene Glycol 17 gm 06/20/17 22:00 06/24/17 10:09 Miralax (For Daily Use) - PO Not Given BID SUSAN Rivaroxaban 20 mg 06/20/17 18:00 06/23/17 18:09 Xarelto - PO 20 mg DAILY@1800 SUSAN Administration O/E: General:NAD, HEENT :NCAT Cardiac: RRR Lungs: CTA b/l Neuro: AAOx3 LE: +bruises, better than before, no LE swelling A/P: mRCC cord compression s/p RT severe sepsis due to UTI coagulopathy due sepsis Elevated LFTs/Bili due to Votrient, now much improved. Improving will start votrient when brought in by family ( will give 4pills -200mg each , per day) , pt says he was taking 3pills in the morning and 3pills in the pm , the script does NOT Say that! (script says to take 3pills PER DAY ). will await the bottle to be seen from the pharmacy. Called Aysha to confirm the way she was giving , no answer. d/wRN appreciate neuro consult. PT eval Fall precautions/on AC for Afib Dispo Likely NARDA
--- NOTE | 2017-06-24 12:17 | PN ---
Progress Note, Physician Chief Complaint: Mr Murcia says he is feeling better. Still with significant weakness but otherwise is doing well. No cp, sob, n/v. - Current Medication List Current Medications: Active Medications Dexamethasone (Decadron -) 4 mg PO BID [facility] Last Admin: 06/24/17 10:09 Dose: 4 mg Docusate Sodium (Colace -) 100 mg PO TID [facility] Last Admin: 06/24/17 06:18 Dose: 100 mg Piperacillin Sod/Tazobactam (Sod 3.375 gm/ Dextrose) 100 mls @ 200 mls/hr IVPB Q8H-IV [facility] Last Admin: 06/24/17 10:09 Dose: 200 mls/hr Sodium Chloride (1/2 Normal Saline) 1,000 mls @ 42 mls/hr IV ASDIR [facility] Last Admin: 06/24/17 02:29 Dose: 42 mls/hr Metoprolol Succinate (Toprol Xl -) 25 mg PO DAILY [facility] Last Admin: 06/24/17 10:09 Dose: 25 mg Pantoprazole Sodium (Protonix -) 40 mg PO DAILY [facility] Last Admin: 06/24/17 10:09 Dose: 40 mg Polyethylene Glycol (Miralax (For Daily Use) -) 17 gm PO BID [facility] Last Admin: 06/24/17 10:09 Dose: Not Given Rivaroxaban (Xarelto -) 20 mg PO DAILY@1800 [facility] Last Admin: 06/23/17 18:09 Dose: 20 mg - Objective Vital Signs: Vital Signs Temperature 37.0 C 06/24/17 06:00 Pulse Rate 61 06/24/17 06:00 Respiratory Rate 18 06/24/17 06:00 Blood Pressure 115/61 06/24/17 06:00 O2 Sat by Pulse Oximetry (%) 98 06/23/17 21:00 Constitutional: Yes: No Distress, Calm, Obese Cardiovascular: Yes: Regular Rate and Rhythm. No: Gallop, Murmur, Rub Respiratory: Yes: Regular, CTA Bilaterally. No: Rales, Rhonchi, Wheezes Gastrointestinal: Yes: Normal Bowel Sounds, Soft. No: Distention, Tenderness Extremities: Yes: WNL Edema: No Labs: CBC, BMP 06/24/17 06:00 06/24/17 06:00 INR, PTT INR 1.95 (0.82-1.09) H 06/23/17 07:55 Fibrinogen 239.0 mg/dL (238-498) 06/23/17 07:55 Problem List - Problems (1) UTI (urinary tract infection) Code(s): N39.0 - URINARY TRACT INFECTION, SITE NOT SPECIFIED Qualifiers: Urinary tract infection type: acute cystitis Hematuria presence: without hematuria Qualified Code(s): N30.00 - Acute cystitis without hematuria (2) Severe sepsis Code(s): A41.9 - SEPSIS, UNSPECIFIED ORGANISM; R65.20 - SEVERE SEPSIS WITHOUT SEPTIC SHOCK (3) MONAE (acute kidney injury) Code(s): N17.9 - ACUTE KIDNEY FAILURE, UNSPECIFIED (4) Afib Code(s): I48.91 - UNSPECIFIED ATRIAL FIBRILLATION Qualifiers: Atrial fibrillation type: paroxysmal Qualified Code(s): I48.0 - Paroxysmal atrial fibrillation (5) Renal cell carcinoma Code(s): C64.9 - MALIGNANT NEOPLASM OF UNSP KIDNEY, EXCEPT RENAL PELVIS Qualifiers: Laterality: right Qualified Code(s): C64.1 - Malignant neoplasm of right kidney, except renal pelvis (6) T2DM (type 2 diabetes mellitus) Code(s): E11.9 - TYPE 2 DIABETES MELLITUS WITHOUT COMPLICATIONS (7) HTN (hypertension) Code(s): I10 - ESSENTIAL (PRIMARY) HYPERTENSION Qualifiers: Hypertension type: essential hypertension Qualified Code(s): I10 - Essential (primary) hypertension (8) Obesity Code(s): E66.9 - OBESITY, UNSPECIFIED (9) Spinal cord compression Code(s): G95.20 - UNSPECIFIED CORD COMPRESSION Assessment/Plan (1) UTI (urinary tract infection) Assessment/Plan: -continue zosyn per Dr Barber -patient looking much better Code(s): N39.0 - URINARY TRACT INFECTION, SITE NOT SPECIFIED Qualifiers: Urinary tract infection type: acute cystitis Hematuria presence: without hematuria Qualified Code(s): N30.00 - Acute cystitis without hematuria (2) Severe sepsis Assessment/Plan: -appears resolved -suspect lactic acid is secondary to patient's chemotherapy -lactic acid improving Code(s): A41.9 - SEPSIS, UNSPECIFIED ORGANISM; R65.20 - SEVERE SEPSIS WITHOUT SEPTIC SHOCK (3) MONAE (acute kidney injury) Assessment/Plan: -resolved with hydration and treatment of sepsis Code(s): N17.9 - ACUTE KIDNEY FAILURE, UNSPECIFIED (4) Afib Assessment/Plan: -controlled -continue xarelto and toprol xl Code(s): I48.91 - UNSPECIFIED ATRIAL FIBRILLATION Qualifiers: Atrial fibrillation type: paroxysmal Qualified Code(s): I48.0 - Paroxysmal atrial fibrillation (5) Renal cell carcinoma Assessment/Plan: -metastatic -case d/w Dr Maldonado -patient was taking votrient incorrectly and taking twice the prescribed dose Code(s): C64.9 - MALIGNANT NEOPLASM OF UNSP KIDNEY, EXCEPT RENAL PELVIS Qualifiers: Laterality: right Qualified Code(s): C64.1 - Malignant neoplasm of right kidney, except renal pelvis (6) T2DM (type 2 diabetes mellitus) Assessment/Plan: -monitor on bmp Code(s): E11.9 - TYPE 2 DIABETES MELLITUS WITHOUT COMPLICATIONS (7) HTN (hypertension) Assessment/Plan: -continue toprol xl Code(s): I10 - ESSENTIAL (PRIMARY) HYPERTENSION Qualifiers: Hypertension type: essential hypertension Qualified Code(s): I10 - Essential (primary) hypertension (8) Obesity Assessment/Plan: -counselled Code(s): E66.9 - OBESITY, UNSPECIFIED (9) Spinal cord compression Assessment/Plan: -continue decadron -oncology following Code(s): G95.20 - UNSPECIFIED CORD COMPRESSION (10) Elevated LFTs -secondary to chemotherapy -abdominal ultrasound reviewed -case d/w oncology -improving (11) Thrombocytopenia -secondary to sepsis -improving (12) Lactic acidosis -votrient can cause lactic acidosis -patient was taking 2X the prescribed dose -secondary to votrient, improving (13) Weakness -appreciate neurology assistance -researched votrient, causes weakness in patients Dispo -will benefit from SNF placement when ready for discharge
--- NOTE | 2017-06-24 13:21 | PN ---
Progress Note, Physician History of Present Illness: patient stable weak feeling better lactic acid continues to be higher - Current Medication List Current Medications: Active Medications Dexamethasone (Decadron -) 4 mg PO BID [facility] Last Admin: 06/24/17 10:09 Dose: 4 mg Docusate Sodium (Colace -) 100 mg PO TID [facility] Last Admin: 06/24/17 06:18 Dose: 100 mg Piperacillin Sod/Tazobactam (Sod 3.375 gm/ Dextrose) 100 mls @ 200 mls/hr IVPB Q8H-IV [facility] Last Admin: 06/24/17 10:09 Dose: 200 mls/hr Sodium Chloride (1/2 Normal Saline) 1,000 mls @ 42 mls/hr IV ASDIR [facility] Last Admin: 06/24/17 02:29 Dose: 42 mls/hr Metoprolol Succinate (Toprol Xl -) 25 mg PO DAILY [facility] Last Admin: 06/24/17 10:09 Dose: 25 mg Pantoprazole Sodium (Protonix -) 40 mg PO DAILY [facility] Last Admin: 06/24/17 10:09 Dose: 40 mg Polyethylene Glycol (Miralax (For Daily Use) -) 17 gm PO BID [facility] Last Admin: 06/24/17 10:09 Dose: Not Given Rivaroxaban (Xarelto -) 20 mg PO DAILY@1800 [facility] Last Admin: 06/23/17 18:09 Dose: 20 mg - Objective Vital Signs: Vital Signs Temperature 98.6 F 06/24/17 06:00 Pulse Rate 61 06/24/17 06:00 Respiratory Rate 18 06/24/17 06:00 Blood Pressure 115/61 06/24/17 06:00 O2 Sat by Pulse Oximetry (%) 98 06/23/17 21:00 Constitutional: Yes: No Distress, Calm Cardiovascular: Yes: Regular Rate and Rhythm Respiratory: Yes: Regular, CTA Bilaterally Gastrointestinal: Yes: Normal Bowel Sounds, Soft Musculoskeletal: Yes: WNL Extremities: Yes: WNL Neurological: Yes: Alert, Oriented Psychiatric: Yes: Alert, Oriented Labs: CBC, BMP 06/24/17 06:00 06/24/17 06:00 INR, PTT INR 1.95 (0.82-1.09) H 06/23/17 07:55 Fibrinogen 239.0 mg/dL (238-498) 06/23/17 07:55 Assessment/Plan Problem List - Problems (1) Severe sepsis Code(s): A41.9 - SEPSIS, UNSPECIFIED ORGANISM; R65.20 - SEVERE SEPSIS WITHOUT SEPTIC SHOCK (2) Renal cell carcinoma Code(s): C64.9 - MALIGNANT NEOPLASM OF UNSP KIDNEY, EXCEPT RENAL PELVIS Qualifiers: Laterality: right Qualified Code(s): C64.1 - Malignant neoplasm of right kidney, except renal pelvis (3) T2DM (type 2 diabetes mellitus) Code(s): E11.9 - TYPE 2 DIABETES MELLITUS WITHOUT COMPLICATIONS (4) Atrial flutter Code(s): I48.92 - UNSPECIFIED ATRIAL FLUTTER Qualifiers: Atrial flutter type: atypical Qualified Code(s): I48.4 - Atypical atrial flutter (5) HTN (hypertension) Code(s): I10 - ESSENTIAL (PRIMARY) HYPERTENSION Qualifiers: Hypertension type: essential hypertension Qualified Code(s): I10 - Essential (primary) hypertension (6) Hyperbilirubinemia Code(s): E80.6 - OTHER DISORDERS OF BILIRUBIN METABOLISM (7) S/p nephrectomy Code(s): Z90.5 - ACQUIRED ABSENCE OF KIDNEY (8) Spinal cord compression Code(s): G95.20 - UNSPECIFIED CORD COMPRESSION plan will switch to oral tomorrow lactic acid still high continue current mgmt rest as per primary
[2017-06-24] MEDS ORDERED: VOTRIENT 200 MG PO SCH (15:00)
--- NOTE | 2017-06-24 15:47 | PN ---
Progress Note, Physician History of Present Illness: Pt seen and examined at bedside. He is awake and alert. He denies shortness of breath. - Current Medication List Current Medications: Active Medications Dexamethasone (Decadron -) 4 mg PO BID [facility] Last Admin: 06/24/17 10:09 Dose: 4 mg Docusate Sodium (Colace -) 100 mg PO TID [facility] Last Admin: 06/24/17 14:39 Dose: Not Given Piperacillin Sod/Tazobactam (Sod 3.375 gm/ Dextrose) 100 mls @ 200 mls/hr IVPB Q8H-IV [facility] Last Admin: 06/24/17 10:09 Dose: 200 mls/hr Sodium Chloride (1/2 Normal Saline) 1,000 mls @ 42 mls/hr IV ASDIR [facility] Last Admin: 06/24/17 14:39 Dose: Not Given Metoprolol Succinate (Toprol Xl -) 25 mg PO DAILY [facility] Last Admin: 06/24/17 10:09 Dose: 25 mg Pantoprazole Sodium (Protonix -) 40 mg PO DAILY [facility] Last Admin: 06/24/17 10:09 Dose: 40 mg Polyethylene Glycol (Miralax (For Daily Use) -) 17 gm PO BID [facility] Last Admin: 06/24/17 10:09 Dose: Not Given Rivaroxaban (Xarelto -) 20 mg PO DAILY@1800 [facility] Last Admin: 06/23/17 18:09 Dose: 20 mg - Objective Vital Signs: Vital Signs Temperature 98.2 F 06/24/17 15:31 Pulse Rate 65 06/24/17 15:31 Respiratory Rate 18 06/24/17 15:31 Blood Pressure 110/62 06/24/17 15:31 O2 Sat by Pulse Oximetry (%) 98 06/23/17 21:00 Constitutional: Yes: Calm Eyes: Yes: Conjunctiva Clear HENT: Yes: Atraumatic Neck: Yes: Supple Cardiovascular: Yes: S1, S2 Respiratory: Yes: CTA Bilaterally Gastrointestinal: Yes: Soft Genitourinary: Yes: WNL Musculoskeletal: Yes: WNL Edema: Yes Edema: LLE: Trace, RLE: Trace Neurological: Yes: Oriented Psychiatric: Yes: Oriented Labs: CBC, BMP 06/24/17 06:00 06/24/17 06:00 INR, PTT INR 1.95 (0.82-1.09) H 06/23/17 07:55 Fibrinogen 239.0 mg/dL (238-498) 06/23/17 07:55 Problem List - Problems (1) MONAE (acute kidney injury) Code(s): N17.9 - ACUTE KIDNEY FAILURE, UNSPECIFIED (2) Lactic acidosis Code(s): E87.2 - ACIDOSIS (3) Renal cell carcinoma Code(s): C64.9 - MALIGNANT NEOPLASM OF UNSP KIDNEY, EXCEPT RENAL PELVIS Qualifiers: Qualified Code(s): C64.1 - Malignant neoplasm of right kidney, except renal pelvis (4) T2DM (type 2 diabetes mellitus) Code(s): E11.9 - TYPE 2 DIABETES MELLITUS WITHOUT COMPLICATIONS (5) Diabetes Code(s): E11.9 - TYPE 2 DIABETES MELLITUS WITHOUT COMPLICATIONS (6) HTN (hypertension) Code(s): I10 - ESSENTIAL (PRIMARY) HYPERTENSION Qualifiers: Qualified Code(s): I10 - Essential (primary) hypertension (7) S/p nephrectomy Code(s): Z90.5 - ACQUIRED ABSENCE OF KIDNEY Assessment/Plan Current Medications Generic Name Dose Route Start Last Admin Trade Name Freq PRN Reason Stop Dose Admin Dexamethasone 4 mg 06/20/17 22:00 06/24/17 10:09 Decadron - PO 4 mg BID SUSAN Administration Docusate Sodium 100 mg 06/20/17 22:00 06/24/17 14:39 Colace - PO Not Given TID SUSAN Piperacillin Sod/Tazobactam 100 mls @ 200 mls/hr 06/20/17 18:00 06/24/17 10: 09 Sod 3.375 gm/ Dextrose IVPB 200 mls/hr Q8H-IV SUSAN Administration Sodium Chloride 1,000 mls @ 42 mls/hr 06/23/17 13:29 06/24/17 14:39 1/2 Normal Saline IV Not Given ASDIR SUSAN Metoprolol Succinate 25 mg 06/21/17 10:00 06/24/17 10:09 Toprol Xl - PO 25 mg DAILY SUSAN Administration Pantoprazole Sodium 40 mg 06/21/17 10:00 06/24/17 10:09 Protonix - PO 40 mg DAILY SUSAN Administration Polyethylene Glycol 17 gm 06/20/17 22:00 06/24/17 10:09 Miralax (For Daily Use) - PO Not Given BID SUSAN Rivaroxaban 20 mg 06/20/17 18:00 06/23/17 18:09 Xarelto - PO 20 mg DAILY@1800 SUSAN Administration Impression 1. MONAE 2. lactic acidosis improved 3. renal cancer 4. DM 5. a-fib 6. UTI 7. hypokalemia Plan - will replace phos - repeat labs in am - monitor lactic acid - oncology follow up - would not restart metformin - likely monae from pre-renal disease - will follow Dr Langford
[2017-06-24] MEDS ORDERED: POTASSIUM CHLORIDE TABS 20 MEQ TABLET.ER (FP) PO ONE (16:00)
--- NOTE | 2017-06-24 16:02 | EKG ---
Test Reason : Blood Pressure : / mmHG Vent. Rate : 069 BPM Atrial Rate : 312 BPM P-R Int : 000 ms QRS Dur : 080 ms QT Int : 442 ms P-R-T Axes : 065 -08 -52 degrees QTc Int : 473 ms ATRIAL FLUTTER WITH VARIABLE A-V BLOCK LEFT VENTRICULAR HYPERTROPHY WITH REPOLARIZATION ABNORMALITY ABNORMAL ECG WHEN COMPARED WITH ECG OF 19-JUN-2017 19:55, CRITERIA FOR INFERIOR INFARCT ARE NO LONGER PRESENT ST NOW DEPRESSED IN INFERIOR LEADS T WAVE INVERSION NOW EVIDENT IN INFERIOR LEADS Confirmed by ALICIA VILLEGAS MD ([id number]) on 06/24/2017 4:02:04 PM Referred By: VICKY SALES Confirmed By:ALICIA VILLEGAS MD
[2017-06-24] MEDS: RIVAROXABAN 20 MG TABLET PO SCH (17:45)
[2017-06-24] MEDS: NAPH,MB-DB/K PH,MBDB POWDER PACKET PO SCH (21:15)
[2017-06-25] MEDS: PIPERACILLIN/TAZOB 3.375 GM 3.375 GM in DEXTROSE 5%-WATER - 100 ML IVPB SCH ×2 (01:20→10:57)
[2017-06-25] MEDS: DOCUSATE SODIUM 100 MG CAPSULE (FP) PO SCH ×3 (06:10→21:22)
[2017-06-25 06:53] LABS: BASO % 0.3 % (0-2.0); EOS % 0.2 % (0-4.5); HEMATOCRIT 35.8 % (35.4-49); HEMOGLOBIN 12.3 GM/dL (11.7-16.9); LYMPH % 5.6 % (8-40); MCH 31.8 pg (25.7-33.7); MCHC 34.4 g/dl (32.0-35.9); MEAN CELL VOLUME 92.4 fl (80-96); MEAN PLT VOLUME 8.5 fl (7.5-11.1); MONO % 5.7 % (3.8-10.2); NEUT % 88.2 % (42.8-82.8); PLATELET COUNT 86 K/MM3 (134-434); RBC 3.87 M/mm3 (4.00-5.60); RDW 19.7 % (11.9-15.9); WHITE BLOOD COUNT 9.4 K/mm3 (4.0-10.0)
[2017-06-25 07:20] LABS: INR 1.96 (0.82-1.09); PROTHROMBIN TIME (PATIENT) 22.1 SEC (9.98-11.88)
[2017-06-25 07:41] LABS: ALBUMIN 2.6 g/dl (3.4-5.0); ANION GAP 11 (8-16); BILIRUBIN,DIRECT 0.3 mg/dL (0.0-0.2); BLOOD UREA NITROGEN 25 mg/dL (7-18); CALCIUM 7.6 mg/dL (8.5-10.1); CHLORIDE 99 mmol/L (98-107); CO2 25 mmol/L (21-32); CREATININE 0.9 mg/dL (0.7-1.3); GLUCOSE,RANDOM 281 mg/dL (74-106); MAGNESIUM 2.3 mg/dL (1.8-2.4); PHOSPHOROUS 2.2 mg/dL (2.5-4.9); POTASSIUM 3.8 mmol/L (3.5-5.1); SGOT/AST 57 U/L (15-37); SGPT/ALT 72 U/L (12-78); SODIUM 135 mmol/L (136-145); TOT PROT 5.1 g/dl (6.4-8.2)
[2017-06-25 07:42] LABS: ALK PHOS 85 U/L (45-117)
--- NOTE | 2017-06-25 09:51 | PN ---
Progress Note (short form) - Note Progress Note: Neurology History of Present Illness 77-year-old male presented to the emergency room for evaluation of increasing fatigue, weakness, shortness of breath, and mild nausea for the past few weeks after beginning his chemotherapy regimen for spinal cancer. 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 He had been admitted 05/29- for worsening lower extremity weakness secondary to spinal cord compression. Decision was made not to pursue surgery, was put on dexamethasone, and tried pazopanib. Patient presented to the ED today with progressive SOB, weakness, fatigue, and poor appetite since starting pazopanib. I was consulted regarding his ongoing weakness which seems to have deteroriated. He is not ambulating at this time and asking for wheelchair. Question of if this is related to his already spinal disease or if could be steroid induced, EMG to be completed this AM which will hopefully clarify. In terms of further mgmt, may benefit from short term rehab especially with his fall risk. Active Medications Dexamethasone (Decadron -) 4 mg PO BID [facility] Last Admin: 06/24/17 21:15 Dose: 4 mg Docusate Sodium (Colace -) 100 mg PO TID [facility] Last Admin: 06/25/17 06:10 Dose: 100 mg Piperacillin Sod/Tazobactam (Sod 3.375 gm/ Dextrose) 100 mls @ 200 mls/hr IVPB Q8H-IV [facility] Last Admin: 06/25/17 01:20 Dose: 200 mls/hr Sodium Chloride (1/2 Normal Saline) 1,000 mls @ 42 mls/hr IV ASDIR [facility] Last Admin: 06/24/17 14:39 Dose: Not Given Metoprolol Succinate (Toprol Xl -) 25 mg PO DAILY [facility] Last Admin: 06/24/17 10:09 Dose: 25 mg Pantoprazole Sodium (Protonix -) 40 mg PO DAILY [facility] Last Admin: 06/24/17 10:09 Dose: 40 mg Polyethylene Glycol (Miralax (For Daily Use) -) 17 gm PO BID [facility] Last Admin: 06/24/17 21:15 Dose: Not Given Potassium Phos/Sodium Phos (Phos-Nak Packet -) 1 packet PO BID [facility] Last Admin: 06/24/17 21:15 Dose: 1 packet Rivaroxaban (Xarelto -) 20 mg PO DAILY@1800 [facility] Last Admin: 06/24/17 17:45 Dose: 20 mg *Physical Exam Vital Signs Period Temp Pulse Resp BP Sys/Amador Pulse Ox Last 24 Hr 97.4 F-98.6 F 52-78 18-20 110-123/50-67 97-98 - Physical Exam General Appearance: Yes: Nourished, Appropriately Dressed. No: Apparent Distress HEENT: positive: EOMI, FREDA. negative: Pale Conjunctivae Neck: positive: Supple Respiratory/Chest: positive: Lungs Clear, Normal Breath Sounds. negative: Respiratory Distress, Accessory Muscle Use Cardiovascular: positive: Regular Rate (a flutter 82). negative: Murmur Gastrointestinal/Abdominal: positive: Normal Bowel Sounds, Soft, Distended ( slight). negative: Tenderness, Mass Extremity: positive: Normal Capillary Refill, Pedal Edema Integumentary: positive: Dry, Warm, Pale Neurologic: Awake and alert, interative, mental status intact, sensory intact, gait not able to ambulate CBCD WBC 9.4 K/mm3 (4.0-10.0) 06/25/17 05:40 RBC 3.87 M/mm3 (4.00-5.60) L 06/25/17 05:40 Hgb 12.3 GM/dL (11.7-16.9) 06/25/17 05:40 Hct 35.8 % (35.4-49) 06/25/17 05:40 MCV 92.4 fl (80-96) 06/25/17 05:40 MCHC 34.4 g/dl (32.0-35.9) 06/25/17 05:40 RDW 19.7 % (11.9-15.9) H 06/25/17 05:40 Plt Count 86 K/MM3 (134-434) L 06/25/17 05:40 MPV 8.5 fl (7.5-11.1) 06/25/17 05:40 CMP Sodium 135 mmol/L (136-145) L 06/25/17 05:40 Potassium 3.8 mmol/L (3.5-5.1) 06/25/17 05:40 Chloride 99 mmol/L (98-107) 06/25/17 05:40 Carbon Dioxide 25 mmol/L (21-32) 06/25/17 05:40 Anion Gap 11 (8-16) 06/25/17 05:40 BUN 25 mg/dL (7-18) H 06/25/17 05:40 Creatinine 0.9 mg/dL (0.7-1.3) 06/25/17 05:40 Creat Clearance w eGFR > 60 (>60) 06/23/17 07:55 Calcium 7.6 mg/dL (8.5-10.1) L 06/25/17 05:40 Total Bilirubin 1.0 mg/dL (0.2-1.0) 06/25/17 05:40 AST 57 U/L (15-37) H 06/25/17 05:40 ALT 72 U/L (12-78) 06/25/17 05:40 Alkaline Phosphatase 85 U/L (45-117) 06/25/17 05:40 Total Protein 5.1 g/dl (6.4-8.2) L 06/25/17 05:40 Albumin 2.6 g/dl (3.4-5.0) L 06/25/17 05:40 - RADIOLOGY Echo reviewed Medical Decision Making 77-year-old male presents to the emergency room for evaluation of increasing fatigue, weakness, shortness of breath, and mild nausea for the past few weeks after beginning his chemotherapy regimen for spinal cancer. 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 He had been admitted 05/29- for worsening lower extremity weakness secondary to spinal cord compression. Decision was made not to pursue surgery, was put on dexamethasone, and tried pazopanib. Patient presented to the ED today with progressive SOB, weakness, fatigue, and poor appetite since starting pazopanib. I was consulted regarding his ongoing weakness which seems to have deteroriated. He is not ambulating at this time and asking for wheelchair. Question of if this is related to his already spinal disease or if could be steroid induced, discussed with him having an EMG to evaluate and he was in agreement. In the meantime, spoke to nurse about having wheelchair but also may benefit from short term rehab. EMG ordered, to be completed today IF steroid induced, may have to come down on decadron On AC Xarelto, strict fall precautions On IV abx for sepsis, UTI Follow up ID rec'd Physcial therapy, consider short term rehab if qualifies
--- NOTE | 2017-06-25 09:54 | PN ---
Progress Note (short form) - Note Progress Note: pt seen and examined. feels better. Last Vital Signs Temp Pulse Resp BP Pulse Ox 97.7 F 52 L 20 123/56 97 06/25/17 05:37 06/25/17 05:37 06/25/17 05:37 06/25/17 05:37 06/24/17 21:00 CBC, BMP 06/25/17 05:40 06/25/17 05:40 Current Medications Generic Name Dose Route Start Last Admin Trade Name Yari PRN Reason Stop Dose Admin Dexamethasone 4 mg 06/20/17 22:00 06/24/17 21:15 Decadron - PO 4 mg BID [facility] Administration Docusate Sodium 100 mg 06/20/17 22:00 06/25/17 06:10 Colace - PO 100 mg TID [facility] Administration Piperacillin Sod/Tazobactam 100 mls @ 200 mls/hr 06/20/17 18:00 06/25/17 01: 20 Sod 3.375 gm/ Dextrose IVPB 200 mls/hr Q8H-IV [facility] Administration Sodium Chloride 1,000 mls @ 42 mls/hr 06/23/17 13:29 06/24/17 14:39 1/2 Normal Saline IV Not Given ASDIR [facility] Metoprolol Succinate 25 mg 06/21/17 10:00 06/24/17 10:09 Toprol Xl - PO 25 mg DAILY [facility] Administration Pantoprazole Sodium 40 mg 06/21/17 10:00 06/24/17 10:09 Protonix - PO 40 mg DAILY [facility] Administration Polyethylene Glycol 17 gm 06/20/17 22:00 06/24/17 21:15 Miralax (For Daily Use) - PO Not Given BID [facility] Potassium Phos/Sodium Phos 1 packet 06/24/17 22:00 06/24/17 21:15 Phos-Nak Packet - PO 1 packet BID [facility] Administration Rivaroxaban 20 mg 06/20/17 18:00 06/24/17 17:45 Xarelto - PO 20 mg DAILY@1800 [facility] Administration O/E: General:NAD, HEENT :NCAT Cardiac: RRR Lungs: CTA b/l Neuro: AAOx3 LE: +bruises, better than before, no LE swelling A/P: mRCC cord compression s/p RT severe sepsis due to UTI coagulopathy due sepsis thrombocytopenia due to sepsis Elevated LFTs/Bili due to Votrient/sepsis, now much improved. EMG Neuro re-start Votrient at the same dose. steroids rehab/PT
[2017-06-25] MEDS ORDERED: VOTRIENT 200 MG PO SCH (10:00)
--- NOTE | 2017-06-25 10:33 | PN ---
Progress Note, Physician Chief Complaint: Mr Murcia continues to improve. Says his weakness is better but still present. No cp, sob, n/v. - Current Medication List Current Medications: Active Medications Dexamethasone (Decadron -) 4 mg PO BID [facility] Last Admin: 06/24/17 21:15 Dose: 4 mg Docusate Sodium (Colace -) 100 mg PO TID [facility] Last Admin: 06/25/17 06:10 Dose: 100 mg Piperacillin Sod/Tazobactam (Sod 3.375 gm/ Dextrose) 100 mls @ 200 mls/hr IVPB Q8H-IV [facility] Last Admin: 06/25/17 01:20 Dose: 200 mls/hr Sodium Chloride (1/2 Normal Saline) 1,000 mls @ 42 mls/hr IV ASDIR [facility] Last Admin: 06/24/17 14:39 Dose: Not Given Metoprolol Succinate (Toprol Xl -) 25 mg PO DAILY [facility] Last Admin: 06/24/17 10:09 Dose: 25 mg Pantoprazole Sodium (Protonix -) 40 mg PO DAILY [facility] Last Admin: 06/24/17 10:09 Dose: 40 mg Phytonadione (Aqua Mephyton Injection -) 5 mg SQ ONCE ONE Stop: 06/25/17 10:36 Polyethylene Glycol (Miralax (For Daily Use) -) 17 gm PO BID [facility] Last Admin: 06/24/17 21:15 Dose: Not Given Potassium Phos/Sodium Phos (Phos-Nak Packet -) 1 packet PO BID [facility] Last Admin: 06/24/17 21:15 Dose: 1 packet Rivaroxaban (Xarelto -) 20 mg PO DAILY@1800 [facility] Last Admin: 06/24/17 17:45 Dose: 20 mg - Objective Vital Signs: Vital Signs Temperature 36.5 C 06/25/17 05:37 Pulse Rate 52 L 06/25/17 05:37 Respiratory Rate 20 06/25/17 05:37 Blood Pressure 123/56 06/25/17 05:37 O2 Sat by Pulse Oximetry (%) 97 06/24/17 21:00 Constitutional: Yes: No Distress, Calm, Obese Cardiovascular: Yes: Regular Rate and Rhythm. No: Gallop, Murmur, Rub Respiratory: Yes: Regular, CTA Bilaterally. No: Rales, Rhonchi, Wheezes Gastrointestinal: Yes: Normal Bowel Sounds, Soft. No: Distention, Tenderness Extremities: Yes: WNL Edema: No Labs: CBC, BMP 06/25/17 05:40 06/25/17 05:40 INR, PTT INR 1.96 (0.82-1.09) H 06/25/17 05:40 Fibrinogen 239.0 mg/dL (238-498) 06/23/17 07:55 Problem List - Problems (1) UTI (urinary tract infection) Code(s): N39.0 - URINARY TRACT INFECTION, SITE NOT SPECIFIED Qualifiers: Urinary tract infection type: acute cystitis Hematuria presence: without hematuria Qualified Code(s): N30.00 - Acute cystitis without hematuria (2) Severe sepsis Code(s): A41.9 - SEPSIS, UNSPECIFIED ORGANISM; R65.20 - SEVERE SEPSIS WITHOUT SEPTIC SHOCK (3) MONAE (acute kidney injury) Code(s): N17.9 - ACUTE KIDNEY FAILURE, UNSPECIFIED (4) Afib Code(s): I48.91 - UNSPECIFIED ATRIAL FIBRILLATION Qualifiers: Atrial fibrillation type: paroxysmal Qualified Code(s): I48.0 - Paroxysmal atrial fibrillation (5) Renal cell carcinoma Code(s): C64.9 - MALIGNANT NEOPLASM OF UNSP KIDNEY, EXCEPT RENAL PELVIS Qualifiers: Laterality: right Qualified Code(s): C64.1 - Malignant neoplasm of right kidney, except renal pelvis (6) T2DM (type 2 diabetes mellitus) Code(s): E11.9 - TYPE 2 DIABETES MELLITUS WITHOUT COMPLICATIONS (7) HTN (hypertension) Code(s): I10 - ESSENTIAL (PRIMARY) HYPERTENSION Qualifiers: Hypertension type: essential hypertension Qualified Code(s): I10 - Essential (primary) hypertension (8) Obesity Code(s): E66.9 - OBESITY, UNSPECIFIED (9) Spinal cord compression Code(s): G95.20 - UNSPECIFIED CORD COMPRESSION Assessment/Plan (1) UTI (urinary tract infection) Assessment/Plan: -patient much improved -changed to augmentin per Dr Barber Code(s): N39.0 - URINARY TRACT INFECTION, SITE NOT SPECIFIED Qualifiers: Urinary tract infection type: acute cystitis Hematuria presence: without hematuria Qualified Code(s): N30.00 - Acute cystitis without hematuria (2) Severe sepsis Assessment/Plan: -appears resolved -suspect lactic acid is secondary to patient's chemotherapy -lactic acid elevated Code(s): A41.9 - SEPSIS, UNSPECIFIED ORGANISM; R65.20 - SEVERE SEPSIS WITHOUT SEPTIC SHOCK (3) MONAE (acute kidney injury) Assessment/Plan: -resolved with hydration and treatment of sepsis Code(s): N17.9 - ACUTE KIDNEY FAILURE, UNSPECIFIED (4) Afib Assessment/Plan: -controlled -continue xarelto and toprol xl Code(s): I48.91 - UNSPECIFIED ATRIAL FIBRILLATION Qualifiers: Atrial fibrillation type: paroxysmal Qualified Code(s): I48.0 - Paroxysmal atrial fibrillation (5) Renal cell carcinoma Assessment/Plan: -metastatic -planning to restart votrient today Code(s): C64.9 - MALIGNANT NEOPLASM OF UNSP KIDNEY, EXCEPT RENAL PELVIS Qualifiers: Laterality: right Qualified Code(s): C64.1 - Malignant neoplasm of right kidney, except renal pelvis (6) T2DM (type 2 diabetes mellitus) Assessment/Plan: -monitor on bmp Code(s): E11.9 - TYPE 2 DIABETES MELLITUS WITHOUT COMPLICATIONS (7) HTN (hypertension) Assessment/Plan: -continue toprol xl Code(s): I10 - ESSENTIAL (PRIMARY) HYPERTENSION Qualifiers: Hypertension type: essential hypertension Qualified Code(s): I10 - Essential (primary) hypertension (8) Obesity Assessment/Plan: -counselled Code(s): E66.9 - OBESITY, UNSPECIFIED (9) Spinal cord compression Assessment/Plan: -continue decadron -oncology following Code(s): G95.20 - UNSPECIFIED CORD COMPRESSION (10) Elevated LFTs -resolved -monitor on votrient (11) Thrombocytopenia -secondary to sepsis -improving (12) Lactic acidosis -monitor, not yet normalized (13) Weakness -appreciate neurology assistance -researched votrient, causes weakness in patients Dispo -will benefit from SNF placement when ready for discharge
[2017-06-25] MEDS ORDERED: PHYTONADIONE 10 MG/1 ML AMP SQ ONE (10:35)
[2017-06-25] MEDS: DEXAMETHASONE 4 MG TABLET (FP) PO SCH ×2 (10:52→21:20)
[2017-06-25] MEDS: POLYETHYLENE GLYCOL 3350 119 GM BTL PO SCH ×2 (10:53→21:21)
[2017-06-25] MEDS: METOPROLOL SUCCINATE 25 MG TAB.SR.24H (FP) PO SCH (10:53)
[2017-06-25] MEDS: PANTOPRAZOLE 40 MG TABLET (FP) PO SCH (10:53)
[2017-06-25] MEDS: NAPH,MB-DB/K PH,MBDB POWDER PACKET PO SCH ×2 (10:53→21:20)
[2017-06-25] MEDS ORDERED: PT OWN MED DRAWER 7, Y5N ONE ×3 (10:56→18:13)
--- NOTE | 2017-06-25 11:51 | PN ---
Progress Note, Physician History of Present Illness: stable - Current Medication List Current Medications: Active Medications Dexamethasone (Decadron -) 4 mg PO BID [facility] Last Admin: 06/25/17 10:52 Dose: 4 mg Docusate Sodium (Colace -) 100 mg PO TID [facility] Last Admin: 06/25/17 06:10 Dose: 100 mg Piperacillin Sod/Tazobactam (Sod 3.375 gm/ Dextrose) 100 mls @ 200 mls/hr IVPB Q8H-IV [facility] Last Admin: 06/25/17 10:57 Dose: 200 mls/hr Sodium Chloride (1/2 Normal Saline) 1,000 mls @ 42 mls/hr IV ASDIR [facility] Last Admin: 06/24/17 14:39 Dose: Not Given Metoprolol Succinate (Toprol Xl -) 25 mg PO DAILY [facility] Last Admin: 06/25/17 10:53 Dose: 25 mg Pantoprazole Sodium (Protonix -) 40 mg PO DAILY [facility] Last Admin: 06/25/17 10:53 Dose: 40 mg Polyethylene Glycol (Miralax (For Daily Use) -) 17 gm PO BID [facility] Last Admin: 06/25/17 10:53 Dose: Not Given Potassium Phos/Sodium Phos (Phos-Nak Packet -) 1 packet PO BID [facility] Last Admin: 06/25/17 10:53 Dose: 1 packet Rivaroxaban (Xarelto -) 20 mg PO DAILY@1800 [facility] Last Admin: 06/24/17 17:45 Dose: 20 mg - Objective Vital Signs: Vital Signs Temperature 97.7 F 06/25/17 05:37 Pulse Rate 52 L 06/25/17 05:37 Respiratory Rate 20 06/25/17 05:37 Blood Pressure 123/56 06/25/17 05:37 O2 Sat by Pulse Oximetry (%) 97 06/24/17 21:00 Constitutional: Yes: No Distress, Calm Cardiovascular: Yes: Regular Rate and Rhythm Respiratory: Yes: Regular, CTA Bilaterally Gastrointestinal: Yes: Normal Bowel Sounds, Soft Musculoskeletal: Yes: WNL Extremities: Yes: WNL Labs: CBC, BMP 06/25/17 05:40 06/25/17 05:40 INR, PTT INR 1.96 (0.82-1.09) H 06/25/17 05:40 Fibrinogen 239.0 mg/dL (238-498) 06/23/17 07:55 Assessment/Plan Problem List - Problems (1) Severe sepsis Code(s): A41.9 - SEPSIS, UNSPECIFIED ORGANISM; R65.20 - SEVERE SEPSIS WITHOUT SEPTIC SHOCK (2) Renal cell carcinoma Code(s): C64.9 - MALIGNANT NEOPLASM OF UNSP KIDNEY, EXCEPT RENAL PELVIS Qualifiers: Laterality: right Qualified Code(s): C64.1 - Malignant neoplasm of right kidney, except renal pelvis (3) T2DM (type 2 diabetes mellitus) Code(s): E11.9 - TYPE 2 DIABETES MELLITUS WITHOUT COMPLICATIONS (4) Atrial flutter Code(s): I48.92 - UNSPECIFIED ATRIAL FLUTTER Qualifiers: Atrial flutter type: atypical Qualified Code(s): I48.4 - Atypical atrial flutter (5) HTN (hypertension) Code(s): I10 - ESSENTIAL (PRIMARY) HYPERTENSION Qualifiers: Hypertension type: essential hypertension Qualified Code(s): I10 - Essential (primary) hypertension (6) Hyperbilirubinemia Code(s): E80.6 - OTHER DISORDERS OF BILIRUBIN METABOLISM (7) S/p nephrectomy Code(s): Z90.5 - ACQUIRED ABSENCE OF KIDNEY (8) Spinal cord compression Code(s): G95.20 - UNSPECIFIED CORD COMPRESSION lactic acidosis plan continue oral abx lactic acid
--- NOTE | 2017-06-25 12:18 | CONS ---
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 Patient was started on steroids and chemotherapy, but no surgical intervention. Patient is not in a brace. He underwent further CT of the chest and also had a prior MRI which again showed T3-T4 bone destruction with soft tissue mass displacing the thoracic cord, moderate compression also extending down to T4-T5. Patient also has metastatic lesions throughout the thoracic and lumbar spine, left iliac bone. Patient developed increasing weakness and was presented back to [facility]. After recent hospitalization, he has gone home. He struggled with his mobility and was evaluated by Neurology, referred for electrodiagnostic evaluation to rule out myopathy. Last blood work on June 25 showed normalization of WBCs, which had been elevated to 9.4, hemoglobin 12.3, platelet count 86,000 low. He also was having a lot of breathing issues. Last chemistry showed BUN 25, creatinine 0.9, decreased total protein 5.1, albumin 2.6. Patient is on Xarelto in addition to other medications. He was able to stand and ambulate with moderate assist of 2 using a walker with mainly difficulty getting up and some improvement today over prior attempts at ambulation, perhaps going 20 feet. Patient complains of numbness distal to the knees in both lower extremities. No numbness or tingling in the upper extremities. Diffuse weakness, but more in the lower extremities. REVIEW OF PAST MEDICAL AND SURGICAL HISTORY: Renal carcinoma with spinal metastases, bony metastases, hypertension, hyperlipidemia, atrial fibrillation on Xarelto, [id number] diabetes. Other surgical history included a right nephrectomy, knee surgery. SOCIAL HISTORY: Patient lives with his . He has apparently some stairs and may have fallen on the stairs. He has been using a walker recently. REVIEW OF SYSTEMS: No current dizziness or lightheadedness. No headache. No blurry vision or double vision that is new. No nausea, vomiting, difficulty swallowing, difficulty chewing. He does get short of breath with any exertion. No abdominal discomfort. Some swelling in the lower extremities. Numbness, diffuse weakness as described above. He has some bruising right more than left knee after a fall. PHYSICAL EXAMINATION: General: On examination, an overweight man, seen both sitting as well as transferring and ambulating. He is in no acute distress. HEENT: Normocephalic and atraumatic. Extraocular muscles appear intact. Neck: Supple. Extremities: Edema of the lower extremities +1. Some ecchymosis of the right more than left knee. No open wounds. Neuromuscular: Awake and cooperative. Cranial nerves grossly intact. He has diffuse weakness more proximally than distally in the upper and lower extremities. Diminished sensation mainly below the knees to pinprick or temperature and vibration, but also in the fingertips. He has difficulty transferring and needs quite a bit of assist for bed mobility. RESULTS OF THE EMG NERVE CONDUCTION STUDIES: Please refer to report for details. OVERALL IMPRESSION: 1. 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 2. No definite myopathy. 3. Gait disorder, multifactorial. 4. Deconditioning. 5. 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 6. History of atrial fibrillation on Xarelto. 7. Overweight. 8. Hypertension. 9. Hyperlipidemia. 10. Knee arthroscopy. PLANS AND SUGGESTIONS: 1. Continue physical therapy. 2. Neurologic consultation. 3. Out of bed to chair. 4. On Xarelto. No further DVT prophylaxis needed. 5. He will probably require short-term rehabilitation. 6. Edema, controlled. 7. Elevate lower extremities. 8. Skin precautions. 9. Bowel regimen, monitor for constipation. 10. cyber security manager for disposition. Thank you for this referral. JUAN DIEGO DORAN M.D. [place]/[id number]
[2017-06-25] MEDS ORDERED: PHYTONADIONE 10 MG/1 ML AMP ONE (12:48)
--- NOTE | 2017-06-25 12:54 | PN ---
Progress Note, Physician History of Present Illness: pulmonary alert,feeling better oob-chair,-cp,-sob at rest ,mild junior - Current Medication List Current Medications: Active Medications Amoxicillin/Clavulanate Potassium (Augmentin - 875mg Tablet) 1 tab PO BID@0800, 1730 [facility] Dexamethasone (Decadron -) 4 mg PO BID [facility] Last Admin: 06/25/17 10:52 Dose: 4 mg Docusate Sodium (Colace -) 100 mg PO TID [facility] Last Admin: 06/25/17 06:10 Dose: 100 mg Sodium Chloride (1/2 Normal Saline) 1,000 mls @ 42 mls/hr IV ASDIR [facility] Last Admin: 06/24/17 14:39 Dose: Not Given Metoprolol Succinate (Toprol Xl -) 25 mg PO DAILY [facility] Last Admin: 06/25/17 10:53 Dose: 25 mg Pantoprazole Sodium (Protonix -) 40 mg PO DAILY [facility] Last Admin: 06/25/17 10:53 Dose: 40 mg Polyethylene Glycol (Miralax (For Daily Use) -) 17 gm PO BID [facility] Last Admin: 06/25/17 10:53 Dose: Not Given Potassium Phos/Sodium Phos (Phos-Nak Packet -) 1 packet PO BID [facility] Last Admin: 06/25/17 10:53 Dose: 1 packet Rivaroxaban (Xarelto -) 20 mg PO DAILY@1800 [facility] Last Admin: 06/24/17 17:45 Dose: 20 mg - Objective Vital Signs: Vital Signs Temperature 97.7 F 06/25/17 05:37 Pulse Rate 52 L 06/25/17 05:37 Respiratory Rate 20 06/25/17 05:37 Blood Pressure 123/56 06/25/17 05:37 O2 Sat by Pulse Oximetry (%) 97 06/24/17 21:00 Constitutional: Yes: Well Nourished, Calm Eyes: Yes: WNL HENT: Yes: WNL Neck: Yes: WNL Cardiovascular: Yes: Pulse Irregular, S1, S2 Respiratory: Yes: Diminished Gastrointestinal: Yes: Normal Bowel Sounds, Soft Edema: Yes Edema: LLE: Trace, RLE: Trace Labs: CBC, BMP 06/25/17 05:40 06/25/17 05:40 INR, PTT INR 1.96 (0.82-1.09) H 06/25/17 05:40 Fibrinogen 239.0 mg/dL (238-498) 06/23/17 07:55 Problem List - Problems (1) Afib Code(s): I48.91 - UNSPECIFIED ATRIAL FIBRILLATION Qualifiers: Atrial fibrillation type: paroxysmal Qualified Code(s): I48.0 - Paroxysmal atrial fibrillation (2) MONAE (acute kidney injury) Code(s): N17.9 - ACUTE KIDNEY FAILURE, UNSPECIFIED (3) Lactic acidosis Code(s): E87.2 - ACIDOSIS (4) Severe sepsis Code(s): A41.9 - SEPSIS, UNSPECIFIED ORGANISM; R65.20 - SEVERE SEPSIS WITHOUT SEPTIC SHOCK (5) Renal cell carcinoma Code(s): C64.9 - MALIGNANT NEOPLASM OF UNSP KIDNEY, EXCEPT RENAL PELVIS Qualifiers: Laterality: right Qualified Code(s): C64.1 - Malignant neoplasm of right kidney, except renal pelvis (6) T2DM (type 2 diabetes mellitus) Code(s): E11.9 - TYPE 2 DIABETES MELLITUS WITHOUT COMPLICATIONS (7) Diabetes Code(s): E11.9 - TYPE 2 DIABETES MELLITUS WITHOUT COMPLICATIONS (8) HTN (hypertension) Code(s): I10 - ESSENTIAL (PRIMARY) HYPERTENSION Qualifiers: Hypertension type: essential hypertension Qualified Code(s): I10 - Essential (primary) hypertension (9) Hyperbilirubinemia Code(s): E80.6 - OTHER DISORDERS OF BILIRUBIN METABOLISM (10) Obesity Code(s): E66.9 - OBESITY, UNSPECIFIED (11) Spinal cord compression Code(s): G95.20 - UNSPECIFIED CORD COMPRESSION (12) Dyspnea Code(s): R06.00 - DYSPNEA, UNSPECIFIED (13) Respiratory distress Code(s): R06.03 - ACUTE RESPIRATORY DISTRESS Assessment/Plan IMP RESPIRATORY DISTRESS LIKELY SECONDARY TO SEPSIS IMPROVED [facility] S/P R NEPHRECTOMY WITH SPINE METS CORD COMPRESSION MONAE AFIB ELEVATED LFTS THROMBOCYTOPENIA HTN NIDDM ELEVATED LACTATE LEVEL PLAN O2 Augmentin IVF MONITOR LYTES,PLT CT,RENAL FUNCTION TREND LACTATE DR PEPPER Problem List - Problems (1) Afib Code(s): I48.91 - UNSPECIFIED ATRIAL FIBRILLATION (2) MONAE (acute kidney injury) Code(s): N17.9 - ACUTE KIDNEY FAILURE, UNSPECIFIED (3) Lactic acidosis Code(s): E87.2 - ACIDOSIS (4) Severe sepsis Code(s): A41.9 - SEPSIS, UNSPECIFIED ORGANISM; R65.20 - SEVERE SEPSIS WITHOUT SEPTIC SHOCK (5) Renal cell carcinoma Code(s): C64.9 - MALIGNANT NEOPLASM OF UNSP KIDNEY, EXCEPT RENAL PELVIS Qualifiers: Laterality: right Qualified Code(s): C64.1 - Malignant neoplasm of right kidney, except renal pelvis (6) T2DM (type 2 diabetes mellitus) Code(s): E11.9 - TYPE 2 DIABETES MELLITUS WITHOUT COMPLICATIONS (7) Diabetes Code(s): E11.9 - TYPE 2 DIABETES MELLITUS WITHOUT COMPLICATIONS (8) HTN (hypertension) Code(s): I10 - ESSENTIAL (PRIMARY) HYPERTENSION Qualifiers: Hypertension type: essential hypertension Qualified Code(s): I10 - Essential (primary) hypertension (9) Hyperbilirubinemia Code(s): E80.6 - OTHER DISORDERS OF BILIRUBIN METABOLISM (10) Obesity Code(s): E66.9 - OBESITY, UNSPECIFIED (11) Spinal cord compression Code(s): G95.20 - UNSPECIFIED CORD COMPRESSION (12) Dyspnea Code(s): R06.00 - DYSPNEA, UNSPECIFIED (13) Respiratory distress Code(s): R06.03 - ACUTE RESPIRATORY DISTRESS
--- NOTE | 2017-06-25 15:20 | PN ---
Progress Note, Physician History of Present Illness: Pt seen and examined at bedside. He is awake and alert. He denies shortness of breath. - Current Medication List Current Medications: Active Medications Amoxicillin/Clavulanate Potassium (Augmentin - 875mg Tablet) 1 tab PO BID@0800, 1730 [facility] Dexamethasone (Decadron -) 4 mg PO BID [facility] Last Admin: 06/25/17 10:52 Dose: 4 mg Docusate Sodium (Colace -) 100 mg PO TID [facility] Last Admin: 06/25/17 13:01 Dose: 100 mg Sodium Chloride (1/2 Normal Saline) 1,000 mls @ 42 mls/hr IV ASDIR [facility] Last Admin: 06/24/17 14:39 Dose: Not Given Metoprolol Succinate (Toprol Xl -) 25 mg PO DAILY [facility] Last Admin: 06/25/17 10:53 Dose: 25 mg Pantoprazole Sodium (Protonix -) 40 mg PO DAILY [facility] Last Admin: 06/25/17 10:53 Dose: 40 mg Polyethylene Glycol (Miralax (For Daily Use) -) 17 gm PO BID [facility] Last Admin: 06/25/17 10:53 Dose: Not Given Potassium Phos/Sodium Phos (Phos-Nak Packet -) 1 packet PO BID [facility] Last Admin: 06/25/17 10:53 Dose: 1 packet Rivaroxaban (Xarelto -) 20 mg PO DAILY@1800 [facility] Last Admin: 06/24/17 17:45 Dose: 20 mg - Objective Vital Signs: Vital Signs Temperature 98.3 F 06/25/17 15:10 Pulse Rate 63 06/25/17 15:10 Respiratory Rate 22 06/25/17 15:10 Blood Pressure 160/71 06/25/17 15:10 O2 Sat by Pulse Oximetry (%) 97 06/25/17 09:00 Constitutional: Yes: Calm Eyes: Yes: Conjunctiva Clear HENT: Yes: Atraumatic Cardiovascular: Yes: S1, S2 Respiratory: Yes: CTA Bilaterally Gastrointestinal: Yes: Soft Genitourinary: Yes: WNL Musculoskeletal: Yes: WNL Edema: Yes Edema: LLE: Trace, RLE: Trace Neurological: Yes: Oriented Psychiatric: Yes: Oriented Labs: CBC, BMP 06/25/17 05:40 06/25/17 05:40 INR, PTT INR 1.96 (0.82-1.09) H 06/25/17 05:40 Fibrinogen 239.0 mg/dL (238-498) 06/23/17 07:55 Problem List - Problems (1) MONAE (acute kidney injury) Code(s): N17.9 - ACUTE KIDNEY FAILURE, UNSPECIFIED (2) Lactic acidosis Code(s): E87.2 - ACIDOSIS (3) Renal cell carcinoma Code(s): C64.9 - MALIGNANT NEOPLASM OF UNSP KIDNEY, EXCEPT RENAL PELVIS Qualifiers: Laterality: right Qualified Code(s): C64.1 - Malignant neoplasm of right kidney, except renal pelvis (4) T2DM (type 2 diabetes mellitus) Code(s): E11.9 - TYPE 2 DIABETES MELLITUS WITHOUT COMPLICATIONS (5) Diabetes Code(s): E11.9 - TYPE 2 DIABETES MELLITUS WITHOUT COMPLICATIONS (6) HTN (hypertension) Code(s): I10 - ESSENTIAL (PRIMARY) HYPERTENSION Qualifiers: Hypertension type: essential hypertension Qualified Code(s): I10 - Essential (primary) hypertension (7) S/p nephrectomy Code(s): Z90.5 - ACQUIRED ABSENCE OF KIDNEY Assessment/Plan Current Medications Generic Name Dose Route Start Last Admin Trade Name Freq PRN Reason Stop Dose Admin Amoxicillin/Clavulanate Potassium 1 tab 06/25/17 17:30 Augmentin - 875mg Tablet PO BID@0800,1730 [facility] Dexamethasone 4 mg 06/20/17 22:00 06/25/17 10:52 Decadron - PO 4 mg BID [facility] Administration Docusate Sodium 100 mg 06/20/17 22:00 06/25/17 13:01 Colace - PO 100 mg TID [facility] Administration Sodium Chloride 1,000 mls @ 42 mls/hr 06/23/17 13:29 06/24/17 14:39 1/2 Normal Saline IV Not Given ASDIR [facility] Metoprolol Succinate 25 mg 06/21/17 10:00 06/25/17 10:53 Toprol Xl - PO 25 mg DAILY [facility] Administration Pantoprazole Sodium 40 mg 06/21/17 10:00 06/25/17 10:53 Protonix - PO 40 mg DAILY [facility] Administration Polyethylene Glycol 17 gm 06/20/17 22:00 06/25/17 10:53 Miralax (For Daily Use) - PO Not Given BID [facility] Potassium Phos/Sodium Phos 1 packet 06/24/17 22:00 06/25/17 10:53 Phos-Nak Packet - PO 1 packet BID [facility] Administration Rivaroxaban 20 mg 06/20/17 18:00 06/24/17 17:45 Xarelto - PO 20 mg DAILY@1800 [facility] Administration Impression 1. MONAE 2. lactic acidosis improved 3. renal cancer 4. DM 5. a-fib 6. UTI 7. hypokalemia Plan - check phos levels in am - cont fluids for now - lactic acid elevated, likely from malignancy - monitor lactic acid - oncology follow up - would not restart metformin - likely monae from pre-renal disease - will follow Dr Langford
[2017-06-25] MEDS: AMOX TR/POT CLAV 875MG/125MG TABLETS (FP) PO SCH (17:39)
[2017-06-25] MEDS: RIVAROXABAN 20 MG TABLET PO SCH (17:39)
[2017-06-25] MEDS: SODIUM CHLORIDE 0.45% 1,000 ML IV SCH (21:22)
[2017-06-26] MEDS: VOTRIENT 200 MG PO SCH (06:58)
[2017-06-26] MEDS: DOCUSATE SODIUM 100 MG CAPSULE (FP) PO SCH ×3 (06:58→21:37)
[2017-06-26] MEDS ORDERED: PT OWN MED DRAWER 7, Y5N ONE ×2 (07:16→09:53)
[2017-06-26 07:50] LABS: BASO % 0.9 % (0-2.0); EOS % 0.2 % (0-4.5); HEMATOCRIT 35.4 % (35.4-49); HEMOGLOBIN 12.3 GM/dL (11.7-16.9); MCH 32.2 pg (25.7-33.7); MCHC 34.7 g/dl (32.0-35.9); MEAN CELL VOLUME 92.7 fl (80-96); MEAN PLT VOLUME 8.2 fl (7.5-11.1); MONO % 6.9 % (3.8-10.2); PLATELET COUNT 84 K/MM3 (134-434); RBC 3.82 M/mm3 (4.00-5.60); RDW 20.1 % (11.9-15.9); WHITE BLOOD COUNT 7.9 K/mm3 (4.0-10.0)
[2017-06-26 08:10] LABS: ALBUMIN 2.6 g/dl (3.4-5.0)
[2017-06-26 08:12] LABS: BILIRUBIN,DIRECT 0.2 mg/dL (0.0-0.2); BILIRUBIN,TOTAL 0.8 mg/dL (0.2-1.0); TOT PROT 5.1 g/dl (6.4-8.2)
[2017-06-26 09:27] LABS: ANION GAP 11 (8-16); BLOOD UREA NITROGEN 19 mg/dL (7-18); CALCIUM 8.1 mg/dL (8.5-10.1); CHLORIDE 100 mmol/L (98-107); CO2 28 mmol/L (21-32); CREATININE 0.7 mg/dL (0.7-1.3); GLUCOSE,RANDOM 189 mg/dL (74-106); MAGNESIUM 2.3 mg/dL (1.8-2.4); PHOSPHOROUS 2.5 mg/dL (2.5-4.9); SODIUM 139 mmol/L (136-145)
[2017-06-26] MEDS: DEXAMETHASONE 4 MG TABLET (FP) PO SCH ×2 (09:56→21:37)
[2017-06-26] MEDS: METOPROLOL SUCCINATE 25 MG TAB.SR.24H (FP) PO SCH (09:56)
[2017-06-26] MEDS: PANTOPRAZOLE 40 MG TABLET (FP) PO SCH (09:56)
[2017-06-26] MEDS: AMOX TR/POT CLAV 875MG/125MG TABLETS (FP) PO SCH ×2 (09:56→17:15)
[2017-06-26] MEDS: POLYETHYLENE GLYCOL 3350 119 GM BTL PO SCH ×2 (09:57→21:34)
[2017-06-26] MEDS: NAPH,MB-DB/K PH,MBDB POWDER PACKET PO SCH ×2 (09:57→21:34)
--- NOTE | 2017-06-26 12:43 | PN ---
Progress Note, Physician Chief Complaint: Patient feels weak and exhausted at base line, concerned about lower extremity weakness, so far all cultures are negative History of Present Illness: 77 year-old male H/O HTN, HLD, atrial fibrillation on Xarelto, NIDDM, and 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 Recently hospitalized 05/29-06/08/17 for worsening lower extremity weakness secondary to spinal cord compression. Decision was made not to pursue surgery, to begin dexamethasone, and to start a trial of pazopanib. Patient presents to the ED today with progressive SOB, weakness, fatigue, and poor appetite since starting pazopanib.blood w/u shows elevated lactic acid no source of infection or clinical picture of sepsis/infectious etiology, lactate is trending down. - Current Medication List Current Medications: Active Medications Amoxicillin/Clavulanate Potassium (Augmentin - 875mg Tablet) 1 tab PO BID@0800, 1730 [facility] Last Admin: 06/26/17 09:56 Dose: 1 tab Dexamethasone (Decadron -) 4 mg PO BID [facility] Last Admin: 06/26/17 09:56 Dose: 4 mg Docusate Sodium (Colace -) 100 mg PO TID [facility] Last Admin: 06/26/17 06:58 Dose: 100 mg Sodium Chloride (1/2 Normal Saline) 1,000 mls @ 42 mls/hr IV ASDIR [facility] Last Admin: 06/25/17 21:22 Dose: 42 mls/hr Metoprolol Succinate (Toprol Xl -) 25 mg PO DAILY [facility] Last Admin: 06/26/17 09:56 Dose: 25 mg Votrient 200mg Tab 3 each PO DAILY@0700 [facility] Last Admin: 06/26/17 06:58 Dose: 3 each Pantoprazole Sodium (Protonix -) 40 mg PO DAILY [facility] Last Admin: 06/26/17 09:56 Dose: 40 mg Polyethylene Glycol (Miralax (For Daily Use) -) 17 gm PO BID [facility] Last Admin: 06/26/17 09:57 Dose: Not Given Potassium Phos/Sodium Phos (Phos-Nak Packet -) 1 packet PO BID [facility] Last Admin: 06/26/17 09:57 Dose: 1 packet Rivaroxaban (Xarelto -) 20 mg PO DAILY@1800 [facility] Last Admin: 06/25/17 17:39 Dose: 20 mg - Objective Vital Signs: Vital Signs Temperature 97.4 F L 06/26/17 10:00 Pulse Rate 66 06/26/17 10:00 Respiratory Rate 19 06/26/17 10:00 Blood Pressure 107/52 06/26/17 10:00 O2 Sat by Pulse Oximetry (%) 97 06/25/17 09:00 Elderly man sick looking , not in distress, sitting on a chair HEENT: Mm moist, pale, anemia +, no thrush NECK: No NVD No Bruit CHEST: Minimal basal Crepts CVS: S1S2 R SM in AA ABD: Obese, non tender, Bs + EXT: Edema +, no calf tenderness BOX ANNEALER: B/L LE Parapresis at base line. Labs: CBC, BMP 06/26/17 06:00 06/26/17 06:00 INR, PTT INR 1.96 (0.82-1.09) H 06/25/17 05:40 Fibrinogen 239.0 mg/dL (238-498) 06/23/17 07:55 Problem List - Problems (1) Afib Assessment/Plan: At present rate controlled on AC no acute issue cont current management. Code(s): I48.91 - UNSPECIFIED ATRIAL FIBRILLATION Qualifiers: Atrial fibrillation type: paroxysmal Qualified Code(s): I48.0 - Paroxysmal atrial fibrillation (2) Lactic acidosis Assessment/Plan: elevated lactic acid no infectious source trending normal, cont IV Hydration. Code(s): E87.2 - ACIDOSIS (3) Renal cell carcinoma Assessment/Plan: Stage 4 RCC with Bony mets with cord Compression opted no surgical treatment on palliative chemotherapy. Code(s): C64.9 - MALIGNANT NEOPLASM OF UNSP KIDNEY, EXCEPT RENAL PELVIS Qualifiers: Laterality: right Qualified Code(s): C64.1 - Malignant neoplasm of right kidney, except renal pelvis (4) Aortic stenosis Assessment/Plan: Moderate to sever no surgical intervention considering, patient overall health. Code(s): I35.0 - NONRHEUMATIC AORTIC (VALVE) STENOSIS Qualifiers: Cardiac valve disease etiology: nonrheumatic Qualified Code(s): I35.0 - Nonrheumatic aortic (valve) stenosis (5) Diabetes Assessment/Plan: T2DM Optimoze Glycemic control. Code(s): E11.9 - TYPE 2 DIABETES MELLITUS WITHOUT COMPLICATIONS Qualifiers: Diabetes mellitus type: type 2 Diabetes mellitus complication detail: with polyneuropathy (6) Obesity Assessment/Plan: Obesity class 3 no active management Code(s): E66.9 - OBESITY, UNSPECIFIED Qualifiers: Obesity classification: adult class 3 (BMI >= 40) (7) HTN (hypertension) Assessment/Plan: Cont home meds Code(s): I10 - ESSENTIAL (PRIMARY) HYPERTENSION Qualifiers: Hypertension type: essential hypertension Qualified Code(s): I10 - Essential (primary) hypertension (8) Spinal cord compression Assessment/Plan: RCC stage 4 with Bony mets opted non operative management.On Dexamethasone Code(s): G95.20 - UNSPECIFIED CORD COMPRESSION
--- NOTE | 2017-06-26 12:55 | PN ---
Progress Note (short form) - Note Progress Note: Pt seen and examined. feels better. Vital Signs Period Temp Pulse Resp BP Sys/Amador Pulse Ox Last 24 Hr 97.3 F-98.3 F 52-66 19-22 107-160/49-71 Current Medications Generic Name Dose Route Start Last Admin Trade Name Freq PRN Reason Stop Dose Admin Amoxicillin/Clavulanate Potassium 1 tab 06/25/17 17:30 06/26/17 09:56 Augmentin - 875mg Tablet PO 1 tab BID@0800,1730 [facility] Administration Dexamethasone 4 mg 06/20/17 22:00 06/26/17 09:56 Decadron - PO 4 mg BID [facility] Administration Docusate Sodium 100 mg 06/20/17 22:00 06/26/17 06:58 Colace - PO 100 mg TID [facility] Administration Sodium Chloride 1,000 mls @ 42 mls/hr 06/23/17 13:29 06/25/17 21:22 1/2 Normal Saline IV 42 mls/hr ASDIR [facility] Administration Metoprolol Succinate 25 mg 06/21/17 10:00 06/26/17 09:56 Toprol Xl - PO 25 mg DAILY [facility] Administration Votrient 200mg Tab 3 each 06/26/17 07:00 06/26/17 06:58 PO 3 each DAILY@0700 [facility] Administration Pantoprazole Sodium 40 mg 06/21/17 10:00 06/26/17 09:56 Protonix - PO 40 mg DAILY [facility] Administration Polyethylene Glycol 17 gm 06/20/17 22:00 06/26/17 09:57 Miralax (For Daily Use) - PO Not Given BID [facility] Potassium Phos/Sodium Phos 1 packet 06/24/17 22:00 06/26/17 09:57 Phos-Nak Packet - PO 1 packet BID [facility] Administration Rivaroxaban 20 mg 06/20/17 18:00 06/25/17 17:39 Xarelto - PO 20 mg DAILY@1800 [facility] Administration CBC, BMP 06/26/17 06:00 06/26/17 06:00 O/E: General:NAD, HEENT :NCAT Cardiac: RRR Lungs: CTA b/l Neuro: AAOx3 LE: +bruises, better than before, no LE swelling A/P: mRCC cord compression s/p RT severe sepsis due to UTI coagulopathy due sepsis thrombocytopenia due to sepsis Elevated LFTs/Bili due to Votrient/sepsis, now much improved. EMG Neuro started Votrient steroids rehab/PT
--- NOTE | 2017-06-26 13:04 | PN ---
Progress Note (short form) - Note Progress Note: RENAL Pt sitting up states no dyspnea or chest pain Last Vital Signs Temp Pulse Resp BP Pulse Ox 97.4 F L 66 19 107/52 97 06/26/17 10:00 06/26/17 10:00 06/26/17 10:00 06/26/17 10:00 06/25/17 09:00 lungs clear cvs s1s2 rr abd soft ext +edema neuro a+ox3 CBC, BMP 06/26/17 06:00 06/26/17 06:00 Current Medications Generic Name Dose Route Start Last Admin Trade Name Freq PRN Reason Stop Dose Admin Amoxicillin/Clavulanate Potassium 1 tab 06/25/17 17:30 06/26/17 09:56 Augmentin - 875mg Tablet PO 1 tab BID@0800,1730 [facility] Administration Dexamethasone 4 mg 06/20/17 22:00 06/26/17 09:56 Decadron - PO 4 mg BID [facility] Administration Docusate Sodium 100 mg 06/20/17 22:00 06/26/17 06:58 Colace - PO 100 mg TID [facility] Administration Sodium Chloride 1,000 mls @ 42 mls/hr 06/23/17 13:29 06/25/17 21:22 1/2 Normal Saline IV 42 mls/hr ASDIR [facility] Administration Metoprolol Succinate 25 mg 06/21/17 10:00 06/26/17 09:56 Toprol Xl - PO 25 mg DAILY [facility] Administration Votrient 200mg Tab 3 each 06/26/17 07:00 06/26/17 06:58 PO 3 each DAILY@0700 [facility] Administration Pantoprazole Sodium 40 mg 06/21/17 10:00 06/26/17 09:56 Protonix - PO 40 mg DAILY [facility] Administration Polyethylene Glycol 17 gm 06/20/17 22:00 06/26/17 09:57 Miralax (For Daily Use) - PO Not Given BID [facility] Potassium Phos/Sodium Phos 1 packet 06/24/17 22:00 06/26/17 09:57 Phos-Nak Packet - PO 1 packet BID [facility] Administration Rivaroxaban 20 mg 06/20/17 18:00 06/25/17 17:39 Xarelto - PO 20 mg DAILY@1800 [facility] Administration Impression 1. MONAE 2. lactic acidosis improved- probably from malignancy 3. renal cancer 4. DM 5. a-fib 6. UTI 7. hypokalemia 8. thrombocytopenia 9. edema could potentially be from votrient and decadron Plan - dc ibf given significant edema - monitor lactic acid - oncology follow up - dopplers done last week were negative MV
--- NOTE | 2017-06-26 14:46 | PN ---
Progress Note, Physician History of Present Illness: stable no issues says he is doing well - Current Medication List Current Medications: Active Medications Amoxicillin/Clavulanate Potassium (Augmentin - 875mg Tablet) 1 tab PO BID@0800, 1730 [facility] Last Admin: 06/26/17 09:56 Dose: 1 tab Dexamethasone (Decadron -) 4 mg PO BID [facility] Last Admin: 06/26/17 09:56 Dose: 4 mg Docusate Sodium (Colace -) 100 mg PO TID [facility] Last Admin: 06/26/17 13:23 Dose: 100 mg Metoprolol Succinate (Toprol Xl -) 25 mg PO DAILY [facility] Last Admin: 06/26/17 09:56 Dose: 25 mg Votrient 200mg Tab 3 each PO DAILY@0700 [facility] Last Admin: 06/26/17 06:58 Dose: 3 each Pantoprazole Sodium (Protonix -) 40 mg PO DAILY [facility] Last Admin: 06/26/17 09:56 Dose: 40 mg Polyethylene Glycol (Miralax (For Daily Use) -) 17 gm PO BID [facility] Last Admin: 06/26/17 09:57 Dose: Not Given Potassium Phos/Sodium Phos (Phos-Nak Packet -) 1 packet PO BID [facility] Last Admin: 06/26/17 09:57 Dose: 1 packet Rivaroxaban (Xarelto -) 20 mg PO DAILY@1800 [facility] Last Admin: 06/25/17 17:39 Dose: 20 mg - Objective Vital Signs: Vital Signs Temperature 97.4 F L 06/26/17 13:20 Pulse Rate 59 L 06/26/17 13:20 Respiratory Rate 21 06/26/17 13:20 Blood Pressure 119/59 06/26/17 13:20 O2 Sat by Pulse Oximetry (%) 97 06/25/17 09:00 Constitutional: Yes: No Distress, Calm Cardiovascular: Yes: Regular Rate and Rhythm Respiratory: Yes: Regular, Poor Air Entry Gastrointestinal: Yes: Normal Bowel Sounds, Soft Musculoskeletal: Yes: WNL Extremities: Yes: WNL Neurological: Yes: Alert, Oriented Psychiatric: Yes: Alert, Oriented Labs: CBC, BMP 06/26/17 06:00 06/26/17 06:00 INR, PTT INR 1.96 (0.82-1.09) H 06/25/17 05:40 Fibrinogen 239.0 mg/dL (238-498) 06/23/17 07:55 Assessment/Plan Problem List - Problems (1) Severe sepsis Code(s): A41.9 - SEPSIS, UNSPECIFIED ORGANISM; R65.20 - SEVERE SEPSIS WITHOUT SEPTIC SHOCK (2) Renal cell carcinoma Code(s): C64.9 - MALIGNANT NEOPLASM OF UNSP KIDNEY, EXCEPT RENAL PELVIS Qualifiers: Laterality: right Qualified Code(s): C64.1 - Malignant neoplasm of right kidney, except renal pelvis (3) T2DM (type 2 diabetes mellitus) Code(s): E11.9 - TYPE 2 DIABETES MELLITUS WITHOUT COMPLICATIONS (4) Atrial flutter Code(s): I48.92 - UNSPECIFIED ATRIAL FLUTTER Qualifiers: Atrial flutter type: atypical Qualified Code(s): I48.4 - Atypical atrial flutter (5) HTN (hypertension) Code(s): I10 - ESSENTIAL (PRIMARY) HYPERTENSION Qualifiers: Hypertension type: essential hypertension Qualified Code(s): I10 - Essential (primary) hypertension (6) Hyperbilirubinemia Code(s): E80.6 - OTHER DISORDERS OF BILIRUBIN METABOLISM (7) S/p nephrectomy Code(s): Z90.5 - ACQUIRED ABSENCE OF KIDNEY (8) Spinal cord compression Code(s): G95.20 - UNSPECIFIED CORD COMPRESSION lactic acidosis lactic acid continues to be on the higher side plan continue oral abx monitor lactic acid incentive madelyn rest as per primary team
[2017-06-26] MEDS: RIVAROXABAN 20 MG TABLET PO SCH (17:15)
--- NOTE | 2017-06-26 17:20 | EKG ---
Test Reason : Blood Pressure : / mmHG Vent. Rate : 070 BPM Atrial Rate : 315 BPM P-R Int : 000 ms QRS Dur : 090 ms QT Int : 452 ms P-R-T Axes : 000 -13 017 degrees QTc Int : 488 ms ATRIAL FLUTTER WITH VARIABLE A-V BLOCK INFERIOR INFARCT , AGE UNDETERMINED ABNORMAL ECG WHEN COMPARED WITH ECG OF 19-JUN-2017 11:23, COMPARED TO EKG NO SIGNIFICANT CHANGE IS FOUND Confirmed by ENDER ROSE MD ([id number]) on 06/26/2017 5:19:44 PM Referred By: Confirmed By:ENDER ROSE MD
[2017-06-27] MEDS ORDERED: PT OWN MED DRAWER 7, Y5N ONE ×3 (06:31→17:06)
[2017-06-27] MEDS: VOTRIENT 200 MG PO SCH (06:34)
[2017-06-27] MEDS: DOCUSATE SODIUM 100 MG CAPSULE (FP) PO SCH ×3 (06:34→21:23)
[2017-06-27 07:53] LABS: BASO % 0.3 % (0-2.0); EOS % 0.7 % (0-4.5); HEMATOCRIT 36.4 % (35.4-49); HEMOGLOBIN 12.4 GM/dL (11.7-16.9); LYMPH % 4.9 % (8-40); MCH 32.2 pg (25.7-33.7); MCHC 34.2 g/dl (32.0-35.9); MEAN CELL VOLUME 94.3 fl (80-96); MEAN PLT VOLUME 8.2 fl (7.5-11.1); MONO % 6.8 % (3.8-10.2); NEUT % 87.3 % (42.8-82.8); PLATELET COUNT 86 K/MM3 (134-434); RBC 3.86 M/mm3 (4.00-5.60); RDW 20.7 % (11.9-15.9); WHITE BLOOD COUNT 7.2 K/mm3 (4.0-10.0)
[2017-06-27 08:15] LABS: ANION GAP 10 (8-16); BLOOD UREA NITROGEN 21 mg/dL (7-18); CALCIUM 7.5 mg/dL (8.5-10.1); CHLORIDE 103 mmol/L (98-107); CO2 24 mmol/L (21-32); CREATININE 0.8 mg/dL (0.7-1.3); GLUCOSE,RANDOM 226 mg/dL (74-106); POTASSIUM 4.2 mmol/L (3.5-5.1); SODIUM 137 mmol/L (136-145)
[2017-06-27] MEDS: DEXAMETHASONE 4 MG TABLET (FP) PO SCH ×2 (09:50→21:23)
[2017-06-27] MEDS: POLYETHYLENE GLYCOL 3350 119 GM BTL PO SCH ×2 (09:50→21:24)
[2017-06-27] MEDS: PANTOPRAZOLE 40 MG TABLET (FP) PO SCH (09:50)
[2017-06-27] MEDS: NAPH,MB-DB/K PH,MBDB POWDER PACKET PO SCH ×2 (09:50→21:26)
[2017-06-27] MEDS: METOPROLOL SUCCINATE 25 MG TAB.SR.24H (FP) PO SCH (09:50)
[2017-06-27] MEDS: AMOX TR/POT CLAV 875MG/125MG TABLETS (FP) PO SCH ×2 (09:50→17:13)
--- NOTE | 2017-06-27 10:37 | PN ---
Progress Note, Physician History of Present Illness: patient doing well no complaints - Current Medication List Current Medications: Active Medications Amoxicillin/Clavulanate Potassium (Augmentin - 875mg Tablet) 1 tab PO BID@0800, 1730 [facility] [place] Last Admin: 06/27/17 09:50 Dose: 1 tab Dexamethasone (Decadron -) 4 mg PO BID [facility] Last Admin: 06/27/17 09:50 Dose: 4 mg Docusate Sodium (Colace -) 100 mg PO TID [facility] [place] Last Admin: 06/27/17 06:34 Dose: 100 mg Metoprolol Succinate (Toprol Xl -) 25 mg PO DAILY [facility] [place] Last Admin: 06/27/17 09:50 Dose: 25 mg Votrient 200mg Tab 3 each PO DAILY@0700 [facility] [place] Last Admin: 06/27/17 06:34 Dose: 3 each Pantoprazole Sodium (Protonix -) 40 mg PO DAILY [facility] [place] Last Admin: 06/27/17 09:50 Dose: 40 mg Polyethylene Glycol (Miralax (For Daily Use) -) 17 gm PO BID [facility] [place] Last Admin: 06/27/17 09:50 Dose: Not Given Potassium Phos/Sodium Phos (Phos-Nak Packet -) 1 packet PO BID [facility] [place] Last Admin: 06/27/17 09:50 Dose: 1 packet Rivaroxaban (Xarelto -) 20 mg PO DAILY@1800 [facility] [place] Last Admin: 06/26/17 17:15 Dose: 20 mg - Objective Vital Signs: Vital Signs Temperature 97.6 F 06/27/17 05:30 Pulse Rate 58 L 06/27/17 05:30 Respiratory Rate 20 06/27/17 05:30 Blood Pressure 122/50 06/27/17 05:30 O2 Sat by Pulse Oximetry (%) 96 06/26/17 21:00 Constitutional: Yes: No Distress, Calm Cardiovascular: Yes: Regular Rate and Rhythm Respiratory: Yes: Regular, CTA Bilaterally Gastrointestinal: Yes: Normal Bowel Sounds, Soft Musculoskeletal: Yes: WNL Extremities: Yes: WNL Neurological: Yes: Alert, Oriented Psychiatric: Yes: Alert, Oriented Labs: CBC, BMP 06/27/17 06:00 06/27/17 06:00 INR, PTT INR 1.96 (0.82-1.09) H 06/25/17 05:40 Fibrinogen 239.0 mg/dL (238-498) 06/23/17 07:55 Assessment/Plan Problem List - Problems (1) Severe sepsis Code(s): A41.9 - SEPSIS, UNSPECIFIED ORGANISM; R65.20 - SEVERE SEPSIS WITHOUT SEPTIC SHOCK (2) Renal cell carcinoma Code(s): C64.9 - MALIGNANT NEOPLASM OF UNSP KIDNEY, EXCEPT RENAL PELVIS Qualifiers: Laterality: right Qualified Code(s): C64.1 - Malignant neoplasm of right kidney, except renal pelvis (3) T2DM (type 2 diabetes mellitus) Code(s): E11.9 - TYPE 2 DIABETES MELLITUS WITHOUT COMPLICATIONS (4) Atrial flutter Code(s): I48.92 - UNSPECIFIED ATRIAL FLUTTER Qualifiers: Atrial flutter type: atypical Qualified Code(s): I48.4 - Atypical atrial flutter (5) HTN (hypertension) Code(s): I10 - ESSENTIAL (PRIMARY) HYPERTENSION Qualifiers: Hypertension type: essential hypertension Qualified Code(s): I10 - Essential (primary) hypertension (6) Hyperbilirubinemia Code(s): E80.6 - OTHER DISORDERS OF BILIRUBIN METABOLISM (7) S/p nephrectomy Code(s): Z90.5 - ACQUIRED ABSENCE OF KIDNEY (8) Spinal cord compression Code(s): G95.20 - UNSPECIFIED CORD COMPRESSION lactic acidosis lactic acid continues to be on the higher side plan continue oral abx monitor lactic acid incentive madelyn rest as per primary team will stop oral abx tomorrow
--- NOTE | 2017-06-27 12:22 | PN ---
Progress Note (short form) - Note Progress Note: sleeping well No new overnight events Vital Signs Period Temp Pulse Resp BP Sys/Amador Pulse Ox Last 24 Hr 97.4 F-98.4 F 56-64 20-21 96-122/36-60 96 Active Medications Generic Name Dose Route Start Last Admin Trade Name Freq PRN Reason Stop Dose Admin Amoxicillin/Clavulanate Potassium 1 tab 06/25/17 17:30 06/27/17 09:50 Augmentin - 875mg Tablet PO 1 tab BID@0800,1730 SUSAN Administration Dexamethasone 4 mg 06/20/17 22:00 06/27/17 09:50 Decadron - PO 4 mg BID SUSAN Administration Docusate Sodium 100 mg 06/20/17 22:00 06/27/17 06:34 Colace - PO 100 mg TID SUSAN Administration Metoprolol Succinate 25 mg 06/21/17 10:00 06/27/17 09:50 Toprol Xl - PO 25 mg DAILY SUSAN Administration Votrient 200mg Tab 3 each 06/26/17 07:00 06/27/17 06:34 PO 3 each DAILY@0700 SUSAN Administration Pantoprazole Sodium 40 mg 06/21/17 10:00 06/27/17 09:50 Protonix - PO 40 mg DAILY SUSAN Administration Polyethylene Glycol 17 gm 06/20/17 22:00 06/27/17 09:50 Miralax (For Daily Use) - PO Not Given BID [facility] Potassium Phos/Sodium Phos 1 packet 06/24/17 22:00 06/27/17 09:50 Phos-Nak Packet - PO 1 packet BID SUSAN Administration Rivaroxaban 20 mg 06/20/17 18:00 06/26/17 17:15 Xarelto - PO 20 mg DAILY@1800 SUSAN Administration CBC, BMP 06/27/17 06:00 06/27/17 06:00 A/P: mRCC - on votrient cord compression s/p RT severe sepsis due to UTI - improving coagulopathy due sepsis thrombocytopenia due to sepsis Elevated LFTs/Bili due to Votrient/sepsis, now much improved. rehab/PT
--- NOTE | 2017-06-27 13:03 | PN ---
Progress Note (short form) - Note Progress Note: RENAL No complaints lying flat in bed just before lunch Last Vital Signs Temp Pulse Resp BP Pulse Ox 97.6 F 58 L 20 122/50 96 06/27/17 05:30 06/27/17 05:30 06/27/17 05:30 06/27/17 05:30 06/26/17 21:00 lungs clear cvs s1s2 rr abd soft ext +edema reduced neuro a+ox3 CBC, BMP 06/27/17 06:00 06/27/17 06:00 Current Medications Generic Name Dose Route Start Last Admin Trade Name Fresolange PRN Reason Stop Dose Admin Amoxicillin/Clavulanate Potassium 1 tab 06/25/17 17:30 06/27/17 09:50 Augmentin - 875mg Tablet PO 1 tab BID@0800,1730 SUSAN Administration Dexamethasone 4 mg 06/20/17 22:00 06/27/17 09:50 Decadron - PO 4 mg BID SUSAN Administration Docusate Sodium 100 mg 06/20/17 22:00 06/27/17 06:34 Colace - PO 100 mg TID SUSAN Administration Metoprolol Succinate 25 mg 06/21/17 10:00 06/27/17 09:50 Toprol Xl - PO 25 mg DAILY SUSAN Administration Votrient 200mg Tab 3 each 06/26/17 07:00 06/27/17 06:34 PO 3 each DAILY@0700 SUSAN Administration Pantoprazole Sodium 40 mg 06/21/17 10:00 06/27/17 09:50 Protonix - PO 40 mg DAILY SUSAN Administration Polyethylene Glycol 17 gm 06/20/17 22:00 06/27/17 09:50 Miralax (For Daily Use) - PO Not Given BID [facility] Potassium Phos/Sodium Phos 1 packet 06/24/17 22:00 06/27/17 09:50 Phos-Nak Packet - PO 1 packet BID SUSAN Administration Rivaroxaban 20 mg 06/20/17 18:00 06/26/17 17:15 Xarelto - PO 20 mg DAILY@1800 SUSAN Administration Impression 1. MONAE 2. lactic acidosis improved- probably from malignancy 3. renal cancer 4. DM 5. a-fib 6. UTI 7. hypokalemia 8. thrombocytopenia 9. edema could potentially be from votrient and decadron Plan - will try thiamine - monitor lactic acid - oncology follow up - dopplers done last week were negative MV
[2017-06-27] MEDS ORDERED: THIAMINE HCL 200 MG/2 ML VIAL IM ONE (13:06)
--- NOTE | 2017-06-27 13:47 | PN ---
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 Recently hospitalized 05/29-06/08/17 for worsening lower extremity weakness secondary to spinal cord compression. Decision was made not to pursue surgery, to begin dexamethasone, and to start a trial of pazopanib. Patient presents to the ED today with progressive SOB, weakness, fatigue, and poor appetite since starting pazopanib.blood w/u shows elevated lactic acid no source of infection or clinical picture of sepsis/infectious etiology, lactate is trending down. - Current Medication List Current Medications: Active Medications Amoxicillin/Clavulanate Potassium (Augmentin - 875mg Tablet) 1 tab PO BID@0800, 1730 [facility] Last Admin: 06/27/17 09:50 Dose: 1 tab Dexamethasone (Decadron -) 4 mg PO BID [facility] Last Admin: 06/27/17 09:50 Dose: 4 mg Docusate Sodium (Colace -) 100 mg PO TID [facility] Last Admin: 06/27/17 06:34 Dose: 100 mg Metoprolol Succinate (Toprol Xl -) 25 mg PO DAILY [facility] Last Admin: 06/27/17 09:50 Dose: 25 mg Votrient 200mg Tab 3 each PO DAILY@0700 [facility] Last Admin: 06/27/17 06:34 Dose: 3 each Pantoprazole Sodium (Protonix -) 40 mg PO DAILY [facility] Last Admin: 06/27/17 09:50 Dose: 40 mg Polyethylene Glycol (Miralax (For Daily Use) -) 17 gm PO BID [facility] Last Admin: 06/27/17 09:50 Dose: Not Given Potassium Phos/Sodium Phos (Phos-Nak Packet -) 1 packet PO BID [facility] Last Admin: 06/27/17 09:50 Dose: 1 packet Rivaroxaban (Xarelto -) 20 mg PO DAILY@1800 [facility] Last Admin: 06/26/17 17:15 Dose: 20 mg - Objective Vital Signs: Vital Signs Temperature 97.6 F 06/27/17 05:30 Pulse Rate 58 L 06/27/17 05:30 Respiratory Rate 20 06/27/17 05:30 Blood Pressure 122/50 06/27/17 05:30 O2 Sat by Pulse Oximetry (%) 96 06/26/17 21:00 Elderly man sick looking , not in distress, sitting on a chair HEENT: Mm moist, pale, anemia +, no thrush NECK: No NVD No Bruit CHEST: Minimal basal Crepts CVS: S1S2 R SM in AA ABD: Obese, non tender, Bs + EXT: Edema +, no calf tenderness 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 Labs: CBC, BMP 06/27/17 06:00 06/27/17 06:00 INR, PTT INR 1.96 (0.82-1.09) H 06/25/17 05:40 Fibrinogen 239.0 mg/dL (238-498) 06/23/17 07:55 Problem List - Problems (1) Afib Assessment/Plan: At present rate controlled on AC no acute issue cont current management. Code(s): I48.91 - UNSPECIFIED ATRIAL FIBRILLATION Qualifiers: Atrial fibrillation type: paroxysmal Qualified Code(s): I48.0 - Paroxysmal atrial fibrillation (2) Lactic acidosis Assessment/Plan: elevated lactic acid no infectious source trending normal, Rpt level 4.76 cont IV Hydration. Code(s): E87.2 - ACIDOSIS (3) Renal cell carcinoma Assessment/Plan: Stage 4 RCC with Bony mets with cord Compression opted no surgical treatment on palliative PO chemotherapy resumed yesterday. Code(s): C64.9 - MALIGNANT NEOPLASM OF UNSP KIDNEY, EXCEPT RENAL PELVIS Qualifiers: Laterality: right Qualified Code(s): C64.1 - Malignant neoplasm of right kidney, except renal pelvis (4) Aortic stenosis Assessment/Plan: Moderate to sever no surgical intervention considering, patient overall health. Code(s): I35.0 - NONRHEUMATIC AORTIC (VALVE) STENOSIS Qualifiers: Cardiac valve disease etiology: nonrheumatic Qualified Code(s): I35.0 - Nonrheumatic aortic (valve) stenosis (5) Diabetes Assessment/Plan: T2DM Optimoze Glycemic control. Code(s): E11.9 - TYPE 2 DIABETES MELLITUS WITHOUT COMPLICATIONS Qualifiers: Diabetes mellitus type: type 2 Diabetes mellitus complication detail: with polyneuropathy (6) Obesity Assessment/Plan: Obesity class 3 no active management Code(s): E66.9 - OBESITY, UNSPECIFIED Qualifiers: Obesity classification: adult class 3 (BMI >= 40) (7) HTN (hypertension) Assessment/Plan: Cont home meds Code(s): I10 - ESSENTIAL (PRIMARY) HYPERTENSION Qualifiers: Hypertension type: essential hypertension Qualified Code(s): I10 - Essential (primary) hypertension (8) Spinal cord compression Assessment/Plan: RCC stage 4 with Bony mets opted non operative management.On Dexamethasone Code(s): G95.20 - UNSPECIFIED CORD COMPRESSION
[2017-06-27] MEDS: RIVAROXABAN 20 MG TABLET PO SCH (17:14)
[2017-06-28] MEDS ORDERED: PT OWN MED DRAWER 7, Y5N ONE ×2 (06:45→07:02)
[2017-06-28] MEDS: VOTRIENT 200 MG PO SCH (06:56)
[2017-06-28] MEDS: DOCUSATE SODIUM 100 MG CAPSULE (FP) PO SCH ×3 (06:56→22:22)
[2017-06-28 08:10] LABS: MCH 32.3 pg (25.7-33.7); MCHC 34.1 g/dl (32.0-35.9); MEAN CELL VOLUME 94.7 fl (80-96); MEAN PLT VOLUME 7.9 fl (7.5-11.1); PLATELET COUNT 81 K/MM3 (134-434); RDW 20.7 % (11.9-15.9); WHITE BLOOD COUNT 5.4 K/mm3 (4.0-10.0)
[2017-06-28 08:18] LABS: ADD RBC MORPHOLOGY YES
[2017-06-28 08:19] LABS: ALBUMIN 2.5 g/dl (3.4-5.0); ALK PHOS 85 U/L (45-117); ANION GAP 12 (8-16); BILIRUBIN,DIRECT 0.2 mg/dL (0.0-0.2); BILIRUBIN,TOTAL 0.8 mg/dL (0.2-1.0); BLOOD UREA NITROGEN 21 mg/dL (7-18); CALCIUM 7.7 mg/dL (8.5-10.1); CHLORIDE 102 mmol/L (98-107); CO2 26 mmol/L (21-32); CREATININE 0.7 mg/dL (0.7-1.3); GLUCOSE,RANDOM 193 mg/dL (74-106); POTASSIUM 4.3 mmol/L (3.5-5.1); SGOT/AST 40 U/L (15-37); SGPT/ALT 63 U/L (12-78); SODIUM 140 mmol/L (136-145); TOT PROT 5.1 g/dl (6.4-8.2)
[2017-06-28] MEDS: PANTOPRAZOLE 40 MG TABLET (FP) PO SCH (09:27)
[2017-06-28] MEDS: NAPH,MB-DB/K PH,MBDB POWDER PACKET PO SCH ×2 (09:27→22:22)
[2017-06-28] MEDS: AMOX TR/POT CLAV 875MG/125MG TABLETS (FP) PO SCH ×2 (09:27→17:35)
[2017-06-28] MEDS: METOPROLOL SUCCINATE 25 MG TAB.SR.24H (FP) PO SCH (09:27)
[2017-06-28] MEDS: POLYETHYLENE GLYCOL 3350 119 GM BTL PO SCH ×2 (09:27→22:22)
[2017-06-28] MEDS: DEXAMETHASONE 4 MG TABLET (FP) PO SCH ×2 (09:27→22:21)
[2017-06-28 10:43] LABS: ANISOCYTOSIS 2+; MACROCYTOSIS 0; PLATELET ESTIMATE DECREASED
--- NOTE | 2017-06-28 11:22 | PN ---
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 Recently hospitalized 05/29-06/08/17 for worsening lower extremity weakness secondary to spinal cord compression. Decision was made not to pursue surgery, to begin dexamethasone, and to start a trial of pazopanib. Patient presents to the ED today with progressive SOB, weakness, fatigue, and poor appetite since starting pazopanib.blood w/u shows elevated lactic acid no source of infection or clinical picture of sepsis/infectious etiology, lactate 3.6. - Current Medication List Current Medications: Active Medications Amoxicillin/Clavulanate Potassium (Augmentin - 875mg Tablet) 1 tab PO BID@0800, 1730 [facility] Last Admin: 06/28/17 09:27 Dose: 1 tab Dexamethasone (Decadron -) 4 mg PO BID [facility] Last Admin: 06/28/17 09:27 Dose: 4 mg Docusate Sodium (Colace -) 100 mg PO TID [facility] Last Admin: 06/28/17 06:56 Dose: Not Given Metoprolol Succinate (Toprol Xl -) 25 mg PO DAILY [facility] Last Admin: 06/28/17 09:27 Dose: 25 mg Votrient 200mg Tab 3 each PO DAILY@0700 [facility] Last Admin: 06/28/17 06:56 Dose: 3 each Pantoprazole Sodium (Protonix -) 40 mg PO DAILY [facility] Last Admin: 06/28/17 09:27 Dose: 40 mg Polyethylene Glycol (Miralax (For Daily Use) -) 17 gm PO BID [facility] Last Admin: 06/28/17 09:27 Dose: Not Given Potassium Phos/Sodium Phos (Phos-Nak Packet -) 1 packet PO BID [facility] Last Admin: 06/28/17 09:27 Dose: Not Given Rivaroxaban (Xarelto -) 20 mg PO DAILY@1800 [facility] Last Admin: 06/27/17 17:14 Dose: 20 mg - Objective Vital Signs: Vital Signs Temperature 98.0 F 06/28/17 09:32 Pulse Rate 64 06/28/17 09:32 Respiratory Rate 18 06/28/17 09:32 Blood Pressure 120/50 06/28/17 09:32 O2 Sat by Pulse Oximetry (%) 99 06/27/17 21:00 Elderly man sick looking , not in distress, sitting on a chair HEENT: Mm moist, pale, anemia +, no thrush NECK: No NVD No Bruit CHEST: Minimal basal Crepts CVS: S1S2 R SM in AA ABD: Obese, non tender, Bs + EXT: Edema +, no calf tenderness 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 Labs: CBC, BMP 06/28/17 06:30 06/28/17 06:30 INR, PTT INR 1.96 (0.82-1.09) H 06/25/17 05:40 Fibrinogen 239.0 mg/dL (238-498) 06/23/17 07:55 Problem List - Problems (1) Afib Assessment/Plan: At present rate controlled on AC no acute issue cont current management. Code(s): I48.91 - UNSPECIFIED ATRIAL FIBRILLATION Qualifiers: Atrial fibrillation type: paroxysmal Qualified Code(s): I48.0 - Paroxysmal atrial fibrillation (2) Lactic acidosis Assessment/Plan: elevated lactic acid no infectious source trending normal, Rpt level 3.6 . Code(s): E87.2 - ACIDOSIS (3) Renal cell carcinoma Assessment/Plan: Stage 4 RCC with Bony mets with cord Compression opted no surgical treatment on palliative PO chemotherapy resumed yesterday. Code(s): C64.9 - MALIGNANT NEOPLASM OF UNSP KIDNEY, EXCEPT RENAL PELVIS Qualifiers: Laterality: right Qualified Code(s): C64.1 - Malignant neoplasm of right kidney, except renal pelvis (4) Aortic stenosis Assessment/Plan: Moderate to sever no surgical intervention considering, patient overall health. Code(s): I35.0 - NONRHEUMATIC AORTIC (VALVE) STENOSIS Qualifiers: Cardiac valve disease etiology: nonrheumatic Qualified Code(s): I35.0 - Nonrheumatic aortic (valve) stenosis (5) Diabetes Assessment/Plan: T2DM Optimoze Glycemic control. Code(s): E11.9 - TYPE 2 DIABETES MELLITUS WITHOUT COMPLICATIONS Qualifiers: Diabetes mellitus type: type 2 Diabetes mellitus complication detail: with polyneuropathy (6) Obesity Assessment/Plan: Obesity class 3 no active management Code(s): E66.9 - OBESITY, UNSPECIFIED Qualifiers: Obesity classification: adult class 3 (BMI >= 40) (7) HTN (hypertension) Assessment/Plan: Cont home meds Code(s): I10 - ESSENTIAL (PRIMARY) HYPERTENSION Qualifiers: Hypertension type: essential hypertension Qualified Code(s): I10 - Essential (primary) hypertension (8) Spinal cord compression Assessment/Plan: RCC stage 4 with Bony mets opted non operative management.On Dexamethasone Code(s): G95.20 - UNSPECIFIED CORD COMPRESSION
[2017-06-28 12:20] LABS: MAGNESIUM 2.2 mg/dL (1.8-2.4)
--- NOTE | 2017-06-28 13:11 | PN ---
Progress Note, Physician History of Present Illness: stable no issues - Current Medication List Current Medications: Active Medications Amoxicillin/Clavulanate Potassium (Augmentin - 875mg Tablet) 1 tab PO BID@0800, 1730 [facility] Last Admin: 06/28/17 09:27 Dose: 1 tab Dexamethasone (Decadron -) 4 mg PO BID [facility] Last Admin: 06/28/17 09:27 Dose: 4 mg Docusate Sodium (Colace -) 100 mg PO TID [facility] Last Admin: 06/28/17 06:56 Dose: Not Given Metoprolol Succinate (Toprol Xl -) 25 mg PO DAILY [facility] Last Admin: 06/28/17 09:27 Dose: 25 mg Votrient 200mg Tab 3 each PO DAILY@0700 [facility] Last Admin: 06/28/17 06:56 Dose: 3 each Pantoprazole Sodium (Protonix -) 40 mg PO DAILY [facility] Last Admin: 06/28/17 09:27 Dose: 40 mg Polyethylene Glycol (Miralax (For Daily Use) -) 17 gm PO BID [facility] Last Admin: 06/28/17 09:27 Dose: Not Given Potassium Phos/Sodium Phos (Phos-Nak Packet -) 1 packet PO BID [facility] Last Admin: 06/28/17 09:27 Dose: Not Given Rivaroxaban (Xarelto -) 20 mg PO DAILY@1800 [facility] Last Admin: 18 17:14 Dose: 20 mg - Objective Vital Signs: Vital Signs Temperature 98.0 F 06/28/17 09:32 Pulse Rate 64 06/28/17 09:32 Respiratory Rate 18 06/28/17 09:32 Blood Pressure 120/50 06/28/17 09:32 O2 Sat by Pulse Oximetry (%) 96 06/28/17 09:00 Constitutional: Yes: No Distress, Calm Cardiovascular: Yes: S1, S2 Respiratory: Yes: Regular, CTA Bilaterally Gastrointestinal: Yes: Normal Bowel Sounds, Soft Musculoskeletal: Yes: WNL Neurological: Yes: Alert, Oriented Psychiatric: Yes: Alert, Oriented Labs: CBC, BMP 06/28/17 06:30 06/28/17 06:30 INR, PTT INR 1.96 (0.82-1.09) H 06/25/17 05:40 Fibrinogen 239.0 mg/dL (238-498) 06/23/17 07:55 Assessment/Plan Problem List - Problems (1) Severe sepsis Code(s): A41.9 - SEPSIS, UNSPECIFIED ORGANISM; R65.20 - SEVERE SEPSIS WITHOUT SEPTIC SHOCK (2) Renal cell carcinoma Code(s): C64.9 - MALIGNANT NEOPLASM OF UNSP KIDNEY, EXCEPT RENAL PELVIS Qualifiers: Laterality: right Qualified Code(s): C64.1 - Malignant neoplasm of right kidney, except renal pelvis (3) T2DM (type 2 diabetes mellitus) Code(s): E11.9 - TYPE 2 DIABETES MELLITUS WITHOUT COMPLICATIONS (4) Atrial flutter Code(s): I48.92 - UNSPECIFIED ATRIAL FLUTTER Qualifiers: Atrial flutter type: atypical Qualified Code(s): I48.4 - Atypical atrial flutter (5) HTN (hypertension) Code(s): I10 - ESSENTIAL (PRIMARY) HYPERTENSION Qualifiers: Hypertension type: essential hypertension Qualified Code(s): I10 - Essential (primary) hypertension (6) Hyperbilirubinemia Code(s): E80.6 - OTHER DISORDERS OF BILIRUBIN METABOLISM (7) S/p nephrectomy Code(s): Z90.5 - ACQUIRED ABSENCE OF KIDNEY (8) Spinal cord compression Code(s): G95.20 - UNSPECIFIED CORD COMPRESSION lactic acidosis lactic acid continues to be on the higher side plan will stop oral abx physio--patient says weak rest continue current mgmt incentive madelyn
--- NOTE | 2017-06-28 13:15 | PN ---
Progress Note, Physician History of Present Illness: Pt seen and examined at bedside. He is awake and appears comfortable. He denies shortness of breath. - Current Medication List Current Medications: Active Medications Amoxicillin/Clavulanate Potassium (Augmentin - 875mg Tablet) 1 tab PO BID@0800, 1730 [facility] Last Admin: 06/28/17 09:27 Dose: 1 tab Dexamethasone (Decadron -) 4 mg PO BID [facility] Last Admin: 06/28/17 09:27 Dose: 4 mg Docusate Sodium (Colace -) 100 mg PO TID [facility] Last Admin: 06/28/17 06:56 Dose: Not Given Metoprolol Succinate (Toprol Xl -) 25 mg PO DAILY [facility] Last Admin: 06/28/17 09:27 Dose: 25 mg Votrient 200mg Tab 3 each PO DAILY@0700 [facility] Last Admin: 06/28/17 06:56 Dose: 3 each Pantoprazole Sodium (Protonix -) 40 mg PO DAILY [facility] Last Admin: 06/28/17 09:27 Dose: 40 mg Polyethylene Glycol (Miralax (For Daily Use) -) 17 gm PO BID [facility] Last Admin: 06/28/17 09:27 Dose: Not Given Potassium Phos/Sodium Phos (Phos-Nak Packet -) 1 packet PO BID [facility] Last Admin: 06/28/17 09:27 Dose: Not Given Rivaroxaban (Xarelto -) 20 mg PO DAILY@1800 [facility] Last Admin: 18 17:14 Dose: 20 mg - Objective Vital Signs: Vital Signs Temperature 98.0 F 06/28/17 09:32 Pulse Rate 64 06/28/17 09:32 Respiratory Rate 18 06/28/17 09:32 Blood Pressure 120/50 06/28/17 09:32 O2 Sat by Pulse Oximetry (%) 96 06/28/17 09:00 Constitutional: Yes: Calm Eyes: Yes: Conjunctiva Clear HENT: Yes: Atraumatic Neck: Yes: Supple Cardiovascular: Yes: S1, S2 Respiratory: Yes: CTA Bilaterally Gastrointestinal: Yes: Normal Bowel Sounds, Soft Genitourinary: Yes: WNL Musculoskeletal: Yes: WNL Edema: Yes Edema: LLE: 1+, RLE: 1+ Neurological: Yes: Oriented Psychiatric: Yes: Oriented Labs: CBC, BMP 06/28/17 06:30 06/28/17 06:30 INR, PTT INR 1.96 (0.82-1.09) H 06/25/17 05:40 Fibrinogen 239.0 mg/dL (238-498) 06/23/17 07:55 Problem List - Problems (1) MONAE (acute kidney injury) Code(s): N17.9 - ACUTE KIDNEY FAILURE, UNSPECIFIED (2) Lactic acidosis Code(s): E87.2 - ACIDOSIS (3) Renal cell carcinoma Code(s): C64.9 - MALIGNANT NEOPLASM OF UNSP KIDNEY, EXCEPT RENAL PELVIS Qualifiers: Laterality: right Qualified Code(s): C64.1 - Malignant neoplasm of right kidney, except renal pelvis (4) T2DM (type 2 diabetes mellitus) Code(s): E11.9 - TYPE 2 DIABETES MELLITUS WITHOUT COMPLICATIONS (5) Diabetes Code(s): E11.9 - TYPE 2 DIABETES MELLITUS WITHOUT COMPLICATIONS Qualifiers: Diabetes mellitus type: type 2 Diabetes mellitus complication detail: with polyneuropathy (6) HTN (hypertension) Code(s): I10 - ESSENTIAL (PRIMARY) HYPERTENSION Qualifiers: Hypertension type: essential hypertension Qualified Code(s): I10 - Essential (primary) hypertension (7) S/p nephrectomy Code(s): Z90.5 - ACQUIRED ABSENCE OF KIDNEY Assessment/Plan Current Medications Generic Name Dose Route Start Last Admin Trade Name Freq PRN Reason Stop Dose Admin Amoxicillin/Clavulanate Potassium 1 tab 06/25/17 17:30 06/28/17 09:27 Augmentin - 875mg Tablet PO 1 tab BID@0800,1730 SUSAN Administration Dexamethasone 4 mg 06/20/17 22:00 06/28/17 09:27 Decadron - PO 4 mg BID SUSAN Administration Docusate Sodium 100 mg 06/20/17 22:00 06/28/17 06:56 Colace - PO Not Given TID SUSAN Metoprolol Succinate 25 mg 06/21/17 10:00 06/28/17 09:27 Toprol Xl - PO 25 mg DAILY SUSAN Administration Votrient 200mg Tab 3 each 06/26/17 07:00 06/28/17 06:56 PO 3 each DAILY@0700 SUSAN Administration Pantoprazole Sodium 40 mg 06/21/17 10:00 06/28/17 09:27 Protonix - PO 40 mg DAILY SUSAN Administration Polyethylene Glycol 17 gm 06/20/17 22:00 06/28/17 09:27 Miralax (For Daily Use) - PO Not Given BID SUSAN Potassium Phos/Sodium Phos 1 packet 06/24/17 22:00 06/28/17 09:27 Phos-Nak Packet - PO Not Given BID SUSAN Rivaroxaban 20 mg 06/20/17 18:00 06/27/17 17:14 Xarelto - PO 20 mg DAILY@1800 SUSAN Administration Impression 1. MONAE 2. lactic acidosis improved 3. renal cancer 4. DM 5. a-fib 6. UTI 7. hypokalemia Plan - cont current meds - can restart lasix at lower dose - repeat labs in am - check phos level - lactic acid elevated, likely from malignancy - monitor lactic acid - oncology follow up - would not restart metformin - likely monae from pre-renal disease - will follow Dr Langford
--- NOTE | 2017-06-28 13:29 | PN ---
Progress Note, Physician History of Present Illness: pulmonary alert,feeling better,+junior,-cp,-cough - Current Medication List Current Medications: Active Medications Amoxicillin/Clavulanate Potassium (Augmentin - 875mg Tablet) 1 tab PO BID@0800, 1730 [facility] Last Admin: 06/28/17 09:27 Dose: 1 tab Dexamethasone (Decadron -) 4 mg PO BID [facility] Last Admin: 06/28/17 09:27 Dose: 4 mg Docusate Sodium (Colace -) 100 mg PO TID [facility] Last Admin: 06/28/17 13:18 Dose: Not Given Furosemide (Lasix -) 20 mg PO DAILY [facility] Metoprolol Succinate (Toprol Xl -) 25 mg PO DAILY [facility] Last Admin: 06/28/17 09:27 Dose: 25 mg Votrient 200mg Tab 3 each PO DAILY@0700 [facility] Last Admin: 06/28/17 06:56 Dose: 3 each Pantoprazole Sodium (Protonix -) 40 mg PO DAILY [facility] Last Admin: 06/28/17 09:27 Dose: 40 mg Polyethylene Glycol (Miralax (For Daily Use) -) 17 gm PO BID [facility] Last Admin: 06/28/17 09:27 Dose: Not Given Potassium Phos/Sodium Phos (Phos-Nak Packet -) 1 packet PO BID [facility] Last Admin: 06/28/17 09:27 Dose: Not Given Rivaroxaban (Xarelto -) 20 mg PO DAILY@1800 [facility] Last Admin: 18 17:14 Dose: 20 mg - Objective Vital Signs: Vital Signs Temperature 98.0 F 06/28/17 09:32 Pulse Rate 64 06/28/17 09:32 Respiratory Rate 18 06/28/17 09:32 Blood Pressure 120/50 06/28/17 09:32 O2 Sat by Pulse Oximetry (%) 96 06/28/17 09:00 Constitutional: Yes: Well Nourished, Calm Eyes: Yes: WNL HENT: Yes: WNL Neck: Yes: WNL Cardiovascular: Yes: Pulse Irregular, S1, S2 Respiratory: Yes: Diminished Gastrointestinal: Yes: Normal Bowel Sounds, Soft Extremities: Yes: WNL Edema: Yes Labs: CBC, BMP 06/28/17 06:30 06/28/17 06:30 INR, PTT INR 1.96 (0.82-1.09) H 06/25/17 05:40 Fibrinogen 239.0 mg/dL (238-498) 06/23/17 07:55 Problem List - Problems (1) Afib Code(s): I48.91 - UNSPECIFIED ATRIAL FIBRILLATION Qualifiers: Atrial fibrillation type: paroxysmal Qualified Code(s): I48.0 - Paroxysmal atrial fibrillation (2) MONAE (acute kidney injury) Code(s): N17.9 - ACUTE KIDNEY FAILURE, UNSPECIFIED (3) Lactic acidosis Code(s): E87.2 - ACIDOSIS (4) Severe sepsis Code(s): A41.9 - SEPSIS, UNSPECIFIED ORGANISM; R65.20 - SEVERE SEPSIS WITHOUT SEPTIC SHOCK (5) Renal cell carcinoma Code(s): C64.9 - MALIGNANT NEOPLASM OF UNSP KIDNEY, EXCEPT RENAL PELVIS Qualifiers: Laterality: right Qualified Code(s): C64.1 - Malignant neoplasm of right kidney, except renal pelvis (6) T2DM (type 2 diabetes mellitus) Code(s): E11.9 - TYPE 2 DIABETES MELLITUS WITHOUT COMPLICATIONS (7) Diabetes Code(s): E11.9 - TYPE 2 DIABETES MELLITUS WITHOUT COMPLICATIONS Qualifiers: Diabetes mellitus type: type 2 Diabetes mellitus complication detail: with polyneuropathy (8) HTN (hypertension) Code(s): I10 - ESSENTIAL (PRIMARY) HYPERTENSION Qualifiers: Hypertension type: essential hypertension Qualified Code(s): I10 - Essential (primary) hypertension (9) Hyperbilirubinemia Code(s): E80.6 - OTHER DISORDERS OF BILIRUBIN METABOLISM (10) Obesity Code(s): E66.9 - OBESITY, UNSPECIFIED Qualifiers: Obesity classification: adult class 3 (BMI >= 40) (11) Spinal cord compression Code(s): G95.20 - UNSPECIFIED CORD COMPRESSION (12) Dyspnea Code(s): R06.00 - DYSPNEA, UNSPECIFIED (13) Respiratory distress Code(s): R06.03 - ACUTE RESPIRATORY DISTRESS Assessment/Plan IMP RESPIRATORY DISTRESS LIKELY SECONDARY TO SEPSIS IMPROVED 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 CORD COMPRESSION MONAE AFIB ELEVATED LFTS THROMBOCYTOPENIA HTN NIDDM ELEVATED LACTATE LEVEL PLAN O2 Augmentin IVF MONITOR LYTES,PLT CT,RENAL FUNCTION TREND LACTATE lasix DR PEPPER Problem List - Problems (1) Afib Code(s): I48.91 - UNSPECIFIED ATRIAL FIBRILLATION (2) MONAE (acute kidney injury) Code(s): N17.9 - ACUTE KIDNEY FAILURE, UNSPECIFIED (3) Lactic acidosis Code(s): E87.2 - ACIDOSIS (4) Severe sepsis Code(s): A41.9 - SEPSIS, UNSPECIFIED ORGANISM; R65.20 - SEVERE SEPSIS WITHOUT SEPTIC SHOCK (5) Renal cell carcinoma Code(s): C64.9 - MALIGNANT NEOPLASM OF UNSP KIDNEY, EXCEPT RENAL PELVIS Qualifiers: Laterality: right Qualified Code(s): C64.1 - Malignant neoplasm of right kidney, except renal pelvis (6) T2DM (type 2 diabetes mellitus) Code(s): E11.9 - TYPE 2 DIABETES MELLITUS WITHOUT COMPLICATIONS (7) Diabetes Code(s): E11.9 - TYPE 2 DIABETES MELLITUS WITHOUT COMPLICATIONS (8) HTN (hypertension) Code(s): I10 - ESSENTIAL (PRIMARY) HYPERTENSION Qualifiers: Hypertension type: essential hypertension Qualified Code(s): I10 - Essential (primary) hypertension (9) Hyperbilirubinemia Code(s): E80.6 - OTHER DISORDERS OF BILIRUBIN METABOLISM (10) Obesity Code(s): E66.9 - OBESITY, UNSPECIFIED (11) Spinal cord compression Code(s): G95.20 - UNSPECIFIED CORD COMPRESSION (12) Dyspnea Code(s): R06.00 - DYSPNEA, UNSPECIFIED (13) Respiratory distress Code(s): R06.03 - ACUTE RESPIRATORY DISTRESS
--- NOTE | 2017-06-28 14:28 | PN ---
Progress Note (short form) - Note Progress Note: Patient seen and examined Denies pain, headache, SOB, dyspnea. Has diarrhea -semi solid stool Concerned about disposition . Has 12 steps in back of apartment and 17 in front. Unable to climb steps. Need to have Social service /PT involvement and input. Only and patient at home together. Last Vital Signs Temp Pulse Resp BP Pulse Ox 98.0 F 64 18 120/50 96 06/28/17 09:32 06/28/17 09:32 06/28/17 09:32 06/28/17 09:32 06/28/17 09:00 HEENT: NATALY, EOM Intact Oropharynx: No thrush, No mucositis Cor: atrial fib Lungs: Clear to P&A Abd: Soft, Normal bowel sounds, No organomegaly Ext: LE edema Skin: No rashes, Integument intact CBC, BMP 06/28/17 06:30 06/28/17 06:30 Current Medications Generic Name Dose Route Start Last Admin Trade Name Freq PRN Reason Stop Dose Admin Amoxicillin/Clavulanate Potassium 1 tab 06/25/17 17:30 06/28/17 09:27 Augmentin - 875mg Tablet PO 1 tab BID@0800,1730 [facility] Administration Dexamethasone 4 mg 06/20/17 22:00 06/28/17 09:27 Decadron - PO 4 mg BID [facility] Administration Docusate Sodium 100 mg 06/20/17 22:00 06/28/17 13:18 Colace - PO Not Given TID SUSAN Furosemide 20 mg 06/29/17 10:00 Lasix - PO DAILY [facility] Metoprolol Succinate 25 mg 06/21/17 10:00 06/28/17 09:27 Toprol Xl - PO 25 mg DAILY [facility] Administration Votrient 200mg Tab 3 each 06/26/17 07:00 06/28/17 06:56 PO 3 each DAILY@0700 [facility] Administration Pantoprazole Sodium 40 mg 06/21/17 10:00 06/28/17 09:27 Protonix - PO 40 mg DAILY [facility] Administration Polyethylene Glycol 17 gm 06/20/17 22:00 06/28/17 09:27 Miralax (For Daily Use) - PO Not Given BID [facility] Potassium Phos/Sodium Phos 1 packet 06/24/17 22:00 06/28/17 09:27 Phos-Nak Packet - PO Not Given BID [facility] Rivaroxaban 20 mg 06/20/17 18:00 06/27/17 17:14 Xarelto - PO 20 mg DAILY@1800 [facility] Administration Impression: Metastatic RCC- on Votrient Cord compression-s/p RT- on decadron 8 mg/day-- UTI/sepsis-- on augmentin Thrombocytopenia- secondary to sepsis / votrient Abnormal LFT's- improved Plan:: Continue with PT Social service Decrease decadron - 6 mg/ day Continue antibiotics per ID.
[2017-06-28] MEDS: RIVAROXABAN 20 MG TABLET PO SCH (17:35)
[2017-06-29] MEDS ORDERED: PT OWN MED DRAWER 7, Y5N ONE ×3 (05:48→16:51)
[2017-06-29] MEDS: DOCUSATE SODIUM 100 MG CAPSULE (FP) PO SCH ×3 (06:26→21:05)
[2017-06-29] MEDS: DEXAMETHASONE 4 MG TABLET (FP) PO SCH ×3 (06:26→21:05)
[2017-06-29] MEDS: VOTRIENT 200 MG PO SCH (06:26)
[2017-06-29 07:57] LABS: HEMATOCRIT 33.5 % (35.4-49); HEMOGLOBIN 11.3 GM/dL (11.7-16.9); MCH 32.3 pg (25.7-33.7); MCHC 33.8 g/dl (32.0-35.9); MEAN CELL VOLUME 95.5 fl (80-96); MEAN PLT VOLUME 8.1 fl (7.5-11.1); PLATELET COUNT 69 K/MM3 (134-434); RBC 3.51 M/mm3 (4.00-5.60); RDW 21.2 % (11.9-15.9)
[2017-06-29 08:37] LABS: ANION GAP 10 (8-16); BLOOD UREA NITROGEN 19 mg/dL (7-18); CHLORIDE 103 mmol/L (98-107); CO2 28 mmol/L (21-32); CREATININE 0.6 mg/dL (0.7-1.3); GLUCOSE,RANDOM 173 mg/dL (74-106); PHOSPHOROUS 2.2 mg/dL (2.5-4.9); POTASSIUM 3.9 mmol/L (3.5-5.1); SODIUM 141 mmol/L (136-145)
[2017-06-29] MEDS: POLYETHYLENE GLYCOL 3350 119 GM BTL PO SCH ×2 (09:45→21:05)
[2017-06-29] MEDS: FUROSEMIDE 20 MG TABLET (FP) PO SCH (09:45)
[2017-06-29] MEDS: AMOX TR/POT CLAV 875MG/125MG TABLETS (FP) PO SCH ×2 (09:45→17:44)
[2017-06-29] MEDS: PANTOPRAZOLE 40 MG TABLET (FP) PO SCH (09:45)
[2017-06-29] MEDS: NAPH,MB-DB/K PH,MBDB POWDER PACKET PO SCH ×3 (09:45→21:06)
[2017-06-29] MEDS: METOPROLOL SUCCINATE 25 MG TAB.SR.24H (FP) PO SCH (09:45)
--- NOTE | 2017-06-29 10:00 | PN ---
Progress Note (short form) - Note Progress Note: Neurology History of Present Illness 77-year-old male presented to the emergency room for evaluation of increasing fatigue, weakness, shortness of breath, and mild nausea for the past few weeks after beginning his chemotherapy regimen for spinal cancer. 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 He had been admitted 05/29- for worsening lower extremity weakness secondary to spinal cord compression. Decision was made not to pursue surgery, was put on dexamethasone, and tried pazopanib. Patient presented to the ED today with progressive SOB, weakness, fatigue, and poor appetite since starting pazopanib. I was consulted regarding his ongoing weakness which seems to have deteroriated. EMG completed and did not show evidence of myopathy. Symptoms may be due to spinal disease. Patient being considered for short term rehab but unclear with facility can accept with chemo medication. press worker helper trying to coordinate. Active Medications Amoxicillin/Clavulanate Potassium (Augmentin - 875mg Tablet) 1 tab PO BID@0800, 1730 [facility] Last Admin: 06/29/17 09:45 Dose: 1 tab Dexamethasone (Decadron -) 2 mg PO TID [facility] Last Admin: 06/29/17 06:26 Dose: 2 mg Docusate Sodium (Colace -) 100 mg PO TID [facility] Last Admin: 06/29/17 06:26 Dose: Not Given Furosemide (Lasix -) 20 mg PO DAILY [facility] Last Admin: 06/29/17 09:45 Dose: 20 mg Metoprolol Succinate (Toprol Xl -) 25 mg PO DAILY [facility] Last Admin: 06/29/17 09:45 Dose: 25 mg Votrient 200mg Tab 3 each PO DAILY@0700 [facility] Last Admin: 06/29/17 06:26 Dose: 3 each Pantoprazole Sodium (Protonix -) 40 mg PO DAILY [facility] Last Admin: 06/29/17 09:45 Dose: 40 mg Polyethylene Glycol (Miralax (For Daily Use) -) 17 gm PO BID [facility] Last Admin: 06/29/17 09:45 Dose: Not Given Potassium Phos/Sodium Phos (Phos-Nak Packet -) 1 packet PO BID [facility] Last Admin: 06/29/17 09:45 Dose: Not Given Rivaroxaban (Xarelto -) 20 mg PO DAILY@1800 [facility] Last Admin: 06/28/17 17:35 Dose: 20 mg *Physical Exam Vital Signs Temperature 97.3 F L 06/29/17 09:43 Pulse Rate 57 L 06/29/17 09:43 Respiratory Rate 18 06/29/17 09:43 Blood Pressure 113/67 06/29/17 09:43 O2 Sat by Pulse Oximetry (%) 96 06/28/17 21:00 - Physical Exam General Appearance: Yes: Nourished, Appropriately Dressed. No: Apparent Distress HEENT: positive: EOMI, FREDA. negative: Pale Conjunctivae Neck: positive: Supple Respiratory/Chest: positive: Lungs Clear, Normal Breath Sounds. negative: Respiratory Distress, Accessory Muscle Use Cardiovascular: positive: Regular Rate (a flutter 82). negative: Murmur Gastrointestinal/Abdominal: positive: Normal Bowel Sounds, Soft, Distended ( slight). negative: Tenderness, Mass Extremity: positive: Normal Capillary Refill, Pedal Edema Integumentary: positive: Dry, Warm, Pale Neurologic: Awake and alert, interative, mental status intact, sensory intact, gait not able to ambulate CBCD WBC 5.0 K/mm3 (4.0-10.0) 06/29/17 05:35 RBC 3.51 M/mm3 (4.00-5.60) L 06/29/17 05:35 Hgb 11.3 GM/dL (11.7-16.9) L 06/29/17 05:35 Hct 33.5 % (35.4-49) L 06/29/17 05:35 MCV 95.5 fl (80-96) 06/29/17 05:35 MCHC 33.8 g/dl (32.0-35.9) 06/29/17 05:35 RDW 21.2 % (11.9-15.9) H 06/29/17 05:35 Plt Count 69 K/MM3 (134-434) L 06/29/17 05:35 MPV 8.1 fl (7.5-11.1) 06/29/17 05:35 CMP Sodium 141 mmol/L (136-145) 06/29/17 05:35 Potassium 3.9 mmol/L (3.5-5.1) 06/29/17 05:35 Chloride 103 mmol/L (98-107) 06/29/17 05:35 Carbon Dioxide 28 mmol/L (21-32) 06/29/17 05:35 Anion Gap 10 (8-16) 06/29/17 05:35 BUN 19 mg/dL (7-18) H 06/29/17 05:35 Creatinine 0.6 mg/dL (0.7-1.3) L 06/29/17 05:35 Creat Clearance w eGFR > 60 (>60) 06/23/17 07:55 Calcium 8.0 mg/dL (8.5-10.1) L 06/29/17 05:35 Total Bilirubin 0.8 mg/dL (0.2-1.0) 06/28/17 06:30 AST 40 U/L (15-37) H D 06/28/17 06:30 ALT 63 U/L (12-78) 06/28/17 06:30 Alkaline Phosphatase 85 U/L (45-117) 06/28/17 06:30 Total Protein 5.1 g/dl (6.4-8.2) L 06/28/17 06:30 Albumin 2.5 g/dl (3.4-5.0) L 06/28/17 06:30 - RADIOLOGY Echo reviewed EMG reviewed Medical Decision Making 77-year-old male presents to the emergency room for evaluation of increasing fatigue, weakness, shortness of breath, and mild nausea for the past few weeks after beginning his chemotherapy regimen for spinal cancer. 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 He had been admitted 05/29- for worsening lower extremity weakness secondary to spinal cord compression. Decision was made not to pursue surgery, was put on dexamethasone, and tried pazopanib. Patient presented to the ED today with progressive SOB, weakness, fatigue, and poor appetite since starting pazopanib. EMg reviewed, can continue low dose decadron Did not demonstrate myopathy On AC Xarelto, strict fall precautions On IV abx for sepsis, UTI Follow up ID rec'd Physcial therapy, case operator to coordinate possible rehab placement
--- NOTE | 2017-06-29 10:39 | PN ---
Progress Note (short form) - Note Progress Note: pt seen and examined. feels better , participating in PT,ROS is + LE swelling tolerating votrient INR, PTT INR 1.96 (0.82-1.09) H 06/25/17 05:40 Fibrinogen 239.0 mg/dL (238-498) 06/23/17 07:55 Last Vital Signs Temp Pulse Resp BP Pulse Ox 97.3 F L 57 L 18 113/67 96 06/29/17 09:43 06/29/17 09:43 06/29/17 09:43 06/29/17 09:43 06/28/17 21:00 CBC, BMP 06/29/17 05:35 06/29/17 05:35 Current Medications Generic Name Dose Route Start Last Admin Trade Name Freq PRN Reason Stop Dose Admin Amoxicillin/Clavulanate Potassium 1 tab 06/25/17 17:30 06/29/17 09:45 Augmentin - 875mg Tablet PO 1 tab BID@0800,1730 [facility] Administration Dexamethasone 2 mg 06/28/17 22:00 06/29/17 06:26 Decadron - PO 2 mg TID [facility] Administration Docusate Sodium 100 mg 06/20/17 22:00 06/29/17 06:26 Colace - PO Not Given TID [facility]USAN Furosemide 20 mg 06/29/17 10:00 06/29/17 09:45 Lasix - PO 20 mg DAILY [facility] Administration Metoprolol Succinate 25 mg 06/21/17 10:00 06/29/17 09:45 Toprol Xl - PO 25 mg DAILY [facility] Administration Votrient 200mg Tab 3 each 06/26/17 07:00 06/29/17 06:26 PO 3 each DAILY@0700 [facility] Administration Polyethylene Glycol 17 gm 06/20/17 22:00 06/29/17 09:45 Miralax (For Daily Use) - PO Not Given BID [facility] Potassium Phos/Sodium Phos 1 packet 06/24/17 22:00 06/29/17 09:45 Phos-Nak Packet - PO Not Given BID [facility] Rivaroxaban 20 mg 06/20/17 18:00 06/28/17 17:35 Xarelto - PO 20 mg DAILY@1800 [facility] Administration O/E: General:NAD, HEENT :NCAT Cardiac: RRR Lungs: CTA b/l Neuro: AAOx3 LE: +bruises, better than before, mild LE swelling A/P: Metastatic RCC- on Votrient Cord compression-s/p RT- on decadron 6 mg/day-- UTI/sepsis-- on augmentin Thrombocytopenia- secondary to sepsis / votrient Abnormal LFT's- improved Plan:: Continue with PT c/w decadron - 6 mg/ day Continue antibiotics per ID. EMG/Neuro eval noted for coags, monitor platelet count. to consider lasix.
--- NOTE | 2017-06-29 10:48 | PN ---
Progress Note, Physician Chief Complaint: Mr Murcia complains of left leg swelling. No cp, sob, n/v. - Current Medication List Current Medications: Active Medications Amoxicillin/Clavulanate Potassium (Augmentin - 875mg Tablet) 1 tab PO BID@0800, 1730 [facility] Last Admin: 06/29/17 09:45 Dose: 1 tab Dexamethasone (Decadron -) 2 mg PO TID [facility] Last Admin: 06/29/17 06:26 Dose: 2 mg Docusate Sodium (Colace -) 100 mg PO TID [facility] Last Admin: 06/29/17 06:26 Dose: Not Given Furosemide (Lasix -) 20 mg PO DAILY [facility] Last Admin: 06/29/17 09:45 Dose: 20 mg Metoprolol Succinate (Toprol Xl -) 25 mg PO DAILY [facility] Last Admin: 06/29/17 09:45 Dose: 25 mg Votrient 200mg Tab 3 each PO DAILY@0700 [facility] Last Admin: 06/29/17 06:26 Dose: 3 each Polyethylene Glycol (Miralax (For Daily Use) -) 17 gm PO BID [facility] Last Admin: 06/29/17 09:45 Dose: Not Given Potassium Phos/Sodium Phos (Phos-Nak Packet -) 1 packet PO BID [facility] Last Admin: 06/29/17 09:45 Dose: Not Given Rivaroxaban (Xarelto -) 20 mg PO DAILY@1800 [facility] Last Admin: 06/28/17 17:35 Dose: 20 mg - Objective Vital Signs: Vital Signs Temperature 36.3 C L 06/29/17 09:43 Pulse Rate 57 L 06/29/17 09:43 Respiratory Rate 18 06/29/17 09:43 Blood Pressure 113/67 06/29/17 09:43 O2 Sat by Pulse Oximetry (%) 96 06/28/17 21:00 Constitutional: Yes: No Distress, Calm, Obese Cardiovascular: Yes: Regular Rate and Rhythm. No: Gallop, Murmur, Rub Respiratory: Yes: Regular, CTA Bilaterally. No: Rales, Rhonchi, Wheezes Gastrointestinal: Yes: Normal Bowel Sounds, Soft. No: Distention, Tenderness Extremities: Yes: WNL Edema: LLE: 1+ Labs: CBC, BMP 06/29/17 05:35 06/29/17 05:35 INR, PTT INR 1.96 (0.82-1.09) H 06/25/17 05:40 Fibrinogen 239.0 mg/dL (238-498) 06/23/17 07:55 Problem List - Problems (1) UTI (urinary tract infection) Code(s): N39.0 - URINARY TRACT INFECTION, SITE NOT SPECIFIED Qualifiers: Urinary tract infection type: acute cystitis Hematuria presence: without hematuria Qualified Code(s): N30.00 - Acute cystitis without hematuria (2) Severe sepsis Code(s): A41.9 - SEPSIS, UNSPECIFIED ORGANISM; R65.20 - SEVERE SEPSIS WITHOUT SEPTIC SHOCK (3) MONAE (acute kidney injury) Code(s): N17.9 - ACUTE KIDNEY FAILURE, UNSPECIFIED (4) Afib Code(s): I48.91 - UNSPECIFIED ATRIAL FIBRILLATION Qualifiers: Atrial fibrillation type: paroxysmal Qualified Code(s): I48.0 - Paroxysmal atrial fibrillation (5) Renal cell carcinoma Code(s): C64.9 - MALIGNANT NEOPLASM OF UNSP KIDNEY, EXCEPT RENAL PELVIS Qualifiers: Laterality: right Qualified Code(s): C64.1 - Malignant neoplasm of right kidney, except renal pelvis (6) T2DM (type 2 diabetes mellitus) Code(s): E11.9 - TYPE 2 DIABETES MELLITUS WITHOUT COMPLICATIONS (7) HTN (hypertension) Code(s): I10 - ESSENTIAL (PRIMARY) HYPERTENSION Qualifiers: Hypertension type: essential hypertension Qualified Code(s): I10 - Essential (primary) hypertension (8) Obesity Code(s): E66.9 - OBESITY, UNSPECIFIED Qualifiers: Obesity classification: adult class 3 (BMI >= 40) (9) Spinal cord compression Code(s): G95.20 - UNSPECIFIED CORD COMPRESSION Assessment/Plan (1) UTI (urinary tract infection) Assessment/Plan: -patient much improved -changed to augmentin per Dr Barber -course per Dr Barber Code(s): N39.0 - URINARY TRACT INFECTION, SITE NOT SPECIFIED Qualifiers: Urinary tract infection type: acute cystitis Hematuria presence: without hematuria Qualified Code(s): N30.00 - Acute cystitis without hematuria (2) Severe sepsis Assessment/Plan: -resolved Code(s): A41.9 - SEPSIS, UNSPECIFIED ORGANISM; R65.20 - SEVERE SEPSIS WITHOUT SEPTIC SHOCK (3) MONAE (acute kidney injury) Assessment/Plan: -resolved with hydration and treatment of sepsis Code(s): N17.9 - ACUTE KIDNEY FAILURE, UNSPECIFIED (4) Afib Assessment/Plan: -controlled -continue xarelto and toprol xl Code(s): I48.91 - UNSPECIFIED ATRIAL FIBRILLATION Qualifiers: Atrial fibrillation type: paroxysmal Qualified Code(s): I48.0 - Paroxysmal atrial fibrillation (5) Renal cell carcinoma Assessment/Plan: -metastatic -oncology following Code(s): C64.9 - MALIGNANT NEOPLASM OF UNSP KIDNEY, EXCEPT RENAL PELVIS Qualifiers: Laterality: right Qualified Code(s): C64.1 - Malignant neoplasm of right kidney, except renal pelvis (6) T2DM (type 2 diabetes mellitus) Assessment/Plan: -monitor on bmp Code(s): E11.9 - TYPE 2 DIABETES MELLITUS WITHOUT COMPLICATIONS (7) HTN (hypertension) Assessment/Plan: -continue toprol xl Code(s): I10 - ESSENTIAL (PRIMARY) HYPERTENSION Qualifiers: Hypertension type: essential hypertension Qualified Code(s): I10 - Essential (primary) hypertension (8) Obesity Assessment/Plan: -counselled Code(s): E66.9 - OBESITY, UNSPECIFIED (9) Spinal cord compression Assessment/Plan: -continue decadron -oncology following Code(s): G95.20 - UNSPECIFIED CORD COMPRESSION (10) Elevated LFTs -resolved (11) Thrombocytopenia -secondary to sepsis -improving (12) Lactic acidosis -monitor, not yet normalized (13) Weakness -appreciate neurology assistance -will benefit from SF placement Dispo -will benefit from SNF placement when ready for discharge
--- NOTE | 2017-06-29 11:46 | PN ---
Progress Note, Physician History of Present Illness: PULMONARY ALERT,OOB-CHAIR,COMFORTABLE,-RESP DISTRESS - Current Medication List Current Medications: Active Medications Amoxicillin/Clavulanate Potassium (Augmentin - 875mg Tablet) 1 tab PO BID@0800, 1730 [facility] Last Admin: 06/29/17 09:45 Dose: 1 tab Dexamethasone (Decadron -) 2 mg PO TID [facility] Last Admin: 06/29/17 06:26 Dose: 2 mg Docusate Sodium (Colace -) 100 mg PO TID [facility] Last Admin: 06/29/17 06:26 Dose: Not Given Furosemide (Lasix -) 20 mg PO DAILY [facility] Last Admin: 06/29/17 09:45 Dose: 20 mg Metoprolol Succinate (Toprol Xl -) 25 mg PO DAILY [facility] Last Admin: 06/29/17 09:45 Dose: 25 mg Votrient 200mg Tab 3 each PO DAILY@0700 [facility] [place] Last Admin: 06/29/17 06:26 Dose: 3 each Polyethylene Glycol (Miralax (For Daily Use) -) 17 gm PO BID [facility] [place] Last Admin: 06/29/17 09:45 Dose: Not Given Potassium Phos/Sodium Phos (Phos-Nak Packet -) 1 packet PO BID [facility] [place] Last Admin: 06/29/17 09:45 Dose: Not Given Rivaroxaban (Xarelto -) 20 mg PO DAILY@1800 [facility] Last Admin: 06/28/17 17:35 Dose: 20 mg - Objective Vital Signs: Vital Signs Temperature 97.3 F L 06/29/17 09:43 Pulse Rate 57 L 06/29/17 09:43 Respiratory Rate 18 06/29/17 09:43 Blood Pressure 113/67 06/29/17 09:43 O2 Sat by Pulse Oximetry (%) 96 06/28/17 21:00 Constitutional: Yes: Well Nourished, Calm Eyes: Yes: WNL HENT: Yes: WNL Neck: Yes: WNL Cardiovascular: Yes: Regular Rate and Rhythm, S1, S2 Respiratory: Yes: Rales (FEW CRACKLES) Gastrointestinal: Yes: Normal Bowel Sounds, Soft Extremities: Yes: WNL Edema: Yes Labs: CBC, BMP 06/29/17 05:35 06/29/17 05:35 INR, PTT INR 1.96 (0.82-1.09) H 06/25/17 05:40 Fibrinogen 239.0 mg/dL (238-498) 06/23/17 07:55 Problem List - Problems (1) Afib Code(s): I48.91 - UNSPECIFIED ATRIAL FIBRILLATION Qualifiers: Atrial fibrillation type: paroxysmal Qualified Code(s): I48.0 - Paroxysmal atrial fibrillation (2) MONAE (acute kidney injury) Code(s): N17.9 - ACUTE KIDNEY FAILURE, UNSPECIFIED (3) Lactic acidosis Code(s): E87.2 - ACIDOSIS (4) Severe sepsis Code(s): A41.9 - SEPSIS, UNSPECIFIED ORGANISM; R65.20 - SEVERE SEPSIS WITHOUT SEPTIC SHOCK (5) Renal cell carcinoma Code(s): C64.9 - MALIGNANT NEOPLASM OF UNSP KIDNEY, EXCEPT RENAL PELVIS Qualifiers: Laterality: right Qualified Code(s): C64.1 - Malignant neoplasm of right kidney, except renal pelvis (6) T2DM (type 2 diabetes mellitus) Code(s): E11.9 - TYPE 2 DIABETES MELLITUS WITHOUT COMPLICATIONS (7) Diabetes Code(s): E11.9 - TYPE 2 DIABETES MELLITUS WITHOUT COMPLICATIONS Qualifiers: Diabetes mellitus type: type 2 Diabetes mellitus complication detail: with polyneuropathy (8) HTN (hypertension) Code(s): I10 - ESSENTIAL (PRIMARY) HYPERTENSION Qualifiers: Hypertension type: essential hypertension Qualified Code(s): I10 - Essential (primary) hypertension (9) Hyperbilirubinemia Code(s): E80.6 - OTHER DISORDERS OF BILIRUBIN METABOLISM (10) Obesity Code(s): E66.9 - OBESITY, UNSPECIFIED Qualifiers: Obesity classification: adult class 3 (BMI >= 40) (11) Spinal cord compression Code(s): G95.20 - UNSPECIFIED CORD COMPRESSION (12) Dyspnea Code(s): R06.00 - DYSPNEA, UNSPECIFIED (13) Respiratory distress Code(s): R06.03 - ACUTE RESPIRATORY DISTRESS Assessment/Plan IMP RESPIRATORY DISTRESS LIKELY SECONDARY TO SEPSIS IMPROVED 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 CORD COMPRESSION MONAE AFIB ELEVATED LFTS THROMBOCYTOPENIA HTN NIDDM ELEVATED LACTATE LEVEL PLAN O2 Augmentin IVF MONITOR LYTES,PLT CT,RENAL FUNCTION LEOBARDO PEPPER Problem List - Problems (1) Afib Code(s): I48.91 - UNSPECIFIED ATRIAL FIBRILLATION (2) MONAE (acute kidney injury) Code(s): N17.9 - ACUTE KIDNEY FAILURE, UNSPECIFIED (3) Lactic acidosis Code(s): E87.2 - ACIDOSIS (4) Severe sepsis Code(s): A41.9 - SEPSIS, UNSPECIFIED ORGANISM; R65.20 - SEVERE SEPSIS WITHOUT SEPTIC SHOCK (5) Renal cell carcinoma Code(s): C64.9 - MALIGNANT NEOPLASM OF UNSP KIDNEY, EXCEPT RENAL PELVIS Qualifiers: Laterality: right Qualified Code(s): C64.1 - Malignant neoplasm of right kidney, except renal pelvis (6) T2DM (type 2 diabetes mellitus) Code(s): E11.9 - TYPE 2 DIABETES MELLITUS WITHOUT COMPLICATIONS (7) Diabetes Code(s): E11.9 - TYPE 2 DIABETES MELLITUS WITHOUT COMPLICATIONS (8) HTN (hypertension) Code(s): I10 - ESSENTIAL (PRIMARY) HYPERTENSION Qualifiers: Hypertension type: essential hypertension Qualified Code(s): I10 - Essential (primary) hypertension (9) Hyperbilirubinemia Code(s): E80.6 - OTHER DISORDERS OF BILIRUBIN METABOLISM (10) Obesity Code(s): E66.9 - OBESITY, UNSPECIFIED (11) Spinal cord compression Code(s): G95.20 - UNSPECIFIED CORD COMPRESSION (12) Dyspnea Code(s): R06.00 - DYSPNEA, UNSPECIFIED (13) Respiratory distress Code(s): R06.03 - ACUTE RESPIRATORY DISTRESS
[2017-06-29 11:54] LABS: ANISOCYTOSIS 3+; MACROCYTOSIS 1+; PLATELET ESTIMATE DECREASED
--- NOTE | 2017-06-29 13:28 | PN ---
Progress Note, Physician History of Present Illness: Pt seen and examined at bedside. He is out of bed to chair. He says he feels well. - Current Medication List Current Medications: Active Medications Amoxicillin/Clavulanate Potassium (Augmentin - 875mg Tablet) 1 tab PO BID@0800, 1730 [facility] Last Admin: 06/29/17 09:45 Dose: 1 tab Dexamethasone (Decadron -) 2 mg PO TID [facility] Last Admin: 06/29/17 06:26 Dose: 2 mg Docusate Sodium (Colace -) 100 mg PO TID [facility] Last Admin: 06/29/17 06:26 Dose: Not Given Furosemide (Lasix -) 20 mg PO DAILY [facility] Last Admin: 06/29/17 09:45 Dose: 20 mg Metoprolol Succinate (Toprol Xl -) 25 mg PO DAILY [facility] Last Admin: 06/29/17 09:45 Dose: 25 mg Votrient 200mg Tab 3 each PO DAILY@0700 [facility] Last Admin: 06/29/17 06:26 Dose: 3 each Polyethylene Glycol (Miralax (For Daily Use) -) 17 gm PO BID [facility] Last Admin: 06/29/17 09:45 Dose: Not Given Potassium Phos/Sodium Phos (Phos-Nak Packet -) 1 packet PO BID [facility] Last Admin: 06/29/17 09:45 Dose: Not Given Rivaroxaban (Xarelto -) 20 mg PO DAILY@1800 [facility] Last Admin: 06/28/17 17:35 Dose: 20 mg - Objective Vital Signs: Vital Signs Temperature 97.3 F L 06/29/17 09:43 Pulse Rate 57 L 06/29/17 09:43 Respiratory Rate 18 06/29/17 09:43 Blood Pressure 113/67 06/29/17 09:43 O2 Sat by Pulse Oximetry (%) 96 06/28/17 21:00 Constitutional: Yes: Calm Eyes: Yes: Conjunctiva Clear HENT: Yes: Atraumatic Neck: Yes: Supple Cardiovascular: Yes: S1, S2 Respiratory: Yes: CTA Bilaterally Gastrointestinal: Yes: Soft, Abdomen, Obese Genitourinary: Yes: WNL Musculoskeletal: Yes: WNL Edema: Yes Edema: LLE: Trace, RLE: Trace Neurological: Yes: Oriented Psychiatric: Yes: Oriented Labs: CBC, BMP 06/29/17 05:35 06/29/17 05:35 INR, PTT INR 1.96 (0.82-1.09) H 06/25/17 05:40 Fibrinogen 239.0 mg/dL (238-498) 06/23/17 07:55 Problem List - Problems (1) MONAE (acute kidney injury) Code(s): N17.9 - ACUTE KIDNEY FAILURE, UNSPECIFIED (2) Lactic acidosis Code(s): E87.2 - ACIDOSIS (3) Renal cell carcinoma Code(s): C64.9 - MALIGNANT NEOPLASM OF UNSP KIDNEY, EXCEPT RENAL PELVIS Qualifiers: Laterality: right Qualified Code(s): C64.1 - Malignant neoplasm of right kidney, except renal pelvis (4) T2DM (type 2 diabetes mellitus) Code(s): E11.9 - TYPE 2 DIABETES MELLITUS WITHOUT COMPLICATIONS (5) Diabetes Code(s): E11.9 - TYPE 2 DIABETES MELLITUS WITHOUT COMPLICATIONS Qualifiers: Diabetes mellitus type: type 2 Diabetes mellitus complication detail: with polyneuropathy (6) HTN (hypertension) Code(s): I10 - ESSENTIAL (PRIMARY) HYPERTENSION Qualifiers: Hypertension type: essential hypertension Qualified Code(s): I10 - Essential (primary) hypertension (7) S/p nephrectomy Code(s): Z90.5 - ACQUIRED ABSENCE OF KIDNEY Assessment/Plan Current Medications Generic Name Dose Route Start Last Admin Trade Name Freq PRN Reason Stop Dose Admin Amoxicillin/Clavulanate Potassium 1 tab 06/25/17 17:30 06/29/17 09:45 Augmentin - 875mg Tablet PO 1 tab BID@0800,1730 [facility] Administration Dexamethasone 2 mg 06/28/17 22:00 06/29/17 06:26 Decadron - PO 2 mg TID [facility] Administration Docusate Sodium 100 mg 06/20/17 22:00 06/29/17 06:26 Colace - PO Not Given TID [facility] Furosemide 20 mg 06/29/17 10:00 06/29/17 09:45 Lasix - PO 20 mg DAILY [facility] Administration Metoprolol Succinate 25 mg 06/21/17 10:00 06/29/17 09:45 Toprol Xl - PO 25 mg DAILY [facility] Administration Votrient 200mg Tab 3 each 06/26/17 07:00 06/29/17 06:26 PO 3 each DAILY@0700 [facility] Administration Polyethylene Glycol 17 gm 06/20/17 22:00 06/29/17 09:45 Miralax (For Daily Use) - PO Not Given BID [facility] Potassium Phos/Sodium Phos 1 packet 06/24/17 22:00 06/29/17 09:45 Phos-Nak Packet - PO Not Given BID [facility] Rivaroxaban 20 mg 06/20/17 18:00 06/28/17 17:35 Xarelto - PO 20 mg DAILY@1800 [facility] Administration Laboratory Tests 06/29/17 06/29/17 05:35 05:35 Lactic Acid 3.0 H* Phosphorus 2.2 L Impression 1. MONAE 2. lactic acidosis improved 3. renal cancer 4. DM 5. a-fib 6. UTI 7. hypokalemia Plan - replace phos - cont lasix - monitor renal function - lactic acid improved - would not restart metformin - likely monae from pre-renal disease - will follow Dr Langford
--- NOTE | 2017-06-29 15:27 | PN ---
Progress Note, Physician History of Present Illness: stable no issues in the room - Current Medication List Current Medications: Active Medications Amoxicillin/Clavulanate Potassium (Augmentin - 875mg Tablet) 1 tab PO BID@0800, 1730 [facility] Last Admin: 06/29/17 09:45 Dose: 1 tab Dexamethasone (Decadron -) 2 mg PO TID [facility] Last Admin: 06/29/17 13:30 Dose: 2 mg Docusate Sodium (Colace -) 100 mg PO TID [facility] Last Admin: 06/29/17 13:32 Dose: Not Given Furosemide (Lasix -) 20 mg PO DAILY [facility] Last Admin: 06/29/17 09:45 Dose: 20 mg Metoprolol Succinate (Toprol Xl -) 25 mg PO DAILY [facility] Last Admin: 06/29/17 09:45 Dose: 25 mg Votrient 200mg Tab 3 each PO DAILY@0700 [facility] Last Admin: 06/29/17 06:26 Dose: 3 each Polyethylene Glycol (Miralax (For Daily Use) -) 17 gm PO BID [facility] Last Admin: 06/29/17 09:45 Dose: Not Given Potassium Phos/Sodium Phos (Phos-Nak Packet -) 1 packet PO BID [facility] Last Admin: 06/29/17 13:32 Dose: 1 packet Rivaroxaban (Xarelto -) 20 mg PO DAILY@1800 [facility] Last Admin: 06/28/17 17:35 Dose: 20 mg - Objective Vital Signs: Vital Signs Temperature 98 F 06/29/17 14:11 Pulse Rate 56 L 06/29/17 14:11 Respiratory Rate 18 06/29/17 14:11 Blood Pressure 110/64 06/29/17 14:11 O2 Sat by Pulse Oximetry (%) 100 06/29/17 09:00 Constitutional: Yes: No Distress, Calm Cardiovascular: Yes: S1, S2 Respiratory: Yes: Regular, CTA Bilaterally Gastrointestinal: Yes: Normal Bowel Sounds, Soft Musculoskeletal: Yes: WNL Extremities: Yes: WNL Neurological: Yes: Alert, Oriented Psychiatric: Yes: Alert, Oriented Labs: CBC, BMP 06/29/17 05:35 06/29/17 05:35 INR, PTT INR 1.96 (0.82-1.09) H 06/25/17 05:40 Fibrinogen 239.0 mg/dL (238-498) 06/23/17 07:55 Assessment/Plan Problem List - Problems (1) Severe sepsis Code(s): A41.9 - SEPSIS, UNSPECIFIED ORGANISM; R65.20 - SEVERE SEPSIS WITHOUT SEPTIC SHOCK (2) Renal cell carcinoma Code(s): C64.9 - MALIGNANT NEOPLASM OF UNSP KIDNEY, EXCEPT RENAL PELVIS Qualifiers: Laterality: right Qualified Code(s): C64.1 - Malignant neoplasm of right kidney, except renal pelvis (3) T2DM (type 2 diabetes mellitus) Code(s): E11.9 - TYPE 2 DIABETES MELLITUS WITHOUT COMPLICATIONS (4) Atrial flutter Code(s): I48.92 - UNSPECIFIED ATRIAL FLUTTER Qualifiers: Atrial flutter type: atypical Qualified Code(s): I48.4 - Atypical atrial flutter (5) HTN (hypertension) Code(s): I10 - ESSENTIAL (PRIMARY) HYPERTENSION Qualifiers: Hypertension type: essential hypertension Qualified Code(s): I10 - Essential (primary) hypertension (6) Hyperbilirubinemia Code(s): E80.6 - OTHER DISORDERS OF BILIRUBIN METABOLISM (7) S/p nephrectomy Code(s): Z90.5 - ACQUIRED ABSENCE OF KIDNEY (8) Spinal cord compression Code(s): G95.20 - UNSPECIFIED CORD COMPRESSION lactic acidosis lactic acid continues to be on the higher side plan stable off of abx continue current mgmt physio rest as per primary team
[2017-06-29] MEDS: RIVAROXABAN 20 MG TABLET PO SCH (17:44)
[2017-06-30] MEDS: DOCUSATE SODIUM 100 MG CAPSULE (FP) PO SCH ×3 (05:38→21:49)
[2017-06-30] MEDS ORDERED: PT OWN MED DRAWER 7, Y5N ONE (05:40)
[2017-06-30] MEDS: DEXAMETHASONE 4 MG TABLET (FP) PO SCH ×3 (06:05→21:47)
[2017-06-30] MEDS: VOTRIENT 200 MG PO SCH (06:06)
[2017-06-30 08:12] LABS: HEMATOCRIT 32.8 % (35.4-49); MCH 32.1 pg (25.7-33.7); MCHC 33.7 g/dl (32.0-35.9); MEAN CELL VOLUME 95.2 fl (80-96); MEAN PLT VOLUME 7.9 fl (7.5-11.1); PLATELET COUNT 72 K/MM3 (134-434); RBC 3.44 M/mm3 (4.00-5.60); WHITE BLOOD COUNT 5.1 K/mm3 (4.0-10.0)
[2017-06-30 08:35] LABS: ANION GAP 6 (8-16); BLOOD UREA NITROGEN 20 mg/dL (7-18); CALCIUM 7.6 mg/dL (8.5-10.1); CHLORIDE 102 mmol/L (98-107); CO2 31 mmol/L (21-32); GLUCOSE,RANDOM 186 mg/dL (74-106); POTASSIUM 4.6 mmol/L (3.5-5.1); SODIUM 139 mmol/L (136-145)
[2017-06-30 08:36] LABS: CREATININE 0.7 mg/dL (0.7-1.3); PHOSPHOROUS 2.8 mg/dL (2.5-4.9)
[2017-06-30 08:43] LABS: INR 1.3 (0.82-1.09); PROTHROMBIN TIME (PATIENT) 14.7 SEC (9.98-11.88)
[2017-06-30 08:46] LABS: ACTIVATED PTT 28.3 SECONDS (26.9-34.4)
[2017-06-30] MEDS: AMOX TR/POT CLAV 875MG/125MG TABLETS (FP) PO SCH ×2 (09:30→17:14)
[2017-06-30] MEDS: METOPROLOL SUCCINATE 25 MG TAB.SR.24H (FP) PO SCH (09:30)
[2017-06-30] MEDS: NAPH,MB-DB/K PH,MBDB POWDER PACKET PO SCH ×2 (09:31→21:49)
[2017-06-30] MEDS: FUROSEMIDE 20 MG TABLET (FP) PO SCH (09:31)
[2017-06-30] MEDS: POLYETHYLENE GLYCOL 3350 119 GM BTL PO SCH ×2 (09:31→21:49)
--- NOTE | 2017-06-30 09:52 | PN ---
Progress Note (short form) - Note Progress Note: Neurology History of Present Illness 77-year-old male presented to the emergency room for evaluation of increasing fatigue, weakness, shortness of breath, and mild nausea for the past few weeks after beginning his chemotherapy regimen for spinal cancer. 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 He had been admitted 05/29- for worsening lower extremity weakness secondary to spinal cord compression. Decision was made not to pursue surgery, was put on dexamethasone, and tried pazopanib. Patient presented to the ED today with progressive SOB, weakness, fatigue, and poor appetite since starting pazopanib. I was consulted regarding his ongoing weakness which seems to have deteroriated. EMG completed and did not show evidence of myopathy. Symptoms may be due to spinal disease. Patient being considered for short term rehab but unclear with facility can accept with chemo medication. 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 No new neurologic events , ID note reviewed, UTI improved, now on PO Abx. Active Medications Amoxicillin/Clavulanate Potassium (Augmentin - 875mg Tablet) 1 tab PO BID@0800, 1730 [facility] Last Admin: 06/30/17 09:30 Dose: 1 tab Dexamethasone (Decadron -) 2 mg PO TID [facility] Last Admin: 06/30/17 06:05 Dose: 2 mg Docusate Sodium (Colace -) 100 mg PO TID [facility] Last Admin: 06/30/17 05:38 Dose: Not Given Furosemide (Lasix -) 20 mg PO DAILY [facility] Last Admin: 06/30/17 09:31 Dose: 20 mg Metoprolol Succinate (Toprol Xl -) 25 mg PO DAILY [facility] Last Admin: 06/30/17 09:30 Dose: 25 mg Votrient 200mg Tab 3 each PO DAILY@0700 [facility] Last Admin: 06/30/17 06:06 Dose: 3 each Polyethylene Glycol (Miralax (For Daily Use) -) 17 gm PO BID [facility] Last Admin: 06/30/17 09:31 Dose: Not Given Potassium Phos/Sodium Phos (Phos-Nak Packet -) 1 packet PO BID [facility] Last Admin: 06/30/17 09:31 Dose: 1 packet Rivaroxaban (Xarelto -) 20 mg PO DAILY@1800 [facility] Last Admin: 06/29/17 17:44 Dose: 20 mg *Physical Exam Vital Signs Temperature 98.3 F 06/30/17 05:43 Pulse Rate 55 L 06/30/17 05:43 Respiratory Rate 20 06/30/17 05:43 Blood Pressure 109/45 06/30/17 05:43 O2 Sat by Pulse Oximetry (%) 100 06/29/17 21:00 - Physical Exam General Appearance: Yes: Nourished, Appropriately Dressed. No: Apparent Distress HEENT: positive: EOMI, FREDA. negative: Pale Conjunctivae Neck: positive: Supple Respiratory/Chest: positive: Lungs Clear, Normal Breath Sounds. negative: Respiratory Distress, Accessory Muscle Use Cardiovascular: positive: Regular Rate (a flutter 82). negative: Murmur Gastrointestinal/Abdominal: positive: Normal Bowel Sounds, Soft, Distended ( slight). negative: Tenderness, Mass Extremity: positive: Normal Capillary Refill, Pedal Edema Integumentary: positive: Dry, Warm, Pale Neurologic: Awake and alert, interative, mental status intact, sensory intact, gait not able to ambulate CBCD WBC 5.1 K/mm3 (4.0-10.0) 06/30/17 06:50 RBC 3.44 M/mm3 (4.00-5.60) L 06/30/17 06:50 Hgb 11.0 GM/dL (11.7-16.9) L 06/30/17 06:50 Hct 32.8 % (35.4-49) L 06/30/17 06:50 MCV 95.2 fl (80-96) 06/30/17 06:50 MCHC 33.7 g/dl (32.0-35.9) 06/30/17 06:50 RDW 21.0 % (11.9-15.9) H 06/30/17 06:50 Plt Count 72 K/MM3 (134-434) L 06/30/17 06:50 MPV 7.9 fl (7.5-11.1) 06/30/17 06:50 CMP Sodium 139 mmol/L (136-145) 06/30/17 06:50 Potassium 4.6 mmol/L (3.5-5.1) 06/30/17 06:50 Chloride 102 mmol/L (98-107) 06/30/17 06:50 Carbon Dioxide 31 mmol/L (21-32) 06/30/17 06:50 Anion Gap 6 (8-16) L 06/30/17 06:50 BUN 20 mg/dL (7-18) H 06/30/17 06:50 Creatinine 0.7 mg/dL (0.7-1.3) 06/30/17 06:50 Creat Clearance w eGFR > 60 (>60) 06/23/17 07:55 Calcium 7.6 mg/dL (8.5-10.1) L 06/30/17 06:50 Total Bilirubin 0.8 mg/dL (0.2-1.0) 06/28/17 06:30 AST 40 U/L (15-37) H D 06/28/17 06:30 ALT 63 U/L (12-78) 06/28/17 06:30 Alkaline Phosphatase 85 U/L (45-117) 06/28/17 06:30 Total Protein 5.1 g/dl (6.4-8.2) L 06/28/17 06:30 Albumin 2.5 g/dl (3.4-5.0) L 06/28/17 06:30 - RADIOLOGY Echo reviewed EMG reviewed Medical Decision Making 77-year-old male presents to the emergency room for evaluation of increasing fatigue, weakness, shortness of breath, and mild nausea for the past few weeks after beginning his chemotherapy regimen for spinal cancer. 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 He had been admitted 05/29- for worsening lower extremity weakness secondary to spinal cord compression. Decision was made not to pursue surgery, was put on dexamethasone, and tried pazopanib. Patient presented to the ED with progressive SOB, weakness , fatigue, and poor appetite since starting pazopanib. EMg reviewed, can continue low dose decadron Did not demonstrate myopathy On AC Xarelto, strict fall precautions On IV abx for sepsis, UTI Follow up ID rec'd Physcial therapy, case management assistant to coordinate possible rehab placement
[2017-06-30 11:29] LABS: PLATELET ESTIMATE DECREASED
--- NOTE | 2017-06-30 11:59 | PN ---
Progress Note, Physician History of Present Illness: Pt seen and examined at bedside. He is awake and alert. He complains of lower extremity edema. - Current Medication List Current Medications: Active Medications Amoxicillin/Clavulanate Potassium (Augmentin - 875mg Tablet) 1 tab PO BID@0800, 1730 [facility] Last Admin: 06/30/17 09:30 Dose: 1 tab Dexamethasone (Decadron -) 2 mg PO TID [facility] Last Admin: 06/30/17 06:05 Dose: 2 mg Docusate Sodium (Colace -) 100 mg PO TID [facility] Last Admin: 06/30/17 05:38 Dose: Not Given Furosemide (Lasix -) 20 mg PO DAILY [facility] Last Admin: 06/30/17 09:31 Dose: 20 mg Metoprolol Succinate (Toprol Xl -) 25 mg PO DAILY [facility] Last Admin: 06/30/17 09:30 Dose: 25 mg Votrient 200mg Tab 3 each PO DAILY@0700 [facility] Last Admin: 06/30/17 06:06 Dose: 3 each Polyethylene Glycol (Miralax (For Daily Use) -) 17 gm PO BID [facility] Last Admin: 06/30/17 09:31 Dose: Not Given Potassium Phos/Sodium Phos (Phos-Nak Packet -) 1 packet PO BID [facility] Last Admin: 06/30/17 09:31 Dose: 1 packet Rivaroxaban (Xarelto -) 20 mg PO DAILY@1800 [facility] Last Admin: 06/29/17 17:44 Dose: 20 mg - Objective Vital Signs: Vital Signs Temperature 98.1 F 06/30/17 10:00 Pulse Rate 83 06/30/17 10:00 Respiratory Rate 18 06/30/17 10:00 Blood Pressure 126/70 06/30/17 10:00 O2 Sat by Pulse Oximetry (%) 98 06/30/17 10:00 Constitutional: Yes: Calm Eyes: Yes: Conjunctiva Clear HENT: Yes: Atraumatic Neck: Yes: Supple Cardiovascular: Yes: S1, S2 Respiratory: Yes: CTA Bilaterally Gastrointestinal: Yes: Soft Genitourinary: Yes: WNL Edema: Yes Edema: LLE: 1+, RLE: 1+ Neurological: Yes: Oriented Psychiatric: Yes: Oriented Labs: CBC, BMP 06/30/17 06:50 06/30/17 06:50 INR, PTT INR 1.30 (0.82-1.09) H D 06/30/17 06:50 Fibrinogen 239.0 mg/dL (238-498) 06/23/17 07:55 Problem List - Problems (1) MONAE (acute kidney injury) Code(s): N17.9 - ACUTE KIDNEY FAILURE, UNSPECIFIED (2) Lactic acidosis Code(s): E87.2 - ACIDOSIS (3) Renal cell carcinoma Code(s): C64.9 - MALIGNANT NEOPLASM OF UNSP KIDNEY, EXCEPT RENAL PELVIS Qualifiers: Laterality: right Qualified Code(s): C64.1 - Malignant neoplasm of right kidney, except renal pelvis (4) T2DM (type 2 diabetes mellitus) Code(s): E11.9 - TYPE 2 DIABETES MELLITUS WITHOUT COMPLICATIONS (5) Diabetes Code(s): E11.9 - TYPE 2 DIABETES MELLITUS WITHOUT COMPLICATIONS Qualifiers: Diabetes mellitus type: type 2 Diabetes mellitus complication detail: with polyneuropathy (6) HTN (hypertension) Code(s): I10 - ESSENTIAL (PRIMARY) HYPERTENSION Qualifiers: Hypertension type: essential hypertension Qualified Code(s): I10 - Essential (primary) hypertension (7) S/p nephrectomy Code(s): Z90.5 - ACQUIRED ABSENCE OF KIDNEY Assessment/Plan Current Medications Generic Name Dose Route Start Last Admin Trade Name Freq PRN Reason Stop Dose Admin Amoxicillin/Clavulanate Potassium 1 tab 06/25/17 17:30 06/30/17 09:30 Augmentin - 875mg Tablet PO 1 tab BID@0800,1730 [facility] Administration Dexamethasone 2 mg 06/28/17 22:00 06/30/17 06:05 Decadron - PO 2 mg TID [facility] Administration Docusate Sodium 100 mg 06/20/17 22:00 06/30/17 05:38 Colace - PO Not Given TID [facility] Furosemide 20 mg 06/29/17 10:00 06/30/17 09:31 Lasix - PO 20 mg DAILY [facility] Administration Metoprolol Succinate 25 mg 06/21/17 10:00 06/30/17 09:30 Toprol Xl - PO 25 mg DAILY [facility] Administration Votrient 200mg Tab 3 each 06/26/17 07:00 06/30/17 06:06 PO 3 each DAILY@0700 [facility] Administration Polyethylene Glycol 17 gm 06/20/17 22:00 06/30/17 09:31 Miralax (For Daily Use) - PO Not Given BID [facility] Potassium Phos/Sodium Phos 1 packet 06/29/17 13:30 06/30/17 09:31 Phos-Nak Packet - PO 1 packet BID [facility] Administration Rivaroxaban 20 mg 06/20/17 18:00 06/29/17 17:44 Xarelto - PO 20 mg DAILY@1800 [facility] Administration Laboratory Tests 06/30/17 06/30/17 06:50 06:50 Lactic Acid 2.8 H* Phosphorus 2.8 D Magnesium 2.0 Impression 1. MONAE 2. lactic acidosis improved 3. renal cancer 4. DM 5. a-fib 6. UTI 7. hypokalemia Plan - increase lasix to 40 mg - lactic acid is improved - repeat labs in am - would not restart metformin - likely monae from pre-renal disease - will need monitoring of renal function and volume status as outpt - recommend daily weights when he goes home - will follow Dr Langford
--- NOTE | 2017-06-30 12:27 | PN ---
Progress Note, Physician Chief Complaint: Mr Murcia says he still has swelling in his legs. No cp, sob, n/v. - Current Medication List Current Medications: Active Medications Amoxicillin/Clavulanate Potassium (Augmentin - 875mg Tablet) 1 tab PO BID@0800, 1730 [facility] Last Admin: 06/30/17 09:30 Dose: 1 tab Dexamethasone (Decadron -) 2 mg PO TID [facility] Last Admin: 06/30/17 06:05 Dose: 2 mg Docusate Sodium (Colace -) 100 mg PO TID [facility] Last Admin: 06/30/17 05:38 Dose: Not Given Furosemide (Lasix -) 20 mg PO DAILY [facility] Last Admin: 06/30/17 09:31 Dose: 20 mg Metoprolol Succinate (Toprol Xl -) 25 mg PO DAILY [facility] Last Admin: 06/30/17 09:30 Dose: 25 mg Votrient 200mg Tab 3 each PO DAILY@0700 [facility] Last Admin: 06/30/17 06:06 Dose: 3 each Polyethylene Glycol (Miralax (For Daily Use) -) 17 gm PO BID [facility] Last Admin: 06/30/17 09:31 Dose: Not Given Potassium Phos/Sodium Phos (Phos-Nak Packet -) 1 packet PO BID [facility] Last Admin: 06/30/17 09:31 Dose: 1 packet Rivaroxaban (Xarelto -) 20 mg PO DAILY@1800 [facility] Last Admin: 06/29/17 17:44 Dose: 20 mg - Objective Vital Signs: Vital Signs Temperature 36.7 C 06/30/17 10:00 Pulse Rate 83 06/30/17 10:00 Respiratory Rate 18 06/30/17 10:00 Blood Pressure 126/70 06/30/17 10:00 O2 Sat by Pulse Oximetry (%) 98 06/30/17 10:00 Constitutional: Yes: No Distress, Calm, Obese Cardiovascular: Yes: Regular Rate and Rhythm. No: Gallop, Murmur, Rub Respiratory: Yes: Regular, CTA Bilaterally. No: Rales, Rhonchi, Wheezes Gastrointestinal: Yes: Normal Bowel Sounds, Soft. No: Distention, Tenderness Extremities: Yes: WNL Edema: Yes Edema: LLE: 1+, RLE: 1+ Labs: CBC, BMP 06/30/17 06:50 06/30/17 06:50 INR, PTT INR 1.30 (0.82-1.09) H D 06/30/17 06:50 Fibrinogen 239.0 mg/dL (238-498) 06/23/17 07:55 Problem List - Problems (1) UTI (urinary tract infection) Code(s): N39.0 - URINARY TRACT INFECTION, SITE NOT SPECIFIED Qualifiers: Urinary tract infection type: acute cystitis Hematuria presence: without hematuria Qualified Code(s): N30.00 - Acute cystitis without hematuria (2) Severe sepsis Code(s): A41.9 - SEPSIS, UNSPECIFIED ORGANISM; R65.20 - SEVERE SEPSIS WITHOUT SEPTIC SHOCK (3) MONAE (acute kidney injury) Code(s): N17.9 - ACUTE KIDNEY FAILURE, UNSPECIFIED (4) Afib Code(s): I48.91 - UNSPECIFIED ATRIAL FIBRILLATION Qualifiers: Atrial fibrillation type: paroxysmal Qualified Code(s): I48.0 - Paroxysmal atrial fibrillation (5) Renal cell carcinoma Code(s): C64.9 - MALIGNANT NEOPLASM OF UNSP KIDNEY, EXCEPT RENAL PELVIS Qualifiers: Laterality: right Qualified Code(s): C64.1 - Malignant neoplasm of right kidney, except renal pelvis (6) T2DM (type 2 diabetes mellitus) Code(s): E11.9 - TYPE 2 DIABETES MELLITUS WITHOUT COMPLICATIONS (7) HTN (hypertension) Code(s): I10 - ESSENTIAL (PRIMARY) HYPERTENSION Qualifiers: Hypertension type: essential hypertension Qualified Code(s): I10 - Essential (primary) hypertension (8) Obesity Code(s): E66.9 - OBESITY, UNSPECIFIED Qualifiers: Obesity classification: adult class 3 (BMI >= 40) (9) Spinal cord compression Code(s): G95.20 - UNSPECIFIED CORD COMPRESSION Assessment/Plan (1) UTI (urinary tract infection) Assessment/Plan: -continue augmentin, course per Dr Barber Code(s): N39.0 - URINARY TRACT INFECTION, SITE NOT SPECIFIED Qualifiers: Urinary tract infection type: acute cystitis Hematuria presence: without hematuria Qualified Code(s): N30.00 - Acute cystitis without hematuria (2) Severe sepsis Assessment/Plan: -resolved Code(s): A41.9 - SEPSIS, UNSPECIFIED ORGANISM; R65.20 - SEVERE SEPSIS WITHOUT SEPTIC SHOCK (3) MONAE (acute kidney injury) Assessment/Plan: -resolved with hydration and treatment of sepsis -case d/w Dr Langford -increase lasix secondary to edema Code(s): N17.9 - ACUTE KIDNEY FAILURE, UNSPECIFIED (4) Afib Assessment/Plan: -controlled -continue xarelto and toprol xl Code(s): I48.91 - UNSPECIFIED ATRIAL FIBRILLATION Qualifiers: Atrial fibrillation type: paroxysmal Qualified Code(s): I48.0 - Paroxysmal atrial fibrillation (5) Renal cell carcinoma Assessment/Plan: -metastatic -oncology following and votrient restarted Code(s): C64.9 - MALIGNANT NEOPLASM OF UNSP KIDNEY, EXCEPT RENAL PELVIS Qualifiers: Laterality: right Qualified Code(s): C64.1 - Malignant neoplasm of right kidney, except renal pelvis (6) T2DM (type 2 diabetes mellitus) Assessment/Plan: -monitor on bmp Code(s): E11.9 - TYPE 2 DIABETES MELLITUS WITHOUT COMPLICATIONS (7) HTN (hypertension) Assessment/Plan: -continue toprol xl Code(s): I10 - ESSENTIAL (PRIMARY) HYPERTENSION Qualifiers: Hypertension type: essential hypertension Qualified Code(s): I10 - Essential (primary) hypertension (8) Obesity Assessment/Plan: -counselled Code(s): E66.9 - OBESITY, UNSPECIFIED (9) Spinal cord compression Assessment/Plan: -continue decadron -oncology following Code(s): G95.20 - UNSPECIFIED CORD COMPRESSION (10) Elevated LFTs -resolved (11) Thrombocytopenia -secondary to sepsis -improving (12) Lactic acidosis -monitor, not yet normalized (13) Weakness -appreciate neurology assistance -will benefit from SF placement Dispo -will benefit from SNF placement when ready for discharge
--- NOTE | 2017-06-30 12:54 | PN ---
Progress Note, Physician History of Present Illness: pulmonary alert,feeling better,-resp distress - Current Medication List Current Medications: Active Medications Amoxicillin/Clavulanate Potassium (Augmentin - 875mg Tablet) 1 tab PO BID@0800, 1730 [facility] Last Admin: 06/30/17 09:30 Dose: 1 tab Dexamethasone (Decadron -) 2 mg PO TID [facility] Last Admin: 06/30/17 06:05 Dose: 2 mg Docusate Sodium (Colace -) 100 mg PO TID [facility] Last Admin: 06/30/17 05:38 Dose: Not Given Furosemide (Lasix -) 40 mg PO DAILY [facility] Furosemide (Lasix -) 20 mg PO ONCE ONE Stop: 06/30/17 13:01 Metoprolol Succinate (Toprol Xl -) 25 mg PO DAILY [facility] Last Admin: 06/30/17 09:30 Dose: 25 mg Votrient 200mg Tab 3 each PO DAILY@0700 [facility] Last Admin: 06/30/17 06:06 Dose: 3 each Polyethylene Glycol (Miralax (For Daily Use) -) 17 gm PO BID [facility] Last Admin: 06/30/17 09:31 Dose: Not Given Potassium Phos/Sodium Phos (Phos-Nak Packet -) 1 packet PO BID [facility] Last Admin: 06/30/17 09:31 Dose: 1 packet Rivaroxaban (Xarelto -) 20 mg PO DAILY@1800 [facility] Last Admin: 06/29/17 17:44 Dose: 20 mg - Objective Vital Signs: Vital Signs Temperature 98.1 F 06/30/17 10:00 Pulse Rate 83 06/30/17 10:00 Respiratory Rate 18 06/30/17 10:00 Blood Pressure 126/70 06/30/17 10:00 O2 Sat by Pulse Oximetry (%) 98 06/30/17 10:00 Constitutional: Yes: Well Nourished, Calm Eyes: Yes: WNL HENT: Yes: WNL Neck: Yes: WNL Cardiovascular: Yes: Regular Rate and Rhythm, S1, S2 Respiratory: Yes: Diminished Gastrointestinal: Yes: Normal Bowel Sounds, Soft Extremities: Yes: WNL Edema: Yes Labs: CBC, BMP 06/30/17 06:50 06/30/17 06:50 INR, PTT INR 1.30 (0.82-1.09) H D 06/30/17 06:50 Fibrinogen 239.0 mg/dL (238-498) 06/23/17 07:55 Problem List - Problems (1) Afib Code(s): I48.91 - UNSPECIFIED ATRIAL FIBRILLATION Qualifiers: Atrial fibrillation type: paroxysmal Qualified Code(s): I48.0 - Paroxysmal atrial fibrillation (2) MONAE (acute kidney injury) Code(s): N17.9 - ACUTE KIDNEY FAILURE, UNSPECIFIED (3) Lactic acidosis Code(s): E87.2 - ACIDOSIS (4) Severe sepsis Code(s): A41.9 - SEPSIS, UNSPECIFIED ORGANISM; R65.20 - SEVERE SEPSIS WITHOUT SEPTIC SHOCK (5) Renal cell carcinoma Code(s): C64.9 - MALIGNANT NEOPLASM OF UNSP KIDNEY, EXCEPT RENAL PELVIS Qualifiers: Laterality: right Qualified Code(s): C64.1 - Malignant neoplasm of right kidney, except renal pelvis (6) T2DM (type 2 diabetes mellitus) Code(s): E11.9 - TYPE 2 DIABETES MELLITUS WITHOUT COMPLICATIONS (7) Diabetes Code(s): E11.9 - TYPE 2 DIABETES MELLITUS WITHOUT COMPLICATIONS Qualifiers: Diabetes mellitus type: type 2 Diabetes mellitus complication detail: with polyneuropathy (8) HTN (hypertension) Code(s): I10 - ESSENTIAL (PRIMARY) HYPERTENSION Qualifiers: Hypertension type: essential hypertension Qualified Code(s): I10 - Essential (primary) hypertension (9) Hyperbilirubinemia Code(s): E80.6 - OTHER DISORDERS OF BILIRUBIN METABOLISM (10) Obesity Code(s): E66.9 - OBESITY, UNSPECIFIED Qualifiers: Obesity classification: adult class 3 (BMI >= 40) (11) Spinal cord compression Code(s): G95.20 - UNSPECIFIED CORD COMPRESSION (12) Dyspnea Code(s): R06.00 - DYSPNEA, UNSPECIFIED (13) Respiratory distress Code(s): R06.03 - ACUTE RESPIRATORY DISTRESS Assessment/Plan IMP RESPIRATORY DISTRESS LIKELY SECONDARY TO SEPSIS IMPROVED 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 CORD COMPRESSION MONAE AFIB ELEVATED LFTS THROMBOCYTOPENIA HTN NIDDM ELEVATED LACTATE LEVEL PLAN O2 Augmentin IVF MONITOR LYTES,PLT CT,RENAL FUNCTION LEOBARDO PEPPER Problem List - Problems (1) Afib Code(s): I48.91 - UNSPECIFIED ATRIAL FIBRILLATION (2) MONAE (acute kidney injury) Code(s): N17.9 - ACUTE KIDNEY FAILURE, UNSPECIFIED (3) Lactic acidosis Code(s): E87.2 - ACIDOSIS (4) Severe sepsis Code(s): A41.9 - SEPSIS, UNSPECIFIED ORGANISM; R65.20 - SEVERE SEPSIS WITHOUT SEPTIC SHOCK (5) Renal cell carcinoma Code(s): C64.9 - MALIGNANT NEOPLASM OF UNSP KIDNEY, EXCEPT RENAL PELVIS Qualifiers: Laterality: right Qualified Code(s): C64.1 - Malignant neoplasm of right kidney, except renal pelvis (6) T2DM (type 2 diabetes mellitus) Code(s): E11.9 - TYPE 2 DIABETES MELLITUS WITHOUT COMPLICATIONS (7) Diabetes Code(s): E11.9 - TYPE 2 DIABETES MELLITUS WITHOUT COMPLICATIONS (8) HTN (hypertension) Code(s): I10 - ESSENTIAL (PRIMARY) HYPERTENSION Qualifiers: Hypertension type: essential hypertension Qualified Code(s): I10 - Essential (primary) hypertension (9) Hyperbilirubinemia Code(s): E80.6 - OTHER DISORDERS OF BILIRUBIN METABOLISM (10) Obesity Code(s): E66.9 - OBESITY, UNSPECIFIED (11) Spinal cord compression Code(s): G95.20 - UNSPECIFIED CORD COMPRESSION (12) Dyspnea Code(s): R06.00 - DYSPNEA, UNSPECIFIED (13) Respiratory distress Code(s): R06.03 - ACUTE RESPIRATORY DISTRESS
[2017-06-30] MEDS ORDERED: FUROSEMIDE 20 MG TABLET (FP) PO ONE (13:00)
--- NOTE | 2017-06-30 16:16 | PN ---
Progress Note, Physician History of Present Illness: reg no complaints except tiredness - Current Medication List Current Medications: Active Medications Amoxicillin/Clavulanate Potassium (Augmentin - 875mg Tablet) 1 tab PO BID@0800, 1730 [facility] Last Admin: 06/30/17 09:30 Dose: 1 tab Dexamethasone (Decadron -) 2 mg PO TID [facility] Last Admin: 06/30/17 13:25 Dose: 2 mg Docusate Sodium (Colace -) 100 mg PO TID [facility] Last Admin: 06/30/17 13:25 Dose: Not Given Furosemide (Lasix -) 40 mg PO DAILY [facility] Metoprolol Succinate (Toprol Xl -) 25 mg PO DAILY [facility] Last Admin: 06/30/17 09:30 Dose: 25 mg Votrient 200mg Tab 3 each PO DAILY@0700 [facility] Last Admin: 06/30/17 06:06 Dose: 3 each Polyethylene Glycol (Miralax (For Daily Use) -) 17 gm PO BID [facility] Last Admin: 06/30/17 09:31 Dose: Not Given Potassium Phos/Sodium Phos (Phos-Nak Packet -) 1 packet PO BID [facility] Last Admin: 06/30/17 09:31 Dose: 1 packet Rivaroxaban (Xarelto -) 20 mg PO DAILY@1800 [facility] Last Admin: 06/29/17 17:44 Dose: 20 mg - Objective Vital Signs: Vital Signs Temperature 97.2 F L 06/30/17 15:17 Pulse Rate 47 L 06/30/17 15:17 Respiratory Rate 17 06/30/17 15:17 Blood Pressure 123/67 06/30/17 15:17 O2 Sat by Pulse Oximetry (%) 98 06/30/17 10:00 Constitutional: Yes: No Distress, Calm Cardiovascular: Yes: S1, S2 Respiratory: Yes: Regular, CTA Bilaterally Gastrointestinal: Yes: Normal Bowel Sounds, Soft Musculoskeletal: Yes: WNL Extremities: Yes: WNL Neurological: Yes: Alert, Oriented Psychiatric: Yes: Alert, Oriented Labs: CBC, BMP 06/30/17 06:50 06/30/17 06:50 INR, PTT INR 1.30 (0.82-1.09) H D 06/30/17 06:50 Fibrinogen 239.0 mg/dL (238-498) 06/23/17 07:55 Assessment/Plan Problem List - Problems (1) Severe sepsis Code(s): A41.9 - SEPSIS, UNSPECIFIED ORGANISM; R65.20 - SEVERE SEPSIS WITHOUT SEPTIC SHOCK (2) Renal cell carcinoma Code(s): C64.9 - MALIGNANT NEOPLASM OF UNSP KIDNEY, EXCEPT RENAL PELVIS Qualifiers: Laterality: right Qualified Code(s): C64.1 - Malignant neoplasm of right kidney, except renal pelvis (3) T2DM (type 2 diabetes mellitus) Code(s): E11.9 - TYPE 2 DIABETES MELLITUS WITHOUT COMPLICATIONS (4) Atrial flutter Code(s): I48.92 - UNSPECIFIED ATRIAL FLUTTER Qualifiers: Atrial flutter type: atypical Qualified Code(s): I48.4 - Atypical atrial flutter (5) HTN (hypertension) Code(s): I10 - ESSENTIAL (PRIMARY) HYPERTENSION Qualifiers: Hypertension type: essential hypertension Qualified Code(s): I10 - Essential (primary) hypertension (6) Hyperbilirubinemia Code(s): E80.6 - OTHER DISORDERS OF BILIRUBIN METABOLISM (7) S/p nephrectomy Code(s): Z90.5 - ACQUIRED ABSENCE OF KIDNEY (8) Spinal cord compression Code(s): G95.20 - UNSPECIFIED CORD COMPRESSION lactic acidosis lactic acid continues to be on the higher side plan stable off of abx continue current mgmt physio rest as per primary team
[2017-06-30] MEDS: RIVAROXABAN 20 MG TABLET PO SCH (17:14)
--- NOTE | 2017-06-30 17:26 | PN ---
Progress Note (short form) - Note Progress Note: pt seen and examined. issues remains the same has LE swelling Last Vital Signs Temp Pulse Resp BP Pulse Ox 97.2 F L 47 L 17 123/67 98 06/30/17 15:17 06/30/17 15:17 06/30/17 15:17 06/30/17 15:17 06/30/17 10:00 CBC, BMP 06/30/17 06:50 06/30/17 06:50 Current Medications Generic Name Dose Route Start Last Admin Trade Name Freq PRN Reason Stop Dose Admin Amoxicillin/Clavulanate Potassium 1 tab 06/25/17 17:30 06/30/17 17:14 Augmentin - 875mg Tablet PO 1 tab BID@0800,1730 [facility] Administration Dexamethasone 2 mg 06/28/17 22:00 06/30/17 13:25 Decadron - PO 2 mg TID [facility] Administration Docusate Sodium 100 mg 06/20/17 22:00 06/30/17 13:25 Colace - PO Not Given TID [facility] Furosemide 40 mg 07/01/17 10:00 Lasix - PO DAILY [facility] Metoprolol Succinate 25 mg 06/21/17 10:00 06/30/17 09:30 Toprol Xl - PO 25 mg DAILY [facility] Administration Votrient 200mg Tab 3 each 06/26/17 07:00 06/30/17 06:06 PO 3 each DAILY@0700 [facility] Administration Polyethylene Glycol 17 gm 06/20/17 22:00 06/30/17 09:31 Miralax (For Daily Use) - PO Not Given BID [facility] Potassium Phos/Sodium Phos 1 packet 06/29/17 13:30 06/30/17 09:31 Phos-Nak Packet - PO 1 packet BID [facility] Administration Rivaroxaban 20 mg 06/20/17 18:00 06/30/17 17:14 Xarelto - PO 20 mg DAILY@1800 [facility] Administration O/E: General:NAD, HEENT :NCAT Cardiac: RRR Lungs: CTA b/l Neuro: AAOx3 LE: +bruises, better than before, mild LE swelling A/P: Metastatic RCC- on Votrient Cord compression-s/p RT- on decadron 6 mg/day-- UTI/sepsis-- on augmentin Thrombocytopenia- secondary to sepsis / votrient Abnormal LFT's- improved Plan:: Continue with PT c/w decadron - 6 mg/ day Continue antibiotics per ID. EMG/Neuro eval noted monitor labs on lasix. dispo likely to [facility]
[2017-07-01] MEDS ORDERED: PT OWN MED DRAWER 7, Y5N ONE ×2 (06:20→06:48)
[2017-07-01] MEDS: VOTRIENT 200 MG PO SCH (06:23)
[2017-07-01] MEDS: DOCUSATE SODIUM 100 MG CAPSULE (FP) PO SCH ×3 (06:23→22:21)
[2017-07-01] MEDS: DEXAMETHASONE 4 MG TABLET (FP) PO SCH ×3 (06:23→21:26)
[2017-07-01 08:16] LABS: ALBUMIN 2.5 g/dl (3.4-5.0); ANION GAP 9 (8-16); BLOOD UREA NITROGEN 23 mg/dL (7-18); CHLORIDE 99 mmol/L (98-107); CO2 31 mmol/L (21-32); CREATININE 0.8 mg/dL (0.7-1.3); GLUCOSE,RANDOM 202 mg/dL (74-106); PHOSPHOROUS 3.2 mg/dL (2.5-4.9); POTASSIUM 4.3 mmol/L (3.5-5.1); SGOT/AST 26 U/L (15-37); SGPT/ALT 59 U/L (12-78); SODIUM 139 mmol/L (136-145)
[2017-07-01 08:18] LABS: ALK PHOS 88 U/L (45-117); BILIRUBIN,TOTAL 0.8 mg/dL (0.2-1.0)
[2017-07-01 08:29] LABS: HEMATOCRIT 34.1 % (35.4-49); HEMOGLOBIN 11.4 GM/dL (11.7-16.9); MCH 31.9 pg (25.7-33.7); MCHC 33.5 g/dl (32.0-35.9); MEAN CELL VOLUME 95.3 fl (80-96); MEAN PLT VOLUME 8.3 fl (7.5-11.1); PLATELET COUNT 79 K/MM3 (134-434); RBC 3.58 M/mm3 (4.00-5.60); RDW 21.4 % (11.9-15.9); WHITE BLOOD COUNT 4.9 K/mm3 (4.0-10.0)
--- NOTE | 2017-07-01 09:05 | PN ---
Progress Note (short form) - Note Progress Note: pt seen and examined. much improved Last Vital Signs Temp Pulse Resp BP Pulse Ox 97.2 F L 47 L 17 123/67 98 06/30/17 15:17 06/30/17 15:17 06/30/17 15:17 06/30/17 15:17 06/30/17 10:00 CBC, BMP 06/30/17 06:50 06/30/17 06:50 Current Medications Generic Name Dose Route Start Last Admin Trade Name Yari PRN Reason Stop Dose Admin Amoxicillin/Clavulanate Potassium 1 tab 06/25/17 17:30 06/30/17 17:14 Augmentin - 875mg Tablet PO 1 tab BID@0800,1730 [facility] Administration Dexamethasone 2 mg 06/28/17 22:00 06/30/17 13:25 Decadron - PO 2 mg TID [facility] Administration Docusate Sodium 100 mg 06/20/17 22:00 06/30/17 13:25 Colace - PO Not Given TID [facility] Furosemide 40 mg 07/01/17 10:00 Lasix - PO DAILY [facility] Metoprolol Succinate 25 mg 06/21/17 10:00 06/30/17 09:30 Toprol Xl - PO 25 mg DAILY [facility] Administration Votrient 200mg Tab 3 each 06/26/17 07:00 06/30/17 06:06 PO 3 each DAILY@0700 [facility] Administration Polyethylene Glycol 17 gm 06/20/17 22:00 06/30/17 09:31 Miralax (For Daily Use) - PO Not Given BID [facility] Potassium Phos/Sodium Phos 1 packet 06/29/17 13:30 06/30/17 09:31 Phos-Nak Packet - PO 1 packet BID [facility] Administration Rivaroxaban 20 mg 06/20/17 18:00 06/30/17 17:14 Xarelto - PO 20 mg DAILY@1800 [facility] Administration O/E: General:NAD, HEENT :NCAT Cardiac: RRR Lungs: CTA b/l Neuro: AAOx3 LE: +bruises, better than before, mild LE swelling A/P: Metastatic RCC- on Votrient Cord compression-s/p RT- on decadron 6 mg/day-- UTI/sepsis-- on augmentin Thrombocytopenia- secondary to sepsis / votrient Abnormal LFT's- improved Plan:: Continue with PT c/w decadron - 6 mg/ day Continue antibiotics per ID. EMG/Neuro eval noted monitor labs on lasix. dispo likely to [facility] new meds refills done.
[2017-07-01] MEDS: AMOX TR/POT CLAV 875MG/125MG TABLETS (FP) PO SCH (09:13)
[2017-07-01] MEDS: METOPROLOL SUCCINATE 25 MG TAB.SR.24H (FP) PO SCH (09:13)
[2017-07-01] MEDS: NAPH,MB-DB/K PH,MBDB POWDER PACKET PO SCH ×2 (09:14→22:21)
[2017-07-01] MEDS: FUROSEMIDE 40 MG TABLET (FP) PO SCH (09:14)
[2017-07-01] MEDS: POLYETHYLENE GLYCOL 3350 119 GM BTL PO SCH ×2 (09:17→22:21)
--- NOTE | 2017-07-01 09:44 | PN ---
Progress Note (short form) - Note Progress Note: Neurology History of Present Illness 77-year-old male presented to the emergency room for evaluation of increasing fatigue, weakness, shortness of breath, and mild nausea for the past few weeks after beginning his chemotherapy regimen for spinal cancer. 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 He had been admitted 05/29- for worsening lower extremity weakness secondary to spinal cord compression. Decision was made not to pursue surgery, was put on dexamethasone, and tried pazopanib. Patient presented to the ED today with progressive SOB, weakness, fatigue, and poor appetite since starting pazopanib. I was consulted regarding his ongoing weakness which seems to have deteroriated. EMG completed and did not show evidence of myopathy. Symptoms may be due to spinal disease. Patient being considered for short term rehab but unclear with facility can accept with chemo medication. monitor worker trying to coordinate. Patient does feel his ambulation has improved with physical therapy. He reports it being easier for him to get up and move but not fully self ambulatory at this time. Active Medications Amoxicillin/Clavulanate Potassium (Augmentin - 875mg Tablet) 1 tab PO BID@0800, 1730 [facility] Last Admin: 07/01/17 09:13 Dose: 1 tab Dexamethasone (Decadron -) 2 mg PO TID [facility] Last Admin: 07/01/17 06:23 Dose: 2 mg Docusate Sodium (Colace -) 100 mg PO TID [facility] Last Admin: 07/01/17 06:23 Dose: Not Given Furosemide (Lasix -) 40 mg PO DAILY [facility] Last Admin: 07/01/17 09:14 Dose: 40 mg Metoprolol Succinate (Toprol Xl -) 25 mg PO DAILY [facility] Last Admin: 07/01/17 09:13 Dose: 25 mg Votrient 200mg Tab 3 each PO DAILY@0700 [facility] Last Admin: 07/01/17 06:23 Dose: 3 each Polyethylene Glycol (Miralax (For Daily Use) -) 17 gm PO BID [facility] Last Admin: 07/01/17 09:17 Dose: Not Given Potassium Phos/Sodium Phos (Phos-Nak Packet -) 1 packet PO BID [facility] Last Admin: 07/01/17 09:14 Dose: 1 packet Rivaroxaban (Xarelto -) 20 mg PO DAILY@1800 [facility] Last Admin: 06/30/17 17:14 Dose: 20 mg *Physical Exam Vital Signs Temperature 97.3 F L 07/01/17 06:00 Pulse Rate 61 07/01/17 08:18 Respiratory Rate 16 07/01/17 06:00 Blood Pressure 113/50 07/01/17 06:00 O2 Sat by Pulse Oximetry (%) 95 07/01/17 08:18 - Physical Exam General Appearance: Yes: Nourished, Appropriately Dressed. No: Apparent Distress HEENT: positive: EOMI, FREDA. negative: Pale Conjunctivae Neck: positive: Supple Respiratory/Chest: positive: Lungs Clear, Normal Breath Sounds. negative: Respiratory Distress, Accessory Muscle Use Cardiovascular: positive: Regular Rate (a flutter 82). negative: Murmur Gastrointestinal/Abdominal: positive: Normal Bowel Sounds, Soft, Distended ( slight). negative: Tenderness, Mass Extremity: positive: Normal Capillary Refill, Pedal Edema Integumentary: positive: Dry, Warm, Pale Neurologic: Awake and alert, interative, mental status intact, sensory intact, gait not able to ambulate CBCD WBC 4.9 K/mm3 (4.0-10.0) 07/01/17 05:35 RBC 3.58 M/mm3 (4.00-5.60) L 07/01/17 05:35 Hgb 11.4 GM/dL (11.7-16.9) L 07/01/17 05:35 Hct 34.1 % (35.4-49) L 07/01/17 05:35 MCV 95.3 fl (80-96) 07/01/17 05:35 MCHC 33.5 g/dl (32.0-35.9) 07/01/17 05:35 RDW 21.4 % (11.9-15.9) H 07/01/17 05:35 Plt Count 79 K/MM3 (134-434) L 07/01/17 05:35 MPV 8.3 fl (7.5-11.1) 07/01/17 05:35 CMP Sodium 139 mmol/L (136-145) 07/01/17 05:35 Potassium 4.3 mmol/L (3.5-5.1) 07/01/17 05:35 Chloride 99 mmol/L (98-107) 07/01/17 05:35 Carbon Dioxide 31 mmol/L (21-32) 07/01/17 05:35 Anion Gap 9 (8-16) 07/01/17 05:35 BUN 23 mg/dL (7-18) H 07/01/17 05:35 Creatinine 0.8 mg/dL (0.7-1.3) 07/01/17 05:35 Creat Clearance w eGFR > 60 (>60) 07/01/17 05:35 Calcium 8.0 mg/dL (8.5-10.1) L 07/01/17 05:35 Total Bilirubin 0.8 mg/dL (0.2-1.0) 07/01/17 05:35 AST 26 U/L (15-37) D 07/01/17 05:35 ALT 59 U/L (12-78) 07/01/17 05:35 Alkaline Phosphatase 88 U/L (45-117) 07/01/17 05:35 Total Protein 5.0 g/dl (6.4-8.2) L 07/01/17 05:35 Albumin 2.5 g/dl (3.4-5.0) L 07/01/17 05:35 - RADIOLOGY Echo reviewed EMG reviewed Medical Decision Making 77-year-old male presents to the emergency room for evaluation of increasing fatigue, weakness, shortness of breath, and mild nausea for the past few weeks after beginning his chemotherapy regimen for spinal cancer. 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 He had been admitted 05/29- for worsening lower extremity weakness secondary to spinal cord compression. Decision was made not to pursue surgery, was put on dexamethasone, and tried pazopanib. Patient presented to the ED with progressive SOB, weakness , fatigue, and poor appetite since starting pazopanib. EMg reviewed, can continue low dose decadron Did not demonstrate myopathy On AC Xarelto, strict fall precautions On IV abx for sepsis, UTI Follow up ID rec'd Physcial therapy has been helpful for patient case maker to coordinate possible rehab placement Fall precautions
--- NOTE | 2017-07-01 11:11 | PN ---
Progress Note, Physician Chief Complaint: Mr Murcia says his swelling is better. Still with weakness. 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, n/v - Current Medication List Current Medications: Active Medications Dexamethasone (Decadron -) 2 mg PO TID [facility] Last Admin: 07/01/17 06:23 Dose: 2 mg Docusate Sodium (Colace -) 100 mg PO TID [facility] Last Admin: 07/01/17 06:23 Dose: Not Given Furosemide (Lasix -) 40 mg PO DAILY [facility] Last Admin: 07/01/17 09:14 Dose: 40 mg Metoprolol Succinate (Toprol Xl -) 25 mg PO DAILY [facility] Last Admin: 07/01/17 09:13 Dose: 25 mg Votrient 200mg Tab 3 each PO DAILY@0700 [facility] Last Admin: 07/01/17 06:23 Dose: 3 each Polyethylene Glycol (Miralax (For Daily Use) -) 17 gm PO BID [facility] Last Admin: 07/01/17 09:17 Dose: Not Given Potassium Phos/Sodium Phos (Phos-Nak Packet -) 1 packet PO BID [facility] Last Admin: 07/01/17 09:14 Dose: 1 packet Rivaroxaban (Xarelto -) 20 mg PO DAILY@1800 [facility] Last Admin: 06/30/17 17:14 Dose: 20 mg - Objective Vital Signs: Vital Signs Temperature 36.3 C L 07/01/17 06:00 Pulse Rate 61 07/01/17 08:18 Respiratory Rate 16 07/01/17 06:00 Blood Pressure 113/50 07/01/17 06:00 O2 Sat by Pulse Oximetry (%) 95 07/01/17 08:18 Constitutional: Yes: No Distress, Calm, Obese Cardiovascular: Yes: Regular Rate and Rhythm. No: Gallop, Murmur, Rub Respiratory: Yes: Regular, CTA Bilaterally. No: Rales, Rhonchi, Wheezes Gastrointestinal: Yes: Normal Bowel Sounds, Soft. No: Distention, Tenderness Extremities: Yes: WNL Edema: Yes Edema: LLE: Trace, RLE: Trace Labs: CBC, BMP 07/01/17 05:35 07/01/17 05:35 INR, PTT INR 1.30 (0.82-1.09) H D 06/30/17 06:50 Fibrinogen 239.0 mg/dL (238-498) 06/23/17 07:55 Problem List - Problems (1) UTI (urinary tract infection) Code(s): N39.0 - URINARY TRACT INFECTION, SITE NOT SPECIFIED Qualifiers: Urinary tract infection type: acute cystitis Hematuria presence: without hematuria Qualified Code(s): N30.00 - Acute cystitis without hematuria (2) Severe sepsis Code(s): A41.9 - SEPSIS, UNSPECIFIED ORGANISM; R65.20 - SEVERE SEPSIS WITHOUT SEPTIC SHOCK (3) MONAE (acute kidney injury) Code(s): N17.9 - ACUTE KIDNEY FAILURE, UNSPECIFIED (4) Afib Code(s): I48.91 - UNSPECIFIED ATRIAL FIBRILLATION Qualifiers: Atrial fibrillation type: paroxysmal Qualified Code(s): I48.0 - Paroxysmal atrial fibrillation (5) Renal cell carcinoma Code(s): C64.9 - MALIGNANT NEOPLASM OF UNSP KIDNEY, EXCEPT RENAL PELVIS Qualifiers: Laterality: right Qualified Code(s): C64.1 - Malignant neoplasm of right kidney, except renal pelvis (6) T2DM (type 2 diabetes mellitus) Code(s): E11.9 - TYPE 2 DIABETES MELLITUS WITHOUT COMPLICATIONS (7) HTN (hypertension) Code(s): I10 - ESSENTIAL (PRIMARY) HYPERTENSION Qualifiers: Hypertension type: essential hypertension Qualified Code(s): I10 - Essential (primary) hypertension (8) Obesity Code(s): E66.9 - OBESITY, UNSPECIFIED Qualifiers: Obesity classification: adult class 3 (BMI >= 40) (9) Spinal cord compression Code(s): G95.20 - UNSPECIFIED CORD COMPRESSION Assessment/Plan (1) UTI (urinary tract infection) Assessment/Plan: -s/p full course antibiotics Code(s): N39.0 - URINARY TRACT INFECTION, SITE NOT SPECIFIED Qualifiers: Urinary tract infection type: acute cystitis Hematuria presence: without hematuria Qualified Code(s): N30.00 - Acute cystitis without hematuria (2) Severe sepsis Assessment/Plan: -resolved Code(s): A41.9 - SEPSIS, UNSPECIFIED ORGANISM; R65.20 - SEVERE SEPSIS WITHOUT SEPTIC SHOCK (3) MONAE (acute kidney injury) Assessment/Plan: -resolved -continue lasix 40mg daily -case d/w nephrology Code(s): N17.9 - ACUTE KIDNEY FAILURE, UNSPECIFIED (4) Afib Assessment/Plan: -controlled -continue xarelto and toprol xl Code(s): I48.91 - UNSPECIFIED ATRIAL FIBRILLATION Qualifiers: Atrial fibrillation type: paroxysmal Qualified Code(s): I48.0 - Paroxysmal atrial fibrillation (5) Renal cell carcinoma Assessment/Plan: -metastatic -oncology following and votrient restarted Code(s): C64.9 - MALIGNANT NEOPLASM OF UNSP KIDNEY, EXCEPT RENAL PELVIS Qualifiers: Laterality: right Qualified Code(s): C64.1 - Malignant neoplasm of right kidney, except renal pelvis (6) T2DM (type 2 diabetes mellitus) Assessment/Plan: -monitor on bmp Code(s): E11.9 - TYPE 2 DIABETES MELLITUS WITHOUT COMPLICATIONS (7) HTN (hypertension) Assessment/Plan: -continue toprol xl Code(s): I10 - ESSENTIAL (PRIMARY) HYPERTENSION Qualifiers: Hypertension type: essential hypertension Qualified Code(s): I10 - Essential (primary) hypertension (8) Obesity Assessment/Plan: -counselled Code(s): E66.9 - OBESITY, UNSPECIFIED (9) Spinal cord compression Assessment/Plan: -continue decadron -oncology following Code(s): G95.20 - UNSPECIFIED CORD COMPRESSION (10) Elevated LFTs -resolved (11) Thrombocytopenia -secondary to sepsis -improving (12) Lactic acidosis -monitor, not yet normalized (13) Weakness -appreciate neurology assistance -will benefit from SF placement Dispo -pending outpatient chemotherapy resolution -will benefit from SNF placement
[2017-07-01 11:54] LABS: ANISOCYTOSIS 2+; MACROCYTOSIS 1+; PLATELET ESTIMATE DECREASED
--- NOTE | 2017-07-01 12:04 | PN ---
Progress Note, Physician History of Present Illness: no events stable - Current Medication List Current Medications: Active Medications Dexamethasone (Decadron -) 2 mg PO TID [facility] Last Admin: 07/01/17 06:23 Dose: 2 mg Docusate Sodium (Colace -) 100 mg PO TID [facility] Last Admin: 07/01/17 06:23 Dose: Not Given Furosemide (Lasix -) 40 mg PO DAILY [facility] Last Admin: 07/01/17 09:14 Dose: 40 mg Metoprolol Succinate (Toprol Xl -) 25 mg PO DAILY [facility] Last Admin: 07/01/17 09:13 Dose: 25 mg Votrient 200mg Tab 3 each PO DAILY@0700 [facility] Last Admin: 07/01/17 06:23 Dose: 3 each Polyethylene Glycol (Miralax (For Daily Use) -) 17 gm PO BID [facility] Last Admin: 07/01/17 09:17 Dose: Not Given Potassium Phos/Sodium Phos (Phos-Nak Packet -) 1 packet PO BID [facility] Last Admin: 07/01/17 09:14 Dose: 1 packet Rivaroxaban (Xarelto -) 20 mg PO DAILY@1800 [facility] Last Admin: 06/30/17 17:14 Dose: 20 mg - Objective Vital Signs: Vital Signs Temperature 98.3 F 07/01/17 10:00 Pulse Rate 56 L 07/01/17 10:00 Respiratory Rate 18 07/01/17 10:00 Blood Pressure 101/58 07/01/17 10:00 O2 Sat by Pulse Oximetry (%) 95 07/01/17 10:00 Constitutional: Yes: No Distress, Calm Cardiovascular: Yes: S1, S2 Respiratory: Yes: Regular, CTA Bilaterally Gastrointestinal: Yes: Normal Bowel Sounds, Soft Musculoskeletal: Yes: WNL Extremities: Yes: WNL Neurological: Yes: Alert, Oriented Psychiatric: Yes: Alert, Oriented Labs: CBC, BMP 07/01/17 05:35 07/01/17 05:35 INR, PTT INR 1.30 (0.82-1.09) H D 06/30/17 06:50 Fibrinogen 239.0 mg/dL (238-498) 06/23/17 07:55 Assessment/Plan Problem List - Problems (1) Severe sepsis Code(s): A41.9 - SEPSIS, UNSPECIFIED ORGANISM; R65.20 - SEVERE SEPSIS WITHOUT SEPTIC SHOCK (2) Renal cell carcinoma Code(s): C64.9 - MALIGNANT NEOPLASM OF UNSP KIDNEY, EXCEPT RENAL PELVIS Qualifiers: Laterality: right Qualified Code(s): C64.1 - Malignant neoplasm of right kidney, except renal pelvis (3) T2DM (type 2 diabetes mellitus) Code(s): E11.9 - TYPE 2 DIABETES MELLITUS WITHOUT COMPLICATIONS (4) Atrial flutter Code(s): I48.92 - UNSPECIFIED ATRIAL FLUTTER Qualifiers: Atrial flutter type: atypical Qualified Code(s): I48.4 - Atypical atrial flutter (5) HTN (hypertension) Code(s): I10 - ESSENTIAL (PRIMARY) HYPERTENSION Qualifiers: Hypertension type: essential hypertension Qualified Code(s): I10 - Essential (primary) hypertension (6) Hyperbilirubinemia Code(s): E80.6 - OTHER DISORDERS OF BILIRUBIN METABOLISM (7) S/p nephrectomy Code(s): Z90.5 - ACQUIRED ABSENCE OF KIDNEY (8) Spinal cord compression Code(s): G95.20 - UNSPECIFIED CORD COMPRESSION lactic acidosis lactic acid continues to be on the higher side plan continue current mgmt physio rest as per primary
--- NOTE | 2017-07-01 13:27 | PN ---
Progress Note (short form) - Note Progress Note: Overall feels better. No CP or SOB. No acute events overnight. Intake & Output 06/28/17 06/29/17 06/30/17 07/01/17 23:59 23:59 23:59 23:59 Intake Total 600 770 300 350 Output Total 712 928 7794 Balance 350 Last Vital Signs Temp Pulse Resp BP Pulse Ox 98.3 F 56 L 18 101/58 95 07/01/17 10:00 07/01/17 10:00 07/01/17 10:00 07/01/17 10:00 07/01/17 10:00 Active Medications Dexamethasone (Decadron -) 2 mg PO TID [facility] Last Admin: 07/01/17 06:23 Dose: 2 mg Docusate Sodium (Colace -) 100 mg PO TID [facility] Last Admin: 07/01/17 06:23 Dose: Not Given Furosemide (Lasix -) 40 mg PO DAILY [facility] Last Admin: 07/01/17 09:14 Dose: 40 mg Metoprolol Succinate (Toprol Xl -) 25 mg PO DAILY [facility] Last Admin: 07/01/17 09:13 Dose: 25 mg Votrient 200mg Tab 3 each PO DAILY@0700 [facility] Last Admin: 07/01/17 06:23 Dose: 3 each Polyethylene Glycol (Miralax (For Daily Use) -) 17 gm PO BID [facility] Last Admin: 07/01/17 09:17 Dose: Not Given Potassium Phos/Sodium Phos (Phos-Nak Packet -) 1 packet PO BID [facility] Last Admin: 07/01/17 09:14 Dose: 1 packet Rivaroxaban (Xarelto -) 20 mg PO DAILY@1800 [facility] Last Admin: 06/30/17 17:14 Dose: 20 mg Constitutional: Yes: NAD Eyes: Yes: WNL HENT: Yes: WNL Neck: Yes: WNL Cardiovascular: Yes: Regular Rate and Rhythm, S1, S2 Respiratory: Yes: Diminished at the bases, few scattered rhonchi Gastrointestinal: Yes: Normal Bowel Sounds, Soft Extremities: Yes: WNL Edema: Yes Labs: Laboratory Results - last 24 hr 07/01/17 07/01/17 05:35 05:35 WBC 4.9 RBC 3.58 L Hgb 11.4 L Hct 34.1 L MCV 95.3 MCH 31.9 MCHC 33.5 RDW 21.4 H Plt Count 79 L MPV 8.3 Neutrophils % No Result Required. Neutrophils % (Manual) 75.5 Band Neutrophils % 2.1 Lymphocytes % No Result Required. Lymphocytes % (Manual) 5.3 L Monocytes % (Manual) 10 Eosinophils % (Manual) 0.0 D Basophils % (Manual) 0.0 Myelocytes % (Man) 1 D Metamyelocytes 3 H D Platelet Estimate Decreased Polychromasia 1+ Anisocytosis 2+ Macrocytosis 1+ Sodium 139 Potassium 4.3 Chloride 99 Carbon Dioxide 31 Anion Gap 9 BUN 23 H Creatinine 0.8 Creat Clearance w eGFR > 60 Random Glucose 202 H Calcium 8.0 L Phosphorus 3.2 Magnesium 2.0 Total Bilirubin 0.8 AST 26 D ALT 59 Alkaline Phosphatase 88 Total Protein 5.0 L Albumin 2.5 L Problem List - Problems (1) Afib Code(s): I48.91 - UNSPECIFIED ATRIAL FIBRILLATION Qualifiers: Atrial fibrillation type: paroxysmal Qualified Code(s): I48.0 - Paroxysmal atrial fibrillation (2) MONAE (acute kidney injury) Code(s): N17.9 - ACUTE KIDNEY FAILURE, UNSPECIFIED (3) Lactic acidosis Code(s): E87.2 - ACIDOSIS (4) Severe sepsis Code(s): A41.9 - SEPSIS, UNSPECIFIED ORGANISM; R65.20 - SEVERE SEPSIS WITHOUT SEPTIC SHOCK (5) Renal cell carcinoma Code(s): C64.9 - MALIGNANT NEOPLASM OF UNSP KIDNEY, EXCEPT RENAL PELVIS Qualifiers: Laterality: right Qualified Code(s): C64.1 - Malignant neoplasm of right kidney, except renal pelvis (6) T2DM (type 2 diabetes mellitus) Code(s): E11.9 - TYPE 2 DIABETES MELLITUS WITHOUT COMPLICATIONS (7) Diabetes Code(s): E11.9 - TYPE 2 DIABETES MELLITUS WITHOUT COMPLICATIONS Qualifiers: Diabetes mellitus type: type 2 Diabetes mellitus complication detail: with polyneuropathy (8) HTN (hypertension) Code(s): I10 - ESSENTIAL (PRIMARY) HYPERTENSION Qualifiers: Hypertension type: essential hypertension Qualified Code(s): I10 - Essential (primary) hypertension (9) Hyperbilirubinemia Code(s): E80.6 - OTHER DISORDERS OF BILIRUBIN METABOLISM (10) Obesity Code(s): E66.9 - OBESITY, UNSPECIFIED Qualifiers: Obesity classification: adult class 3 (BMI >= 40) (11) Spinal cord compression Code(s): G95.20 - UNSPECIFIED CORD COMPRESSION (12) Dyspnea Code(s): R06.00 - DYSPNEA, UNSPECIFIED (13) Respiratory distress Code(s): R06.03 - ACUTE RESPIRATORY DISTRESS Assessment/Plan IMP RESPIRATORY DISTRESS LIKELY SECONDARY TO SEPSIS IMPROVED 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 CORD COMPRESSION MONAE AFIB ELEVATED LFTS THROMBOCYTOPENIA HTN NIDDM ELEVATED LACTATE LEVEL PLAN O2 as needed Valentina Horan
--- NOTE | 2017-07-01 14:04 | PN ---
Progress Note, Physician History of Present Illness: Pt seen and examined at bedside. He is awake and alert. He denies shortness of breath. He is tolerating the 40 mg of lasix. He feels that his legs are a little better as far as edema. - Current Medication List Current Medications: Active Medications Dexamethasone (Decadron -) 2 mg PO TID [facility] Last Admin: 07/01/17 13:46 Dose: 2 mg Docusate Sodium (Colace -) 100 mg PO TID [facility] Last Admin: 07/01/17 13:46 Dose: 100 mg Furosemide (Lasix -) 40 mg PO DAILY [facility] Last Admin: 07/01/17 09:14 Dose: 40 mg Metoprolol Succinate (Toprol Xl -) 25 mg PO DAILY [facility] Last Admin: 07/01/17 09:13 Dose: 25 mg Votrient 200mg Tab 3 each PO DAILY@0700 [facility] Last Admin: 07/01/17 06:23 Dose: 3 each Polyethylene Glycol (Miralax (For Daily Use) -) 17 gm PO BID [facility] Last Admin: 07/01/17 09:17 Dose: Not Given Potassium Phos/Sodium Phos (Phos-Nak Packet -) 1 packet PO BID [facility] Last Admin: 07/01/17 09:14 Dose: 1 packet Rivaroxaban (Xarelto -) 20 mg PO DAILY@1800 [facility] Last Admin: 06/30/17 17:14 Dose: 20 mg - Objective Vital Signs: Vital Signs Temperature 98.3 F 07/01/17 10:00 Pulse Rate 63 07/01/17 13:50 Respiratory Rate 18 07/01/17 13:50 Blood Pressure 103/56 07/01/17 13:50 O2 Sat by Pulse Oximetry (%) 95 07/01/17 10:00 Constitutional: Yes: Calm Eyes: Yes: Conjunctiva Clear HENT: Yes: Atraumatic Neck: Yes: Supple Cardiovascular: Yes: S1, S2 Respiratory: Yes: CTA Bilaterally Gastrointestinal: Yes: Soft Genitourinary: Yes: WNL Musculoskeletal: Yes: WNL Edema: Yes Edema: LLE: 1+, RLE: 1+ Neurological: Yes: Oriented Psychiatric: Yes: Oriented Labs: CBC, BMP 07/01/17 05:35 07/01/17 05:35 INR, PTT INR 1.30 (0.82-1.09) H D 06/30/17 06:50 Fibrinogen 239.0 mg/dL (238-498) 06/23/17 07:55 Problem List - Problems (1) MONAE (acute kidney injury) Code(s): N17.9 - ACUTE KIDNEY FAILURE, UNSPECIFIED (2) Lactic acidosis Code(s): E87.2 - ACIDOSIS (3) Renal cell carcinoma Code(s): C64.9 - MALIGNANT NEOPLASM OF UNSP KIDNEY, EXCEPT RENAL PELVIS Qualifiers: Laterality: right Qualified Code(s): C64.1 - Malignant neoplasm of right kidney, except renal pelvis (4) T2DM (type 2 diabetes mellitus) Code(s): E11.9 - TYPE 2 DIABETES MELLITUS WITHOUT COMPLICATIONS (5) Diabetes Code(s): E11.9 - TYPE 2 DIABETES MELLITUS WITHOUT COMPLICATIONS Qualifiers: Diabetes mellitus type: type 2 Diabetes mellitus complication detail: with polyneuropathy (6) HTN (hypertension) Code(s): I10 - ESSENTIAL (PRIMARY) HYPERTENSION Qualifiers: Hypertension type: essential hypertension Qualified Code(s): I10 - Essential (primary) hypertension (7) S/p nephrectomy Code(s): Z90.5 - ACQUIRED ABSENCE OF KIDNEY Assessment/Plan Current Medications Generic Name Dose Route Start Last Admin Trade Name Freq PRN Reason Stop Dose Admin Dexamethasone 2 mg 06/28/17 22:00 07/01/17 13:46 Decadron - PO 2 mg TID [facility] Administration Docusate Sodium 100 mg 06/20/17 22:00 07/01/17 13:46 Colace - PO 100 mg TID [facility] Administration Furosemide 40 mg 07/01/17 10:00 07/01/17 09:14 Lasix - PO 40 mg DAILY [facility] Administration Metoprolol Succinate 25 mg 06/21/17 10:00 07/01/17 09:13 Toprol Xl - PO 25 mg DAILY [facility] Administration Votrient 200mg Tab 3 each 06/26/17 07:00 07/01/17 06:23 PO 3 each DAILY@0700 [facility] Administration Polyethylene Glycol 17 gm 06/20/17 22:00 07/01/17 09:17 Miralax (For Daily Use) - PO Not Given BID [facility] Potassium Phos/Sodium Phos 1 packet 06/29/17 13:30 07/01/17 09:14 Phos-Nak Packet - PO 1 packet BID [facility] Administration Rivaroxaban 20 mg 06/20/17 18:00 06/30/17 17:14 Xarelto - PO 20 mg DAILY@1800 [facility] Administration Laboratory Tests 06/30/17 06:50 Lactic Acid 2.8 H* Impression 1. MONAE 2. lactic acidosis improved 3. renal cancer 4. DM 5. a-fib 6. UTI 7. hypokalemia Plan - cont with lasix - renal function is stable - lactic acid level is improved - wound avoid metformin - likely monae from pre-renal disease - will need monitoring of renal function and volume status as outpt - recommend daily weights when he goes home - will follow Dr Langford
[2017-07-01] MEDS: RIVAROXABAN 20 MG TABLET PO SCH (17:35)
[2017-07-02] MEDS: DOCUSATE SODIUM 100 MG CAPSULE (FP) PO SCH ×3 (06:07→21:39)
[2017-07-02] MEDS: DEXAMETHASONE 4 MG TABLET (FP) PO SCH (06:08)
[2017-07-02] MEDS: VOTRIENT 200 MG PO SCH (06:08)
[2017-07-02 06:45] LABS: BASO % 0.6 % (0-2.0); EOS % 1.2 % (0-4.5); HEMOGLOBIN 11.6 GM/dL (11.7-16.9); MCH 32.8 pg (25.7-33.7); MCHC 34.2 g/dl (32.0-35.9); MEAN CELL VOLUME 95.9 fl (80-96); MEAN PLT VOLUME 8.9 fl (7.5-11.1); MONO % 8.5 % (3.8-10.2); NEUT % 77.7 % (42.8-82.8); PLATELET COUNT 87 K/MM3 (134-434); RBC 3.54 M/mm3 (4.00-5.60); RDW 22.2 % (11.9-15.9); WHITE BLOOD COUNT 4.8 K/mm3 (4.0-10.0)
[2017-07-02 07:24] LABS: ALBUMIN 2.6 g/dl (3.4-5.0); ANION GAP 12 (8-16); BLOOD UREA NITROGEN 25 mg/dL (7-18); CALCIUM 8.3 mg/dL (8.5-10.1); CHLORIDE 98 mmol/L (98-107); CO2 28 mmol/L (21-32); GLUCOSE,RANDOM 180 mg/dL (74-106); POTASSIUM 4.1 mmol/L (3.5-5.1); SODIUM 138 mmol/L (136-145)
[2017-07-02 07:26] LABS: ALK PHOS 86 U/L (45-117); BILIRUBIN,TOTAL 0.9 mg/dL (0.2-1.0); CREATININE 0.9 mg/dL (0.7-1.3); PHOSPHOROUS 3.2 mg/dL (2.5-4.9); SGOT/AST 29 U/L (15-37); SGPT/ALT 57 U/L (12-78); TOT PROT 5.1 g/dl (6.4-8.2)
--- NOTE | 2017-07-02 09:06 | PN ---
Progress Note (short form) - Note Progress Note: Neurology History of Present Illness 77-year-old male presented to the emergency room for evaluation of increasing fatigue, weakness, shortness of breath, and mild nausea for the past few weeks after beginning his chemotherapy regimen for spinal cancer. 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 He had been admitted 05/29- for worsening lower extremity weakness secondary to spinal cord compression. Decision was made not to pursue surgery, was put on dexamethasone, and tried pazopanib. Patient presented to the ED with progressive SOB, weakness , fatigue, and poor appetite since starting pazopanib. I was consulted regarding his ongoing weakness which seems to have deteroriated. EMG completed and did not show evidence of myopathy. Symptoms may be due to spinal disease. Patient being considered for short term rehab but unclear with facility can accept with chemo medication. home weatherizing worker trying to coordinate. Patient does feel his ambulation has improved with physical therapy. He reports it being easier for him to get up and move but not fully self ambulatory at this time. Sitting up in chair this AM and would likely for discharge. No acute neurologic events overnight. Active Medications Dexamethasone (Decadron -) 2 mg PO TID [facility] Last Admin: 07/02/17 06:08 Dose: 2 mg Docusate Sodium (Colace -) 100 mg PO TID [facility] Last Admin: 07/02/17 06:07 Dose: Not Given Furosemide (Lasix -) 40 mg PO DAILY [facility] Last Admin: 07/01/17 09:14 Dose: 40 mg Metoprolol Succinate (Toprol Xl -) 25 mg PO DAILY [facility] Last Admin: 07/01/17 09:13 Dose: 25 mg Votrient 200mg Tab 3 each PO DAILY@0700 [facility] Last Admin: 07/02/17 06:08 Dose: 3 each Polyethylene Glycol (Miralax (For Daily Use) -) 17 gm PO BID [facility] Last Admin: 07/01/17 22:21 Dose: Not Given Potassium Phos/Sodium Phos (Phos-Nak Packet -) 1 packet PO BID [facility] Last Admin: 07/01/17 22:21 Dose: Not Given Rivaroxaban (Xarelto -) 20 mg PO DAILY@1800 [facility] Last Admin: 07/01/17 17:35 Dose: 20 mg *Physical Exam Vital Signs Period Temp Pulse Resp BP Sys/Amador Pulse Ox Last 24 Hr 97.3 F-98.3 F 52-64 16-18 101-122/50-59 95-97 - Physical Exam General Appearance: Yes: Nourished, Appropriately Dressed. No: Apparent Distress HEENT: positive: EOMI, FREDA. negative: Pale Conjunctivae Neck: positive: Supple Respiratory/Chest: positive: Lungs Clear, Normal Breath Sounds. negative: Respiratory Distress, Accessory Muscle Use Cardiovascular: positive: Regular Rate (a flutter 82). negative: Murmur Gastrointestinal/Abdominal: positive: Normal Bowel Sounds, Soft, Distended ( slight). negative: Tenderness, Mass Extremity: positive: Normal Capillary Refill, Pedal Edema Integumentary: positive: Dry, Warm, Pale Neurologic: Awake and alert, interative, mental status intact, sensory intact, gait not able to ambulate CBCD WBC 4.8 K/mm3 (4.0-10.0) 07/02/17 05:35 RBC 3.54 M/mm3 (4.00-5.60) L 07/02/17 05:35 Hgb 11.6 GM/dL (11.7-16.9) L 07/02/17 05:35 Hct 34.0 % (35.4-49) L 07/02/17 05:35 MCV 95.9 fl (80-96) 07/02/17 05:35 MCHC 34.2 g/dl (32.0-35.9) 07/02/17 05:35 RDW 22.2 % (11.9-15.9) H 07/02/17 05:35 Plt Count 87 K/MM3 (134-434) L 07/02/17 05:35 MPV 8.9 fl (7.5-11.1) 07/02/17 05:35 CMP Sodium 138 mmol/L (136-145) 07/02/17 05:35 Potassium 4.1 mmol/L (3.5-5.1) 07/02/17 05:35 Chloride 98 mmol/L (98-107) 07/02/17 05:35 Carbon Dioxide 28 mmol/L (21-32) 07/02/17 05:35 Anion Gap 12 (8-16) 07/02/17 05:35 BUN 25 mg/dL (7-18) H 07/02/17 05:35 Creatinine 0.9 mg/dL (0.7-1.3) 07/02/17 05:35 Creat Clearance w eGFR > 60 (>60) 07/02/17 05:35 Calcium 8.3 mg/dL (8.5-10.1) L 07/02/17 05:35 Total Bilirubin 0.9 mg/dL (0.2-1.0) 07/02/17 05:35 AST 29 U/L (15-37) 07/02/17 05:35 ALT 57 U/L (12-78) 07/02/17 05:35 Alkaline Phosphatase 86 U/L (45-117) 07/02/17 05:35 Total Protein 5.1 g/dl (6.4-8.2) L 07/02/17 05:35 Albumin 2.6 g/dl (3.4-5.0) L 07/02/17 05:35 - RADIOLOGY Echo reviewed EMG reviewed Medical Decision Making 77-year-old male presents to the emergency room for evaluation of increasing fatigue, weakness, shortness of breath, and mild nausea for the past few weeks after beginning his chemotherapy regimen for spinal cancer. 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 He had been admitted 05/29- for worsening lower extremity weakness secondary to spinal cord compression. Decision was made not to pursue surgery, was put on dexamethasone, and tried pazopanib. Patient presented to the ED with progressive SOB, weakness , fatigue, and poor appetite since starting pazopanib. WILL decrease dose of decadron to 1mg, would like to avoid long-term side effects of decadron, has improved slightly with medication and therapy EMG Did not demonstrate myopathy On AC Xarelto, strict fall precautions On IV abx for sepsis, UTI Follow up ID rec'd case manager specialist to coordinate possible rehab placement Fall precautions
[2017-07-02] MEDS: METOPROLOL SUCCINATE 25 MG TAB.SR.24H (FP) PO SCH (09:20)
[2017-07-02] MEDS: POLYETHYLENE GLYCOL 3350 119 GM BTL PO SCH ×2 (09:20→21:39)
[2017-07-02] MEDS: FUROSEMIDE 40 MG TABLET (FP) PO SCH (09:20)
[2017-07-02] MEDS: NAPH,MB-DB/K PH,MBDB POWDER PACKET PO SCH ×2 (09:22→21:40)
--- NOTE | 2017-07-02 13:36 | PN ---
Progress Note, Physician History of Present Illness: Pt seen and examined at bedside. He has no complaints. - Current Medication List Current Medications: Active Medications Dexamethasone (Decadron -) 1 mg PO TID [facility] Docusate Sodium (Colace -) 100 mg PO TID [facility] Last Admin: 07/02/17 06:07 Dose: Not Given Furosemide (Lasix -) 40 mg PO DAILY [facility] Last Admin: 07/02/17 09:20 Dose: 40 mg Metoprolol Succinate (Toprol Xl -) 25 mg PO DAILY [facility] Last Admin: 07/02/17 09:20 Dose: 25 mg Votrient 200mg Tab 3 each PO DAILY@0700 [facility] Last Admin: 07/02/17 06:08 Dose: 3 each Polyethylene Glycol (Miralax (For Daily Use) -) 17 gm PO BID [facility] Last Admin: 07/02/17 09:20 Dose: Not Given Potassium Phos/Sodium Phos (Phos-Nak Packet -) 1 packet PO BID [facility] Last Admin: 07/02/17 09:22 Dose: 1 packet Rivaroxaban (Xarelto -) 20 mg PO DAILY@1800 [facility] Last Admin: 07/01/17 17:35 Dose: 20 mg - Objective Vital Signs: Vital Signs Temperature 97.3 F L 07/02/17 05:45 Pulse Rate 52 L 07/02/17 05:45 Respiratory Rate 16 07/02/17 10:00 Blood Pressure 119/59 07/02/17 05:45 O2 Sat by Pulse Oximetry (%) 98 07/02/17 09:00 Constitutional: Yes: Calm Eyes: Yes: Conjunctiva Clear HENT: Yes: Atraumatic Neck: Yes: Supple Cardiovascular: Yes: S1, S2 Respiratory: Yes: CTA Bilaterally Gastrointestinal: Yes: Soft Genitourinary: Yes: WNL Musculoskeletal: Yes: WNL Edema: Yes Edema: LLE: Trace, RLE: Trace Neurological: Yes: Oriented Psychiatric: Yes: Oriented Labs: CBC, BMP 07/02/17 05:35 07/02/17 05:35 INR, PTT INR 1.30 (0.82-1.09) H D 06/30/17 06:50 Fibrinogen 239.0 mg/dL (238-498) 06/23/17 07:55 Problem List - Problems (1) MONAE (acute kidney injury) Code(s): N17.9 - ACUTE KIDNEY FAILURE, UNSPECIFIED (2) Lactic acidosis Code(s): E87.2 - ACIDOSIS (3) Renal cell carcinoma Code(s): C64.9 - MALIGNANT NEOPLASM OF UNSP KIDNEY, EXCEPT RENAL PELVIS Qualifiers: Laterality: right Qualified Code(s): C64.1 - Malignant neoplasm of right kidney, except renal pelvis (4) T2DM (type 2 diabetes mellitus) Code(s): E11.9 - TYPE 2 DIABETES MELLITUS WITHOUT COMPLICATIONS (5) Diabetes Code(s): E11.9 - TYPE 2 DIABETES MELLITUS WITHOUT COMPLICATIONS Qualifiers: Diabetes mellitus type: type 2 Diabetes mellitus complication detail: with polyneuropathy (6) HTN (hypertension) Code(s): I10 - ESSENTIAL (PRIMARY) HYPERTENSION Qualifiers: Hypertension type: essential hypertension Qualified Code(s): I10 - Essential (primary) hypertension (7) S/p nephrectomy Code(s): Z90.5 - ACQUIRED ABSENCE OF KIDNEY Assessment/Plan Current Medications Generic Name Dose Route Start Last Admin Trade Name Freq PRN Reason Stop Dose Admin Dexamethasone 1 mg 07/02/17 09:06 Decadron - PO TID [facility] Docusate Sodium 100 mg 06/20/17 22:00 07/02/17 13:34 Colace - PO Not Given TID [facility] Furosemide 40 mg 07/01/17 10:00 07/02/17 09:20 Lasix - PO 40 mg DAILY [facility] Administration Metoprolol Succinate 25 mg 06/21/17 10:00 07/02/17 09:20 Toprol Xl - PO 25 mg DAILY [facility] Administration Votrient 200mg Tab 3 each 06/26/17 07:00 07/02/17 06:08 PO 3 each DAILY@0700 [facility] Administration Polyethylene Glycol 17 gm 06/20/17 22:00 07/02/17 09:20 Miralax (For Daily Use) - PO Not Given BID [facility] Potassium Phos/Sodium Phos 1 packet 06/29/17 13:30 07/02/17 09:22 Phos-Nak Packet - PO 1 packet BID [facility] Administration Rivaroxaban 20 mg 06/20/17 18:00 07/01/17 17:35 Xarelto - PO 20 mg DAILY@1800 [facility] Administration Impression 1. MONAE 2. lactic acidosis improved 3. renal cancer 4. DM 5. a-fib 6. UTI 7. hypokalemia Plan - renal function stable - cont lasix - wound avoid metformin - likely monae from pre-renal disease - recommend daily weights when he goes home - will follow PRN - discussed with primary team Dr Langford
[2017-07-02] MEDS ORDERED: PT OWN MED DRAWER 7, Y5N ONE ×4 (13:40→21:37)
[2017-07-02] MEDS: DEXAMETHASONE 0.5 MG TABLET PO SCH ×2 (13:44→21:53)
--- NOTE | 2017-07-02 14:10 | PN ---
Progress Note, Physician Chief Complaint: Mr Murcia is without complaint. No cp, sob, n/v. Edema has improved. - Current Medication List Current Medications: Active Medications Dexamethasone (Decadron -) 1 mg PO TID [facility] Last Admin: 07/02/17 13:44 Dose: 1 mg Docusate Sodium (Colace -) 100 mg PO TID [facility] Last Admin: 07/02/17 13:34 Dose: Not Given Furosemide (Lasix -) 40 mg PO DAILY [facility] Last Admin: 07/02/17 09:20 Dose: 40 mg Metoprolol Succinate (Toprol Xl -) 25 mg PO DAILY [facility] Last Admin: 07/02/17 09:20 Dose: 25 mg Votrient 200mg Tab 3 each PO DAILY@0700 [facility] Last Admin: 07/02/17 06:08 Dose: 3 each Polyethylene Glycol (Miralax (For Daily Use) -) 17 gm PO BID [facility] Last Admin: 07/02/17 09:20 Dose: Not Given Potassium Phos/Sodium Phos (Phos-Nak Packet -) 1 packet PO BID [facility] Last Admin: 07/02/17 09:22 Dose: 1 packet Rivaroxaban (Xarelto -) 20 mg PO DAILY@1800 [facility] Last Admin: 07/01/17 17:35 Dose: 20 mg - Objective Vital Signs: Vital Signs Temperature 36.3 C L 07/02/17 05:45 Pulse Rate 52 L 07/02/17 05:45 Respiratory Rate 16 07/02/17 10:00 Blood Pressure 119/59 07/02/17 05:45 O2 Sat by Pulse Oximetry (%) 98 07/02/17 09:00 Constitutional: Yes: No Distress, Calm, Obese Cardiovascular: Yes: Pulse Irregular. No: Tachycardia, Gallop, Murmur, Rub Respiratory: Yes: Regular, CTA Bilaterally. No: Rales, Rhonchi, Wheezes Gastrointestinal: Yes: Normal Bowel Sounds, Soft. No: Distention, Tenderness Extremities: Yes: WNL Edema: Yes Edema: LLE: Trace, RLE: Trace Labs: CBC, BMP 07/02/17 05:35 07/02/17 05:35 INR, PTT INR 1.30 (0.82-1.09) H D 06/30/17 06:50 Fibrinogen 239.0 mg/dL (238-498) 06/23/17 07:55 Problem List - Problems (1) UTI (urinary tract infection) Code(s): N39.0 - URINARY TRACT INFECTION, SITE NOT SPECIFIED Qualifiers: Urinary tract infection type: acute cystitis Hematuria presence: without hematuria Qualified Code(s): N30.00 - Acute cystitis without hematuria (2) Severe sepsis Code(s): A41.9 - SEPSIS, UNSPECIFIED ORGANISM; R65.20 - SEVERE SEPSIS WITHOUT SEPTIC SHOCK (3) MONAE (acute kidney injury) Code(s): N17.9 - ACUTE KIDNEY FAILURE, UNSPECIFIED (4) Afib Code(s): I48.91 - UNSPECIFIED ATRIAL FIBRILLATION Qualifiers: Atrial fibrillation type: paroxysmal Qualified Code(s): I48.0 - Paroxysmal atrial fibrillation (5) Renal cell carcinoma Code(s): C64.9 - MALIGNANT NEOPLASM OF UNSP KIDNEY, EXCEPT RENAL PELVIS Qualifiers: Laterality: right Qualified Code(s): C64.1 - Malignant neoplasm of right kidney, except renal pelvis (6) T2DM (type 2 diabetes mellitus) Code(s): E11.9 - TYPE 2 DIABETES MELLITUS WITHOUT COMPLICATIONS (7) HTN (hypertension) Code(s): I10 - ESSENTIAL (PRIMARY) HYPERTENSION Qualifiers: Hypertension type: essential hypertension Qualified Code(s): I10 - Essential (primary) hypertension (8) Obesity Code(s): E66.9 - OBESITY, UNSPECIFIED Qualifiers: Obesity classification: adult class 3 (BMI >= 40) (9) Spinal cord compression Code(s): G95.20 - UNSPECIFIED CORD COMPRESSION Assessment/Plan (1) UTI (urinary tract infection) Assessment/Plan: -s/p full course antibiotics Code(s): N39.0 - URINARY TRACT INFECTION, SITE NOT SPECIFIED Qualifiers: Urinary tract infection type: acute cystitis Hematuria presence: without hematuria Qualified Code(s): N30.00 - Acute cystitis without hematuria (2) Severe sepsis Assessment/Plan: -resolved Code(s): A41.9 - SEPSIS, UNSPECIFIED ORGANISM; R65.20 - SEVERE SEPSIS WITHOUT SEPTIC SHOCK (3) MONAE (acute kidney injury) Assessment/Plan: -resolved -continue lasix 40mg daily -case d/w nephrology -nephrology signing off Code(s): N17.9 - ACUTE KIDNEY FAILURE, UNSPECIFIED (4) Afib Assessment/Plan: -controlled -continue xarelto and toprol xl Code(s): I48.91 - UNSPECIFIED ATRIAL FIBRILLATION Qualifiers: Atrial fibrillation type: paroxysmal Qualified Code(s): I48.0 - Paroxysmal atrial fibrillation (5) Renal cell carcinoma Assessment/Plan: -metastatic -oncology following and votrient restarted -dispo planning, awaiting votrient shipment Code(s): C64.9 - MALIGNANT NEOPLASM OF UNSP KIDNEY, EXCEPT RENAL PELVIS Qualifiers: Laterality: right Qualified Code(s): C64.1 - Malignant neoplasm of right kidney, except renal pelvis (6) T2DM (type 2 diabetes mellitus) Assessment/Plan: -monitor on bmp Code(s): E11.9 - TYPE 2 DIABETES MELLITUS WITHOUT COMPLICATIONS (7) HTN (hypertension) Assessment/Plan: -continue toprol xl Code(s): I10 - ESSENTIAL (PRIMARY) HYPERTENSION Qualifiers: Hypertension type: essential hypertension Qualified Code(s): I10 - Essential (primary) hypertension (8) Obesity Assessment/Plan: -counselled Code(s): E66.9 - OBESITY, UNSPECIFIED (9) Spinal cord compression Assessment/Plan: -continue decadron -oncology following Code(s): G95.20 - UNSPECIFIED CORD COMPRESSION (10) Elevated LFTs -resolved (11) Thrombocytopenia -improving (12) Lactic acidosis -downtrending (13) Weakness -appreciate neurology assistance -will benefit from SF placement Dispo -pending outpatient chemotherapy resolution -will benefit from SNF placement and patient accepted
--- NOTE | 2017-07-02 16:15 | PN ---
Progress Note, Physician History of Present Illness: doing well no complaints tired - Current Medication List Current Medications: Active Medications Dexamethasone (Decadron -) 1 mg PO TID [facility] Last Admin: 07/02/17 13:44 Dose: 1 mg Docusate Sodium (Colace -) 100 mg PO TID [facility] Last Admin: 07/02/17 13:34 Dose: Not Given Furosemide (Lasix -) 40 mg PO DAILY [facility] Last Admin: 07/02/17 09:20 Dose: 40 mg Metoprolol Succinate (Toprol Xl -) 25 mg PO DAILY [facility] Last Admin: 07/02/17 09:20 Dose: 25 mg Votrient 200mg Tab 3 each PO DAILY@0700 [facility] Last Admin: 07/02/17 06:08 Dose: 3 each Polyethylene Glycol (Miralax (For Daily Use) -) 17 gm PO BID [facility] Last Admin: 07/02/17 09:20 Dose: Not Given Potassium Phos/Sodium Phos (Phos-Nak Packet -) 1 packet PO BID [facility] Last Admin: 07/02/17 09:22 Dose: 1 packet Rivaroxaban (Xarelto -) 20 mg PO DAILY@1800 [facility] Last Admin: 07/01/17 17:35 Dose: 20 mg - Objective Vital Signs: Vital Signs Temperature 97.4 F L 07/02/17 14:00 Pulse Rate 76 07/02/17 14:00 Respiratory Rate 19 07/02/17 14:00 Blood Pressure 111/64 07/02/17 14:00 O2 Sat by Pulse Oximetry (%) 98 07/02/17 09:00 Constitutional: Yes: No Distress, Calm Cardiovascular: Yes: S1, S2 Respiratory: Yes: Regular, CTA Bilaterally Gastrointestinal: Yes: Normal Bowel Sounds, Soft Musculoskeletal: Yes: WNL Extremities: Yes: WNL Neurological: Yes: Alert, Oriented Psychiatric: Yes: Alert, Oriented Labs: CBC, BMP 07/02/17 05:35 07/02/17 05:35 INR, PTT INR 1.30 (0.82-1.09) H D 06/30/17 06:50 Fibrinogen 239.0 mg/dL (238-498) 06/23/17 07:55 Assessment/Plan Problem List - Problems (1) Severe sepsis Code(s): A41.9 - SEPSIS, UNSPECIFIED ORGANISM; R65.20 - SEVERE SEPSIS WITHOUT SEPTIC SHOCK (2) Renal cell carcinoma Code(s): C64.9 - MALIGNANT NEOPLASM OF UNSP KIDNEY, EXCEPT RENAL PELVIS Qualifiers: Laterality: right Qualified Code(s): C64.1 - Malignant neoplasm of right kidney, except renal pelvis (3) T2DM (type 2 diabetes mellitus) Code(s): E11.9 - TYPE 2 DIABETES MELLITUS WITHOUT COMPLICATIONS (4) Atrial flutter Code(s): I48.92 - UNSPECIFIED ATRIAL FLUTTER Qualifiers: Atrial flutter type: atypical Qualified Code(s): I48.4 - Atypical atrial flutter (5) HTN (hypertension) Code(s): I10 - ESSENTIAL (PRIMARY) HYPERTENSION Qualifiers: Hypertension type: essential hypertension Qualified Code(s): I10 - Essential (primary) hypertension (6) Hyperbilirubinemia Code(s): E80.6 - OTHER DISORDERS OF BILIRUBIN METABOLISM (7) S/p nephrectomy Code(s): Z90.5 - ACQUIRED ABSENCE OF KIDNEY (8) Spinal cord compression Code(s): G95.20 - UNSPECIFIED CORD COMPRESSION lactic acidosis lactic acid continues to be on the higher side plan stable off of abx continue current mgmt physio rest as per primary team
--- NOTE | 2017-07-02 17:18 | PN ---
Progress Note, Physician History of Present Illness: PULMONARY ALERT,NAD,-CP,-SOB - Current Medication List Current Medications: Active Medications Dexamethasone (Decadron -) 1 mg PO TID [facility] Last Admin: 07/02/17 13:44 Dose: 1 mg Docusate Sodium (Colace -) 100 mg PO TID [facility] Last Admin: 07/02/17 13:34 Dose: Not Given Furosemide (Lasix -) 40 mg PO DAILY [facility] Last Admin: 07/02/17 09:20 Dose: 40 mg Metoprolol Succinate (Toprol Xl -) 25 mg PO DAILY [facility] Last Admin: 07/02/17 09:20 Dose: 25 mg Votrient 200mg Tab 3 each PO DAILY@0700 [facility] Last Admin: 07/02/17 06:08 Dose: 3 each Polyethylene Glycol (Miralax (For Daily Use) -) 17 gm PO BID [facility] Last Admin: 07/02/17 09:20 Dose: Not Given Potassium Phos/Sodium Phos (Phos-Nak Packet -) 1 packet PO BID [facility] Last Admin: 07/02/17 09:22 Dose: 1 packet Rivaroxaban (Xarelto -) 20 mg PO DAILY@1800 [facility] Last Admin: 07/01/17 17:35 Dose: 20 mg - Objective Vital Signs: Vital Signs Temperature 97.4 F L 07/02/17 14:00 Pulse Rate 76 07/02/17 14:00 Respiratory Rate 07/02/17 14:00 Blood Pressure 111/64 07/02/17 14:00 O2 Sat by Pulse Oximetry (%) 98 07/02/17 09:00 Constitutional: Yes: Well Nourished, Calm Eyes: Yes: WNL HENT: Yes: WNL Neck: Yes: WNL Cardiovascular: Yes: Pulse Irregular, S1, S2 Respiratory: Yes: CTA Bilaterally Gastrointestinal: Yes: Normal Bowel Sounds, Soft Extremities: Yes: WNL Edema: Yes Labs: CBC, BMP 07/02/17 05:35 07/02/17 05:35 INR, PTT INR 1.30 (0.82-1.09) H D 06/30/17 06:50 Fibrinogen 239.0 mg/dL (238-498) 06/23/17 07:55 Problem List - Problems (1) Afib Code(s): I48.91 - UNSPECIFIED ATRIAL FIBRILLATION Qualifiers: Atrial fibrillation type: paroxysmal Qualified Code(s): I48.0 - Paroxysmal atrial fibrillation (2) MONAE (acute kidney injury) Code(s): N17.9 - ACUTE KIDNEY FAILURE, UNSPECIFIED (3) Lactic acidosis Code(s): E87.2 - ACIDOSIS (4) Severe sepsis Code(s): A41.9 - SEPSIS, UNSPECIFIED ORGANISM; R65.20 - SEVERE SEPSIS WITHOUT SEPTIC SHOCK (5) Renal cell carcinoma Code(s): C64.9 - MALIGNANT NEOPLASM OF UNSP KIDNEY, EXCEPT RENAL PELVIS Qualifiers: Laterality: right Qualified Code(s): C64.1 - Malignant neoplasm of right kidney, except renal pelvis (6) T2DM (type 2 diabetes mellitus) Code(s): E11.9 - TYPE 2 DIABETES MELLITUS WITHOUT COMPLICATIONS (7) Diabetes Code(s): E11.9 - TYPE 2 DIABETES MELLITUS WITHOUT COMPLICATIONS Qualifiers: Diabetes mellitus type: type 2 Diabetes mellitus complication detail: with polyneuropathy (8) HTN (hypertension) Code(s): I10 - ESSENTIAL (PRIMARY) HYPERTENSION Qualifiers: Hypertension type: essential hypertension Qualified Code(s): I10 - Essential (primary) hypertension (9) Hyperbilirubinemia Code(s): E80.6 - OTHER DISORDERS OF BILIRUBIN METABOLISM (10) Obesity Code(s): E66.9 - OBESITY, UNSPECIFIED Qualifiers: Obesity classification: adult class 3 (BMI >= 40) (11) Spinal cord compression Code(s): G95.20 - UNSPECIFIED CORD COMPRESSION (12) Dyspnea Code(s): R06.00 - DYSPNEA, UNSPECIFIED (13) Respiratory distress Code(s): R06.03 - ACUTE RESPIRATORY DISTRESS Assessment/Plan IMP RESPIRATORY DISTRESS LIKELY SECONDARY TO SEPSIS IMPROVED 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 CORD COMPRESSION MONAE AFIB ELEVATED LFTS THROMBOCYTOPENIA HTN NIDDM ELEVATED LACTATE LEVEL PLAN O2 ac LEOBARDO PEPPER Problem List - Problems (1) Afib Code(s): I48.91 - UNSPECIFIED ATRIAL FIBRILLATION (2) MONAE (acute kidney injury) Code(s): N17.9 - ACUTE KIDNEY FAILURE, UNSPECIFIED (3) Lactic acidosis Code(s): E87.2 - ACIDOSIS (4) Severe sepsis Code(s): A41.9 - SEPSIS, UNSPECIFIED ORGANISM; R65.20 - SEVERE SEPSIS WITHOUT SEPTIC SHOCK (5) Renal cell carcinoma Code(s): C64.9 - MALIGNANT NEOPLASM OF UNSP KIDNEY, EXCEPT RENAL PELVIS Qualifiers: Laterality: right Qualified Code(s): C64.1 - Malignant neoplasm of right kidney, except renal pelvis (6) T2DM (type 2 diabetes mellitus) Code(s): E11.9 - TYPE 2 DIABETES MELLITUS WITHOUT COMPLICATIONS (7) Diabetes Code(s): E11.9 - TYPE 2 DIABETES MELLITUS WITHOUT COMPLICATIONS (8) HTN (hypertension) Code(s): I10 - ESSENTIAL (PRIMARY) HYPERTENSION Qualifiers: Hypertension type: essential hypertension Qualified Code(s): I10 - Essential (primary) hypertension (9) Hyperbilirubinemia Code(s): E80.6 - OTHER DISORDERS OF BILIRUBIN METABOLISM (10) Obesity Code(s): E66.9 - OBESITY, UNSPECIFIED (11) Spinal cord compression Code(s): G95.20 - UNSPECIFIED CORD COMPRESSION (12) Dyspnea Code(s): R06.00 - DYSPNEA, UNSPECIFIED (13) Respiratory distress Code(s): R06.03 - ACUTE RESPIRATORY DISTRESS
[2017-07-02] MEDS: RIVAROXABAN 20 MG TABLET PO SCH (17:31)
[2017-07-03] MEDS ORDERED: PT OWN MED DRAWER 7, Y5N ONE ×3 (06:38→20:05)
[2017-07-03] MEDS: DOCUSATE SODIUM 100 MG CAPSULE (FP) PO SCH ×3 (06:39→22:09)
[2017-07-03] MEDS: VOTRIENT 200 MG PO SCH (06:41)
[2017-07-03] MEDS: DEXAMETHASONE 0.5 MG TABLET PO SCH ×3 (06:41→22:09)
[2017-07-03 07:33] LABS: HEMATOCRIT 35.3 % (35.4-49); HEMOGLOBIN 11.9 GM/dL (11.7-16.9); MCH 32.6 pg (25.7-33.7); MCHC 33.7 g/dl (32.0-35.9); MEAN CELL VOLUME 96.6 fl (80-96); MEAN PLT VOLUME 8.1 fl (7.5-11.1); PLATELET COUNT 77 K/MM3 (134-434); RBC 3.65 M/mm3 (4.00-5.60); RDW 21.8 % (11.9-15.9); WHITE BLOOD COUNT 5.2 K/mm3 (4.0-10.0)
[2017-07-03 08:01] LABS: ALBUMIN 2.7 g/dl (3.4-5.0); ANION GAP 12 (8-16); CHLORIDE 101 mmol/L (98-107); CO2 25 mmol/L (21-32); CREATININE 0.7 mg/dL (0.7-1.3); GLUCOSE,RANDOM 151 mg/dL (74-106); MAGNESIUM 1.9 mg/dL (1.8-2.4); PHOSPHOROUS 3.3 mg/dL (2.5-4.9); POTASSIUM 3.9 mmol/L (3.5-5.1); SGOT/AST 28 U/L (15-37); SGPT/ALT 53 U/L (12-78); SODIUM 138 mmol/L (136-145)
[2017-07-03 08:17] LABS: ALK PHOS 89 U/L (45-117); BLOOD UREA NITROGEN 25 mg/dL (7-18); CALCIUM 7.9 mg/dL (8.5-10.1)
[2017-07-03 09:28] LABS: ANISOCYTOSIS 2+; MACROCYTOSIS 0; PLATELET ESTIMATE DECREASED
[2017-07-03] MEDS: POLYETHYLENE GLYCOL 3350 119 GM BTL PO SCH ×2 (09:36→22:09)
[2017-07-03] MEDS: NAPH,MB-DB/K PH,MBDB POWDER PACKET PO SCH ×2 (09:37→22:09)
[2017-07-03] MEDS: FUROSEMIDE 40 MG TABLET (FP) PO SCH (09:37)
[2017-07-03] MEDS: METOPROLOL SUCCINATE 25 MG TAB.SR.24H (FP) PO SCH (09:37)
--- NOTE | 2017-07-03 11:12 | PN ---
Progress Note, Physician History of Present Illness: Pt seen and examined. Events noted. Pt states he feels relatively well. Denies fever, chills, shortness of breath. No specific complaints. - Current Medication List Current Medications: Active Medications Dexamethasone (Decadron -) 1 mg PO TID [facility] Last Admin: 07/03/17 06:41 Dose: 1 mg Docusate Sodium (Colace -) 100 mg PO TID [facility] Last Admin: 07/03/17 06:39 Dose: Not Given Furosemide (Lasix -) 40 mg PO DAILY [facility] Last Admin: 07/03/17 09:37 Dose: 40 mg Metoprolol Succinate (Toprol Xl -) 25 mg PO DAILY [facility] Last Admin: 07/03/17 09:37 Dose: 25 mg Votrient 200mg Tab 3 each PO DAILY@0700 [facility] Last Admin: 07/03/17 06:41 Dose: 3 each Polyethylene Glycol (Miralax (For Daily Use) -) 17 gm PO BID [facility] Last Admin: 07/03/17 09:36 Dose: 17 grams Potassium Phos/Sodium Phos (Phos-Nak Packet -) 1 packet PO BID [facility] Last Admin: 07/03/17 09:37 Dose: 1 packet Rivaroxaban (Xarelto -) 20 mg PO DAILY@1800 [facility] Last Admin: 07/02/17 17:31 Dose: 20 mg - Objective Vital Signs: Vital Signs Temperature 98 F 07/03/17 08:26 Pulse Rate 40 L 07/03/17 08:26 Respiratory Rate 20 07/03/17 08:37 Blood Pressure 110/63 07/03/17 08:26 O2 Sat by Pulse Oximetry (%) 98 07/03/17 08:37 Constitutional: Yes: No Distress, Calm Cardiovascular: Yes: Pulse Irregular Respiratory: Yes: CTA Bilaterally Gastrointestinal: Yes: Normal Bowel Sounds, Soft Extremities: Yes: WNL Labs: CBC, BMP 07/03/17 06:00 07/03/17 06:00 INR, PTT INR 1.30 (0.82-1.09) H D 06/30/17 06:50 Fibrinogen 239.0 mg/dL (238-498) 06/23/17 07:55 Problem List - Problems (1) Severe sepsis Code(s): A41.9 - SEPSIS, UNSPECIFIED ORGANISM; R65.20 - SEVERE SEPSIS WITHOUT SEPTIC SHOCK (2) Renal cell carcinoma Code(s): C64.9 - MALIGNANT NEOPLASM OF UNSP KIDNEY, EXCEPT RENAL PELVIS Qualifiers: Laterality: right Qualified Code(s): C64.1 - Malignant neoplasm of right kidney, except renal pelvis (3) T2DM (type 2 diabetes mellitus) Code(s): E11.9 - TYPE 2 DIABETES MELLITUS WITHOUT COMPLICATIONS (4) Atrial flutter Code(s): I48.92 - UNSPECIFIED ATRIAL FLUTTER Qualifiers: Atrial flutter type: atypical Qualified Code(s): I48.4 - Atypical atrial flutter (5) HTN (hypertension) Code(s): I10 - ESSENTIAL (PRIMARY) HYPERTENSION Qualifiers: Hypertension type: essential hypertension Qualified Code(s): I10 - Essential (primary) hypertension (6) Hyperbilirubinemia Code(s): E80.6 - OTHER DISORDERS OF BILIRUBIN METABOLISM (7) S/p nephrectomy Code(s): Z90.5 - ACQUIRED ABSENCE OF KIDNEY (8) Spinal cord compression Code(s): G95.20 - UNSPECIFIED CORD COMPRESSION Assessment/Plan - Patient stable off antibiotics at this time continue monitor
--- NOTE | 2017-07-03 11:30 | PN ---
Progress Note (short form) - Note Progress Note: Neurology History of Present Illness 77-year-old male presented to the emergency room for evaluation of increasing fatigue, weakness, shortness of breath, and mild nausea for the past few weeks after beginning his chemotherapy regimen for spinal cancer. 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 He had been admitted 05/29- for worsening lower extremity weakness secondary to spinal cord compression. Decision was made not to pursue surgery, was put on dexamethasone, and tried pazopanib. Patient presented to the ED with progressive SOB, weakness , fatigue, and poor appetite since starting pazopanib. I was consulted regarding his ongoing weakness which seems to have deteroriated. EMG completed and did not show evidence of myopathy. Symptoms may be due to spinal disease. Patient being considered for short term rehab but unclear with facility can accept with chemo medication. community placement worker trying to coordinate. Patient does feel his ambulation has improved with physical therapy. He is awaiting placement. No new neurologic events. Active Medications Dexamethasone (Decadron -) 1 mg PO TID [facility] Last Admin: 07/03/17 06:41 Dose: 1 mg Docusate Sodium (Colace -) 100 mg PO TID [facility] Last Admin: 07/03/17 06:39 Dose: Not Given Furosemide (Lasix -) 40 mg PO DAILY [facility] Last Admin: 07/03/17 09:37 Dose: 40 mg Metoprolol Succinate (Toprol Xl -) 25 mg PO DAILY [facility] Last Admin: 07/03/17 09:37 Dose: 25 mg Votrient 200mg Tab 3 each PO DAILY@0700 [facility] Last Admin: 07/03/17 06:41 Dose: 3 each Polyethylene Glycol (Miralax (For Daily Use) -) 17 gm PO BID [facility] Last Admin: 07/03/17 09:36 Dose: 17 grams Potassium Phos/Sodium Phos (Phos-Nak Packet -) 1 packet PO BID [facility] Last Admin: 07/03/17 09:37 Dose: 1 packet Rivaroxaban (Xarelto -) 20 mg PO DAILY@1800 [facility] Last Admin: 07/02/17 17:31 Dose: 20 mg *Physical Exam Vital Signs Temperature 98 F 07/03/17 08:26 Pulse Rate 40 L 07/03/17 08:26 Respiratory Rate 20 01/20/18 08:37 Blood Pressure 110/63 07/03/17 08:26 O2 Sat by Pulse Oximetry (%) 98 07/03/17 08:37 - Physical Exam General Appearance: Yes: Nourished, Appropriately Dressed. No: Apparent Distress HEENT: positive: EOMI, FREDA. negative: Pale Conjunctivae Neck: positive: Supple Respiratory/Chest: positive: Lungs Clear, Normal Breath Sounds. negative: Respiratory Distress, Accessory Muscle Use Cardiovascular: positive: Regular Rate (a flutter 82). negative: Murmur Gastrointestinal/Abdominal: positive: Normal Bowel Sounds, Soft, Distended ( slight). negative: Tenderness, Mass Extremity: positive: Normal Capillary Refill, Pedal Edema Integumentary: positive: Dry, Warm, Pale Neurologic: Awake and alert, interative, mental status intact, sensory intact, gait not able to ambulate CBCD WBC 5.2 K/mm3 (4.0-10.0) 07/03/17 06:00 RBC 3.65 M/mm3 (4.00-5.60) L 07/03/17 06:00 Hgb 11.9 GM/dL (11.7-16.9) 07/03/17 06:00 Hct 35.3 % (35.4-49) L 07/03/17 06:00 MCV 96.6 fl (80-96) H 07/03/17 06:00 MCHC 33.7 g/dl (32.0-35.9) 07/03/17 06:00 RDW 21.8 % (11.9-15.9) H 07/03/17 06:00 Plt Count 77 K/MM3 (134-434) L 07/03/17 06:00 MPV 8.1 fl (7.5-11.1) 07/03/17 06:00 CMP Sodium 138 mmol/L (136-145) 07/03/17 06:00 Potassium 3.9 mmol/L (3.5-5.1) 07/03/17 06:00 Chloride 101 mmol/L (98-107) 07/03/17 06:00 Carbon Dioxide 25 mmol/L (21-32) 07/03/17 06:00 Anion Gap 12 (8-16) 07/03/17 06:00 BUN 25 mg/dL (7-18) H 07/03/17 06:00 Creatinine 0.7 mg/dL (0.7-1.3) D 07/03/17 06:00 Creat Clearance w eGFR > 60 (>60) 07/03/17 06:00 Calcium 7.9 mg/dL (8.5-10.1) L 07/03/17 06:00 Total Bilirubin 1.0 mg/dL (0.2-1.0) 07/03/17 06:00 AST 28 U/L (15-37) 07/03/17 06:00 ALT 53 U/L (12-78) 07/03/17 06:00 Alkaline Phosphatase 89 U/L (45-117) 07/03/17 06:00 Total Protein 5.0 g/dl (6.4-8.2) L 07/03/17 06:00 Albumin 2.7 g/dl (3.4-5.0) L 07/03/17 06:00 - RADIOLOGY Echo reviewed EMG reviewed Medical Decision Making 77-year-old male presents to the emergency room for evaluation of increasing fatigue, weakness, shortness of breath, and mild nausea for the past few weeks after beginning his chemotherapy regimen for spinal cancer. 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 He had been admitted 05/29- for worsening lower extremity weakness secondary to spinal cord compression. Decision was made not to pursue surgery, was put on dexamethasone, and tried pazopanib. Patient presented to the ED with progressive SOB, weakness , fatigue, and poor appetite since starting pazopanib. Decreased decadron to 1mg, would like to avoid group home side effects of decadron, has improved slightly with medication and therapy EMG Did not demonstrate myopathy On AC Xarelto, strict fall precautions vocational case manager to coordinate possible rehab placement Fall precautions
--- NOTE | 2017-07-03 13:08 | PN ---
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 Recently hospitalized 05/29-06/08/17 for worsening lower extremity weakness secondary to spinal cord compression. Decision was made not to pursue surgery, to begin dexamethasone, and to start a trial of pazopanib. Patient presents to the ED today with progressive SOB, weakness, fatigue, and poor appetite since starting pazopanib.blood w/u shows elevated lactic acid no source of infection or clinical picture of sepsis/infectious etiology, lactate 3.6. - Current Medication List Current Medications: Active Medications Dexamethasone (Decadron -) 1 mg PO TID [facility] Last Admin: 07/03/17 06:41 Dose: 1 mg Docusate Sodium (Colace -) 100 mg PO TID [facility] Last Admin: 07/03/17 06:39 Dose: Not Given Furosemide (Lasix -) 40 mg PO DAILY [facility] Last Admin: 07/03/17 09:37 Dose: 40 mg Metoprolol Succinate (Toprol Xl -) 25 mg PO DAILY [facility] Last Admin: 07/03/17 09:37 Dose: 25 mg Votrient 200mg Tab 3 each PO DAILY@0700 [facility] Last Admin: 07/03/17 06:41 Dose: 3 each Polyethylene Glycol (Miralax (For Daily Use) -) 17 gm PO BID [facility] Last Admin: 07/03/17 09:36 Dose: 17 grams Potassium Phos/Sodium Phos (Phos-Nak Packet -) 1 packet PO BID [facility] Last Admin: 07/03/17 09:37 Dose: 1 packet Rivaroxaban (Xarelto -) 20 mg PO DAILY@1800 [facility] Last Admin: 07/02/17 17:31 Dose: 20 mg - Objective Vital Signs: Vital Signs Temperature 98 F 07/03/17 08:26 Pulse Rate 40 L 07/03/17 08:26 Respiratory Rate 20 07/03/17 08:37 Blood Pressure 110/63 07/03/17 08:26 O2 Sat by Pulse Oximetry (%) 98 07/03/17 08:37 Elderly man looks tired, not in distress, HEENT: Mm moist, pale, anemia +, no thrush NECK: No NVD No Bruit CHEST: Minimal basal Crepts CVS: S1S2 R SM in AA ABD: Obese, non tender, Bs + EXT: Edema +, no calf tenderness 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 Labs: CBC, BMP 07/03/17 06:00 07/03/17 06:00 INR, PTT INR 1.30 (0.82-1.09) H D 06/30/17 06:50 Fibrinogen 239.0 mg/dL (238-498) 06/23/17 07:55 Problem List - Problems (1) Afib Assessment/Plan: At present rate controlled on AC no acute issue cont current management. Code(s): I48.91 - UNSPECIFIED ATRIAL FIBRILLATION Qualifiers: Atrial fibrillation type: paroxysmal Qualified Code(s): I48.0 - Paroxysmal atrial fibrillation (2) Lactic acidosis Assessment/Plan: elevated lactic acid no infectious source trending normal, f/u level Code(s): E87.2 - ACIDOSIS (3) Renal cell carcinoma Assessment/Plan: Stage 4 RCC with Bony mets with cord Compression opted no surgical treatment on Votrient Code(s): C64.9 - MALIGNANT NEOPLASM OF UNSP KIDNEY, EXCEPT RENAL PELVIS Qualifiers: Laterality: right Qualified Code(s): C64.1 - Malignant neoplasm of right kidney, except renal pelvis (4) Aortic stenosis Assessment/Plan: Moderate to sever no surgical intervention considering, patient overall health. Code(s): I35.0 - NONRHEUMATIC AORTIC (VALVE) STENOSIS Qualifiers: Cardiac valve disease etiology: nonrheumatic Qualified Code(s): I35.0 - Nonrheumatic aortic (valve) stenosis (5) Diabetes Assessment/Plan: T2DM Optimoze Glycemic control. Code(s): E11.9 - TYPE 2 DIABETES MELLITUS WITHOUT COMPLICATIONS Qualifiers: Diabetes mellitus type: type 2 Diabetes mellitus complication detail: with polyneuropathy (6) HTN (hypertension) Assessment/Plan: Cont home meds Code(s): I10 - ESSENTIAL (PRIMARY) HYPERTENSION Qualifiers: Hypertension type: essential hypertension Qualified Code(s): I10 - Essential (primary) hypertension (7) Spinal cord compression Assessment/Plan: RCC stage 4 with Bony mets opted non operative management.On Dexamethasone Code(s): G95.20 - UNSPECIFIED CORD COMPRESSION (8) Thrombocytopenia Assessment/Plan: Chronic stable Code(s): D69.6 - THROMBOCYTOPENIA, UNSPECIFIED
--- NOTE | 2017-07-03 14:08 | PN ---
Progress Note (short form) - Note Progress Note: Overall feels better. Comfortable off O2. No CP or SOB. No acute events overnight. Intake & Output 06/30/17 07/01/17 07/02/17 07/03/17 23:59 23:59 23:59 23:59 Intake Total 300 1130 240 470 Output Total 2200 300 800 450 Balance -1900 830 -560 20 Last Vital Signs Temp Pulse Resp BP Pulse Ox 98 F 40 L 20 110/63 98 07/03/17 08:26 07/03/17 08:26 07/03/17 08:37 07/03/17 08:26 07/03/17 08:37 Active Medications Dexamethasone (Decadron -) 1 mg PO TID [facility] Last Admin: 07/03/17 06:41 Dose: 1 mg Docusate Sodium (Colace -) 100 mg PO TID [facility] Last Admin: 07/03/17 06:39 Dose: Not Given Furosemide (Lasix -) 40 mg PO DAILY [facility] Last Admin: 07/03/17 09:37 Dose: 40 mg Metoprolol Succinate (Toprol Xl -) 25 mg PO DAILY [facility] Last Admin: 07/03/17 09:37 Dose: 25 mg Votrient 200mg Tab 3 each PO DAILY@0700 [facility] Last Admin: 07/03/17 06:41 Dose: 3 each Polyethylene Glycol (Miralax (For Daily Use) -) 17 gm PO BID [facility] Last Admin: 07/03/17 09:36 Dose: 17 grams Potassium Phos/Sodium Phos (Phos-Nak Packet -) 1 packet PO BID [facility] Last Admin: 07/03/17 09:37 Dose: 1 packet Rivaroxaban (Xarelto -) 20 mg PO DAILY@1800 [facility] Last Admin: 07/02/17 17:31 Dose: 20 mg Constitutional: Yes: NAD Eyes: Yes: WNL HENT: Yes: WNL Neck: Yes: WNL Cardiovascular: Yes: Regular Rate and Rhythm, S1, S2 Respiratory: Yes: Diminished at the bases, few scattered rhonchi Gastrointestinal: Yes: Normal Bowel Sounds, Soft Extremities: Yes: WNL Edema: Yes Labs: Laboratory Results - last 24 hr 07/03/17 07/03/17 06:00 06:00 WBC 5.2 RBC 3.65 L Hgb 11.9 Hct 35.3 L MCV 96.6 H MCH 32.6 MCHC 33.7 RDW 21.8 H Plt Count 77 L MPV 8.1 Neutrophils % No Result Required. Neutrophils % (Manual) 60.6 Band Neutrophils % 9.1 Lymphocytes % No Result Required. Lymphocytes % (Manual) 7.1 L D Monocytes % (Manual) 14 H Eosinophils % (Manual) 2.0 D Basophils % (Manual) 0.0 Myelocytes % (Man) 3 H D Metamyelocytes 3 H Hypochromia 0 Platelet Estimate Decreased Polychromasia 1+ Poikilocytosis 0 Anisocytosis 2+ Microcytosis 2+ Macrocytosis 0 Sodium 138 Potassium 3.9 Chloride 101 Carbon Dioxide 25 Anion Gap 12 BUN 25 H Creatinine 0.7 D Creat Clearance w eGFR > 60 Random Glucose 151 H Calcium 7.9 L Phosphorus 3.3 Magnesium 1.9 Total Bilirubin 1.0 AST 28 ALT 53 Alkaline Phosphatase 89 Total Protein 5.0 L Albumin 2.7 L Problem List - Problems (1) Afib Code(s): I48.91 - UNSPECIFIED ATRIAL FIBRILLATION Qualifiers: Atrial fibrillation type: paroxysmal Qualified Code(s): I48.0 - Paroxysmal atrial fibrillation (2) MONAE (acute kidney injury) Code(s): N17.9 - ACUTE KIDNEY FAILURE, UNSPECIFIED (3) Lactic acidosis Code(s): E87.2 - ACIDOSIS (4) Severe sepsis Code(s): A41.9 - SEPSIS, UNSPECIFIED ORGANISM; R65.20 - SEVERE SEPSIS WITHOUT SEPTIC SHOCK (5) Renal cell carcinoma Code(s): C64.9 - MALIGNANT NEOPLASM OF UNSP KIDNEY, EXCEPT RENAL PELVIS Qualifiers: Laterality: right Qualified Code(s): C64.1 - Malignant neoplasm of right kidney, except renal pelvis (6) T2DM (type 2 diabetes mellitus) Code(s): E11.9 - TYPE 2 DIABETES MELLITUS WITHOUT COMPLICATIONS (7) Diabetes Code(s): E11.9 - TYPE 2 DIABETES MELLITUS WITHOUT COMPLICATIONS Qualifiers: Diabetes mellitus type: type 2 Diabetes mellitus complication detail: with polyneuropathy (8) HTN (hypertension) Code(s): I10 - ESSENTIAL (PRIMARY) HYPERTENSION Qualifiers: Hypertension type: essential hypertension Qualified Code(s): I10 - Essential (primary) hypertension (9) Hyperbilirubinemia Code(s): E80.6 - OTHER DISORDERS OF BILIRUBIN METABOLISM (10) Obesity Code(s): E66.9 - OBESITY, UNSPECIFIED Qualifiers: Obesity classification: adult class 3 (BMI >= 40) (11) Spinal cord compression Code(s): G95.20 - UNSPECIFIED CORD COMPRESSION (12) Dyspnea Code(s): R06.00 - DYSPNEA, UNSPECIFIED (13) Respiratory distress Code(s): R06.03 - ACUTE RESPIRATORY DISTRESS Assessment/Plan IMP RESPIRATORY DISTRESS LIKELY SECONDARY TO SEPSIS IMPROVED 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 CORD COMPRESSION MONAE AFIB ELEVATED LFTS THROMBOCYTOPENIA HTN NIDDM ELEVATED LACTATE LEVEL PLAN O2 as needed Lizbetto Kathleen Horan
--- NOTE | 2017-07-03 17:34 | PN ---
Progress Note (short form) - Note Progress Note: Patient seen and examined No specific complaints today Last Vital Signs Temp Pulse Resp BP Pulse Ox 97.3 F L 68 18 114/58 98 07/03/17 14:17 07/03/17 14:17 07/03/17 14:17 07/03/17 14:17 07/03/17 08:37 Cor: RSR, No murmurs, No gallops Lungs: Clear to P&A Abd: Soft, Normal bowel sounds, No organomegaly Ext:No significant edema Abnormal Lab Results 07/03/17 07/03/17 07/03/17 06:00 06:00 15:25 RBC 3.65 L Hct 35.3 L MCV 96.6 H RDW 21.8 H Plt Count 77 L Lymphocytes % (Manual) 7.1 L D Monocytes % (Manual) 14 H Myelocytes % (Man) 3 H D Metamyelocytes 3 H BUN 25 H Random Glucose 151 H Lactic Acid 2.6 H* Calcium 7.9 L Total Protein 5.0 L Albumin 2.7 L Active Medications Generic Name Dose Route Start Last Admin Trade Name Freq PRN Reason Stop Dose Admin Dexamethasone 1 mg 07/02/17 09:06 07/03/17 14:43 Decadron - PO 1 mg TID SUSAN Administration Docusate Sodium 100 mg 06/20/17 22:00 07/03/17 14:43 Colace - PO 100 mg TID SUSAN Administration Furosemide 40 mg 07/01/17 10:00 07/03/17 09:37 Lasix - PO 40 mg DAILY SUSAN Administration Metoprolol Succinate 25 mg 06/21/17 10:00 07/03/17 09:37 Toprol Xl - PO 25 mg DAILY SUSAN Administration Votrient 200mg Tab 3 each 06/26/17 07:00 07/03/17 06:41 PO 3 each DAILY@0700 SUSAN Administration Polyethylene Glycol 17 gm 06/20/17 22:00 07/03/17 09:36 Miralax (For Daily Use) - PO 17 grams BID SUSAN Administration Potassium Phos/Sodium Phos 1 packet 06/29/17 13:30 07/03/17 09:37 Phos-Nak Packet - PO 1 packet BID [facility]AN Administration Rivaroxaban 20 mg 06/20/17 18:00 07/02/17 17:31 Xarelto - PO 20 mg DAILY@1800 SUSAN Administration A/P 77 y/o patient with metastatic renal cell cancer, cord compression, s/p RT, on dexamethasone 4mg bid, came in with septic picture. Metastatic RCC- on Votrient Cord compression-s/p RT- on decadron 3mg daily s/p sepsis Thrombocytopenia- secondary to sepsis / votrient. stable Abnormal LFT's- improved continue supportive care
[2017-07-03] MEDS: RIVAROXABAN 20 MG TABLET PO SCH (17:51)
[2017-07-04] MEDS ORDERED: PT OWN MED DRAWER 7, Y5N ONE ×4 (05:04→22:24)
[2017-07-04] MEDS: DOCUSATE SODIUM 100 MG CAPSULE (FP) PO SCH ×3 (05:26→22:29)
[2017-07-04] MEDS: DEXAMETHASONE 0.5 MG TABLET PO SCH ×3 (05:33→22:29)
[2017-07-04] MEDS: VOTRIENT 200 MG PO SCH (06:06)
[2017-07-04 07:21] LABS: HEMATOCRIT 35.7 % (35.4-49); HEMOGLOBIN 12.1 GM/dL (11.7-16.9); MCH 32.6 pg (25.7-33.7); MCHC 33.8 g/dl (32.0-35.9); MEAN CELL VOLUME 96.3 fl (80-96); MEAN PLT VOLUME 8.3 fl (7.5-11.1); PLATELET COUNT 88 K/MM3 (134-434); RDW 22.5 % (11.9-15.9); WHITE BLOOD COUNT 5.8 K/mm3 (4.0-10.0)
[2017-07-04 07:29] LABS: ANION GAP 10 (8-16); BLOOD UREA NITROGEN 27 mg/dL (7-18); CALCIUM 7.9 mg/dL (8.5-10.1); CHLORIDE 99 mmol/L (98-107); CO2 29 mmol/L (21-32); CREATININE 0.8 mg/dL (0.7-1.3); GLUCOSE,RANDOM 123 mg/dL (74-106); POTASSIUM 3.7 mmol/L (3.5-5.1); SODIUM 138 mmol/L (136-145)
[2017-07-04] MEDS: FUROSEMIDE 40 MG TABLET (FP) PO SCH (10:04)
[2017-07-04] MEDS: METOPROLOL SUCCINATE 25 MG TAB.SR.24H (FP) PO SCH (10:04)
[2017-07-04] MEDS: NAPH,MB-DB/K PH,MBDB POWDER PACKET PO SCH ×2 (10:05→22:29)
[2017-07-04] MEDS: POLYETHYLENE GLYCOL 3350 119 GM BTL PO SCH ×2 (10:05→22:29)
[2017-07-04 10:11] LABS: ANISOCYTOSIS 2+; PLATELET ESTIMATE DECREASED
--- NOTE | 2017-07-04 11:28 | PN ---
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 Recently hospitalized 05/29-06/08/17 for worsening lower extremity weakness secondary to spinal cord compression. Decision was made not to pursue surgery, to begin dexamethasone, and to start a trial of pazopanib. Patient presents to the ED today with progressive SOB, weakness, fatigue, and poor appetite since starting pazopanib.blood w/u shows elevated lactic acid no source of infection or clinical picture of sepsis/infectious etiology, lactate 3.6. - Current Medication List Current Medications: Active Medications Dexamethasone (Decadron -) 1 mg PO TID [facility] Last Admin: 07/04/17 05:33 Dose: 1 mg Docusate Sodium (Colace -) 100 mg PO TID [facility] Last Admin: 07/04/17 05:26 Dose: Not Given Furosemide (Lasix -) 40 mg PO DAILY [facility] Last Admin: 07/04/17 10:04 Dose: 40 mg Metoprolol Succinate (Toprol Xl -) 25 mg PO DAILY [facility] Last Admin: 07/04/17 10:04 Dose: 25 mg Votrient 200mg Tab 3 each PO DAILY@0700 [facility] Last Admin: 07/04/17 06:06 Dose: 3 each Polyethylene Glycol (Miralax (For Daily Use) -) 17 gm PO BID [facility] Last Admin: 07/04/17 10:05 Dose: Not Given Potassium Phos/Sodium Phos (Phos-Nak Packet -) 1 packet PO BID [facility] Last Admin: 07/04/17 10:05 Dose: 1 packet Rivaroxaban (Xarelto -) 20 mg PO DAILY@1800 [facility] Last Admin: 07/03/17 17:51 Dose: 20 mg - Objective Vital Signs: Vital Signs Temperature 98 F 07/04/17 09:13 Pulse Rate 54 L 07/04/17 09:13 Respiratory Rate 20 07/04/17 09:13 Blood Pressure 97/58 07/04/17 09:13 O2 Sat by Pulse Oximetry (%) 98 07/03/17 21:00 Elderly man looks tired, not in distress, HEENT: Mm moist, pale, anemia +, no thrush NECK: No NVD No Bruit CHEST: Minimal basal Crepts CVS: S1S2 R SM in AA ABD: Obese, non tender, Bs + EXT: Edema +, no calf tenderness 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 Labs: CBC, BMP 07/04/17 05:45 07/04/17 05:45 INR, PTT INR 1.30 (0.82-1.09) H D 06/30/17 06:50 Fibrinogen 239.0 mg/dL (238-498) 06/23/17 07:55 Problem List - Problems (1) Afib Assessment/Plan: At present rate controlled on AC no acute issue cont current management. Code(s): I48.91 - UNSPECIFIED ATRIAL FIBRILLATION Qualifiers: Atrial fibrillation type: paroxysmal Qualified Code(s): I48.0 - Paroxysmal atrial fibrillation (2) Lactic acidosis Assessment/Plan: elevated lactic acid no infectious source trending normal, yesterday lactic acid 2.6. No AG. Code(s): E87.2 - ACIDOSIS (3) Renal cell carcinoma Assessment/Plan: Stage 4 RCC with Bony mets with cord Compression opted no surgical treatment on Votrient Code(s): C64.9 - MALIGNANT NEOPLASM OF UNSP KIDNEY, EXCEPT RENAL PELVIS Qualifiers: Laterality: right Qualified Code(s): C64.1 - Malignant neoplasm of right kidney, except renal pelvis (4) Aortic stenosis Assessment/Plan: Moderate to sever no surgical intervention considering, patient overall health. Code(s): I35.0 - NONRHEUMATIC AORTIC (VALVE) STENOSIS Qualifiers: Cardiac valve disease etiology: nonrheumatic Qualified Code(s): I35.0 - Nonrheumatic aortic (valve) stenosis (5) Diabetes Assessment/Plan: T2DM Optimoze Glycemic control. Code(s): E11.9 - TYPE 2 DIABETES MELLITUS WITHOUT COMPLICATIONS Qualifiers: Diabetes mellitus type: type 2 Diabetes mellitus complication detail: with polyneuropathy (6) HTN (hypertension) Assessment/Plan: Cont home meds Code(s): I10 - ESSENTIAL (PRIMARY) HYPERTENSION Qualifiers: Hypertension type: essential hypertension Qualified Code(s): I10 - Essential (primary) hypertension (7) Spinal cord compression Assessment/Plan: RCC stage 4 with Bony mets opted non operative management.On Dexamethasone Code(s): G95.20 - UNSPECIFIED CORD COMPRESSION (8) Thrombocytopenia Assessment/Plan: Chronic stable Code(s): D69.6 - THROMBOCYTOPENIA, UNSPECIFIED
--- NOTE | 2017-07-04 13:08 | PN ---
Progress Note, Physician History of Present Illness: Pt seen and examined. Remains without any specific complaints. Afebrile, without shortness of breath/cough, abd pain/n/v/d, dysuria. - Current Medication List Current Medications: Active Medications Dexamethasone (Decadron -) 1 mg PO TID [facility] Last Admin: 07/04/17 05:33 Dose: 1 mg Docusate Sodium (Colace -) 100 mg PO TID [facility] Last Admin: 07/04/17 05:26 Dose: Not Given Furosemide (Lasix -) 40 mg PO DAILY [facility] Last Admin: 07/04/17 10:04 Dose: 40 mg Metoprolol Succinate (Toprol Xl -) 25 mg PO DAILY [facility] Last Admin: 07/04/17 10:04 Dose: 25 mg Votrient 200mg Tab 3 each PO DAILY@0700 [facility] Last Admin: 07/04/17 06:06 Dose: 3 each Polyethylene Glycol (Miralax (For Daily Use) -) 17 gm PO BID [facility] Last Admin: 07/04/17 10:05 Dose: Not Given Potassium Phos/Sodium Phos (Phos-Nak Packet -) 1 packet PO BID [facility] Last Admin: 07/04/17 10:05 Dose: 1 packet Rivaroxaban (Xarelto -) 20 mg PO DAILY@1800 [facility] Last Admin: 07/03/17 17:51 Dose: 20 mg - Objective Vital Signs: Vital Signs Temperature 98 F 07/04/17 09:13 Pulse Rate 54 L 07/04/17 09:13 Respiratory Rate 20 07/04/17 09:13 Blood Pressure 97/58 07/04/17 09:13 O2 Sat by Pulse Oximetry (%) 98 07/03/17 21:00 Constitutional: Yes: No Distress, Calm Cardiovascular: Yes: Regular Rate and Rhythm Respiratory: Yes: Regular Gastrointestinal: Yes: Normal Bowel Sounds, Soft Neurological: Yes: Alert, Oriented Labs: CBC, BMP 07/04/17 05:45 07/04/17 05:45 INR, PTT INR 1.30 (0.82-1.09) H D 06/30/17 06:50 Fibrinogen 239.0 mg/dL (238-498) 06/23/17 07:55 Problem List - Problems (1) Severe sepsis Code(s): A41.9 - SEPSIS, UNSPECIFIED ORGANISM; R65.20 - SEVERE SEPSIS WITHOUT SEPTIC SHOCK (2) Renal cell carcinoma Code(s): C64.9 - MALIGNANT NEOPLASM OF UNSP KIDNEY, EXCEPT RENAL PELVIS Qualifiers: Laterality: right Qualified Code(s): C64.1 - Malignant neoplasm of right kidney, except renal pelvis (3) T2DM (type 2 diabetes mellitus) Code(s): E11.9 - TYPE 2 DIABETES MELLITUS WITHOUT COMPLICATIONS (4) Atrial flutter Code(s): I48.92 - UNSPECIFIED ATRIAL FLUTTER Qualifiers: Atrial flutter type: atypical Qualified Code(s): I48.4 - Atypical atrial flutter (5) HTN (hypertension) Code(s): I10 - ESSENTIAL (PRIMARY) HYPERTENSION Qualifiers: Hypertension type: essential hypertension Qualified Code(s): I10 - Essential (primary) hypertension (6) Hyperbilirubinemia Code(s): E80.6 - OTHER DISORDERS OF BILIRUBIN METABOLISM (7) S/p nephrectomy Code(s): Z90.5 - ACQUIRED ABSENCE OF KIDNEY (8) Spinal cord compression Code(s): G95.20 - UNSPECIFIED CORD COMPRESSION Assessment/Plan Pt admitted with severe fatigue, weakness, lactic acidosis and septic picture. s /p course of antibiotics. Currently appears stable, without any specific complaints. -- cont off current antibiotics
--- NOTE | 2017-07-04 13:29 | PN ---
Progress Note (short form) - Note Progress Note: Overall feels better. Comfortable off O2. No CP or SOB. No acute events overnight. Intake & Output 07/01/17 07/02/17 07/03/17 07/04/17 23:59 23:59 23:59 23:59 Intake Total 1130 240 840 350 Output Total 126 938 3736 500 Balance 830 -560 -260 -150 Last Vital Signs Temp Pulse Resp BP Pulse Ox 98 F 54 L 20 97/58 98 07/04/17 09:13 07/04/17 09:13 07/04/17 09:13 07/04/17 09:13 07/03/17 21:00 Active Medications Dexamethasone (Decadron -) 1 mg PO TID [facility] Last Admin: 07/04/17 05:33 Dose: 1 mg Docusate Sodium (Colace -) 100 mg PO TID [facility] Last Admin: 07/04/17 05:26 Dose: Not Given Furosemide (Lasix -) 40 mg PO DAILY [facility] Last Admin: 07/04/17 10:04 Dose: 40 mg Metoprolol Succinate (Toprol Xl -) 25 mg PO DAILY [facility] Last Admin: 07/04/17 10:04 Dose: 25 mg Votrient 200mg Tab 3 each PO DAILY@0700 [facility] Last Admin: 07/04/17 06:06 Dose: 3 each Polyethylene Glycol (Miralax (For Daily Use) -) 17 gm PO BID [facility] Last Admin: 07/04/17 10:05 Dose: Not Given Potassium Phos/Sodium Phos (Phos-Nak Packet -) 1 packet PO BID [facility] Last Admin: 07/04/17 10:05 Dose: 1 packet Rivaroxaban (Xarelto -) 20 mg PO DAILY@1800 [facility] Last Admin: 07/03/17 17:51 Dose: 20 mg Constitutional: Yes: NAD Eyes: Yes: WNL HENT: Yes: WNL Neck: Yes: WNL Cardiovascular: Yes: Regular Rate and Rhythm, S1, S2 Respiratory: Yes: Diminished at the bases, few scattered rhonchi Gastrointestinal: Yes: Normal Bowel Sounds, Soft Extremities: Yes: WNL Edema: Yes Labs: Laboratory Results - last 24 hr 07/03/17 07/04/17 07/04/17 15:25 05:45 05:45 WBC 5.8 RBC 3.70 L Hgb 12.1 Hct 35.7 MCV 96.3 H MCH 32.6 MCHC 33.8 RDW 22.5 H Plt Count 88 L MPV 8.3 Neutrophils % No Result Required. Neutrophils % (Manual) 74.5 D Band Neutrophils % 7.4 Lymphocytes % No Result Required. Lymphocytes % (Manual) 6.4 L Monocytes % (Manual) 6 Eosinophils % (Manual) 0.0 D Basophils % (Manual) 0.0 Myelocytes % (Man) 2 D Metamyelocytes 1 D Hypochromia 0 Platelet Estimate Decreased Polychromasia 2+ Poikilocytosis 0 Anisocytosis 2+ Microcytosis 1+ Sodium 138 Potassium 3.7 Chloride 99 Carbon Dioxide 29 Anion Gap 10 BUN 27 H Creatinine 0.8 Random Glucose 123 H Lactic Acid 2.6 H* Calcium 7.9 L Problem List - Problems (1) Afib Code(s): I48.91 - UNSPECIFIED ATRIAL FIBRILLATION Qualifiers: Atrial fibrillation type: paroxysmal Qualified Code(s): I48.0 - Paroxysmal atrial fibrillation (2) MONAE (acute kidney injury) Code(s): N17.9 - ACUTE KIDNEY FAILURE, UNSPECIFIED (3) Lactic acidosis Code(s): E87.2 - ACIDOSIS (4) Severe sepsis Code(s): A41.9 - SEPSIS, UNSPECIFIED ORGANISM; R65.20 - SEVERE SEPSIS WITHOUT SEPTIC SHOCK (5) Renal cell carcinoma Code(s): C64.9 - MALIGNANT NEOPLASM OF UNSP KIDNEY, EXCEPT RENAL PELVIS Qualifiers: Laterality: right Qualified Code(s): C64.1 - Malignant neoplasm of right kidney, except renal pelvis (6) T2DM (type 2 diabetes mellitus) Code(s): E11.9 - TYPE 2 DIABETES MELLITUS WITHOUT COMPLICATIONS (7) Diabetes Code(s): E11.9 - TYPE 2 DIABETES MELLITUS WITHOUT COMPLICATIONS Qualifiers: Diabetes mellitus type: type 2 Diabetes mellitus complication detail: with polyneuropathy (8) HTN (hypertension) Code(s): I10 - ESSENTIAL (PRIMARY) HYPERTENSION Qualifiers: Hypertension type: essential hypertension Qualified Code(s): I10 - Essential (primary) hypertension (9) Hyperbilirubinemia Code(s): E80.6 - OTHER DISORDERS OF BILIRUBIN METABOLISM (10) Obesity Code(s): E66.9 - OBESITY, UNSPECIFIED Qualifiers: Obesity classification: adult class 3 (BMI >= 40) (11) Spinal cord compression Code(s): G95.20 - UNSPECIFIED CORD COMPRESSION (12) Dyspnea Code(s): R06.00 - DYSPNEA, UNSPECIFIED (13) Respiratory distress Code(s): R06.03 - ACUTE RESPIRATORY DISTRESS Assessment/Plan IMP RESPIRATORY DISTRESS LIKELY SECONDARY TO SEPSIS IMPROVED 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 CORD COMPRESSION MONAE AFIB ELEVATED LFTS THROMBOCYTOPENIA HTN NIDDM ELEVATED LACTATE LEVEL PLAN O2 as needed Valentina Horan
[2017-07-04] MEDS: RIVAROXABAN 20 MG TABLET PO SCH (17:08)
[2017-07-05] MEDS: DOCUSATE SODIUM 100 MG CAPSULE (FP) PO SCH ×3 (06:04→21:17)
[2017-07-05] MEDS: VOTRIENT 200 MG PO SCH (06:07)
[2017-07-05] MEDS: DEXAMETHASONE 0.5 MG TABLET PO SCH ×3 (06:07→21:18)
[2017-07-05] MEDS ORDERED: PT OWN MED DRAWER 7, Y5N ONE ×3 (06:08→20:11)
[2017-07-05 08:34] LABS: HEMATOCRIT 37.8 % (35.4-49); HEMOGLOBIN 12.7 GM/dL (11.7-16.9); MCH 32.5 pg (25.7-33.7); MCHC 33.5 g/dl (32.0-35.9); MEAN CELL VOLUME 97.3 fl (80-96); MEAN PLT VOLUME 8.3 fl (7.5-11.1); PLATELET COUNT 98 K/MM3 (134-434); RBC 3.89 M/mm3 (4.00-5.60); WHITE BLOOD COUNT 6.2 K/mm3 (4.0-10.0)
[2017-07-05 08:35] LABS: CHLORIDE 98 mmol/L (98-107); POTASSIUM 3.8 mmol/L (3.5-5.1); SODIUM 138 mmol/L (136-145)
[2017-07-05 08:44] LABS: ANION GAP 10 (8-16); BLOOD UREA NITROGEN 27 mg/dL (7-18); CO2 30 mmol/L (21-32); CREATININE 0.9 mg/dL (0.7-1.3); GLUCOSE,RANDOM 124 mg/dL (74-106)
--- NOTE | 2017-07-05 09:56 | PN ---
Progress Note (short form) - Note Progress Note: Neurology History of Present Illness 77-year-old male presented to the emergency room for evaluation of increasing fatigue, weakness, shortness of breath, and mild nausea for the past few weeks after beginning his chemotherapy regimen for spinal cancer. 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 He had been admitted 05/29- for worsening lower extremity weakness secondary to spinal cord compression. Decision was made not to pursue surgery, was put on dexamethasone, and tried pazopanib. Patient presented to the ED with progressive SOB, weakness , fatigue, and poor appetite since starting pazopanib. I was consulted regarding his ongoing weakness which seems to have deteroriated. EMG completed and did not show evidence of myopathy. Patient being considered for short term rehab but but difficulty with having facility accept with chemo medication. other sales support worker trying to coordinate. No new neurologic events this weekend. Active Medications Dexamethasone (Decadron -) 1 mg PO TID [facility] Last Admin: 07/05/17 06:07 Dose: 1 mg Docusate Sodium (Colace -) 100 mg PO TID [facility] Last Admin: 07/05/17 06:04 Dose: Not Given Furosemide (Lasix -) 40 mg PO DAILY [facility] Last Admin: 07/04/17 10:04 Dose: 40 mg Metoprolol Succinate (Toprol Xl -) 25 mg PO DAILY [facility] Last Admin: 07/04/17 10:04 Dose: 25 mg Votrient 200mg Tab 3 each PO DAILY@0700 [facility] Last Admin: 07/05/17 06:07 Dose: 3 each Polyethylene Glycol (Miralax (For Daily Use) -) 17 gm PO BID [facility] Last Admin: 07/04/17 22:29 Dose: Not Given Potassium Phos/Sodium Phos (Phos-Nak Packet -) 1 packet PO BID [facility] Last Admin: 07/04/17 22:29 Dose: 1 packet Rivaroxaban (Xarelto -) 20 mg PO DAILY@1800 [facility] Last Admin: 07/04/17 17:08 Dose: 20 mg *Physical Exam Vital Signs Temperature 97.4 F L 07/05/17 05:51 Pulse Rate 39 L 07/05/17 05:51 Respiratory Rate 20 07/05/17 05:51 Blood Pressure 123/60 07/05/17 05:51 O2 Sat by Pulse Oximetry (%) 97 07/04/17 21:00 - Physical Exam General Appearance: Yes: Nourished, Appropriately Dressed. No: Apparent Distress HEENT: positive: EOMI, FREDA. negative: Pale Conjunctivae Neck: positive: Supple Respiratory/Chest: positive: Lungs Clear, Normal Breath Sounds. negative: Respiratory Distress, Accessory Muscle Use Cardiovascular: positive: Regular Rate (a flutter 82). negative: Murmur Gastrointestinal/Abdominal: positive: Normal Bowel Sounds, Soft, Distended ( slight). negative: Tenderness, Mass Extremity: positive: Normal Capillary Refill, Pedal Edema Integumentary: positive: Dry, Warm, Pale Neurologic: Awake and alert, interative, mental status intact, sensory intact, gait not able to ambulate CBCD WBC 6.2 K/mm3 (4.0-10.0) 07/05/17 07:25 RBC 3.89 M/mm3 (4.00-5.60) L 07/05/17 07:25 Hgb 12.7 GM/dL (11.7-16.9) 07/05/17 07:25 Hct 37.8 % (35.4-49) 07/05/17 07:25 MCV 97.3 fl (80-96) H 07/05/17 07:25 MCHC 33.5 g/dl (32.0-35.9) 07/05/17 07:25 RDW 23.0 % (11.9-15.9) H 07/05/17 07:25 Plt Count 98 K/MM3 (134-434) L 07/05/17 07:25 MPV 8.3 fl (7.5-11.1) 07/05/17 07:25 CMP Sodium 138 mmol/L (136-145) 07/05/17 07:25 Potassium 3.8 mmol/L (3.5-5.1) 07/05/17 07:25 Chloride 98 mmol/L (98-107) 07/05/17 07:25 Carbon Dioxide 30 mmol/L (21-32) 07/05/17 07:25 Anion Gap 10 (8-16) 07/05/17 07:25 BUN 27 mg/dL (7-18) H 07/05/17 07:25 Creatinine 0.9 mg/dL (0.7-1.3) 07/05/17 07:25 Creat Clearance w eGFR > 60 (>60) 07/03/17 06:00 Calcium 8.0 mg/dL (8.5-10.1) L 07/05/17 07:25 Total Bilirubin 1.0 mg/dL (0.2-1.0) 07/03/17 06:00 AST 28 U/L (15-37) 07/03/17 06:00 ALT 53 U/L (12-78) 07/03/17 06:00 Alkaline Phosphatase 89 U/L (45-117) 07/03/17 06:00 Total Protein 5.0 g/dl (6.4-8.2) L 07/03/17 06:00 Albumin 2.7 g/dl (3.4-5.0) L 07/03/17 06:00 - RADIOLOGY Echo reviewed EMG reviewed Medical Decision Making 77-year-old male presents to the emergency room for evaluation of increasing fatigue, weakness, shortness of breath, and mild nausea for the past few weeks after beginning his chemotherapy regimen for spinal cancer. 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 He had been admitted 05/29- for worsening lower extremity weakness secondary to spinal cord compression. Decision was made not to pursue surgery, was put on dexamethasone, and tried pazopanib. Patient presented to the ED with progressive SOB, weakness , fatigue, and poor appetite since starting pazopanib. Decreased decadron to 1mg, will decrease to 0.5mg TID would like to avoid prison side effects of decadron, has improved slightly with medication and therapy EMG Did not demonstrate myopathy On AC Xarelto, strict fall precautions case work aide to coordinate possible rehab placement Fall precautions
[2017-07-05] MEDS: METOPROLOL SUCCINATE 25 MG TAB.SR.24H (FP) PO SCH (11:04)
[2017-07-05] MEDS: FUROSEMIDE 40 MG TABLET (FP) PO SCH (11:05)
[2017-07-05] MEDS: POLYETHYLENE GLYCOL 3350 119 GM BTL PO SCH ×2 (11:05→21:17)
[2017-07-05] MEDS: NAPH,MB-DB/K PH,MBDB POWDER PACKET PO SCH (11:05)
[2017-07-05 11:39] LABS: ANISOCYTOSIS 1+; MACROCYTOSIS 1+; PLATELET ESTIMATE DECREASED
--- NOTE | 2017-07-05 14:21 | PN ---
Progress Note, Physician Chief Complaint: Mr Murcia is without complaint. No cp, sob, n/v. - Current Medication List Current Medications: Active Medications Dexamethasone (Decadron -) 0.5 mg PO TID [facility] Last Admin: 07/05/17 13:15 Dose: 0.5 mg Docusate Sodium (Colace -) 100 mg PO TID [facility] Last Admin: 07/05/17 13:14 Dose: Not Given Furosemide (Lasix -) 40 mg PO DAILY [facility] Last Admin: 07/05/17 11:05 Dose: 40 mg Metoprolol Succinate (Toprol Xl -) 25 mg PO DAILY [facility] Last Admin: 07/05/17 11:04 Dose: 25 mg Votrient 200mg Tab 3 each PO DAILY@0700 [facility] Last Admin: 07/05/17 06:07 Dose: 3 each Polyethylene Glycol (Miralax (For Daily Use) -) 17 gm PO BID [facility] Last Admin: 07/05/17 11:05 Dose: Not Given Rivaroxaban (Xarelto -) 20 mg PO DAILY@1800 [facility] Last Admin: 07/04/17 17:08 Dose: 20 mg - Objective Vital Signs: Vital Signs Temperature 36.4 C L 07/05/17 09:00 Pulse Rate 63 07/05/17 09:00 Respiratory Rate 20 07/05/17 09:00 Blood Pressure 135/70 07/05/17 09:00 O2 Sat by Pulse Oximetry (%) 96 07/05/17 09:00 Constitutional: Yes: No Distress, Calm, Obese Cardiovascular: Yes: Regular Rate and Rhythm. No: Gallop, Murmur, Rub Respiratory: Yes: Regular, CTA Bilaterally. No: Rales, Rhonchi, Wheezes Gastrointestinal: Yes: Normal Bowel Sounds, Soft. No: Distention, Tenderness Extremities: Yes: WNL Edema: No Labs: CBC, BMP 07/05/17 07:25 07/05/17 07:25 INR, PTT INR 1.30 (0.82-1.09) H D 06/30/17 06:50 Fibrinogen 239.0 mg/dL (238-498) 06/23/17 07:55 Problem List - Problems (1) UTI (urinary tract infection) Code(s): N39.0 - URINARY TRACT INFECTION, SITE NOT SPECIFIED Qualifiers: Urinary tract infection type: acute cystitis Hematuria presence: without hematuria Qualified Code(s): N30.00 - Acute cystitis without hematuria (2) Severe sepsis Code(s): A41.9 - SEPSIS, UNSPECIFIED ORGANISM; R65.20 - SEVERE SEPSIS WITHOUT SEPTIC SHOCK (3) MONAE (acute kidney injury) Code(s): N17.9 - ACUTE KIDNEY FAILURE, UNSPECIFIED (4) Afib Code(s): I48.91 - UNSPECIFIED ATRIAL FIBRILLATION Qualifiers: Atrial fibrillation type: paroxysmal Qualified Code(s): I48.0 - Paroxysmal atrial fibrillation (5) Renal cell carcinoma Code(s): C64.9 - MALIGNANT NEOPLASM OF UNSP KIDNEY, EXCEPT RENAL PELVIS Qualifiers: Laterality: right Qualified Code(s): C64.1 - Malignant neoplasm of right kidney, except renal pelvis (6) T2DM (type 2 diabetes mellitus) Code(s): E11.9 - TYPE 2 DIABETES MELLITUS WITHOUT COMPLICATIONS (7) HTN (hypertension) Code(s): I10 - ESSENTIAL (PRIMARY) HYPERTENSION Qualifiers: Hypertension type: essential hypertension Qualified Code(s): I10 - Essential (primary) hypertension (8) Obesity Code(s): E66.9 - OBESITY, UNSPECIFIED Qualifiers: Obesity classification: adult class 3 (BMI >= 40) (9) Spinal cord compression Code(s): G95.20 - UNSPECIFIED CORD COMPRESSION Assessment/Plan (1) UTI (urinary tract infection) Assessment/Plan: -s/p full course antibiotics Code(s): N39.0 - URINARY TRACT INFECTION, SITE NOT SPECIFIED Qualifiers: Urinary tract infection type: acute cystitis Hematuria presence: without hematuria Qualified Code(s): N30.00 - Acute cystitis without hematuria (2) Severe sepsis Assessment/Plan: -resolved Code(s): A41.9 - SEPSIS, UNSPECIFIED ORGANISM; R65.20 - SEVERE SEPSIS WITHOUT SEPTIC SHOCK (3) MONAE (acute kidney injury) Assessment/Plan: -resolved -continue lasix 40mg daily Code(s): N17.9 - ACUTE KIDNEY FAILURE, UNSPECIFIED (4) Afib Assessment/Plan: -controlled -continue xarelto and toprol xl Code(s): I48.91 - UNSPECIFIED ATRIAL FIBRILLATION Qualifiers: Atrial fibrillation type: paroxysmal Qualified Code(s): I48.0 - Paroxysmal atrial fibrillation (5) Renal cell carcinoma Assessment/Plan: -continue votrient per oncology Code(s): C64.9 - MALIGNANT NEOPLASM OF UNSP KIDNEY, EXCEPT RENAL PELVIS Qualifiers: Laterality: right Qualified Code(s): C64.1 - Malignant neoplasm of right kidney, except renal pelvis (6) T2DM (type 2 diabetes mellitus) Assessment/Plan: -monitor on bmp Code(s): E11.9 - TYPE 2 DIABETES MELLITUS WITHOUT COMPLICATIONS (7) HTN (hypertension) Assessment/Plan: -continue toprol xl Code(s): I10 - ESSENTIAL (PRIMARY) HYPERTENSION Qualifiers: Hypertension type: essential hypertension Qualified Code(s): I10 - Essential (primary) hypertension (8) Obesity Assessment/Plan: -counselled Code(s): E66.9 - OBESITY, UNSPECIFIED (9) Spinal cord compression Assessment/Plan: -continue decadron -oncology and neurology following -appreciate neurology tapering decadron as tolerated Code(s): G95.20 - UNSPECIFIED CORD COMPRESSION Dispo -awaiting delivery of votrient for discharge to SNF -patient requesting sean Puente
--- NOTE | 2017-07-05 14:50 | PN ---
Progress Note, Physician History of Present Illness: no complaints sitting in chair - Current Medication List Current Medications: Active Medications Dexamethasone (Decadron -) 0.5 mg PO TID [facility] Last Admin: 07/05/17 13:15 Dose: 0.5 mg Docusate Sodium (Colace -) 100 mg PO TID [facility] Last Admin: 07/05/17 13:14 Dose: Not Given Furosemide (Lasix -) 40 mg PO DAILY [facility] Last Admin: 07/05/17 11:05 Dose: 40 mg Metoprolol Succinate (Toprol Xl -) 25 mg PO DAILY [facility] Last Admin: 07/05/17 11:04 Dose: 25 mg Votrient 200mg Tab 3 each PO DAILY@0700 [facility] Last Admin: 07/05/17 06:07 Dose: 3 each Polyethylene Glycol (Miralax (For Daily Use) -) 17 gm PO BID [facility] Last Admin: 07/05/17 11:05 Dose: Not Given Rivaroxaban (Xarelto -) 20 mg PO DAILY@1800 [facility] Last Admin: 07/04/17 17:08 Dose: 20 mg - Objective Vital Signs: Vital Signs Temperature 97.1 F L 07/05/17 14:23 Pulse Rate 58 L 07/05/17 14:23 Respiratory Rate 20 07/05/17 14:23 Blood Pressure 113/65 07/05/17 14:23 O2 Sat by Pulse Oximetry (%) 96 07/05/17 09:00 Constitutional: Yes: No Distress, Calm Eyes: Yes: Conjunctiva Clear Cardiovascular: Yes: Regular Rate and Rhythm Respiratory: Yes: Regular, CTA Bilaterally Gastrointestinal: Yes: Normal Bowel Sounds, Soft Musculoskeletal: Yes: WNL Extremities: Yes: WNL Neurological: Yes: Alert, Oriented Psychiatric: Yes: Alert, Oriented Labs: CBC, BMP 07/05/17 07:25 07/05/17 07:25 INR, PTT INR 1.30 (0.82-1.09) H D 06/30/17 06:50 Fibrinogen 239.0 mg/dL (238-498) 06/23/17 07:55 Assessment/Plan Problem List - Problems (1) Severe sepsis Code(s): A41.9 - SEPSIS, UNSPECIFIED ORGANISM; R65.20 - SEVERE SEPSIS WITHOUT SEPTIC SHOCK (2) Renal cell carcinoma Code(s): C64.9 - MALIGNANT NEOPLASM OF UNSP KIDNEY, EXCEPT RENAL PELVIS Qualifiers: Laterality: right Qualified Code(s): C64.1 - Malignant neoplasm of right kidney, except renal pelvis (3) T2DM (type 2 diabetes mellitus) Code(s): E11.9 - TYPE 2 DIABETES MELLITUS WITHOUT COMPLICATIONS (4) Atrial flutter Code(s): I48.92 - UNSPECIFIED ATRIAL FLUTTER Qualifiers: Atrial flutter type: atypical Qualified Code(s): I48.4 - Atypical atrial flutter (5) HTN (hypertension) Code(s): I10 - ESSENTIAL (PRIMARY) HYPERTENSION Qualifiers: Hypertension type: essential hypertension Qualified Code(s): I10 - Essential (primary) hypertension (6) Hyperbilirubinemia Code(s): E80.6 - OTHER DISORDERS OF BILIRUBIN METABOLISM (7) S/p nephrectomy Code(s): Z90.5 - ACQUIRED ABSENCE OF KIDNEY (8) Spinal cord compression Code(s): G95.20 - UNSPECIFIED CORD COMPRESSION lactic acidosis lactic acid continues to be on the higher side plan continue current mgmt physio rest as per primary
[2017-07-05] MEDS: RIVAROXABAN 20 MG TABLET PO SCH (17:44)
[2017-07-06] MEDS ORDERED: PT OWN MED DRAWER 7, Y5N ONE ×5 (05:20→21:57)
[2017-07-06] MEDS: DEXAMETHASONE 0.5 MG TABLET PO SCH ×3 (05:28→22:00)
[2017-07-06] MEDS: DOCUSATE SODIUM 100 MG CAPSULE (FP) PO SCH ×3 (05:28→22:02)
[2017-07-06] MEDS: VOTRIENT 200 MG PO SCH (06:04)
--- NOTE | 2017-07-06 10:08 | PN ---
Progress Note (short form) - Note Progress Note: Neurology History of Present Illness 77-year-old male presented to the emergency room for evaluation of increasing fatigue, weakness, shortness of breath, and mild nausea for the past few weeks after beginning his chemotherapy regimen for spinal cancer. 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 He had been admitted 05/29- for worsening lower extremity weakness secondary to spinal cord compression. Decision was made not to pursue surgery, was put on dexamethasone, and tried pazopanib. Patient presented to the ED with progressive SOB, weakness , fatigue, and poor appetite since starting pazopanib. I was consulted regarding his ongoing weakness which seems to have deteroriated. EMG completed and did not show evidence of myopathy. Patient being considered for short term rehab and case manager specialist trying to coordinate placement to facility. Family may be able to bring chemo meds which should hopefully allow acceptance. Active Medications Dexamethasone (Decadron -) 0.5 mg PO TID [facility] Last Admin: 07/06/17 05:28 Dose: 0.5 mg Docusate Sodium (Colace -) 100 mg PO TID [facility] Last Admin: 07/06/17 05:28 Dose: Not Given Furosemide (Lasix -) 40 mg PO DAILY [facility] Last Admin: 07/05/17 11:05 Dose: 40 mg Metoprolol Succinate (Toprol Xl -) 25 mg PO DAILY [facility] Last Admin: 07/05/17 11:04 Dose: 25 mg Votrient 200mg Tab 3 each PO DAILY@0700 [facility] Last Admin: 07/06/17 06:04 Dose: 3 each Polyethylene Glycol (Miralax (For Daily Use) -) 17 gm PO BID [facility] Last Admin: 07/05/17 21:17 Dose: Not Given Rivaroxaban (Xarelto -) 20 mg PO DAILY@1800 [facility] Last Admin: 07/05/17 17:44 Dose: 20 mg *Physical Exam Vital Signs Temperature 98 F 07/06/17 10:00 Pulse Rate 53 L 07/06/17 10:00 Respiratory Rate 20 07/06/17 10:00 Blood Pressure 133/67 07/06/17 10:00 O2 Sat by Pulse Oximetry (%) 98 07/05/17 21:00 - Physical Exam General Appearance: Yes: Nourished, Appropriately Dressed. No: Apparent Distress HEENT: positive: EOMI, FREDA. negative: Pale Conjunctivae Neck: positive: Supple Respiratory/Chest: positive: Lungs Clear, Normal Breath Sounds. negative: Respiratory Distress, Accessory Muscle Use Cardiovascular: positive: Regular Rate (a flutter 82). negative: Murmur Gastrointestinal/Abdominal: positive: Normal Bowel Sounds, Soft, Distended ( slight). negative: Tenderness, Mass Extremity: positive: Normal Capillary Refill, Pedal Edema Integumentary: positive: Dry, Warm, Pale Neurologic: Awake and alert, interative, mental status intact, sensory intact, gait not able to ambulate CBCD WBC 6.2 K/mm3 (4.0-10.0) 07/05/17 07:25 RBC 3.89 M/mm3 (4.00-5.60) L 07/05/17 07:25 Hgb 12.7 GM/dL (11.7-16.9) 07/05/17 07:25 Hct 37.8 % (35.4-49) 07/05/17 07:25 MCV 97.3 fl (80-96) H 07/05/17 07:25 MCHC 33.5 g/dl (32.0-35.9) 07/05/17 07:25 RDW 23.0 % (11.9-15.9) H 07/05/17 07:25 Plt Count 98 K/MM3 (134-434) L 07/05/17 07:25 MPV 8.3 fl (7.5-11.1) 07/05/17 07:25 CMP Sodium 138 mmol/L (136-145) 07/05/17 07:25 Potassium 3.8 mmol/L (3.5-5.1) 07/05/17 07:25 Chloride 98 mmol/L (98-107) 07/05/17 07:25 Carbon Dioxide 30 mmol/L (21-32) 07/05/17 07:25 Anion Gap 10 (8-16) 07/05/17 07:25 BUN 27 mg/dL (7-18) H 07/05/17 07:25 Creatinine 0.9 mg/dL (0.7-1.3) 07/05/17 07:25 Creat Clearance w eGFR > 60 (>60) 07/03/17 06:00 Calcium 8.0 mg/dL (8.5-10.1) L 07/05/17 07:25 Total Bilirubin 1.0 mg/dL (0.2-1.0) 07/03/17 06:00 AST 28 U/L (15-37) 07/03/17 06:00 ALT 53 U/L (12-78) 07/03/17 06:00 Alkaline Phosphatase 89 U/L (45-117) 07/03/17 06:00 Total Protein 5.0 g/dl (6.4-8.2) L 07/03/17 06:00 Albumin 2.7 g/dl (3.4-5.0) L 07/03/17 06:00 - RADIOLOGY Echo reviewed EMG reviewed Medical Decision Making 77-year-old male presents to the emergency room for evaluation of increasing fatigue, weakness, shortness of breath, and mild nausea for the past few weeks after beginning his chemotherapy regimen for spinal cancer. 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 He had been admitted 05/29- for worsening lower extremity weakness secondary to spinal cord compression. Decision was made not to pursue surgery, was put on dexamethasone, and tried pazopanib. Patient presented to the ED with progressive SOB, weakness , fatigue, and poor appetite since starting pazopanib. Decreased decreased to 0.5mg TID, can taper off in one week would like to avoid intermediate side effects of decadron, has improved slightly with medication and therapy EMG Did not demonstrate myopathy On AC Xarelto, strict fall precautions case manager specialist to coordinate possible rehab placement Fall precautions
[2017-07-06] MEDS: METOPROLOL SUCCINATE 25 MG TAB.SR.24H (FP) PO SCH (10:32)
[2017-07-06] MEDS: FUROSEMIDE 40 MG TABLET (FP) PO SCH (10:32)
[2017-07-06] MEDS: POLYETHYLENE GLYCOL 3350 119 GM BTL PO SCH ×2 (10:33→22:02)
--- NOTE | 2017-07-06 12:15 | PN ---
Progress Note, Physician Chief Complaint: Mr Rod says he is feeling really bad today. Now having chills. Complains of weakness and malaise. No cp, sob, n/v. Has loss of appetite. - Current Medication List Current Medications: Active Medications Dexamethasone (Decadron -) 0.5 mg PO TID [facility] Last Admin: 07/06/17 05:28 Dose: 0.5 mg Docusate Sodium (Colace -) 100 mg PO TID [facility] Last Admin: 07/06/17 05:28 Dose: Not Given Furosemide (Lasix -) 40 mg PO DAILY [facility] Last Admin: 07/06/17 10:32 Dose: 40 mg Metoprolol Succinate (Toprol Xl -) 25 mg PO DAILY [facility] Last Admin: 07/06/17 10:32 Dose: 25 mg Votrient 200mg Tab 3 each PO DAILY@0700 [facility] Last Admin: 07/06/17 06:04 Dose: 3 each Polyethylene Glycol (Miralax (For Daily Use) -) 17 gm PO BID [facility] Last Admin: 07/06/17 10:33 Dose: Not Given Rivaroxaban (Xarelto -) 20 mg PO DAILY@1800 [facility] Last Admin: 07/05/17 17:44 Dose: 20 mg - Objective Vital Signs: Vital Signs Temperature 36.6 C 07/06/17 10:00 Pulse Rate 53 L 07/06/17 10:00 Respiratory Rate 20 07/06/17 10:00 Blood Pressure 133/67 07/06/17 10:00 O2 Sat by Pulse Oximetry (%) 98 07/06/17 09:00 Constitutional: Yes: No Distress, Calm, Obese Cardiovascular: Yes: Regular Rate and Rhythm. No: Gallop, Murmur, Rub Respiratory: Yes: Regular, CTA Bilaterally. No: Rales, Rhonchi, Wheezes Gastrointestinal: Yes: Normal Bowel Sounds, Soft. No: Distention, Tenderness Extremities: Yes: WNL Edema: No Labs: CBC, BMP 07/05/17 07:25 07/05/17 07:25 INR, PTT INR 1.30 (0.82-1.09) H D 06/30/17 06:50 Fibrinogen 239.0 mg/dL (238-498) 06/23/17 07:55 Problem List - Problems (1) UTI (urinary tract infection) Code(s): N39.0 - URINARY TRACT INFECTION, SITE NOT SPECIFIED Qualifiers: Urinary tract infection type: acute cystitis Hematuria presence: without hematuria Qualified Code(s): N30.00 - Acute cystitis without hematuria (2) Severe sepsis Code(s): A41.9 - SEPSIS, UNSPECIFIED ORGANISM; R65.20 - SEVERE SEPSIS WITHOUT SEPTIC SHOCK (3) MONAE (acute kidney injury) Code(s): N17.9 - ACUTE KIDNEY FAILURE, UNSPECIFIED (4) Afib Code(s): I48.91 - UNSPECIFIED ATRIAL FIBRILLATION Qualifiers: Atrial fibrillation type: paroxysmal Qualified Code(s): I48.0 - Paroxysmal atrial fibrillation (5) Renal cell carcinoma Code(s): C64.9 - MALIGNANT NEOPLASM OF UNSP KIDNEY, EXCEPT RENAL PELVIS Qualifiers: Laterality: right Qualified Code(s): C64.1 - Malignant neoplasm of right kidney, except renal pelvis (6) T2DM (type 2 diabetes mellitus) Code(s): E11.9 - TYPE 2 DIABETES MELLITUS WITHOUT COMPLICATIONS (7) HTN (hypertension) Code(s): I10 - ESSENTIAL (PRIMARY) HYPERTENSION Qualifiers: Hypertension type: essential hypertension Qualified Code(s): I10 - Essential (primary) hypertension (8) Obesity Code(s): E66.9 - OBESITY, UNSPECIFIED Qualifiers: Obesity classification: adult class 3 (BMI >= 40) (9) Spinal cord compression Code(s): G95.20 - UNSPECIFIED CORD COMPRESSION Assessment/Plan (1) UTI (urinary tract infection) Assessment/Plan: -s/p full course antibiotics Code(s): N39.0 - URINARY TRACT INFECTION, SITE NOT SPECIFIED Qualifiers: Urinary tract infection type: acute cystitis Hematuria presence: without hematuria Qualified Code(s): N30.00 - Acute cystitis without hematuria (2) Severe sepsis Assessment/Plan: -resolved -no fever or leukocytosis -will check influenza and follow up Code(s): A41.9 - SEPSIS, UNSPECIFIED ORGANISM; R65.20 - SEVERE SEPSIS WITHOUT SEPTIC SHOCK (3) MONAE (acute kidney injury) Assessment/Plan: -resolved -continue lasix 40mg daily Code(s): N17.9 - ACUTE KIDNEY FAILURE, UNSPECIFIED (4) Afib Assessment/Plan: -controlled -continue xarelto and toprol xl Code(s): I48.91 - UNSPECIFIED ATRIAL FIBRILLATION Qualifiers: Atrial fibrillation type: paroxysmal Qualified Code(s): I48.0 - Paroxysmal atrial fibrillation (5) Renal cell carcinoma Assessment/Plan: -continue votrient per oncology -now with weakness and malaise, ? secondary to votrient -lactic acid increasing Code(s): C64.9 - MALIGNANT NEOPLASM OF UNSP KIDNEY, EXCEPT RENAL PELVIS Qualifiers: Laterality: right Qualified Code(s): C64.1 - Malignant neoplasm of right kidney, except renal pelvis (6) T2DM (type 2 diabetes mellitus) Assessment/Plan: -monitor on bmp Code(s): E11.9 - TYPE 2 DIABETES MELLITUS WITHOUT COMPLICATIONS (7) HTN (hypertension) Assessment/Plan: -continue toprol xl Code(s): I10 - ESSENTIAL (PRIMARY) HYPERTENSION Qualifiers: Hypertension type: essential hypertension Qualified Code(s): I10 - Essential (primary) hypertension (8) Obesity Assessment/Plan: -counselled Code(s): E66.9 - OBESITY, UNSPECIFIED (9) Spinal cord compression Assessment/Plan: -continue decadron -oncology and neurology following -appreciate neurology tapering decadron as tolerated Code(s): G95.20 - UNSPECIFIED CORD COMPRESSION Dispo -patient feeling worse today -lactic acid increasing -no signs of sepsis otherwise -will check influenza -possible secondary to votrient
[2017-07-06 13:09] LABS: HEMATOCRIT 39.4 % (35.4-49); HEMOGLOBIN 13.1 GM/dL (11.7-16.9); MCH 32.2 pg (25.7-33.7); MCHC 33.2 g/dl (32.0-35.9); MEAN PLT VOLUME 8.2 fl (7.5-11.1); PLATELET COUNT 112 K/MM3 (134-434); RBC 4.06 M/mm3 (4.00-5.60); RDW 23.4 % (11.9-15.9); WHITE BLOOD COUNT 8.4 K/mm3 (4.0-10.0)
[2017-07-06 13:31] LABS: ANION GAP 12 (8-16); BLOOD UREA NITROGEN 28 mg/dL (7-18); CALCIUM 8.2 mg/dL (8.5-10.1); CHLORIDE 102 mmol/L (98-107); CO2 27 mmol/L (21-32); CREATININE 0.9 mg/dL (0.7-1.3); GLUCOSE,RANDOM 117 mg/dL (74-106); MAGNESIUM 2.4 mg/dL (1.8-2.4); PHOSPHOROUS 3.6 mg/dL (2.5-4.9); SODIUM 141 mmol/L (136-145)
--- NOTE | 2017-07-06 13:36 | PN ---
Progress Note (short form) - Note Progress Note: pt seen and examined. feels "cold", weak and tired, he says he has loose bowel movement today Chart reviewed labs noted Dex being tapered, neuro c/s noted Last Vital Signs Temp Pulse Resp BP Pulse Ox 98 F 53 L 20 133/67 98 07/06/17 10:00 07/06/17 10:00 07/06/17 10:00 07/06/17 10:00 07/06/17 09:00 CBC, BMP 07/06/17 12:53 07/06/17 12:53 Current Medications Generic Name Dose Route Start Last Admin Trade Name Freq PRN Reason Stop Dose Admin Dexamethasone 0.5 mg 07/05/17 09:57 07/06/17 13:27 Decadron - PO 0.5 mg TID SUSAN Administration Docusate Sodium 100 mg 06/20/17 22:00 07/06/17 13:27 Colace - PO 100 mg TID SUSAN Administration Furosemide 40 mg 07/01/17 10:00 07/06/17 10:32 Lasix - PO 40 mg DAILY SUSAN Administration Metoprolol Succinate 25 mg 06/21/17 10:00 07/06/17 10:32 Toprol Xl - PO 25 mg DAILY SUSAN Administration Votrient 200mg Tab 3 each 06/26/17 07:00 07/06/17 06:04 PO 3 each DAILY@0700 SUSAN Administration Polyethylene Glycol 17 gm 06/20/17 22:00 07/06/17 10:33 Miralax (For Daily Use) - PO Not Given BID SUSAN Rivaroxaban 20 mg 06/20/17 18:00 07/05/17 17:44 Xarelto - PO 20 mg DAILY@1800 SUSAN Administration O/E: General:NAD, appears fatigued today HEENT :NCAT Cardiac: RRR Lungs: CTA b/l Neuro: AAOx3 LE: +mild swelling A/P: Metastatic RCC- on Votrient Cord compression-s/p RT- on decadron 1.5mg per day ( tapered by Neuro). UTI/sepsis-- s/p completion of augmentin Thrombocytopenia- improving: secondary to sepsis / votrient Abnormal LFT's- improved feeling fatigued today, tolerated Votrient thus far in the hospitalization. lactic acid noted CBC/CMP improved. r/o URI/order blood cultures. d/w yesterday. d/w RN.
--- NOTE | 2017-07-06 14:21 | PN ---
Progress Note, Physician History of Present Illness: patient is c/o of not feeling well says he feels very wierd according to the patient he had 3 loose bowel movement and the nursing staff mentioning that he was having abd pain work up done shows high lactic acid jumped up quite a lot - Current Medication List Current Medications: Active Medications Dexamethasone (Decadron -) 0.5 mg PO TID [facility] Last Admin: 07/06/17 13:27 Dose: 0.5 mg Docusate Sodium (Colace -) 100 mg PO TID [facility] Last Admin: 07/06/17 13:27 Dose: 100 mg Furosemide (Lasix -) 40 mg PO DAILY [facility] Last Admin: 07/06/17 10:32 Dose: 40 mg Metoprolol Succinate (Toprol Xl -) 25 mg PO DAILY [facility] Last Admin: 07/06/17 10:32 Dose: 25 mg Votrient 200mg Tab 3 each PO DAILY@0700 [facility] Last Admin: 07/06/17 06:04 Dose: 3 each Polyethylene Glycol (Miralax (For Daily Use) -) 17 gm PO BID [facility] Last Admin: 07/06/17 10:33 Dose: Not Given Rivaroxaban (Xarelto -) 20 mg PO DAILY@1800 [facility] Last Admin: 07/05/17 17:44 Dose: 20 mg - Objective Vital Signs: Vital Signs Temperature 98 F 07/06/17 10:00 Pulse Rate 53 L 07/06/17 10:00 Respiratory Rate 20 07/06/17 10:00 Blood Pressure 133/67 07/06/17 10:00 O2 Sat by Pulse Oximetry (%) 98 07/06/17 09:00 Constitutional: Yes: Anxious, Mild Distress, Other Cardiovascular: Yes: S1, S2 Respiratory: Yes: Regular, CTA Bilaterally Gastrointestinal: Yes: Soft, Hypoactive Bowel Sounds, Other (dirrhoea) Musculoskeletal: Yes: WNL Neurological: Yes: Alert, Oriented Psychiatric: Yes: Alert, Oriented Labs: CBC, BMP 07/06/17 12:53 07/06/17 12:53 INR, PTT INR 1.30 (0.82-1.09) H D 06/30/17 06:50 Fibrinogen 239.0 mg/dL (238-498) 06/23/17 07:55 Assessment/Plan Problem List - Problems (1) Severe sepsis Code(s): A41.9 - SEPSIS, UNSPECIFIED ORGANISM; R65.20 - SEVERE SEPSIS WITHOUT SEPTIC SHOCK (2) Renal cell carcinoma Code(s): C64.9 - MALIGNANT NEOPLASM OF UNSP KIDNEY, EXCEPT RENAL PELVIS Qualifiers: Laterality: right Qualified Code(s): C64.1 - Malignant neoplasm of right kidney, except renal pelvis (3) T2DM (type 2 diabetes mellitus) Code(s): E11.9 - TYPE 2 DIABETES MELLITUS WITHOUT COMPLICATIONS (4) Atrial flutter Code(s): I48.92 - UNSPECIFIED ATRIAL FLUTTER Qualifiers: Atrial flutter type: atypical Qualified Code(s): I48.4 - Atypical atrial flutter (5) HTN (hypertension) Code(s): I10 - ESSENTIAL (PRIMARY) HYPERTENSION Qualifiers: Hypertension type: essential hypertension Qualified Code(s): I10 - Essential (primary) hypertension (6) Hyperbilirubinemia Code(s): E80.6 - OTHER DISORDERS OF BILIRUBIN METABOLISM (7) S/p nephrectomy Code(s): Z90.5 - ACQUIRED ABSENCE OF KIDNEY (8) Spinal cord compression Code(s): G95.20 - UNSPECIFIED CORD COMPRESSION lactic acidosis lactic acid has jumped up again i am worried if the patient might have developed colitis plan hydration abx will be restarted monitor lactic acid rest continue current mgmt
[2017-07-06 15:04] LABS: ANISOCYTOSIS 2+; MACROCYTOSIS 1+; OVALOCYTE 1+; PLATELET ESTIMATE DECREASED
[2017-07-06] MEDS ORDERED: PIPERACIL/TAZOB 3.375 GM 3.375 GM/50 ML PREMIX IVPB ONE (15:18)
[2017-07-06] MEDS ORDERED: PIPERACILLIN/TAZOB 3.375 GM 3.375 GM in DEXTROSE 5%-WATER - 100 ML IVPB ONE (15:30)
[2017-07-06] MEDS: RIVAROXABAN 20 MG TABLET PO SCH (17:43)
[2017-07-07] MEDS: PIPERACILLIN/TAZOB 3.375 GM 3.375 GM in DEXTROSE 5%-WATER - 100 ML IVPB SCH ×2 (01:31→10:40)
[2017-07-07] MEDS ORDERED: PIPERACILLIN/TAZOB 3.375 GM 50 ML IVPB SCH (02:00)
[2017-07-07 08:41] LABS: HEMATOCRIT 38.6 % (35.4-49); HEMOGLOBIN 13.1 GM/dL (11.7-16.9); MCH 32.8 pg (25.7-33.7); MEAN CELL VOLUME 96.6 fl (80-96); MEAN PLT VOLUME 7.9 fl (7.5-11.1); PLATELET COUNT 106 K/MM3 (134-434); RDW 23.6 % (11.9-15.9); WHITE BLOOD COUNT 8.7 K/mm3 (4.0-10.0)
[2017-07-07 08:49] LABS: CHLORIDE 100 mmol/L (98-107); POTASSIUM 3.2 mmol/L (3.5-5.1); SODIUM 139 mmol/L (136-145)
[2017-07-07 09:30] LABS: ALBUMIN 2.8 g/dl (3.4-5.0); ALK PHOS 112 U/L (45-117); ANION GAP 16 (8-16); BILIRUBIN,TOTAL 1.9 mg/dL (0.2-1.0); BLOOD UREA NITROGEN 28 mg/dL (7-18); CALCIUM 7.9 mg/dL (8.5-10.1); CO2 23 mmol/L (21-32); CREATININE 0.9 mg/dL (0.7-1.3); GLUCOSE,RANDOM 127 mg/dL (74-106); MAGNESIUM 2.1 mg/dL (1.8-2.4); PHOSPHOROUS 3.6 mg/dL (2.5-4.9); SGOT/AST 43 U/L (15-37); SGPT/ALT 54 U/L (12-78); TOT PROT 5.4 g/dl (6.4-8.2)
--- NOTE | 2017-07-07 09:46 | PN ---
Progress Note (short form) - Note Progress Note: Neurology History of Present Illness 77-year-old male presented to the emergency room for evaluation of increasing fatigue, weakness, shortness of breath, and mild nausea for the past few weeks after beginning his chemotherapy regimen for spinal cancer. 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 He had been admitted 05/29- for worsening lower extremity weakness secondary to spinal cord compression. Decision was made not to pursue surgery, was put on dexamethasone, and tried pazopanib. Patient presented to the ED with progressive SOB, weakness , fatigue, and poor appetite since starting pazopanib. I was consulted regarding his ongoing weakness which seems to have deteroriated. EMG completed and did not show evidence of myopathy. Patient being considered for short term rehab and seems medication will be able to be brought to facility by family. Had CT abdomen today. Active Medications Dexamethasone (Decadron -) 0.5 mg PO TID [facility] Last Admin: 07/06/17 22:00 Dose: 0.5 mg Docusate Sodium (Colace -) 100 mg PO TID [facility] Last Admin: 07/06/17 22:02 Dose: Not Given Furosemide (Lasix -) 40 mg PO DAILY [facility] Last Admin: 07/06/17 10:32 Dose: 40 mg Piperacillin Sod/Tazobactam (Sod 3.375 gm/ Dextrose) 100 mls @ 200 mls/hr IVPB Q8H-IV [facility] Last Admin: 07/07/17 01:31 Dose: 200 mls/hr Metoprolol Succinate (Toprol Xl -) 25 mg PO DAILY [facility] Last Admin: 07/06/17 10:32 Dose: 25 mg Votrient 200mg Tab 3 each PO DAILY@0700 [facility] Last Admin: 07/06/17 06:04 Dose: 3 each Polyethylene Glycol (Miralax (For Daily Use) -) 17 gm PO BID [facility] Last Admin: 07/06/17 22:02 Dose: Not Given Rivaroxaban (Xarelto -) 20 mg PO DAILY@1800 [facility] Last Admin: 07/06/17 17:43 Dose: 20 mg *Physical Exam Vital Signs Period Temp Pulse Resp BP Sys/Amador Pulse Ox Last 24 Hr 97.4 F-98.4 F 50-61 20-21 107-133/46-67 96 - Physical Exam General Appearance: Yes: Nourished, Appropriately Dressed. No: Apparent Distress HEENT: positive: EOMI, FREDA. negative: Pale Conjunctivae Neck: positive: Supple Respiratory/Chest: positive: Lungs Clear, Normal Breath Sounds. negative: Respiratory Distress, Accessory Muscle Use Cardiovascular: positive: Regular Rate (a flutter 82). negative: Murmur Gastrointestinal/Abdominal: positive: Normal Bowel Sounds, Soft, Distended ( slight). negative: Tenderness, Mass Extremity: positive: Normal Capillary Refill, Pedal Edema Integumentary: positive: Dry, Warm, Pale Neurologic: Awake and alert, interative, mental status intact, sensory intact, gait not able to ambulate CBCD WBC 8.7 K/mm3 (4.0-10.0) 07/07/17 08:20 RBC 4.00 M/mm3 (4.00-5.60) 07/07/17 08:20 Hgb 13.1 GM/dL (11.7-16.9) 07/07/17 08:20 Hct 38.6 % (35.4-49) 07/07/17 08:20 MCV 96.6 fl (80-96) H 07/07/17 08:20 MCHC 34.0 g/dl (32.0-35.9) 07/07/17 08:20 RDW 23.6 % (11.9-15.9) H 07/07/17 08:20 Plt Count 106 K/MM3 (134-434) L 07/07/17 08:20 MPV 7.9 fl (7.5-11.1) 07/07/17 08:20 CMP Sodium 139 mmol/L (136-145) 07/07/17 05:35 Potassium 3.2 mmol/L (3.5-5.1) L 07/07/17 05:35 Chloride 100 mmol/L (98-107) 07/07/17 05:35 Carbon Dioxide 23 mmol/L (21-32) 07/07/17 05:35 Anion Gap 16 (8-16) 07/07/17 05:35 BUN 28 mg/dL (7-18) H 07/07/17 05:35 Creatinine 0.9 mg/dL (0.7-1.3) 07/07/17 05:35 Creat Clearance w eGFR > 60 (>60) 07/07/17 05:35 Calcium 7.9 mg/dL (8.5-10.1) L 07/07/17 05:35 Total Bilirubin 1.9 mg/dL (0.2-1.0) H D 07/07/17 05:35 AST 43 U/L (15-37) H D 07/07/17 05:35 ALT 54 U/L (12-78) 07/07/17 05:35 Alkaline Phosphatase 112 U/L (45-117) D 07/07/17 05:35 Total Protein 5.4 g/dl (6.4-8.2) L 07/07/17 05:35 Albumin 2.8 g/dl (3.4-5.0) L 07/07/17 05:35 - RADIOLOGY Echo reviewed EMG reviewed Medical Decision Making 77-year-old male presents to the emergency room for evaluation of increasing fatigue, weakness, shortness of breath, and mild nausea for the past few weeks after beginning his chemotherapy regimen for spinal cancer. 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 He had been admitted 05/29- for worsening lower extremity weakness secondary to spinal cord compression. Decision was made not to pursue surgery, was put on dexamethasone, and tried pazopanib. Patient presented to the ED with progressive SOB, weakness , fatigue, and poor appetite since starting pazopanib. Decreased decreased to 0.5mg TID, can taper off in one week would like to avoid group home side effects of decadron, has improved slightly with medication and therapy EMG Did not demonstrate myopathy On AC Xarelto, strict fall precautions Likely for rehab placement, family to bring in chemo meds CT abdomen this AM per nurse Fall precautions No further rec'd at this time
[2017-07-07] MEDS ORDERED: PT OWN MED DRAWER 7, Y5N ONE ×4 (10:34→21:14)
[2017-07-07] MEDS: FUROSEMIDE 40 MG TABLET (FP) PO SCH (10:38)
[2017-07-07] MEDS: POLYETHYLENE GLYCOL 3350 119 GM BTL PO SCH ×2 (10:39→21:15)
[2017-07-07] MEDS: METOPROLOL SUCCINATE 25 MG TAB.SR.24H (FP) PO SCH (10:39)
[2017-07-07] MEDS: VOTRIENT 200 MG PO SCH (10:39)
[2017-07-07] MEDS: DOCUSATE SODIUM 100 MG CAPSULE (FP) PO SCH ×3 (10:42→21:15)
[2017-07-07] MEDS: DEXAMETHASONE 0.5 MG TABLET PO SCH ×3 (10:42→21:15)
[2017-07-07 11:50] LABS: ANISOCYTOSIS 3+; MACROCYTOSIS 2+; PLATELET ESTIMATE DECREASED
--- NOTE | 2017-07-07 12:49 | PN ---
Progress Note, Physician Chief Complaint: Mr Rod says he is better today. Having some lightheadedness but otherwise improved. No cp, sob, n/v. Appetite improved. - Current Medication List Current Medications: Active Medications Dexamethasone (Decadron -) 0.5 mg PO TID [facility] Last Admin: 07/07/17 10:42 Dose: 0.5 mg Docusate Sodium (Colace -) 100 mg PO TID [facility] Last Admin: 07/07/17 10:42 Dose: Not Given Furosemide (Lasix -) 40 mg PO DAILY [facility] Last Admin: 07/07/17 10:38 Dose: 40 mg Piperacillin Sod/Tazobactam (Sod 3.375 gm/ Dextrose) 100 mls @ 200 mls/hr IVPB Q8H-IV [facility] Last Admin: 07/07/17 10:40 Dose: 200 mls/hr Metoprolol Succinate (Toprol Xl -) 25 mg PO DAILY [facility] Last Admin: 07/07/17 10:39 Dose: 25 mg Votrient 200mg Tab 3 each PO DAILY@0700 [facility] Last Admin: 07/07/17 10:39 Dose: 3 each Polyethylene Glycol (Miralax (For Daily Use) -) 17 gm PO BID [facility] Last Admin: 07/07/17 10:39 Dose: Not Given Rivaroxaban (Xarelto -) 20 mg PO DAILY@1800 [facility] Last Admin: 07/06/17 17:43 Dose: 20 mg - Objective Vital Signs: Vital Signs Temperature 36.6 C 07/07/17 12:25 Pulse Rate 68 07/07/17 12:25 Respiratory Rate 20 07/07/17 12:25 Blood Pressure 136/63 07/07/17 12:25 O2 Sat by Pulse Oximetry (%) 96 07/07/17 09:00 Constitutional: Yes: No Distress, Calm, Obese Cardiovascular: Yes: Regular Rate and Rhythm. No: Gallop, Murmur, Rub Respiratory: Yes: Regular, CTA Bilaterally. No: Rales, Rhonchi, Wheezes Gastrointestinal: Yes: Normal Bowel Sounds, Soft. No: Distention, Tenderness Extremities: Yes: WNL Edema: No Labs: CBC, BMP 07/07/17 08:20 07/07/17 05:35 INR, PTT INR 1.30 (0.82-1.09) H D 06/30/17 06:50 Fibrinogen 239.0 mg/dL (238-498) 06/23/17 07:55 Problem List - Problems (1) Colitis Code(s): K52.9 - NONINFECTIVE GASTROENTERITIS AND COLITIS, UNSPECIFIED (2) UTI (urinary tract infection) Code(s): N39.0 - URINARY TRACT INFECTION, SITE NOT SPECIFIED Qualifiers: Urinary tract infection type: acute cystitis Hematuria presence: without hematuria Qualified Code(s): N30.00 - Acute cystitis without hematuria (3) Severe sepsis Code(s): A41.9 - SEPSIS, UNSPECIFIED ORGANISM; R65.20 - SEVERE SEPSIS WITHOUT SEPTIC SHOCK (4) MONAE (acute kidney injury) Code(s): N17.9 - ACUTE KIDNEY FAILURE, UNSPECIFIED (5) Afib Code(s): I48.91 - UNSPECIFIED ATRIAL FIBRILLATION Qualifiers: Atrial fibrillation type: paroxysmal Qualified Code(s): I48.0 - Paroxysmal atrial fibrillation (6) Renal cell carcinoma Code(s): C64.9 - MALIGNANT NEOPLASM OF UNSP KIDNEY, EXCEPT RENAL PELVIS Qualifiers: Laterality: right Qualified Code(s): C64.1 - Malignant neoplasm of right kidney, except renal pelvis (7) T2DM (type 2 diabetes mellitus) Code(s): E11.9 - TYPE 2 DIABETES MELLITUS WITHOUT COMPLICATIONS (8) HTN (hypertension) Code(s): I10 - ESSENTIAL (PRIMARY) HYPERTENSION Qualifiers: Hypertension type: essential hypertension Qualified Code(s): I10 - Essential (primary) hypertension (9) Obesity Code(s): E66.9 - OBESITY, UNSPECIFIED Qualifiers: Obesity classification: adult class 3 (BMI >= 40) (10) Spinal cord compression Code(s): G95.20 - UNSPECIFIED CORD COMPRESSION Assessment/Plan (1) Colitis Assessment/Plan: -patient with abdominal pain and diarrhea yesterday -CT scan read reviewed -case d/w madi Barber Code(s): N39.0 - URINARY TRACT INFECTION, SITE NOT SPECIFIED Qualifiers: Urinary tract infection type: acute cystitis Hematuria presence: without hematuria Qualified Code(s): N30.00 - Acute cystitis without hematuria (2) Severe sepsis Assessment/Plan: -possible recurrent secondary to colitis -lactic acid improved but still elevated -no fevers or leukocytosis -monitor Code(s): A41.9 - SEPSIS, UNSPECIFIED ORGANISM; R65.20 - SEVERE SEPSIS WITHOUT SEPTIC SHOCK (3) MONAE (acute kidney injury) Assessment/Plan: -resolved -continue lasix 40mg daily Code(s): N17.9 - ACUTE KIDNEY FAILURE, UNSPECIFIED (4) Afib Assessment/Plan: -controlled -continue xarelto and toprol xl Code(s): I48.91 - UNSPECIFIED ATRIAL FIBRILLATION Qualifiers: Atrial fibrillation type: paroxysmal Qualified Code(s): I48.0 - Paroxysmal atrial fibrillation (5) Renal cell carcinoma Assessment/Plan: -continue votrient per oncology -CT scan showing possible met to liver Code(s): C64.9 - MALIGNANT NEOPLASM OF UNSP KIDNEY, EXCEPT RENAL PELVIS Qualifiers: Laterality: right Qualified Code(s): C64.1 - Malignant neoplasm of right kidney, except renal pelvis (6) T2DM (type 2 diabetes mellitus) Assessment/Plan: -monitor on bmp Code(s): E11.9 - TYPE 2 DIABETES MELLITUS WITHOUT COMPLICATIONS (7) HTN (hypertension) Assessment/Plan: -continue toprol xl Code(s): I10 - ESSENTIAL (PRIMARY) HYPERTENSION Qualifiers: Hypertension type: essential hypertension Qualified Code(s): I10 - Essential (primary) hypertension (8) Obesity Assessment/Plan: -counselled Code(s): E66.9 - OBESITY, UNSPECIFIED (9) Spinal cord compression Assessment/Plan: -continue decadron -oncology and neurology following -appreciate neurology tapering decadron as tolerated Code(s): G95.20 - UNSPECIFIED CORD COMPRESSION
--- NOTE | 2017-07-07 14:59 | PN ---
Progress Note, Physician History of Present Illness: patient feels better ct results noted lactic acid down but still high no dirrhoea or abd discomfort today - Current Medication List Current Medications: Active Medications Dexamethasone (Decadron -) 0.5 mg PO TID [facility] Last Admin: 07/07/17 14:33 Dose: 0.5 mg Docusate Sodium (Colace -) 100 mg PO TID [facility] Last Admin: 07/07/17 10:42 Dose: Not Given Furosemide (Lasix -) 40 mg PO DAILY [facility] Last Admin: 07/07/17 10:38 Dose: 40 mg Piperacillin Sod/Tazobactam (Sod 3.375 gm/ Dextrose) 100 mls @ 200 mls/hr IVPB Q8H-IV [facility] Last Admin: 07/07/17 10:40 Dose: 200 mls/hr Metoprolol Succinate (Toprol Xl -) 25 mg PO DAILY [facility] Last Admin: 07/07/17 10:39 Dose: 25 mg Votrient 200mg Tab 3 each PO DAILY@0700 [facility] Last Admin: 07/07/17 10:39 Dose: 3 each Polyethylene Glycol (Miralax (For Daily Use) -) 17 gm PO BID [facility] Last Admin: 07/07/17 10:39 Dose: Not Given Rivaroxaban (Xarelto -) 20 mg PO DAILY@1800 [facility] Last Admin: 07/06/17 17:43 Dose: 20 mg - Objective Vital Signs: Vital Signs Temperature 98 F 07/07/17 12:25 Pulse Rate 68 07/07/17 12:25 Respiratory Rate 20 07/07/17 12:25 Blood Pressure 136/63 07/07/17 12:25 O2 Sat by Pulse Oximetry (%) 96 07/07/17 09:00 Constitutional: Yes: No Distress, Calm Cardiovascular: Yes: Regular Rate and Rhythm Respiratory: Yes: Regular, CTA Bilaterally Gastrointestinal: Yes: Normal Bowel Sounds, Soft Musculoskeletal: Yes: WNL Extremities: Yes: WNL Neurological: Yes: Alert, Oriented Psychiatric: Yes: Alert, Oriented Labs: CBC, BMP 07/07/17 08:20 07/07/17 05:35 INR, PTT INR 1.30 (0.82-1.09) H D 06/30/17 06:50 Fibrinogen 239.0 mg/dL (238-498) 06/23/17 07:55 Assessment/Plan Problem List - Problems (1) Severe sepsis Code(s): A41.9 - SEPSIS, UNSPECIFIED ORGANISM; R65.20 - SEVERE SEPSIS WITHOUT SEPTIC SHOCK (2) Renal cell carcinoma Code(s): C64.9 - MALIGNANT NEOPLASM OF UNSP KIDNEY, EXCEPT RENAL PELVIS Qualifiers: Laterality: right Qualified Code(s): C64.1 - Malignant neoplasm of right kidney, except renal pelvis (3) T2DM (type 2 diabetes mellitus) Code(s): E11.9 - TYPE 2 DIABETES MELLITUS WITHOUT COMPLICATIONS (4) Atrial flutter Code(s): I48.92 - UNSPECIFIED ATRIAL FLUTTER Qualifiers: Atrial flutter type: atypical Qualified Code(s): I48.4 - Atypical atrial flutter (5) HTN (hypertension) Code(s): I10 - ESSENTIAL (PRIMARY) HYPERTENSION Qualifiers: Hypertension type: essential hypertension Qualified Code(s): I10 - Essential (primary) hypertension (6) Hyperbilirubinemia Code(s): E80.6 - OTHER DISORDERS OF BILIRUBIN METABOLISM (7) S/p nephrectomy Code(s): Z90.5 - ACQUIRED ABSENCE OF KIDNEY (8) Spinal cord compression Code(s): G95.20 - UNSPECIFIED CORD COMPRESSION lactic acidosis liver nodule plan [place] stop abx and monitor monitor lactic acid new finding on ct on the liver rest as per primary
[2017-07-07] MEDS: RIVAROXABAN 20 MG TABLET PO SCH (17:25)
--- NOTE | 2017-07-07 19:00 | PN ---
Progress Note (short form) - Note Progress Note: pt seen and examined. events noted INR, PTT INR 1.30 (0.82-1.09) H D 06/30/17 06:50 Fibrinogen 239.0 mg/dL (238-498) 06/23/17 07:55 Last Vital Signs Temp Pulse Resp BP Pulse Ox 97.7 F 67 20 106/66 96 07/07/17 16:30 07/07/17 16:30 07/07/17 16:30 07/07/17 16:30 07/07/17 09:00 CBC, BMP 07/07/17 08:20 07/07/17 05:35 Current Medications Generic Name Dose Route Start Last Admin Trade Name Freq PRN Reason Stop Dose Admin Dexamethasone 0.5 mg 07/05/17 09:57 07/07/17 14:33 Decadron - PO 0.5 mg TID SUSAN Administration Docusate Sodium 100 mg 06/20/17 22:00 07/07/17 17:26 Colace - PO Not Given TID SUSAN Furosemide 40 mg 07/01/17 10:00 07/07/17 10:38 Lasix - PO 40 mg DAILY SUSAN Administration Metoprolol Succinate 25 mg 06/21/17 10:00 07/07/17 10:39 Toprol Xl - PO 25 mg DAILY SUSAN Administration Votrient 200mg Tab 3 each 06/26/17 07:00 07/07/17 10:39 PO 3 each DAILY@0700 SUSAN Administration Polyethylene Glycol 17 gm 06/20/17 22:00 07/07/17 10:39 Miralax (For Daily Use) - PO Not Given BID SUSAN Rivaroxaban 20 mg 06/20/17 18:00 07/07/17 17:25 Xarelto - PO 20 mg DAILY@1800 SUSAN Administration O/E: General:NAD, appears fatigued today HEENT :NCAT Cardiac: RRR Lungs: CTA b/l Neuro: AAOx3 LE: +mild swelling A/P: Metastatic RCC- on Votrient Cord compression-s/p RT- on decadron 1.5mg per day ( tapered by Neuro). UTI/sepsis-- s/p completion of augmentin Thrombocytopenia- improving: secondary to sepsis / votrient Abnormal LFT's- improved CT reviewed, will need to compare to CT done earlier this month continue with votrient feeling much better than yesterday
[2017-07-08] MEDS ORDERED: PT OWN MED DRAWER 7, Y5N ONE ×5 (05:43→19:56)
[2017-07-08] MEDS: DEXAMETHASONE 0.5 MG TABLET PO SCH ×3 (06:16→21:02)
[2017-07-08] MEDS: VOTRIENT 200 MG PO SCH (06:16)
[2017-07-08] MEDS: DOCUSATE SODIUM 100 MG CAPSULE (FP) PO SCH ×3 (06:17→21:02)
[2017-07-08 06:38] LABS: BASO % 0.2 % (0-2.0); EOS % 0.5 % (0-4.5); HEMATOCRIT 35.6 % (35.4-49); HEMOGLOBIN 12.4 GM/dL (11.7-16.9); LYMPH % 8.9 % (8-40); MCH 33.8 pg (25.7-33.7); MCHC 34.9 g/dl (32.0-35.9); MEAN CELL VOLUME 96.8 fl (80-96); MEAN PLT VOLUME 8.4 fl (7.5-11.1); MONO % 7.7 % (3.8-10.2); NEUT % 82.7 % (42.8-82.8); PLATELET COUNT 108 K/MM3 (134-434); RBC 3.68 M/mm3 (4.00-5.60); RDW 23.7 % (11.9-15.9); WHITE BLOOD COUNT 7.6 K/mm3 (4.0-10.0)
[2017-07-08 07:00] LABS: ANION GAP 13 (8-16); BLOOD UREA NITROGEN 30 mg/dL (7-18); CALCIUM 7.9 mg/dL (8.5-10.1); CHLORIDE 99 mmol/L (98-107); CO2 27 mmol/L (21-32); GLUCOSE,RANDOM 105 mg/dL (74-106); SODIUM 139 mmol/L (136-145)
[2017-07-08 07:01] LABS: CREATININE 0.8 mg/dL (0.7-1.3); PHOSPHOROUS 3.7 mg/dL (2.5-4.9)
[2017-07-08 08:01] LABS: POTASSIUM 3.7 mmol/L (3.5-5.1)
[2017-07-08 09:09] LABS: MAGNESIUM 2.1 mg/dL (1.8-2.4)
--- NOTE | 2017-07-08 09:45 | PN ---
Progress Note (short form) - Note Progress Note: Neurology History of Present Illness 77-year-old male presented to the emergency room for evaluation of increasing fatigue, weakness, shortness of breath, and mild nausea for the past few weeks after beginning his chemotherapy regimen for spinal cancer. 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 He had been admitted 05/29- for worsening lower extremity weakness secondary to spinal cord compression. Decision was made not to pursue surgery, was put on dexamethasone, and tried pazopanib. Patient presented to the ED with progressive SOB, weakness , fatigue, and poor appetite since starting pazopanib. I was consulted regarding his ongoing weakness which seems to have deteroriated. EMG completed and did not show evidence of myopathy. Patient being considered for short term rehab and seems medication will be able to be brought to facility by family. Had CT abdomen yestrday, ill defined density noted, possibly met. Onc noted reviewed, continuing current medication. Remains stable neurologically. Active Medications Dexamethasone (Decadron -) 0.5 mg PO TID [facility] Last Admin: 07/08/17 06:16 Dose: 0.5 mg Docusate Sodium (Colace -) 100 mg PO TID [facility] Last Admin: 07/08/17 06:17 Dose: Not Given Furosemide (Lasix -) 40 mg PO DAILY [facility] Last Admin: 07/07/17 10:38 Dose: 40 mg Metoprolol Succinate (Toprol Xl -) 25 mg PO DAILY [facility] Last Admin: 07/07/17 10:39 Dose: 25 mg Votrient 200mg Tab 3 each PO DAILY@0700 [facility] Last Admin: 07/08/17 06:16 Dose: 3 each Polyethylene Glycol (Miralax (For Daily Use) -) 17 gm PO BID [facility] Last Admin: 07/07/17 21:15 Dose: Not Given Rivaroxaban (Xarelto -) 20 mg PO DAILY@1800 [facility] Last Admin: 07/07/17 17:25 Dose: 20 mg *Physical Exam Vital Signs Temperature 97.9 F 07/08/17 09:00 Pulse Rate 79 07/08/17 09:00 Respiratory Rate 20 07/08/17 09:00 Blood Pressure 99/60 07/08/17 09:00 O2 Sat by Pulse Oximetry (%) 99 07/08/17 09:00 - Physical Exam General Appearance: Yes: Nourished, Appropriately Dressed. No: Apparent Distress HEENT: positive: EOMI, FREDA. negative: Pale Conjunctivae Neck: positive: Supple Respiratory/Chest: positive: Lungs Clear, Normal Breath Sounds. negative: Respiratory Distress, Accessory Muscle Use Cardiovascular: positive: Regular Rate (a flutter 82). negative: Murmur Gastrointestinal/Abdominal: positive: Normal Bowel Sounds, Soft, Distended ( slight). negative: Tenderness, Mass Extremity: positive: Normal Capillary Refill, Pedal Edema Integumentary: positive: Dry, Warm, Pale Neurologic: Awake and alert, interative, mental status intact, sensory intact, gait not able to ambulate CBCD WBC 7.6 K/mm3 (4.0-10.0) 07/08/17 05:35 RBC 3.68 M/mm3 (4.00-5.60) L 07/08/17 05:35 Hgb 12.4 GM/dL (11.7-16.9) 07/08/17 05:35 Hct 35.6 % (35.4-49) 07/08/17 05:35 MCV 96.8 fl (80-96) H 07/08/17 05:35 MCHC 34.9 g/dl (32.0-35.9) 07/08/17 05:35 RDW 23.7 % (11.9-15.9) H 07/08/17 05:35 Plt Count 108 K/MM3 (134-434) L 07/08/17 05:35 MPV 8.4 fl (7.5-11.1) 07/08/17 05:35 CMP Sodium 139 mmol/L (136-145) 07/08/17 05:35 Potassium 3.7 mmol/L (3.5-5.1) 07/08/17 05:35 Chloride 99 mmol/L (98-107) 07/08/17 05:35 Carbon Dioxide 27 mmol/L (21-32) 07/08/17 05:35 Anion Gap 13 (8-16) 07/08/17 05:35 BUN 30 mg/dL (7-18) H 07/08/17 05:35 Creatinine 0.8 mg/dL (0.7-1.3) 07/08/17 05:35 Creat Clearance w eGFR > 60 (>60) 07/07/17 05:35 Calcium 7.9 mg/dL (8.5-10.1) L 07/08/17 05:35 Total Bilirubin 1.9 mg/dL (0.2-1.0) H D 07/07/17 05:35 AST 43 U/L (15-37) H D 07/07/17 05:35 ALT 54 U/L (12-78) 07/07/17 05:35 Alkaline Phosphatase 112 U/L (45-117) D 07/07/17 05:35 Total Protein 5.4 g/dl (6.4-8.2) L 07/07/17 05:35 Albumin 2.8 g/dl (3.4-5.0) L 07/07/17 05:35 - RADIOLOGY Echo reviewed EMG reviewed Medical Decision Making 77-year-old male presents to the emergency room for evaluation of increasing fatigue, weakness, shortness of breath, and mild nausea for the past few weeks after beginning his chemotherapy regimen for spinal cancer. 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 He had been admitted 05/29- for worsening lower extremity weakness secondary to spinal cord compression. Decision was made not to pursue surgery, was put on dexamethasone, and tried pazopanib. Patient presented to the ED with progressive SOB, weakness , fatigue, and poor appetite since starting pazopanib. 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
[2017-07-08] MEDS: FUROSEMIDE 40 MG TABLET (FP) PO SCH (10:40)
[2017-07-08] MEDS: METOPROLOL SUCCINATE 25 MG TAB.SR.24H (FP) PO SCH (10:40)
[2017-07-08] MEDS: POLYETHYLENE GLYCOL 3350 119 GM BTL PO SCH ×2 (10:40→21:02)
[2017-07-08 11:25] LABS: BILIRUBIN,DIRECT 0.4 mg/dL (0.0-0.2); SGPT/ALT 50 U/L (12-78)
[2017-07-08 11:35] LABS: SGOT/AST 49 U/L (15-37)
--- NOTE | 2017-07-08 11:38 | PN ---
Progress Note, Physician Chief Complaint: Mr Rod says he is ok. Denies cp, sob, n/v, abdominal pain. - Current Medication List Current Medications: Active Medications Dexamethasone (Decadron -) 0.5 mg PO TID [facility] Last Admin: 07/08/17 06:16 Dose: 0.5 mg Docusate Sodium (Colace -) 100 mg PO TID [facility] Last Admin: 07/08/17 06:17 Dose: Not Given Furosemide (Lasix -) 40 mg PO DAILY [facility] Last Admin: 07/08/17 10:40 Dose: 40 mg Metoprolol Succinate (Toprol Xl -) 25 mg PO DAILY [facility] Last Admin: 07/08/17 10:40 Dose: Not Given Votrient 200mg Tab 3 each PO DAILY@0700 [facility] Last Admin: 07/08/17 06:16 Dose: 3 each Polyethylene Glycol (Miralax (For Daily Use) -) 17 gm PO BID [facility] Last Admin: 07/08/17 10:40 Dose: Not Given Rivaroxaban (Xarelto -) 20 mg PO DAILY@1800 [facility] Last Admin: 07/07/17 17:25 Dose: 20 mg - Objective Vital Signs: Vital Signs Temperature 36.6 C 07/08/17 09:00 Pulse Rate 79 07/08/17 09:00 Respiratory Rate 20 07/08/17 09:00 Blood Pressure 99/60 07/08/17 09:00 O2 Sat by Pulse Oximetry (%) 99 07/08/17 09:00 Constitutional: Yes: No Distress, Calm, Obese Cardiovascular: Yes: Pulse Irregular. No: Tachycardia, Gallop, Murmur, Rub Respiratory: Yes: Regular, CTA Bilaterally. No: Rales, Rhonchi, Wheezes Gastrointestinal: Yes: Normal Bowel Sounds, Soft. No: Distention, Tenderness Extremities: Yes: WNL Edema: No Labs: CBC, BMP 07/08/17 05:35 07/08/17 05:35 INR, PTT INR 1.30 (0.82-1.09) H D 06/30/17 06:50 Fibrinogen 239.0 mg/dL (238-498) 06/23/17 07:55 Problem List - Problems (1) Colitis Code(s): K52.9 - NONINFECTIVE GASTROENTERITIS AND COLITIS, UNSPECIFIED (2) UTI (urinary tract infection) Code(s): N39.0 - URINARY TRACT INFECTION, SITE NOT SPECIFIED Qualifiers: Urinary tract infection type: acute cystitis Hematuria presence: without hematuria Qualified Code(s): N30.00 - Acute cystitis without hematuria (3) Severe sepsis Code(s): A41.9 - SEPSIS, UNSPECIFIED ORGANISM; R65.20 - SEVERE SEPSIS WITHOUT SEPTIC SHOCK (4) MONAE (acute kidney injury) Code(s): N17.9 - ACUTE KIDNEY FAILURE, UNSPECIFIED (5) Afib Code(s): I48.91 - UNSPECIFIED ATRIAL FIBRILLATION Qualifiers: Atrial fibrillation type: paroxysmal Qualified Code(s): I48.0 - Paroxysmal atrial fibrillation (6) Renal cell carcinoma Code(s): C64.9 - MALIGNANT NEOPLASM OF UNSP KIDNEY, EXCEPT RENAL PELVIS Qualifiers: Laterality: right Qualified Code(s): C64.1 - Malignant neoplasm of right kidney, except renal pelvis (7) T2DM (type 2 diabetes mellitus) Code(s): E11.9 - TYPE 2 DIABETES MELLITUS WITHOUT COMPLICATIONS (8) HTN (hypertension) Code(s): I10 - ESSENTIAL (PRIMARY) HYPERTENSION Qualifiers: Hypertension type: essential hypertension Qualified Code(s): I10 - Essential (primary) hypertension (9) Obesity Code(s): E66.9 - OBESITY, UNSPECIFIED Qualifiers: Obesity classification: adult class 3 (BMI >= 40) (10) Spinal cord compression Code(s): G95.20 - UNSPECIFIED CORD COMPRESSION Assessment/Plan (1) Colitis Assessment/Plan: -zosyn stopped -monitor off of zosyn -if stable, d/c tomorrow to [facility] Code(s): N39.0 - URINARY TRACT INFECTION, SITE NOT SPECIFIED Qualifiers: Urinary tract infection type: acute cystitis Hematuria presence: without hematuria Qualified Code(s): N30.00 - Acute cystitis without hematuria (2) Severe sepsis Assessment/Plan: -resolved -lactic acid improving -recheck in a, Code(s): A41.9 - SEPSIS, UNSPECIFIED ORGANISM; R65.20 - SEVERE SEPSIS WITHOUT SEPTIC SHOCK (3) MONAE (acute kidney injury) Assessment/Plan: -resolved -continue lasix 40mg daily Code(s): N17.9 - ACUTE KIDNEY FAILURE, UNSPECIFIED (4) Afib Assessment/Plan: -controlled -continue xarelto and toprol xl Code(s): I48.91 - UNSPECIFIED ATRIAL FIBRILLATION Qualifiers: Atrial fibrillation type: paroxysmal Qualified Code(s): I48.0 - Paroxysmal atrial fibrillation (5) Renal cell carcinoma Assessment/Plan: -continue votrient per oncology -CT scan showing possible met to liver -case d/w oncology Code(s): C64.9 - MALIGNANT NEOPLASM OF UNSP KIDNEY, EXCEPT RENAL PELVIS Qualifiers: Laterality: right Qualified Code(s): C64.1 - Malignant neoplasm of right kidney, except renal pelvis (6) T2DM (type 2 diabetes mellitus) Assessment/Plan: -monitor on bmp Code(s): E11.9 - TYPE 2 DIABETES MELLITUS WITHOUT COMPLICATIONS (7) HTN (hypertension) Assessment/Plan: -continue toprol xl Code(s): I10 - ESSENTIAL (PRIMARY) HYPERTENSION Qualifiers: Hypertension type: essential hypertension Qualified Code(s): I10 - Essential (primary) hypertension (8) Obesity Assessment/Plan: -counselled Code(s): E66.9 - OBESITY, UNSPECIFIED (9) Spinal cord compression Assessment/Plan: -continue decadron -oncology and neurology following -appreciate neurology tapering decadron as tolerated Code(s): G95.20 - UNSPECIFIED CORD COMPRESSION Dispo -plan for discharge tomorrow to [facility]
--- NOTE | 2017-07-08 16:02 | PN ---
Progress Note, Physician History of Present Illness: feeling better back to himself tired - Current Medication List Current Medications: Active Medications Dexamethasone (Decadron -) 0.5 mg PO TID [facility] Last Admin: 07/08/17 14:08 Dose: 0.5 mg Docusate Sodium (Colace -) 100 mg PO TID [facility] Last Admin: 07/08/17 14:08 Dose: Not Given Furosemide (Lasix -) 40 mg PO DAILY [facility] Last Admin: 07/08/17 10:40 Dose: 40 mg Metoprolol Succinate (Toprol Xl -) 25 mg PO DAILY [facility] Last Admin: 07/08/17 10:40 Dose: Not Given Votrient 200mg Tab 3 each PO DAILY@0700 [facility] Last Admin: 07/08/17 06:16 Dose: 3 each Polyethylene Glycol (Miralax (For Daily Use) -) 17 gm PO BID [facility] Last Admin: 07/08/17 10:40 Dose: Not Given Rivaroxaban (Xarelto -) 20 mg PO DAILY@1800 [facility] Last Admin: 07/07/17 17:25 Dose: 20 mg - Objective Vital Signs: Vital Signs Temperature 97.2 F L 07/08/17 14:49 Pulse Rate 78 07/08/17 14:49 Respiratory Rate 20 07/08/17 14:49 Blood Pressure 133/69 07/08/17 14:49 O2 Sat by Pulse Oximetry (%) 99 07/08/17 09:00 Constitutional: Yes: No Distress, Calm Cardiovascular: Yes: S1, S2 Respiratory: Yes: Regular, CTA Bilaterally Gastrointestinal: Yes: Normal Bowel Sounds, Soft Musculoskeletal: Yes: WNL Extremities: Yes: WNL Neurological: Yes: Alert, Oriented Psychiatric: Yes: Alert, Oriented Labs: CBC, BMP 07/08/17 05:35 07/08/17 05:35 INR, PTT INR 1.30 (0.82-1.09) H D 06/30/17 06:50 Fibrinogen 239.0 mg/dL (238-498) 06/23/17 07:55 Assessment/Plan Problem List - Problems (1) Severe sepsis Code(s): A41.9 - SEPSIS, UNSPECIFIED ORGANISM; R65.20 - SEVERE SEPSIS WITHOUT SEPTIC SHOCK (2) Renal cell carcinoma Code(s): C64.9 - MALIGNANT NEOPLASM OF UNSP KIDNEY, EXCEPT RENAL PELVIS Qualifiers: Laterality: right Qualified Code(s): C64.1 - Malignant neoplasm of right kidney, except renal pelvis (3) T2DM (type 2 diabetes mellitus) Code(s): E11.9 - TYPE 2 DIABETES MELLITUS WITHOUT COMPLICATIONS (4) Atrial flutter Code(s): I48.92 - UNSPECIFIED ATRIAL FLUTTER Qualifiers: Atrial flutter type: atypical Qualified Code(s): I48.4 - Atypical atrial flutter (5) HTN (hypertension) Code(s): I10 - ESSENTIAL (PRIMARY) HYPERTENSION Qualifiers: Hypertension type: essential hypertension Qualified Code(s): I10 - Essential (primary) hypertension (6) Hyperbilirubinemia Code(s): E80.6 - OTHER DISORDERS OF BILIRUBIN METABOLISM (7) S/p nephrectomy Code(s): Z90.5 - ACQUIRED ABSENCE OF KIDNEY (8) Spinal cord compression Code(s): G95.20 - UNSPECIFIED CORD COMPRESSION lactic acidosis liver nodule plan stable off of abx continue current mgmt monitor rest as per primary team
[2017-07-08] MEDS: RIVAROXABAN 20 MG TABLET PO SCH (17:13)
[2017-07-09] MEDS ORDERED: PT OWN MED DRAWER 7, Y5N ONE ×4 (05:24→11:51)
[2017-07-09] MEDS: DOCUSATE SODIUM 100 MG CAPSULE (FP) PO SCH ×2 (05:26→12:59)
[2017-07-09] MEDS: DEXAMETHASONE 0.5 MG TABLET PO SCH ×2 (05:38→12:59)
[2017-07-09] MEDS: VOTRIENT 200 MG PO SCH (06:16)
[2017-07-09 08:26] LABS: HEMATOCRIT 36.1 % (35.4-49); HEMOGLOBIN 12.4 GM/dL (11.7-16.9); MCH 33.3 pg (25.7-33.7); MCHC 34.3 g/dl (32.0-35.9); MEAN CELL VOLUME 97.1 fl (80-96); MEAN PLT VOLUME 8.3 fl (7.5-11.1); PLATELET COUNT 104 K/MM3 (134-434); RBC 3.72 M/mm3 (4.00-5.60); WHITE BLOOD COUNT 7.8 K/mm3 (4.0-10.0)
[2017-07-09 08:41] LABS: CHLORIDE 99 mmol/L (98-107); POTASSIUM 3.2 mmol/L (3.5-5.1); SODIUM 140 mmol/L (136-145)
[2017-07-09 09:04] LABS: ALBUMIN 2.7 g/dl (3.4-5.0); ALK PHOS 111 U/L (45-117); ANION GAP 11 (8-16); BILIRUBIN,TOTAL 2.1 mg/dL (0.2-1.0); BLOOD UREA NITROGEN 28 mg/dL (7-18); CO2 30 mmol/L (21-32); CREATININE 0.9 mg/dL (0.7-1.3); GLUCOSE,RANDOM 115 mg/dL (74-106); MAGNESIUM 2.1 mg/dL (1.8-2.4); PHOSPHOROUS 3.1 mg/dL (2.5-4.9); SGOT/AST 37 U/L (15-37); SGPT/ALT 47 U/L (12-78); TOT PROT 5.2 g/dl (6.4-8.2)
--- NOTE | 2017-07-09 09:31 | PN ---
Progress Note (short form) - Note Progress Note: Neurology History of Present Illness 77-year-old male presented to the emergency room for evaluation of increasing fatigue, weakness, shortness of breath, and mild nausea for the past few weeks after beginning his chemotherapy regimen for spinal cancer. 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 He had been admitted 05/29- for worsening lower extremity weakness secondary to spinal cord compression. Decision was made not to pursue surgery, was put on dexamethasone, and tried pazopanib. Patient presented to the ED with progressive SOB, weakness , fatigue, and poor appetite since starting pazopanib. I was consulted regarding his ongoing weakness which seems to have deteroriated. EMG completed and did not show evidence of myopathy. Patient being considered for short term rehab and seems medication will be able to be brought to facility by family. Remains stable neurologically. Possibly for discharge today. 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 Patient eager to leave. Active Medications Dexamethasone (Decadron -) 0.5 mg PO TID [facility] Last Admin: 07/09/17 05:38 Dose: 0.5 mg Docusate Sodium (Colace -) 100 mg PO TID [facility] Last Admin: 07/09/17 05:26 Dose: Not Given Furosemide (Lasix -) 40 mg PO DAILY [facility] Last Admin: 07/08/17 10:40 Dose: 40 mg Metoprolol Succinate (Toprol Xl -) 25 mg PO DAILY [facility] Last Admin: 07/08/17 10:40 Dose: Not Given Votrient 200mg Tab 3 each PO DAILY@0700 [facility] Last Admin: 07/09/17 06:16 Dose: 3 each Polyethylene Glycol (Miralax (For Daily Use) -) 17 gm PO BID [facility] Last Admin: 07/08/17 21:02 Dose: Not Given Potassium Chloride (K-Dur -) 20 meq PO DAILY [facility] Rivaroxaban (Xarelto -) 20 mg PO DAILY@1800 [facility] Last Admin: 07/08/17 17:13 Dose: 20 mg *Physical Exam Vital Signs Temperature 97.2 F L 07/09/17 06:00 Pulse Rate 83 07/09/17 06:00 Respiratory Rate 18 07/09/17 06:00 Blood Pressure 121/78 07/09/17 06:00 O2 Sat by Pulse Oximetry (%) 99 07/08/17 21:00 - Physical Exam General Appearance: Yes: Nourished, Appropriately Dressed. No: Apparent Distress HEENT: positive: EOMI, FREDA. negative: Pale Conjunctivae Neck: positive: Supple Respiratory/Chest: positive: Lungs Clear, Normal Breath Sounds. negative: Respiratory Distress, Accessory Muscle Use Cardiovascular: positive: Regular Rate (a flutter 82). negative: Murmur Gastrointestinal/Abdominal: positive: Normal Bowel Sounds, Soft, Distended ( slight). negative: Tenderness, Mass Extremity: positive: Normal Capillary Refill, Pedal Edema Integumentary: positive: Dry, Warm, Pale Neurologic: Awake and alert, interative, mental status intact, sensory intact, gait not able to ambulate CBCD WBC 7.8 K/mm3 (4.0-10.0) 07/09/17 06:05 RBC 3.72 M/mm3 (4.00-5.60) L 07/09/17 06:05 Hgb 12.4 GM/dL (11.7-16.9) 07/09/17 06:05 Hct 36.1 % (35.4-49) 07/09/17 06:05 MCV 97.1 fl (80-96) H 07/09/17 06:05 MCHC 34.3 g/dl (32.0-35.9) 07/09/17 06:05 RDW 24.0 % (11.9-15.9) H 07/09/17 06:05 Plt Count 104 K/MM3 (134-434) L 07/09/17 06:05 MPV 8.3 fl (7.5-11.1) 07/09/17 06:05 CMP Sodium 140 mmol/L (136-145) 07/09/17 06:05 Potassium 3.2 mmol/L (3.5-5.1) L 07/09/17 06:05 Chloride 99 mmol/L (98-107) 07/09/17 06:05 Carbon Dioxide 30 mmol/L (21-32) 07/09/17 06:05 Anion Gap 11 (8-16) 07/09/17 06:05 BUN 28 mg/dL (7-18) H 07/09/17 06:05 Creatinine 0.9 mg/dL (0.7-1.3) 07/09/17 06:05 Creat Clearance w eGFR > 60 (>60) 07/09/17 06:05 Calcium 8.0 mg/dL (8.5-10.1) L 07/09/17 06:05 Total Bilirubin 2.1 mg/dL (0.2-1.0) H 07/09/17 06:05 AST 37 U/L (15-37) D 07/09/17 06:05 ALT 47 U/L (12-78) 07/09/17 06:05 Alkaline Phosphatase 111 U/L (45-117) 07/09/17 06:05 Total Protein 5.2 g/dl (6.4-8.2) L 07/09/17 06:05 Albumin 2.7 g/dl (3.4-5.0) L 07/09/17 06:05 - RADIOLOGY Echo reviewed EMG reviewed Medical Decision Making 77-year-old male presents to the emergency room for evaluation of increasing fatigue, weakness, shortness of breath, and mild nausea for the past few weeks after beginning his chemotherapy regimen for spinal cancer. 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 He had been admitted 05/29- for worsening lower extremity weakness secondary to spinal cord compression. Decision was made not to pursue surgery, was put on dexamethasone, and tried pazopanib. Patient presented to the ED with progressive SOB, weakness , fatigue, and poor appetite since starting pazopanib. Decadron decreased to 0.5mg TID, can be discontinued at discharge Would like to avoid penitentiary side effects of decadron, has improved slightly with medication and therapy EMG Did not demonstrate myopathy On AC Xarelto, strict fall precautions Likely for rehab placement, family to bring in chemo meds CT abdomen completed, onc note reviewed Fall precautions No further rec'd at this time For discharge today
[2017-07-09] MEDS: FUROSEMIDE 40 MG TABLET (FP) PO SCH (09:58)
[2017-07-09] MEDS: METOPROLOL SUCCINATE 25 MG TAB.SR.24H (FP) PO SCH (09:58)
[2017-07-09] MEDS: POLYETHYLENE GLYCOL 3350 119 GM BTL PO SCH (09:59)
[2017-07-09] MEDS ORDERED: POTASSIUM CHLORIDE TABS 20 MEQ TABLET.ER (FP) PO SCH (11:00)
--- NOTE | 2017-07-09 11:25 | PN ---
Progress Note (short form) - Note Progress Note: pt seen and examined. events noted feels down today, due to family reasons Last Vital Signs Temp Pulse Resp BP Pulse Ox 98.0 F 79 18 124/62 99 07/09/17 10:00 07/09/17 10:00 07/09/17 10:00 07/09/17 10:00 07/09/17 10:00 CBC, BMP 07/09/17 06:05 07/09/17 06:05 Current Medications Generic Name Dose Route Start Last Admin Trade Name Yari PRN Reason Stop Dose Admin Dexamethasone 0.5 mg 07/05/17 09:57 07/09/17 05:38 Decadron - PO 0.5 mg TID SUSAN Administration Docusate Sodium 100 mg 06/20/17 22:00 07/09/17 05:26 Colace - PO Not Given TID SUSAN Furosemide 40 mg 07/01/17 10:00 07/09/17 09:58 Lasix - PO 40 mg DAILY SUSAN Administration Metoprolol Succinate 25 mg 06/21/17 10:00 07/09/17 09:58 Toprol Xl - PO 25 mg DAILY SUSAN Administration Votrient 200mg Tab 3 each 06/26/17 07:00 07/09/17 06:16 PO 3 each DAILY@0700 SUSAN Administration Polyethylene Glycol 17 gm 06/20/17 22:00 07/09/17 09:59 Miralax (For Daily Use) - PO Not Given BID SUSAN Potassium Chloride 20 meq 07/09/17 11:00 07/09/17 11:24 K-Dur - PO 20 meq DAILY SUSAN Administration Rivaroxaban 20 mg 06/20/17 18:00 07/08/17 17:13 Xarelto - PO 20 mg DAILY@1800 SUSAN Administration O/E: General:NAD, appears fatigued today HEENT :NCAT Cardiac: RRR Lungs: CTA b/l Neuro: AAOx3 LE: +mild swelling A/P: Metastatic RCC- on Votrient Cord compression-s/p RT- on decadron 1.5mg per day ( tapered by Neuro). UTI/sepsis-- s/p completion of augmentin Thrombocytopenia- improving: secondary to sepsis / votrient Abnormal LFT's- improved will c.w votrient CT scan _liver mets present. (04/2017, 06/2017 earlier and this week) d/w rads Lab monitoring CBC/BMP/LFTs in the [facility] ( early next week ). will need OP f/u with us. if POD/Intolerable, will need to go with the second line of treatment. d/w Pt.
--- NOTE | 2017-07-09 11:31 | DS ---
Physical Examination Vital Signs: Vital Signs Temperature 36.2 C L 07/09/17 06:00 Pulse Rate 83 07/09/17 06:00 Respiratory Rate 18 07/09/17 06:00 Blood Pressure 121/78 07/09/17 06:00 O2 Sat by Pulse Oximetry (%) 99 07/08/17 21:00 Constitutional: Yes: No Distress, Calm, Obese Cardiovascular: Yes: Pulse Irregular. No: Tachycardia, Gallop, Murmur, Rub Respiratory: Yes: Regular, CTA Bilaterally. No: Rales, Rhonchi, Wheezes Gastrointestinal: Yes: Normal Bowel Sounds, Soft. No: Distention, Tenderness Extremities: Yes: WNL Edema: No Labs: CBC, BMP 07/09/17 06:05 07/09/17 06:05 Discharge Summary Reason For Visit: SEVERE SEPSIS Current Active Problems MONAE (acute kidney injury) (Acute) Afib (Acute) Colitis (Acute) Dyspnea (Acute) Lactic acidosis (Acute) Respiratory distress (Acute) Severe sepsis (Acute) Thrombocytopenia (Acute) UTI (urinary tract infection) (Acute) Hospital Course: 1) Colitis Code(s): K52.9 - NONINFECTIVE GASTROENTERITIS AND COLITIS, UNSPECIFIED (2) UTI (urinary tract infection) Code(s): N39.0 - URINARY TRACT INFECTION, SITE NOT SPECIFIED Qualifiers: Urinary tract infection type: acute cystitis Hematuria presence: without hematuria Qualified Code(s): N30.00 - Acute cystitis without hematuria (3) Severe sepsis Code(s): A41.9 - SEPSIS, UNSPECIFIED ORGANISM; R65.20 - SEVERE SEPSIS WITHOUT SEPTIC SHOCK (4) MONAE (acute kidney injury) Code(s): N17.9 - ACUTE KIDNEY FAILURE, UNSPECIFIED (5) Afib Code(s): I48.91 - UNSPECIFIED ATRIAL FIBRILLATION Qualifiers: Atrial fibrillation type: paroxysmal Qualified Code(s): I48.0 - Paroxysmal atrial fibrillation (6) Renal cell carcinoma Code(s): C64.9 - MALIGNANT NEOPLASM OF UNSP KIDNEY, EXCEPT RENAL PELVIS Qualifiers: Laterality: right Qualified Code(s): C64.1 - Malignant neoplasm of right kidney, except renal pelvis (7) T2DM (type 2 diabetes mellitus) Code(s): E11.9 - TYPE 2 DIABETES MELLITUS WITHOUT COMPLICATIONS (8) HTN (hypertension) Code(s): I10 - ESSENTIAL (PRIMARY) HYPERTENSION Qualifiers: Hypertension type: essential hypertension Qualified Code(s): I10 - Essential (primary) hypertension (9) Obesity Code(s): E66.9 - OBESITY, UNSPECIFIED Qualifiers: Obesity classification: adult class 3 (BMI >= 40) (10) Spinal cord compression Code(s): G95.20 - UNSPECIFIED CORD COMPRESSION Mr Murcia is a 77 year old male who comes in with severe sepsis secondary to UTI. He was admitted to the hospital and seen by ID. He was treated with broad spectrum antibiotics and he finished a full course. Oncology and neurology were following the patient and he was restarted on votrient and tolerated well. We were waiting for his votrient to be delivered to be taken as an outpatient, while waiting there was concern for colitis with sepsis. He received a dose of antibiotics and improved, he was monitored off of antibiotics and was stable. He is currently safe for discharge to SNF today. 35 minutes spent in preparation of this discharge Condition: Stable - Instructions Diet, Activity, Other Instructions: Sodium controlled diet. Up with assistance, further activity per PT at SNF. Please check cbc, bmp, lfts, mg, phos on 07/12 or 07/13 and fax results to Dr Maldonado. Patient to bring Votrient from home, 3 tablets 1 hour prior to breakfast. Referrals: Jose Francisco Nicole MD [Primary Care Provider] - Yanet Maldonado MD [Staff Physician] - Lavelle Ash MD [Staff Physician] - Disposition: [facility] - Home Medications Comprehensive Discharge Medication List: Ambulatory Orders Cholecalciferol (Vitamin D3) [Vitamin D3 -] 1,000 unit PO DAILY 07/03/16 Multivitamin with Minerals [Icaps Plus] 1 each PO DAILY 07/03/16 Rivaroxaban [Xarelto -] 20 mg PO HS #0 07/06/16 Pantoprazole Sodium 40 mg PO DAILY #90 tablet. 03/10/17 Oxycodone HCl 1 tab PO PRN PRN 04/08/17 Acetaminophen [Tylenol .Regular Strength -] 650 mg PO Q4H PRN #0 tablet Docusate Sodium [Colace -] 100 mg PO TID #100 cap 04/18/17 Polyethylene Glycol 3350 [Miralax 119 gm Btl -] 17 gm PO BID bottle 04/18/17 Metoprolol Succinate [Toprol XL -] 25 mg PO DAILY #30 tab.sr.24h 06/08/17 Dexamethasone [Decadron -] 0.5 mg PO TID tablet 07/09/17 Furosemide [Lasix -] 40 mg PO DAILY tablet 07/09/17 Potassium Chloride [K-Dur -] 20 meq PO DAILY tablet.er 07/09/17
[2017-07-09 11:33] VITALS: BP 124/62; PULSE 79; TEMP 98
[2017-07-09 13:28] LABS: ANISOCYTOSIS 2+; MACROCYTOSIS 1+; PLATELET ESTIMATE DECREASED
--- NOTE | 2017-07-09 14:59 | PN ---
Progress Note, Physician History of Present Illness: no issues stable - Objective Vital Signs: Vital Signs Temperature 98.0 F 07/09/17 10:00 Pulse Rate 79 07/09/17 10:00 Respiratory Rate 18 07/09/17 10:00 Blood Pressure 124/62 07/09/17 10:00 O2 Sat by Pulse Oximetry (%) 99 07/09/17 10:00 Constitutional: Yes: No Distress, Calm Cardiovascular: Yes: Regular Rate and Rhythm Respiratory: Yes: Regular, CTA Bilaterally Gastrointestinal: Yes: Normal Bowel Sounds, Soft Musculoskeletal: Yes: WNL Extremities: Yes: WNL Labs: CBC, BMP 07/09/17 06:05 07/09/17 06:05 INR, PTT INR 1.30 (0.82-1.09) H D 06/30/17 06:50 Fibrinogen 239.0 mg/dL (238-498) 06/23/17 07:55 Assessment/Plan Problem List - Problems (1) Severe sepsis Code(s): A41.9 - SEPSIS, UNSPECIFIED ORGANISM; R65.20 - SEVERE SEPSIS WITHOUT SEPTIC SHOCK (2) Renal cell carcinoma Code(s): C64.9 - MALIGNANT NEOPLASM OF UNSP KIDNEY, EXCEPT RENAL PELVIS Qualifiers: Laterality: right Qualified Code(s): C64.1 - Malignant neoplasm of right kidney, except renal pelvis (3) T2DM (type 2 diabetes mellitus) Code(s): E11.9 - TYPE 2 DIABETES MELLITUS WITHOUT COMPLICATIONS (4) Atrial flutter Code(s): I48.92 - UNSPECIFIED ATRIAL FLUTTER Qualifiers: Atrial flutter type: atypical Qualified Code(s): I48.4 - Atypical atrial flutter (5) HTN (hypertension) Code(s): I10 - ESSENTIAL (PRIMARY) HYPERTENSION Qualifiers: Hypertension type: essential hypertension Qualified Code(s): I10 - Essential (primary) hypertension (6) Hyperbilirubinemia Code(s): E80.6 - OTHER DISORDERS OF BILIRUBIN METABOLISM (7) S/p nephrectomy Code(s): Z90.5 - ACQUIRED ABSENCE OF KIDNEY (8) Spinal cord compression Code(s): G95.20 - UNSPECIFIED CORD COMPRESSION lactic acidosis liver nodule plan stable off of abx continue current mgmt
== END 2017-07-09 14:54 | DRG 872 ==
LOC: JER 11:09 → UNDOADMIN 17:13 → JERBED 17:13 → J4S 06-20 14:28
PROVIDERS: ADMIT Internal Medicine; ATTEND Internal Medicine
DX: A41.9 Sepsis, unspecified organism (principal); N39.0 Urinary tract infection, site not specified; E87.2 Acidosis; N17.9 Acute kidney failure, unspecified; I48.92 Unspecified atrial flutter; C79.51 Secondary malignant neoplasm of bone; G95.29 Other cord compression; D68.8 Other specified coagulation defects; R65.20 Severe sepsis without septic shock; I48.0 Paroxysmal atrial fibrillation; D69.6 Thrombocytopenia, unspecified; K52.9 Noninfective gastroenteritis and colitis, unspecified; Z79.01 Long term (current) use of anticoagulants; Z79.84 Long term (current) use of oral hypoglycemic drugs; R06.03 Acute respiratory distress; Z68.34 Body mass index [BMI] 34.0-34.9, adult; E66.9 Obesity, unspecified; D69.59 Other secondary thrombocytopenia; R74.0 Nonspecific elevation of levels of transaminase and lactic acid dehydrogenase [LDH]; G62.9 Polyneuropathy, unspecified; R91.1 Solitary pulmonary nodule; E11.9 Type 2 diabetes mellitus without complications; K57.30 Diverticulosis of large intestine without perforation or abscess without bleeding; E78.5 Hyperlipidemia, unspecified; I10 Essential (primary) hypertension; Z85.828 Personal history of other malignant neoplasm of skin; Z85.528 Personal history of other malignant neoplasm of kidney; Z87.891 Personal history of nicotine dependence; Z90.5 Acquired absence of kidney; K80.80 Other cholelithiasis without obstruction; E87.6 Hypokalemia; Z66 Do not resuscitate
CPT/HCPCS: 36415; 36600; 71045-TC; 71250-TC; 74176-TC; 76700-TC; 76705-TC; 80048; 80053; 80076; 81003; 82247; 82248; 82375; 82436; 82550; 82570; 82803; 83050; 83605; 83690; 83735; 84100; 84133; 84300; 84450; 84460; 84484; 85025; 85384; 85610; 85730; 86850; 86900; 86901; 87040; 87086; 87186; 87324; 87449; 87804; 93005; 93010; 93306-TC; 93970-TC; 95860-TC; 97116-GP; 97161-GP; 99285-25; J8540